=== PATIENT | female | born 1985 | race Caucasian/White ===

== ENCOUNTER → 2017-07-22 10:43 | Outpatient (CLI) | payer OTHER, SELFPAY ==
[2017-07-22 12:20] LABS: Add Manual Diff / Slide Review NO; Basophils Percent Auto 0.8 % (0-2); Eosinophils Percent Auto 0.7 % (2-4); Hematocrit 38.6 % (36-46); Hemoglobin 13.2 g/dL (12.0-16.0); Lymphocytes Percent Auto 24.4 % (25-40); Mean Corpuscular HGB Conc 34.1 % (30-36); Mean Corpuscular Hemoglobin 31.7 PG (26-34); Monocytes Percent Auto 6.9 % (3-14); Neutrophils Absolute Auto 5100 /uL (3000-5900); Neutrophils Percent Auto 67.2 % (50-75); Platelet Count 252 X10^3/uL (150-400); Red Blood Cell Count 4.15 X10^6/uL (4.0-5.2); Red Cell Distribution Width 13.2 % (11.6-14.8); White Blood Cell Count 7.5 X10^3/uL (4.5-11.0)
[2017-07-22 13:21] LABS: TSH w/ Reflex to FT4 0.33 uIU/mL (0.47-4.68)
[2017-07-22 13:48] LABS: Free T4, Direct Thyroxine 0.99 ng/dL (0.78-2.19)
== END ==
PROVIDERS: PCP Family Medicine; Visit Provider Family Medicine
DX: R53.82 Chronic fatigue, unspecified (principal)
CPT/HCPCS: 36415; 84439; 84443; 85025

== ENCOUNTER → 2019-11-24 11:30 | Outpatient (CLI) | payer OTHER, SELFPAY ==
[2019-11-24 12:24] LABS: HCG Quantitative /Beta subunit 6.9 mIU/mL
== END ==
PROVIDERS: PCP Family Medicine; Referring Provider Family Medicine; Visit Provider Family Medicine
DX: N92.6 Irregular menstruation, unspecified (principal)
CPT/HCPCS: 36415; 84702

== ENCOUNTER → 2019-11-26 12:58 | Outpatient (CLI) | payer OTHER, SELFPAY ==
[2019-11-26 14:25] LABS: HCG Quantitative /Beta subunit < 2.4 mIU/mL
== END ==
PROVIDERS: PCP Family Medicine; Referring Provider Family Medicine; Visit Provider Family Medicine
DX: N92.6 Irregular menstruation, unspecified (principal)
CPT/HCPCS: 36415; 84702

== ENCOUNTER → 2019-12-25 09:57 | Outpatient (CLI) | payer OTHER, SELFPAY ==
[2019-12-25 11:21] LABS: HCG Quantitative /Beta subunit 94 mIU/mL
== END ==
PROVIDERS: PCP Family Medicine; Referring Provider Family Medicine; Visit Provider Family Medicine
DX: N91.2 Amenorrhea, unspecified (principal)
CPT/HCPCS: 36415; 84702

== ENCOUNTER → 2019-12-27 13:15 | Outpatient (CLI) | payer OTHER, SELFPAY | PROVIDERS: PCP Family Medicine; Referring Provider Family Medicine; Visit Provider Family Medicine | DX: N91.2 Amenorrhea, unspecified (principal) | CPT/HCPCS: 36415; 84702 ==

== ENCOUNTER → 2020-01-25 14:12 | Outpatient (CLI) | payer OTHER, SELFPAY ==
[2020-01-25 14:55] LABS: Add Manual Diff / Slide Review NO; Appearance Urine UA CLEAR; Basophils Absolute Auto 100 /uL (0-100); Basophils Percent Auto 0.9 % (0-2); Bilirubin Urine UA NEGATIVE (NEGATIVE); Color Urine UA YELLOW; Eosinophils Absolute Auto 0 /uL (0-450); Eosinophils Percent Auto 0.4 % (2-4); Glucose Urine UA NEGATIVE (Negative); Hematocrit 36.8 % (36-46); Hemoglobin 12.7 g/dL (12.0-16.0); Ketones Urine UA NEGATIVE (NEGATIVE); Leukocyte Esterase Urine UA NEGATIVE (NEGATIVE); Lymphocytes Absolute Auto 1800 /uL (1100-4500); Lymphocytes Percent Auto 19.6 % (25-40); Mean Corpuscular HGB Conc 34.4 % (30-36); Mean Corpuscular Hemoglobin 31.8 PG (26-34); Mean Corpuscular Volume 92.5 fL (80-100); Monocytes Absolute Auto 500 /uL (0-900); Neutrophils Absolute Auto 7000 /uL (1500-7000); Neutrophils Percent Auto 74.1 % (50-75); Nitrite Urine UA NEGATIVE (Negative); Occult Blood Urine UA NEGATIVE (Negative); Platelet Count 275 X10^3/uL (150-400); Protein Urine UA NEGATIVE (Negative); Red Blood Cell Count 3.98 X10^6/uL (4.0-5.2); Red Cell Distribution Width 12.9 % (11.6-14.8); Urobilinogen Urine UA 0.2 E.U./dL (0.2); White Blood Cell Count 9.4 X10^3/uL (4.5-11.0)
[2020-01-25 15:00] LABS: pH Urine UA 5.5 (4.5-8.0)
[2020-01-26 07:00] LABS: RPR Screen Non Reactive (Non Reactive)
[2020-01-26 10:30] LABS: Varicella IgG Antibody 850 index (Immune >165)
[2020-01-31 16:32] LABS: Hepatitis B Surface Antigen NEGATIVE s/c (NEGATIVE); Rubella Antibody IgG 88.9 IU/mL (>15)
[2020-01-31 16:51] LABS: Hep C Virus Ab w/Reflex Quant NEGATIVE s/c (NEGATIVE)
[2020-01-31 16:52] LABS: HIV 1 & 2 Ab/Ag 4th Gen Combo NEGATIVE (NEGATIVE)
== END ==
PROVIDERS: PCP Family Medicine; Referring Provider Family Medicine; Visit Provider Family Medicine
DX: Z34.91 Encounter for supervision of normal pregnancy, unspecified, first trimester (principal)
CPT/HCPCS: 36415; 80055; 81003; 86787; 86803; 86850; 86900; 86901; 87086; 87389

== ENCOUNTER → 2020-04-14 14:51 | Outpatient (CLI) | payer OTHER, SELFPAY ==
--- NOTE | 2020-04-14 14:52 | DI.US.S_ITS ---
PROCEDURE: US OB >= 14 WEEKS FETUS INDICATIONS: ANATOMY OUTSIDE/PRIOR DATING DATA: Last menstrual period (LMP): 11/27/2019. LMP-based estimated date of delivery (KATIE): 09/02/2020. First dating scan (date and location): 04/14/2020. Estimated date of delivery (KATIE) from first dating scan: 09/02/2020. TECHNIQUE: Real-time scanning was performed of the fetus, with image documentation and biometric measurements. Endovaginal scanning: Not indicated COMPARISON: None. FINDINGS: General: A single living intrauterine gestation is present. Presentation: Variable Placenta: Placental position is anterior, without previa. Amniotic fluid index: 19.3 cm, normal range is 5-24 cm. heart rate: 155 beats per minute. Maternal cervical canal: 3.5 cm long. Normal lower limit is 2.5 cm. biometrics: Biparietal diameter: 4.6 cm, 19 weeks, 6 days Head circumference: 16.7 cm, 19 weeks, 3 days Abdominal circumference: 14.7 cm, 20 weeks, 0 day Femur length: 3.2 cm, 20 weeks, 0 day. Estimated gestational age from initial scan: not applicable. Composite gestational age from present scan: 19 weeks, 6 days Estimated weight and percentile: 323 grams, 51 percent. Measurement variability for biometric dating: +/- 7 days from 14 weeks to 15 weeks 6 days gestation, +/- 10 days from 16 weeks to 21 weeks 6 days gestation, +/- 2 weeks from 22 weeks to 27 weeks 6 days gestation, +/- 3 weeks for 28 weeks gestation or later. weight reference: 4500 g or EFW >90/95% is considered macrosomia or large for gestational age. EFW <10% is small for gestational age. EFW 5% or less is considered intra-uterine growth restriction. Anatomic survey: Neuro: Ventricles are non-dilated at less than 10 mm. Cisterna magna and cerebellum are not well seen on this study. Nuchal skin fold: Normal at less than 6 mm between 14-21 weeks gestational age. Face: Not well seen Spine: No evidence for spina bifida. Heart: Four-chamber heart and outflow tracts are not well seen. Diaphragm: Diaphragm is intact. Stomach: Left-sided stomach is present. Kidneys: No hydronephrosis. Normal is less than 5 mm in 2nd trimester, less than 7 mm in 3rd trimester. Cord: 3-vessel cord has orthotopic insertion. Bladder: Normal in size. Extremities: All 4 extremities identified. IMPRESSION: 1. Single live intrauterine with fetus in variable presentation. heart rate is 155 beats per minute. Estimated gestational age is 19 weeks, 6 days. weight is at 51 percentile. 2. Cisterna magna and cerebellum, facial profile, four-chamber heart and outflow tracts are not well seen. Rest of the anatomic survey is within normal limits. Dictated by: Zeeshan Owens M.D. on 04/14/2020 at 16:59 Approved by: Zeeshan Owens M.D. on 04/14/2020 at 17:03
== END ==
PROVIDERS: PCP Family Medicine; Referring Provider Family Medicine; Visit Provider Family Medicine
DX: Z34.92 Encounter for supervision of normal pregnancy, unspecified, second trimester (principal); Z3A.19 19 weeks gestation of pregnancy
CPT/HCPCS: 76811

== ENCOUNTER → 2020-04-19 09:33 | Outpatient (CLI) | payer OTHER, SELFPAY ==
[2020-04-20 06:09] LABS: Hepatitis B Surf Ab Qualitativ Reactive (.)
== END ==
PROVIDERS: PCP Family Medicine; Referring Provider Family Medicine; Visit Provider Family Medicine
DX: Z01.84 Encounter for antibody response examination (principal)
CPT/HCPCS: 36415; 86706

== ENCOUNTER → 2020-05-02 15:36 | Outpatient (CLI) | payer OTHER, SELFPAY ==
--- NOTE | 2020-05-02 15:37 | DI.US.S_ITS ---
PROCEDURE: US OB FOLLOW UP INDICATIONS: FOLLOW UP ANATOMY OUTSIDE/PRIOR DATING DATA: Last menstrual period (LMP): 11/27/2019. LMP-based estimated date of delivery (KATIE): 09/02/2020 . First dating scan (date and location): To 1221 . Estimated date of delivery (KATIE) from first dating scan: 09/02/2020 . TECHNIQUE: Real-time scanning was performed of the fetus, with image documentation and biometric measurements. Endovaginal scanning: No COMPARISON: [facility], OB >= 14 WEEKS FETUS, 04/14/2020, 15:39. FINDINGS: General: A single living intrauterine gestation is present. Presentation: Vertex. Placenta: Placental position is anterior , without previa. Amniotic fluid index: 12.6 cm, normal range is 5-24 cm. heart rate: 135 beats per minute. Maternal cervical canal: 4.3 cm long. Normal lower limit is 2.5 cm. Estimated gestational age from initial scan: 22 weeks 3 days IMPRESSION: 1. Single living IUP redemonstrated and today's exam demonstrating normal appearance of the facial profile, cerebellum, cisterna magna, four-chamber heart and cardiac outflow tracts. Dictated by: Edwin Acuña [facility] Interpreted: Jolynn Soria MD on 05/02/2020 at 16:41 Approved by: Jolynn Soria M.D. on 05/02/2020 at 18:15
== END ==
PROVIDERS: PCP Family Medicine; Referring Provider Family Medicine; Visit Provider Family Medicine
DX: Z36.2 Encounter for other antenatal screening follow-up (principal); Z3A.22 22 weeks gestation of pregnancy
CPT/HCPCS: 76816

== ENCOUNTER → 2020-06-09 12:58 | Outpatient (CLI) | payer OTHER, SELFPAY | PROVIDERS: PCP Family Medicine; Referring Provider Family Medicine; Visit Provider Family Medicine | DX: B82.9 Intestinal parasitism, unspecified (principal) | CPT/HCPCS: 87177 ==

== ENCOUNTER → 2020-06-12 14:28 | Outpatient (CLI) | payer OTHER, SELFPAY ==
[2020-06-12 17:06] LABS: Add Manual Diff / Slide Review NO; Basophils Absolute Auto 100 /uL (0-100); Basophils Percent Auto 0.4 % (0-2); Eosinophils Absolute Auto 0 /uL (0-450); Eosinophils Percent Auto 0.2 % (2-4); Hematocrit 31.1 % (36-46); Hemoglobin 10.7 g/dL (12.0-16.0); Lymphocytes Absolute Auto 1700 /uL (1100-4500); Lymphocytes Percent Auto 13.2 % (25-40); Mean Corpuscular HGB Conc 34.5 % (30-36); Mean Corpuscular Volume 92.9 fL (80-100); Monocytes Absolute Auto 600 /uL (0-900); Monocytes Percent Auto 4.9 % (3-14); Neutrophils Absolute Auto 10200 /uL (1500-7000); Neutrophils Percent Auto 81.3 % (50-75); Platelet Count 232 X10^3/uL (150-400); Red Blood Cell Count 3.35 X10^6/uL (4.0-5.2); White Blood Cell Count 12.6 X10^3/uL (4.5-11.0)
[2020-06-12 20:40] LABS: GTT (PREG) 1 Hour PP 50gm Dose 112 mg/dL (76-139)
== END ==
PROVIDERS: PCP Family Medicine; Referring Provider Family Medicine; Visit Provider Family Medicine
DX: Z34.90 Encounter for supervision of normal pregnancy, unspecified, unspecified trimester (principal)
CPT/HCPCS: 36415; 82950; 85025

== ENCOUNTER → 2020-08-08 16:01 | Outpatient (CLI) | payer OTHER, SELFPAY ==
[2020-08-09 13:29] LABS: Strep Grp B PCR NEG for Grp B Strep
== END ==
PROVIDERS: PCP Family Medicine; Visit Provider Family Medicine
DX: Z34.90 Encounter for supervision of normal pregnancy, unspecified, unspecified trimester (principal); Z3A.36 36 weeks gestation of pregnancy
CPT/HCPCS: 87653

== ENCOUNTER 2020-08-30 13:15 | Inpatient (IN) | payer OTHER, SELFPAY ==
[2020-08-30 14:39] LABS: Add Manual Diff / Slide Review NO; Basophils Absolute Auto 0 /uL (0-100); Basophils Percent Auto 0.3 % (0-2); Eosinophils Absolute Auto 0 /uL (0-450); Eosinophils Percent Auto 0.1 % (2-4); Hematocrit 35.1 % (36-46); Lymphocytes Absolute Auto 1100 /uL (1100-4500); Lymphocytes Percent Auto 6.3 % (25-40); Mean Corpuscular HGB Conc 34.1 % (30-36); Mean Corpuscular Hemoglobin 31.4 PG (26-34); Mean Corpuscular Volume 91.9 fL (80-100); Monocytes Absolute Auto 1000 /uL (0-900); Monocytes Percent Auto 5.6 % (3-14); Neutrophils Absolute Auto 15200 /uL (1500-7000); Neutrophils Percent Auto 87.7 % (50-75); Platelet Count 216 X10^3/uL (150-400); Red Blood Cell Count 3.82 X10^6/uL (4.0-5.2); Red Cell Distribution Width 13.1 % (11.6-14.8); White Blood Cell Count 17.3 X10^3/uL (4.5-11.0)
[2020-08-30 14:40] VITALS: BP 119/75
[2020-08-30 15:37] LABS: COVID19 - ADMIT (NP swab/PCR) Negative (Negative)
--- NOTE | 2020-08-30 20:00 | PM.OBHP.1 ---
OB HPI Date/Time Date of admission: 08/30/20 Date Patient Seen: 08/30/20 Time Patient Seen: 17:30 History of Present Condition Chief complaint: EVAL OF LABOR : 1 Para: 0 Estimated Date of Delivery: 09/02/20 Estimated Gestational Age (weeks): 39w4d Narrative: Sandy Monteiro is a 34 year old at 39w4d who presented with concerned for ROM and regular contractions. Pt reports contractions began around 10pm last night. She was able to sleep through them, but then this morning they increased in intensity and frequency, now every 2-3 minutes. She also has been leaking small amounts of pink-tinged fluid. She lost her mucus plug last night. No jennifer vaginal bleeding. She is feeling her baby move regularly. The pts has been uncomplicated. History of Present care: good care, initiated at week # (8) and pounds weight gain (42) Dating criteria: LMP confirmed by 1st trimester US Ultrasounds: normal 1st trimester US and normal mid trimester US Obstetrical complications: none Medical complications: none Preadmission Labs Blood type: A (+) positive -: Antibody screen: negative, GBS status: negative, HBsAG: negative, HIV: negative and RPR/VDLR: negative -: Rubella: immune and Varicella: immune HCT: 31.1 HCAB: negative PAP: Normal Urine: Negative 1 hr GTT: 112 Evaluation Evaluation Baseline heart rate: 150 Variability: Moderate (11-25) monitor accelerations: Present Monitor Decelerations: Absent Contraction Frequency (minutes): 3 Uterine Contraction Intensity: Strong/Firm Status: Category l Cervical dilation (cm): 10 Cervical effacement (%): 100 station: +1 Laboratory results: Laboratory Tests 08/30/20 08/30/20 08/30/20 14:30 14:30 14:30 WBC 17.3 H RBC 3.82 L Hgb 12.0 Hct 35.1 L MCV 91.9 MCH 31.4 MCHC 34.1 RDW 13.1 Plt Count 216 Neut % (Auto) 87.7 H Lymph % (Auto) 6.3 L [place] % (Auto) 5.6 Eos % (Auto) 0.1 L Baso % (Auto) 0.3 Neut # (Auto) 75950 H Lymph # (Auto) 1100 [place] # (Auto) 1000 H Eos # (Auto) 0 Baso # (Auto) 0 SARS-CoV-2 (PCR) Negative Blood Type A Positive Antibody Screen Negative PFSH Medical History (Updated 01/24/20 @ 15:00 by Chanell Chavarria RN) Acne Arm fracture, left Chicken pox Shingles UTI (urinary tract infection) Surgical History (Updated 01/24/20 @ 14:55 by Chanell Chavarria RN) [place] teeth removed Family History (Updated 01/24/20 @ 15:01 by Chanell Chavarria RN) Mother Cancer Hypertension Heavy smoker Anxiety Father Hyperlipidemia Heart disease Hx of heart bypass surgery Heavy smoker Depression Grandmother Diabetes mellitus Hx of leg amputation Grandfather Cancer Grandmother Creutzfeldt-Aníbal's disease Multiple gallstones Grandfather Myocardial infarct Family/Other Leukemia Pancreatic cancer Brother S/P laparoscopic cholecystectomy Depression Social History marital status: number of children: 0 household members: spouse lives independently: Yes caregiver/support person: No housing: house pets and animals: Yes (dog) education level: college (dental school) 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 sexual history: Monogamous with boyfriend : who is now her Smoking Status: Never smoker second hand exposure: No (grew up in a home with both parents smoking) alcohol intake: former (pre- : social/occasional) substance use type: does not use Meds Home Medications and Allergies Home Medications Medication Instructions Recorded Confirmed Type ascorbic acid 1,000 1 ea PO DAILY 01/24/20 08/31/20 History pp-mhmxzdwqibrs-qiyotjpd powder effervescent pack (Emergen-C) cholecalciferol (vitamin D3) 25 25 mcg PO DAILY 01/24/20 08/31/20 History mcg (1,000 unit) capsule cranberry extract 500 mg capsule 500 mg PO BID 01/24/20 08/31/20 History (Cranberry Concentrate) prenat.vits,balaji,okb-dgou-cmkkp 1 tab PO DAILY 01/24/20 08/30/20 History vitamin C 50 mg-biotin 1,250 mcg 1 tab PO DAILY 01/24/20 08/30/20 History chewable tablet (Disr-Ogiw-Yfyqp (vit C-biotin)) Allergies Allergy/AdvReac Type Severity Reaction Status Date / Time latex AdvReac Intermediate Skin rash Verified 01/24/20 14:15 to hands No Known Allergies Allergy Uncoded 01/24/20 14:15 Exam Vital Signs (past 8 hours): - 08/30/20 14:40 Blood Pressure 119/75 Const General: cooperative, healthy appearing and comfortable Orientation: alert, awake and oriented x3 Resp Effort & Inspection: normal respiratory effort Auscultation: clear to auscultation bilaterally Cardio Rate: regular rate Rhythm: regular rhythm Heart Sounds: S1 normal, S2 normal and no murmurs GI Inspection: non-distended Palpation: soft and No tender Other: gravid Presentation: vertex Extrem General: no clubbing, cyanosis or edema Objective Labs Result Diagrams: 08/30/20 14:30 Labs: Laboratory Results - last 24 hr 08/30/20 08/30/20 08/30/20 14:30 14:30 14:30 WBC 17.3 H RBC 3.82 L Hgb 12.0 Hct 35.1 L MCV 91.9 MCH 31.4 MCHC 34.1 RDW 13.1 Plt Count 216 Neut % (Auto) 87.7 H Lymph % (Auto) 6.3 L [place] % (Auto) 5.6 Eos % (Auto) 0.1 L Baso % (Auto) 0.3 Neut # (Auto) 63499 H Lymph # (Auto) 1100 [place] # (Auto) 1000 H Eos # (Auto) 0 Baso # (Auto) 0 SARS-CoV-2 (PCR) Negative Blood Type A Positive Antibody Screen Negative Assessment and Plan Assessment and Plan Assessment and Plan narrative: 34yo at 39w4d here in active labor. No complications with . GBS negative, Rh positive. - Expectant management, anticipate - FHT reassuring - GBS negative, no prophylaxis indicated - Epidural for pain control in place
--- NOTE | 2020-08-30 20:01 | PM.OBPRVD ---
Labor & Delivery Delivery date: 08/30/20 Intrapartal Events: None Cervical ripening method: none Induction method: none Delivery monitor: external FHT Route of delivery: Episiotomy description: None L&D Laceration Description: Perineal - 1st Degree Delivery repair: chromic (3-O) Estimated blood loss (mL): 100 Anesthesia Type: Epidural Complications: None Narrative: PROCEDURE: at 39w4d presented in active labor with SROM and was admitted to Labor and Delivery. The patient progressed through the 1st stage over 11 hours. Pain was controlled with an epidural. The patient progressed through the 2nd stage over 2 hours and delivered a viable female with APGARs 9/9 at 19:10 via without complications. The cord was clamped and cut after it stopped pulsating. The perineum and vagina were inspected with 1st degree perineal laceration repaired with 3-O chromic for hemostasis. The pt tolerated delivery well. PREPROCEDURE DIAGNOSIS: Intrauterine at 39w4d GBS negative RH positive POSTPROCEDURE DIAGNOSIS: Intrauterine at 39w4d, delivered Same as preprocedure Baby 1: gender: Female Presentation: vertex Position: Left Occiput Anterior Placenta delivery description: Spontaneous Cord Vessel Description: 3 Vessels score (1 min): 9 score (5 min): 9 Narrative: 7lb2.3oz, 3241g Plan for aftercare: Routine care
[2020-08-31] MEDS: DERMOPLAST SPRAY 20% 60 ML 1 SPRAY TOP (01:59)
[2020-08-31] MEDS: ACETAMINOPHEN 325 MG TABLET 650 MG PO (05:41)
--- NOTE | 2020-08-31 19:12 | P.DS_ITS ---
Discharge Providers Provider Date of admission: 08/30/20 13:15 Discharge Date: 08/31/20 Primary care physician: Maria Elena Padilla MD Consults: 08/31/20 19:59 Consult to Skin Pass Operator Routine Comment: Discharge provider: Maria Elena Padilla MD Summary Hospital Course Date Patient Seen: 09/01/20 Time Patient Seen: 09:00 Diagnoses: 39w4d without complications Hospital Course: The patient presents today in active labor. She received an epidural for pain control. She progressed to complete and had spontaneous vaginal delivery of a viable baby girl at 7:10 p.m. on 08/30/2020. there were no complications with delivery. A first-degree perineal laceration was then repaired for hemostasis. The patient tolerated delivery well. , there were no complications. At the time of discharge he was voiding, ambulating, and passing flatus without difficulty. Her lochia was decreasing appropriately. Her pain was adequately controlled. She was breast-feeding with good latch with a nipple shield. She will follow-up in 6 weeks for her check. Peripartum Data Delivery Method: Natural Vaginal Laceration Description: Perineal - 1st Degree Episiotomy description: None Procedures: Spontaneous vaginal delivery complications: none 1: Gender: Female Disposition of : home Discharge Diagnosis (1) Spontaneous vaginal delivery: Status: Acute Time Spent with Patient Time attestation: Total time spent providing and/or coordinating discharge services: Objective Labs Result Diagrams: 08/30/20 14:30 Exam Narrative Exam Narrative: Gen: NAD, sitting comfortably in bed, appears well CV: RRR, no murmurs Resp: clear to auscultation bilaterally Abd: soft, appropriately tender, fundus firm and below the umbilicus, nondistended Ext: no edema Discharge Plan Discharge Plan Patient Disposition: Home Discharge orders & Medications Prescriptions: Continued prenat.vits,balaji,vds-mtbj-iiity Tablet 1 tab PO DAILY RF: 0 cholecalciferol (vitamin D3) 25 mcg (1,000 unit) capsule 25 mcg PO DAILY RF: 0 cranberry extract [Cranberry Concentrate] 500 mg capsule 500 mg PO BID RF: 0 Avej-Zkek-Nalhl (vit C-biotin) 50 mg -1,250 mcg tablet,chewable 1 tab PO DAILY RF: 0 Emergen-C 1,000 mg powder effervescent in packet 1 ea PO DAILY RF: 0 Follow up/Referrals: Maria Elena Padilla MD [Primary Care Provider] - 6 Weeks (please schedule your 6 week appt sanchez elaine/ Dr. Padilla) Diet/Activity/Treatments Diet: Regular Skin/Wound/Dressing Care Report to your healthcare provider any signs of infection, such as:: chills, fever, increased pain and unusual drainage Visit Report/Discharge Packet Instructions: DI for Labor and Delivery, Vaginal Visit Report Forms: Patient Portal/API, Stroke Signs & Symptoms Discharge Data Primary Care Provider: Maria Elena Padilla Discharges patient from system. Discharge Date/Time: 08/31/20 20:10
== END 2020-08-31 20:10 | disposition home or self-care (01) | DRG 807 ==
PROVIDERS: Admitting Provider Specialist; PCP Family Medicine; Referring Provider Specialist; Visit Provider Specialist
DX: O70.0 First degree perineal laceration during delivery (principal); Z37.0 Single live birth; Z3A.39 39 weeks gestation of pregnancy
CPT/HCPCS: 01967; 36415; 59050; 59400; 85025; 86850; 86900; 86901; 87635; C9803; G0379; S3620

== ENCOUNTER → 2020-09-29 14:01 | Outpatient (CLI) | payer OTHER, SELFPAY ==
[2020-09-29 15:19] LABS: Hemoglobin A1C% w Est Avg Glu 5.2 % (4.0-6.0)
[2020-09-29 16:12] LABS: Vitamin B12 550 pg/mL (239-931)
== END ==
PROVIDERS: PCP Family Medicine; Referring Provider Family Medicine; Visit Provider Family Medicine
DX: G62.9 Polyneuropathy, unspecified (principal)
CPT/HCPCS: 36415; 82607; 83036

== ENCOUNTER → 2020-10-03 16:26 | Outpatient (CLI) | payer OTHER, SELFPAY ==
[2020-10-03 16:30] LABS: Bacteria Urine None Seen; RBC Urine None Seen (0-5/HPF); WBC Urine None Seen (0-5/HPF)
[2020-10-03 17:51] LABS: Appearance Urine UA CLEAR; Bilirubin Urine UA NEGATIVE (NEGATIVE); Color Urine UA YELLOW; Glucose Urine UA NEGATIVE (Negative); Ketones Urine UA NEGATIVE (NEGATIVE); Leukocyte Esterase Urine UA NEGATIVE (NEGATIVE); Nitrite Urine UA NEGATIVE (Negative); Occult Blood Urine UA NEGATIVE (Negative); Protein Urine UA NEGATIVE (Negative); Specific Gravity Urine UA <=1.005 (1.000-1.035); Urobilinogen Urine UA 0.2 E.U./dL (0.2)
[2020-10-03 17:52] LABS: pH Urine UA 6.5 (4.5-8.0)
[2020-10-03 18:55] LABS: Culture Indicated Urine Cult Not Indicated
== END ==
PROVIDERS: PCP Family Medicine; Referring Provider Family Medicine; Visit Provider Family Medicine
DX: R30.0 Dysuria (principal)
CPT/HCPCS: 81001

== ENCOUNTER 2020-10-03 18:53 | Emergency (ER) | payer OTHER, SELFPAY ==
[2020-10-03 19:00] VITALS: BP 130/79; PULSE 65; RESP 22; TEMP 36.9; O2SAT 98
--- NOTE | 2020-10-03 21:40 | ED_ITS ---
HPI - General Adult General Chief complaint: Urogenital-Female Stated complaint: pelvic pain s/p giving 5 weeks ago Time Seen by Provider: 10/03/20 20:50 Source: patient Mode of arrival: Ambulatory History of Present Illness HPI narrative: Patient is a 34-year-old female who is 5 weeks status post spontaneous vaginal delivery. Approximately 2 weeks ago she was having some bulging in her vaginal area and was seen by her mobile home park manager. She was told that she had a small bladder prolapse. There was discussion about sending her to physical therapy for pelvic floor exercises but that has not happened yet. She states that over the past couple days she has now noticed some discomfort in the area. Denies any urinary symptoms. No bowel changes. She states she had 1 stitch placed in the vagina after the . No fevers. She is . Related Data Home Medications Medication Instructions Recorded Confirmed ascorbic acid 1,000 1 ea PO DAILY 01/24/20 09/21/20 ud-regzlrxpyqjq-tjqmvfmm powder effervescent pack (Emergen-C) cholecalciferol (vitamin D3) 25 25 mcg PO DAILY 01/24/20 09/21/20 mcg (1,000 unit) capsule cranberry extract 500 mg capsule 500 mg PO BID 01/24/20 09/21/20 (Cranberry Concentrate) prenat.vits,balaji,aka-qqts-fmrlk 1 tab PO DAILY 01/24/20 09/21/20 vitamin C 50 mg-biotin 1,250 mcg 1 tab PO DAILY 01/24/20 09/21/20 chewable tablet (Apxv-Bynj-Rotun (vit C-biotin)) Allergies Allergy/AdvReac Type Severity Reaction Status Date / Time latex AdvReac Intermediate Skin rash Verified 09/29/20 12:34 to hands No Known Allergies Allergy Uncoded 09/29/20 12:34 Review of Systems Constitutional Constitutional: Reports as per HPI Cardiovascular Cardiovascular: Reports system reviewed and no additional complaints, except as documented Respiratory Respiratory: Reports system reviewed and no additional complaints, except as documented Gastrointestinal Gastrointestinal: Reports system reviewed and no additional complaints, except as documented Genitourinary Genitourinary: Reports as per HPI Integumentary/Breasts Skin/Breast: Reports system reviewed and no additional complaints, except as documented Neurologic Neurologic: Reports system reviewed and no additional complaints, except as documented Psychiatric Comments: Reports crying a lot Hematologic/Lymphatic On Anticoagulants: No Patient History Medical History Acne Arm fracture, left Chicken pox Shingles Spontaneous vaginal delivery UTI (urinary tract infection) Surgical History (Updated 01/24/20 @ 14:55 by Chanell Chavarria RN) [place] teeth removed Family History (Updated 01/24/20 @ 15:01 by Chanell Chavarria RN) Mother Cancer Hypertension Heavy smoker Anxiety Father Hyperlipidemia Heart disease Hx of heart bypass surgery Heavy smoker Depression Grandmother Diabetes mellitus Hx of leg amputation Grandfather Cancer Grandmother Creutzfeldt-Aníbal's disease Multiple gallstones Grandfather Myocardial infarct Family/Other Leukemia Pancreatic cancer Brother S/P laparoscopic cholecystectomy Depression Social History marital status: number of children: 0 household members: spouse lives independently: Yes caregiver/support person: No housing: house pets and animals: Yes (dog) education level: college (dental school) 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 sexual history: Monogamous with boyfriend : who is now her Smoking Status: Never smoker second hand exposure: No (grew up in a home with both parents smoking) alcohol intake: former (pre- : social/occasional) substance use type: does not use Smoking Status: Never smoker Exam Initial Vital Signs Initial Vital Signs: Vital Signs Temperature 98.4 F 10/03/20 19:00 Pulse Rate 65 10/03/20 19:00 Respiratory Rate 22 10/03/20 19:00 Blood Pressure 130/79 10/03/20 19:00 Pulse Oximetry 98 10/03/20 19:00 Const General: cooperative and comfortable HENMT Head: normal to inspection and normocephalic Resp Effort & Inspection: normal respiratory effort Cardio Rate: regular rate GI Inspection: normal to inspection Other: Vaginal area appears well. There was no bleeding. There is a small bladder prolapse that can be easily filled with having the patient bear down. This exam was done with the patient's permission and nursing staff in room. Skin General: no rashes or lesions noted Neuro General: patient alert, patient awake and patient oriented x3 Extrem General: normal to inspection Psych Mental Status: mental status grossly normal and other (Sad) Mood: other (Sad) Affect: sad Course Orders Ordered: Discontinued Medications Hydrocodone Bitart/Acetaminophen (Hydrocodone/Acet 5/325 Prepack) 1 bottle MISC SEEINSTR ONE Stop: 10/03/20 22:00 Last Admin: 10/03/20 22:06 Dose: 1 bottle Documented by: JASON Vital Signs Vital signs: Vital Signs - 8 hr 10/03/20 19:00 Temperature 98.4 F Pulse Rate 65 Respiratory Rate 22 Blood Pressure 130/79 Pulse Oximetry 98 Medical Decision Making MDM Narrative Medical decision making narrative: Patient does have a small bladder prolapse however the rest of her exam is relatively unremarkable. Her postvoid residual is unremarkable. She is not having any urinary symptoms. She does have a very flat affect. Was crying in the room. I do have a suspicion that there may be some depression along with the other issues that she is having. Her child has some medical issues. Has a large hemangioma that needs to be seen by specialist. The patient states she is not getting much sleep at night. With regard to her pelvic pain. There is no indication for antibiotics. No indication for radiologic studies. She has a follow-up with her primary doctor already scheduled next week for her 6 week . She is already in the works to be seen by physical therapy to work on pelvic floor exercises. I feel that this is an appropriate course of treatment for her pelvic pain. We did discuss use of Tylenol and ibuprofen. Will also send home with a short course of [place] because the discomfort that she is having is affecting her and her ability to breastfeed. We did discuss that this will cross over into her breast milk and we discussed the risks and benefits of this and potential complications with her child. She expressed understanding. [place] to potential depression. Informed her that she needed to discuss this with her primary doctor next week. She was given return precautions and follow-up instructions. She expressed understanding and agreement. Discharge Plan Departure Patient Disposition: Home Clinical Impression: Bladder prolapse, Pelvic pain Instructions: DI for Pelvic Pain Activity Restrictions/Additional Instructions: I do recommend that you keep your appointment with your primary doctor next Friday. You can add a nonsteroidal anti-inflammatories such as Motrin/Naprosyn to the Tylenol your already taking. For the breakthrough discomfort you can take the medicine you were given this evening however remember that this medication is excreted through the breast milk and can make your baby more sleepy. Return to the emergency department for any new or worsening symptoms Prescriptions: No Action prenat.vits,balaji,dtq-dydb-dlzxf Tablet 1 tab PO DAILY RF: 0 cholecalciferol (vitamin D3) 25 mcg (1,000 unit) capsule 25 mcg PO DAILY RF: 0 cranberry extract [Cranberry Concentrate] 500 mg capsule 500 mg PO BID RF: 0 Txfs-Puew-Opeib (vit C-biotin) 50 mg -1,250 mcg tablet,chewable 1 tab PO DAILY RF: 0 Emergen-C 1,000 mg powder effervescent in packet 1 ea PO DAILY RF: 0 Referrals: Maria Elena Padilla MD [Primary Care Provider] -
[2020-10-03] MEDS: HYDROCODONE/ACET 5/325 PREPACK 1 BOTTLE MISC (22:06)
== END 2020-10-03 22:16 | disposition home or self-care (01) ==
PROVIDERS: Emergency Provider Emergency Medicine; PCP Family Medicine
DX: N81.10 Cystocele, unspecified (principal); R10.2 Pelvic and perineal pain
CPT/HCPCS: 81001; 99281; 99283

== ENCOUNTER → 2020-12-26 16:46 | Outpatient (CLI) | payer OTHER, SELFPAY ==
[2020-12-26 18:48] LABS: TSH w/ Reflex to FT4 1.43 uIU/mL (0.47-4.68)
== END ==
PROVIDERS: PCP Family Medicine; Referring Provider Family Medicine; Visit Provider Family Medicine
DX: R79.89 Other specified abnormal findings of blood chemistry (principal)
CPT/HCPCS: 36415; 84443

== ENCOUNTER → 2021-01-04 08:11 | Outpatient (CLI) | payer OTHER, SELFPAY ==
--- NOTE | 2021-02-15 16:59 | PT.OIE ---
Current Diagnoses Other disturbances of skin sensation (01/04/21) Past Medical History (Last Reviewed 01/06/21 @ 15:15 by Jose Dumont MD) Acne Arm fracture, left Chicken pox Shingles Spontaneous vaginal delivery UTI (urinary tract infection) Past Surgical History (Last Reviewed 01/06/21 @ 15:15 by Jose Dumont MD) [place] teeth removed Visit Care Team Role Provider Type Maria Elena Padilla MD Attending Provider Physician Family Provider Primary Care Provider Referring Provider Specialty: Family Practice Address: [address] [place] [address], [facility] Email: [email or web address] Physical Therapy Initial Evaluation PT-OP-A Visit Information Start: 02/15/21 15:15 Freq: Status: Active Protocol: Document 02/15/21 15:16 [facility] (Rec: 02/15/21 15:45 [facility] [id number]) Out-Patient Physical Therapy Visit Information Visit Information Visit Type Initial Evaluation Visit Start Time 15:15 Visit Stop Time 16:00 Total Visit Minutes 45 Visit Number 1 Evaluation Information Evaluation Date 02/15/21 PT-OP-B Current Condition Start: 02/15/21 15:15 Freq: Status: Active Protocol: Document 02/15/21 15:16 [facility] (Rec: 02/15/21 15:45 [facility] [id number]) Current Condition History of Current Condition Onset Date 08/30/20 Current Complaints vaginal delivery of her baby History of Current Condition vaginal delivery of her baby , her leg has been numb since mostly her heel and when she was giving her baby was more on the right side. Two weeks following her childbirth she continued pain and heavy and like a bulge. SHe would feel like she was getting pinched in her pubic symphysis close to her urethra. The gabba shree has helped her symptoms. She reports it takes her a long time to start voiding. Leaking is more like a constant trickle. with bowel movements she does have urgency. [place] is painful. PT-OP-I Pelvic Floor Start: 02/15/21 16:17 Freq: Status: Active Protocol: Document 02/15/21 16:20 [facility] (Rec: 02/15/21 16:40 [facility] [id number]) Pelvic Floor Assessment Urine Pelvic Floor Surgery No Urinary Symptoms Hesitancy,Falling Out Feeling/ Heavy Other Urinary Symptoms pt reports she has to wait for a long duration when attempting to void to be able to void Leakage Size Medium Leakage Cause Cough,Exercise,Lifting,Sneeze Other Leakage Causes continous leakage despite activity Leaks Per Day continous Voiding Frequency 8 times per day Nocturia 3 times Pelvic Clock Pelvic Clock 3-6 Guarding,Hypertonic,Tenderness Pelvic Clock Other pt is unable to contract at her perineum, there is a small amount of scar tissue present and tenderness with any perineal stretching Perineal Descent Resting Absent Contraction Ability Voluntary Contraction Absent Voluntary Relaxation Absent Manual Muscle Testing Left 0 Manual Muscle Testing Right 0 Manual Muscle Testing Anterior 0 Manual Muscle Testing Posterior 1 PT-OP-Q Treatments Start: 02/15/21 15:15 Freq: Status: Active Protocol: Document 02/15/21 16:20 [facility] (Rec: 02/15/21 16:40 [facility] [id number]) Therapeutic Exercises Supine Exercises supine ball squeeze Reps/Minutes x 10 reps hold 3-5 seconds and relax 10 seconds modified pelvic floor squat Reps/Minutes hold 1-2 minutes happy baby stretch Reps/Minutes hold 1-2 minutes PT-OP-T Assessment and Plan Start: 02/15/21 15:15 Freq: Status: Active Protocol: Document 02/15/21 16:40 [facility] (Rec: 02/15/21 16:57 [facility] [id number]) Physical Therapy Assessment Rehab Potential Rehabilitation Potential Excellent Evaluation Complexity Number of Personal Factors/Comorbidities 0 Number of Body Systems Impaired 1-2 Clinical Presentation at Evaluation Stable Impairments Impairments Functional Activities,Pain, Soft Tissue Mobility,Strength, Tone Other Impairments urinary leakage and nocturia Goals Sandy is no longer experiencing urinary incontinence Impairment urinary incontinence that is happening throughout the day despite activity level Underwriting Support Manager Goal (LTG) With improved strength of the levator ani Sandy is no longer experiencing urinary incontinence with ADL's throughout the day LTG Duration 8 weeks plus Improve facilitation of the levator ani as well as strength of the levator ani Impairment Poor levator ani facilitation and strength Short Term Goal (STG) Sandy is able to facilitate all aspects of the levator ani and hold 3-5 seconds in supine STG Duration 4 weeks Underwriting Support Manager Goal (LTG) Sandy is able to improve her MMT of the levator ani from 0/ 5 to 2/5 or better for improved support to her pelvic organs Reduce muscle spasm and guarding of the left lateral wall of the levator ani to help reduce c/o pelvic pain Impairment pelvic pain, pelvic pressure and heaviness Short Term Goal (STG) Sandy is educated on stretches to help her relax her pelvic floor on the left side wall STG Duration 4 weeks Underwriting Support Manager Goal (LTG) There is no longer guarding of the left lateral wall of the levator ani with palpation and pain symptoms have decreased LTG Duration 8 weeks Assessment Summary Assessment Sandy is a 35 year old female who presents to physical therapy with pelvic pressure and pain as well as urinary incontinence. She is 6 months with her first baby. Sandy sustained a 1st degree laceration to the perineum with vaginal delivery . She reports that following delivery she felt continued left leg numbness especially into the heel that has stayed with her. A few weeks post she began feeling pelvic pressure and heaviness. This pressure has stayed with her. She describes painful intercourse. Sandy reports it takes her a long time to begin voiding and she has to sit for 5-10 minutes to relax prior to voiding. She is experiencing leaking throughout her day despite activity. With examination today I am unable to palpate a contraction of any of the aspects of the levator ani. The left wall from 3-6 on the pelvic clock is guarded and in spasm and is a source of pain for Sandy. She has some tenderness at the perineum but no gapping is present. There is a small amount of scar tissue present from the first degree tear. Sandy is unable to lift at her perineum today with cueing. Sandy is a good candidate for PT. Our goals will be to decrease the guarding and spasm of the left wall of the levator ani with manual therapy techniques and stretches for the hips. We will initiate EMG biofeedback next visit to help with neuro re-education of the pelvic floor and Sandy may be a good candidate for a NMES as well. Physical Therapy Plan Frequency and Duration Frequency of Treatment 1x/Week Duration of Treatment 8 Plan of Care Start Date 02/15/21 Therapeutic Interventions Therapeutic Interventions Manual Therapy,Neuromuscular Re-education,Patient/Caregiver Education,Self-Care/Home Management,Therapeutic Exercises Modalities Biofeedback Next Visit Focus/Plan Next Note Type Treatment Note Next Visit Plan review stretches given at inital evaluation and begin EMG biofeedback for neuro re- education of the levator ani
--- NOTE | 2021-02-22 15:56 | PT.OTN ---
Current Diagnoses Other disturbances of skin sensation (01/04/21) Physical Therapy Treatment Note PT-OP-A Visit Information Start: 02/15/21 15:15 Freq: Status: Active Protocol: Document 02/22/21 11:15 [facility] (Rec: 02/22/21 15:55 [facility] [id number]) Out-Patient Physical Therapy Visit Information Visit Information Visit Type Treatment Note Visit Start Time 11:20 Visit Stop Time 12:05 Total Visit Minutes 45 Visit Number 2 PT-OP-B Current Condition Start: 02/15/21 15:15 Freq: Status: Active Protocol: Document 02/15/21 15:16 [facility] (Rec: 02/15/21 15:45 [facility] [id number]) Current Condition History of Current Condition Onset Date 08/30/20 Current Complaints vaginal delivery of her baby History of Current Condition vaginal delivery of her baby , her leg has been numb since mostly her heel and when she was giving her baby was more on the right side. Two weeks following her childbirth she continued pain and heavy and like a bulge. SHe would feel like she was getting pinched in her pubic symphysis close to her urethra. The gabba shree has helped her symptoms. She reports it takes her a long time to start voiding. Leaking is more like a constant trickle. with bowel movements she does have urgency. [place] is painful. PT-OP-C Subjective Start: 02/15/21 15:15 Freq: Status: Active Protocol: Document 02/22/21 11:15 [facility] (Rec: 02/22/21 15:55 [facility] [id number]) OP-PT Subjective Patient Comments Patient Comments pt reports she has been working on her stretches, she didn't have a ball to squeeze so hasn't done that exercise. SHe did feel that she had a little more leaking following first visit PT-OP-I Pelvic Floor Start: 02/15/21 16:17 Freq: Status: Active Protocol: Document 02/15/21 16:20 [facility] (Rec: 02/15/21 16:40 [facility] [id number]) Pelvic Floor Assessment Urine Pelvic Floor Surgery No Urinary Symptoms Hesitancy,Falling Out Feeling/ Heavy Other Urinary Symptoms pt reports she has to wait for a long duration when attempting to void to be able to void Leakage Size Medium Leakage Cause Cough,Exercise,Lifting,Sneeze Other Leakage Causes continous leakage despite activity Leaks Per Day continous Voiding Frequency 8 times per day Nocturia 3 times Pelvic Clock Pelvic Clock 3-6 Guarding,Hypertonic,Tenderness Pelvic Clock Other pt is unable to contract at her perineum, there is a small amount of scar tissue present and tenderness with any perineal stretching Perineal Descent Resting Absent Contraction Ability Voluntary Contraction Absent Voluntary Relaxation Absent Manual Muscle Testing Left 0 Manual Muscle Testing Right 0 Manual Muscle Testing Anterior 0 Manual Muscle Testing Posterior 1 PT-OP-Q Treatments Start: 02/15/21 15:15 Freq: Status: Active Protocol: Document 02/22/21 11:15 [facility] (Rec: 02/22/21 15:55 [facility] [id number]) Therapeutic Exercises Supine Exercises pelvic decompression on the wedge Reps/Minutes x 5 min supine ball squeeze Reps/Minutes x 10 reps hold 3-5 seconds and relax 10 seconds Comments with EMG biofeedback modified pelvic floor squat Reps/Minutes hold 1-2 minutes happy baby stretch Reps/Minutes hold 1-2 minutes Neuro Re-Education Treatment Other Activities EMG biofeedback Details EMG biofeedback for neuro awareness of the pelvic floor Reps/Duration x 10 min Comments pt was able to use the vaginal sensor, worked first on resting tone as this was elevated at 5 uv, pt was able to relax to 4 uv and had a average of 6.5 uv on EMG biofeedback. She was given a HEP of pelvic floor contraction up to 5 seconds and resting 10 plus seconds Self-Care/Home Management Treatment Activities Self-Care/Home Management Activities education on elevation of the pelvis to decompress the pelvic organs using a wedge. Sandy does have access to a tilt table at home so time was spent educating on using the tilt table or the wedge to elevate her pelvic floor. PT notes the wedge helps her back to relax pt was also given a size xs dilator to begin working on self MFR for the pelvic floor. PT-OP-T Assessment and Plan Start: 02/15/21 15:15 Freq: Status: Active Protocol: Document 02/22/21 11:15 [facility] (Rec: 02/22/21 15:55 [facility] [id number]) Physical Therapy Assessment Assessment Summary Assessment Sandy tolerated EMG biofeedback today and was able to contract/relax without having her pelvic floor muscles guard more that initial resting tone at 5 uv. She did not experience pain and was able to work on a 5 second contraction with 10 second rest. Pt was given a HEP to start with 1 set per day monitoring her symptoms. She also has access to a tilt table so will be able to work on pelvic decompression at home. Physical Therapy Plan Frequency and Duration Frequency of Treatment 1x/Week Duration of Treatment 8 Plan of Care Start Date 02/15/21 Plan of Care End Date 04/12/21 Therapeutic Interventions Therapeutic Interventions Manual Therapy,Neuromuscular Re-education,Patient/Caregiver Education,Self-Care/Home Management,Therapeutic Exercises Modalities Biofeedback
== END ==
PROVIDERS: Family Provider Family Medicine; PCP Family Medicine; Referring Provider Family Medicine; Visit Provider Family Medicine
DX: R20.8 Other disturbances of skin sensation (principal)
CPT/HCPCS: 95886; 95909

== ENCOUNTER → 2021-01-24 13:54 | Outpatient (CLI) | payer OTHER, SELFPAY ==
[2021-01-24 15:06] LABS: Appearance Urine UA CLEAR; Bilirubin Urine UA NEGATIVE (NEGATIVE); Color Urine UA YELLOW; Glucose Urine UA NEGATIVE (Negative); Ketones Urine UA NEGATIVE (NEGATIVE); Leukocyte Esterase Urine UA NEGATIVE (NEGATIVE); Nitrite Urine UA NEGATIVE (Negative); Occult Blood Urine UA NEGATIVE (Negative); Protein Urine UA NEGATIVE (Negative); Urobilinogen Urine UA 0.2 E.U./dL (0.2)
[2021-01-24 16:22] LABS: Bacteria Urine None Seen; Culture Indicated Urine Cult Not Indicated; RBC Urine None Seen (0-5/HPF); Squamous Epithelial Cell Urine 0-1 /HPF (0-5/HPF); WBC Urine 0-1/HPF (0-5/HPF)
== END ==
PROVIDERS: Family Provider Family Medicine; PCP Family Medicine; Referring Provider Family Medicine; Visit Provider Family Medicine
DX: Z13.9 Encounter for screening, unspecified (principal)
CPT/HCPCS: 81001

== ENCOUNTER → 2021-05-30 08:51 | Outpatient (CLI) | payer OTHER, SELFPAY ==
[2021-05-30 09:31] LABS: Add Manual Diff / Slide Review NO; Basophils Absolute Auto 0 /uL (0-100); Basophils Percent Auto 0.7 % (0-2); Eosinophils Absolute Auto 100 /uL (0-450); Eosinophils Percent Auto 1.7 % (2-4); Hematocrit 34.3 % (36-46); Hemoglobin 11.8 g/dL (12.0-16.0); Lymphocytes Absolute Auto 1500 /uL (1100-4500); Lymphocytes Percent Auto 34.1 % (25-40); Mean Corpuscular HGB Conc 34.5 % (30-36); Mean Corpuscular Volume 92.8 fL (80-100); Monocytes Absolute Auto 500 /uL (0-900); Monocytes Percent Auto 11.6 % (3-14); Neutrophils Absolute Auto 2200 /uL (1500-7000); Neutrophils Percent Auto 51.9 % (50-75); Platelet Count 239 X10^3/uL (150-400); Red Blood Cell Count 3.69 X10^6/uL (4.0-5.2); Red Cell Distribution Width 12.8 % (11.6-14.8); White Blood Cell Count 4.3 X10^3/uL (4.5-11.0)
[2021-05-30 11:17] LABS: Cholesterol 157 mg/dL (140-199); HDL Cholesterol 43 mg/dL (40-60); LDL Cholesterol Calculated 98 mg/dL (<100); Triglycerides 80 mg/dL (35-150)
[2021-05-30 11:43] LABS: TSH w/ Reflex to FT4 0.86 uIU/mL (0.47-4.68)
== END ==
PROVIDERS: Family Provider Family Medicine; PCP Family Medicine; Referring Provider Psychiatry & Neurology Psychiatry; Visit Provider Psychiatry & Neurology Psychiatry
DX: F33.2 Major depressive disorder, recurrent severe without psychotic features (principal); Z51.81 Encounter for therapeutic drug level monitoring
CPT/HCPCS: 36415; 80061; 84443; 85025

== ENCOUNTER → 2021-06-19 14:52 | Outpatient (CLI) | payer OTHER, SELFPAY ==
[2021-06-19 15:24] LABS: Appearance Urine UA CLEAR; Bilirubin Urine UA NEGATIVE (NEGATIVE); Color Urine UA YELLOW; Glucose Urine UA NEGATIVE (Negative); Ketones Urine UA NEGATIVE (NEGATIVE); Leukocyte Esterase Urine UA 1+ (NEGATIVE); Nitrite Urine UA NEGATIVE (Negative); Occult Blood Urine UA NEGATIVE (Negative); Protein Urine UA NEGATIVE (Negative); Specific Gravity Urine UA <=1.005 (1.000-1.035); Urobilinogen Urine UA 0.2 E.U./dL (0.2)
[2021-06-19 15:32] LABS: Amorphous Sediment Urine 1+; RBC Urine None Seen (0-5/HPF); Squamous Epithelial Cell Urine 5-10 /HPF (0-5/HPF); WBC Urine 5-10/HPF (0-5/HPF)
[2021-06-19 15:33] LABS: Bacteria Urine Moderate (10-30); Culture Indicated Urine Specimen Cultured
== END ==
PROVIDERS: Family Provider Family Medicine; PCP Family Medicine; Visit Provider Physician Assistant
DX: R10.2 Pelvic and perineal pain (principal)
CPT/HCPCS: 81001; 87086

== ENCOUNTER → 2021-08-10 13:01 | Outpatient (CLI) | payer OTHER, SELFPAY ==
--- NOTE | 2021-08-10 13:03 | DI.US.S_ITS ---
PROCEDURE: US PELVIC COMPLETE INDICATIONS: PELVIC PAIN 9 MONTHS POST PARDUM WITH IUD TECHNIQUE: Real-time scanning was performed of the pelvic organs, with image documentation. Additional endovaginal scanning was necessary due to incomplete visualization of the adnexal and endometrial structures by transabdominal scanning. COMPARISON: None. FINDINGS: Uterus: Uterus is anteverted and normal in size at 0.8 x 5.2 x 4.3 cm. The myometrium is homogeneous. The endometrium measures 11 mm combined thickness. An IUD is present within the mid uterus. There is approximately 1 cm of distance between the distal aspect of the IUD and the uterine fundus. Ovaries: The right ovary measures 2.5 x 2.7 x 1.5 cm. The left ovary measures 4.0 x 3.4 x 2.2 cm. The ovaries have a normal sonographic appearance. Less than 12 follicles can be seen in each ovary. No adnexal masses are seen. There is a 2.4 x 2.1 x 1.8 cm left ovarian cyst. Other: No pathologic free abdominal or pelvic fluid. IMPRESSION: 1. IUD within the mid uterus with approximately 1 cm distance between the distal aspect of the IUD in the uterine fundus. The IUD appears to be within acceptable position. 2. Simple left ovarian cyst which is within physiologic limits for size in a premenopausal female. We strive to produce accurate, complete, and clear reports of imaging services. To assist us in improving patient care, this report was composed using standard report templates and voice recognition software. Therefore, it may contain abnormal punctuation, insertions and/or omissions. Occasional wrong-word or sound-alike substitutions may occur. Though we review the report and make efforts to correct it, we do recommend that the report be read carefully in proper context to recognize any text inaccuracies. Dictated by: Grecia Ying M.D. on 08/10/2021 at 14:39 Approved by: Grecia Ying M.D. on 08/10/2021 at 14:42
== END ==
PROVIDERS: Family Provider Family Medicine; PCP Family Medicine; Referring Provider Physician Assistant; Visit Provider Physician Assistant
DX: N83.292 Other ovarian cyst, left side (principal); R10.2 Pelvic and perineal pain; Z97.5 Presence of (intrauterine) contraceptive device
CPT/HCPCS: 76830; 76856

== ENCOUNTER → 2021-08-23 09:15 | Outpatient (CLI) | payer OTHER, SELFPAY ==
--- NOTE | 2021-08-23 09:16 | DI.ECHO.S_ITS ---
[facility] +---------+ [facility] +---------+ : : [address] [place] [place] : : : : [id number] : : : : Phone: [phone]+ Echocardiogram Report + + :Name: GURU DOAN Study Date: 08/23/2021 Height: 68 in : :[facility] ReadingLocation: Weight: 183 lb : : Gender: Female BSA: 2.0 m2 : :: 1985 Age: 35 yrs BP: 128/85 mmHg: :Reason For Study: Murmur : :Ordering Physician: MIRTHA, : :CELSO Hightower Performed By: Danny Solis : :Referring: CELSO SHANNON : + + Interpretation Summary The left ventricle is normal in size and wall thickness. Normal LV systolic and diastolic function. The ejection fraction is estimated to be 55-60%. The right ventricle is normal in size and function. No significant valvular pathology seen. Procedure: A two-dimensional transthoracic echocardiogram with color flow and Doppler was performed. The study quality was technically adequate. There is no prior echocardiogram noted for this patient. The patient was in normal sinus rhythm during the exam. Left Ventricle: The left ventricle is normal in size and wall thickness. There is no thrombus. Left ventricular systolic function is normal. The ejection fraction is estimated to be 55-60%. There are no focal wall motion abnormalities. Diastolic parameters suggest probable normal left ventricular diastolic function and normal filling pressures. Right Ventricle: The right ventricle is normal in size and function. Atria: Both atria are normal in size. The interatrial septum grossly appears intact with no obvious evidence for an atrial septal defect. Mitral Valve: The mitral valve is normal in structure and function. There is no mitral regurgitation noted. Aortic Valve: The aortic valve is normal in structure and function. The aortic valve is trileaflet. There is no aortic valve stenosis. No aortic regurgitation is present. Tricuspid Valve: The tricuspid valve is normal in structure and function. There is trace tricuspid regurgitation. The right ventricular systolic pressure is estimated to be at least 26 mmHg based on an estimated right atrial pressure of 3 mm Hg. Pulmonic Valve: The pulmonic valve is normal in structure and function. There is no pulmonic valvular regurgitation. Great Vessels: The aortic root is normal size. The dimensions of the ascending aorta are normal. The IVC is of normal diameter and collapses greater than 50% with a sniff. This suggests a low right atrial pressure of 3 mm Hg. Pericardium/ Pleura There is no pericardial effusion. There is no pleural effusion. MMode/2D Measurements & Calculations LVIDd: 5.4 cm LVOT diam: 2.0 cm LVIDs: 3.5 cm Ao root diam: 2.4 cm FS: 35.2 % asc Aorta Diam: 2.6 cm IVSd: 0.70 cm LVPWd: 0.70 cm LV snyder. diameter/BSA (cm/m^2): 2.7 LV sys. diameter/BSA (cm/m^2): 1.8 LA dimension: 3.4 cm RA long axis: 4.1 cm LA A2 area: 17.2 cm2 LA A4 area: 16.0 cm2 LA length (vol): 5.0 cm LA vol: 47.1 ml LA vol index: 23.9 ml/m2 TAPSE_phl: 2.4 cm Doppler Measurements & Calculations Ao V2 max: 151.0 cm/sec LVOT Max Jose J: 143.0 cm/sec Ao V2 mean: 108.0 cm/sec LV V1 max P.2 mmHg Ao max P.0 mmHg LV V1 VTI: 28.9 cm Ao mean P.0 mmHg JOHN(I,D): 2.9 cm2 Ao V2 VTI: 30.8 cm JOHN(V,D): 3.0 cm2 sev ratio: 0.94 JOHN indexed to BSA (cm^2/m^2): 1.5 MV E max jose j: 91.3 cm/sec TR max jose j: 237.0 cm/sec MV A max jose j: 62.1 cm/sec TR max P.5 mmHg MV E/A: 1.5 Med Peak E' Jose J: 12.6 cm/sec E/E' med: 7.2 Lat Peak E' Jose J: 15.7 cm/sec E/E' lat: 5.8 E/e' average: 6.5 MV dec time: 0.25 sec SV(LVOT): 90.8 ml AV VR_phl: 0.95 JOHN(VTI)/BSA_phl: 1.5 MV P1/2t-pr_phl: 73.0 msec Reading Physician:11:47 AM
== END ==
PROVIDERS: Family Provider Family Medicine; PCP Family Medicine; Referring Provider Physician Assistant; Visit Provider Physician Assistant
DX: R01.1 Cardiac murmur, unspecified (principal)
CPT/HCPCS: 93306

== ENCOUNTER → 2021-12-29 07:18 | Outpatient (CLI) | payer OTHER, SELFPAY | PROVIDERS: Family Provider Family Medicine; PCP Family Medicine; Visit Provider Registered Nurse | DX: N39.0 Urinary tract infection, site not specified (principal) | CPT/HCPCS: 87077; 87086; 87186 ==

== ENCOUNTER → 2022-03-06 16:15 | Outpatient (CLI) | payer OTHER, SELFPAY ==
[2022-03-06 18:48] LABS: Prolactin 13.8 ng/mL (3.0-18.6)
[2022-03-06 18:54] LABS: Follicle Stimulating Hormone 5.89 mIU/mL; Luteinizing Hormone 17.2 mIU/mL
[2022-03-06 19:04] LABS: Thyroid Stimulating Hormone 3.77 uIU/mL (0.47-4.68)
[2022-03-12 12:13] LABS: Percent Free Testosterone 0.87 % (0.50-2.80); Testosterone Free 0.11 ng/dL (0.10-0.85); Testosterone Total 12.6 ng/dL (10.0-55.0)
== END ==
PROVIDERS: Family Provider Family Medicine; PCP Family Medicine; Referring Provider Family Medicine; Visit Provider Family Medicine
DX: Z31.69 Encounter for other general counseling and advice on procreation (principal)
CPT/HCPCS: 36415; 83001; 83002; 84146; 84402; 84403; 84443

== ENCOUNTER → 2022-03-18 15:29 | Outpatient (CLI) | payer OTHER, SELFPAY ==
[2022-03-18 18:39] LABS: HCG Quantitative /Beta subunit 95 mIU/mL
== END ==
PROVIDERS: Family Provider Family Medicine; PCP Family Medicine; Referring Provider Family Medicine; Visit Provider Family Medicine
DX: Z34.90 Encounter for supervision of normal pregnancy, unspecified, unspecified trimester (principal)
CPT/HCPCS: 36415; 84702

== ENCOUNTER → 2022-03-21 16:01 | Outpatient (CLI) | payer OTHER, SELFPAY | PROVIDERS: Family Provider Family Medicine; PCP Family Medicine; Referring Provider Family Medicine; Visit Provider Family Medicine | DX: Z34.90 Encounter for supervision of normal pregnancy, unspecified, unspecified trimester (principal) | CPT/HCPCS: 36415; 84702 ==

== ENCOUNTER → 2022-04-23 15:25 | Outpatient (CLI) | payer OTHER, SELFPAY ==
[2022-04-23 18:41] LABS: TSH w/ Reflex to FT4 1.05 uIU/mL (0.47-4.68)
== END ==
PROVIDERS: Family Provider Family Medicine; PCP Family Medicine; Referring Provider Family Medicine; Visit Provider Family Medicine
DX: E03.9 Hypothyroidism, unspecified (principal)
CPT/HCPCS: 36415; 84443

== ENCOUNTER → 2022-04-24 16:30 | Outpatient (CLI) | payer OTHER, SELFPAY ==
--- NOTE | 2022-04-24 16:31 | DI.US.S_ITS ---
PROCEDURE: US OB <= 14 WEEKS FETUS INDICATIONS: DATING OUTSIDE/PRIOR DATING DATA: Last menstrual period (LMP): 02/17/2022. LMP-based estimated date of delivery (KATIE): 11/24/2022. First dating scan (date and location): 04/24/2022. Estimated date of delivery (KATIE) from first dating scan: 11/26/2022. The calculations are made using the ultrasound KATIE of 11/26/2022. TECHNIQUE: Real-time scanning was performed of the fetus and maternal pelvic organs, with image documentation. Endovaginal scanning was also performed to better visualize the fetus and maternal ovaries. COMPARISON: None. FINDINGS: Embryo: [place]-rump length measuring 2.4 cm, gestational age 9 weeks 1 day Heart rate: 168 bpm A yolk sac is seen. No perigestational hemorrhage. Maternal organs: Ovaries are within normal limits. Probable right corpus luteum. IMPRESSION: 1. [place] living intrauterine at 9 weeks 1 day based on today's crown rump length. 2. No perigestational hemorrhage. We strive to produce accurate, complete, and clear reports of imaging services. To assist us in improving patient care, this report was composed using standard report templates and voice recognition software. Therefore, it may contain abnormal punctuation, insertions and/or omissions. Occasional wrong-word or sound-alike substitutions may occur. Though we review the report and make efforts to correct it, we do recommend that the report be read carefully in proper context to recognize any text inaccuracies. Dictated by: Luke Cortes M.D. on 04/25/2022 at 9:38 Approved by: Luke Cortes M.D. on 04/25/2022 at 9:40
== END ==
PROVIDERS: Family Provider Family Medicine; PCP Family Medicine; Referring Provider Obstetrics & Gynecology; Visit Provider Obstetrics & Gynecology
DX: Z34.81 Encounter for supervision of other normal pregnancy, first trimester (principal); Z3A.09 9 weeks gestation of pregnancy
CPT/HCPCS: 76801; 76817

== ENCOUNTER → 2022-04-29 08:46 | Outpatient (CLI) | payer OTHER, SELFPAY ==
[2022-04-29 11:10] LABS: Add Manual Diff / Slide Review NO; Basophils Absolute Auto 0 /uL (0-100); Basophils Percent Auto 0.6 % (0-2); Eosinophils Absolute Auto 0 /uL (0-450); Eosinophils Percent Auto 0.7 % (2-4); Hematocrit 34.5 % (36-46); Hemoglobin 12.1 g/dL (12.0-16.0); Lymphocytes Absolute Auto 1500 /uL (1100-4500); Lymphocytes Percent Auto 27.7 % (25-40); Mean Corpuscular HGB Conc 35.1 % (30-36); Mean Corpuscular Hemoglobin 31.4 PG (26-34); Mean Corpuscular Volume 89.3 fL (80-100); Monocytes Absolute Auto 400 /uL (0-900); Monocytes Percent Auto 6.9 % (3-14); Neutrophils Absolute Auto 3500 /uL (1500-7000); Neutrophils Percent Auto 64.1 % (50-75); Platelet Count 228 X10^3/uL (150-400); Red Blood Cell Count 3.87 X10^6/uL (4.0-5.2); Red Cell Distribution Width 12.7 % (11.6-14.8); White Blood Cell Count 5.4 X10^3/uL (4.5-11.0)
[2022-04-29 11:36] LABS: Appearance Urine UA CLEAR; Bilirubin Urine UA NEGATIVE (NEGATIVE); Color Urine UA YELLOW; Glucose Urine UA NEGATIVE (Negative); Ketones Urine UA NEGATIVE (NEGATIVE); Leukocyte Esterase Urine UA NEGATIVE (NEGATIVE); Nitrite Urine UA NEGATIVE (Negative); Occult Blood Urine UA NEGATIVE (Negative); Protein Urine UA NEGATIVE (Negative); Specific Gravity Urine UA 1.015 (1.000-1.035); Urobilinogen Urine UA 0.2 E.U./dL (0.2)
[2022-04-29 16:56] LABS: Hepatitis B Surface Antigen NEGATIVE s/c (NEGATIVE); Rubella Antibody IgG 73.8 IU/mL (>15)
[2022-04-29 17:11] LABS: HIV 1 & 2 Ab/Ag 4th Gen Combo NEGATIVE (NEGATIVE); Hep C Virus Ab w/Reflex Quant NEGATIVE s/c (NEGATIVE)
[2022-05-01 01:48] LABS: RPR Screen Non Reactive (Non Reactive)
[2022-05-01 08:36] LABS: Varicella IgG Antibody 964 index (Immune >165)
== END ==
PROVIDERS: Family Provider Family Medicine; PCP Family Medicine; Referring Provider Obstetrics & Gynecology; Visit Provider Obstetrics & Gynecology
DX: O09.521 Supervision of elderly multigravida, first trimester (principal)
CPT/HCPCS: 36415; 80055; 81003; 86787; 86803; 86850; 86900; 86901; 87086; 87389

== ENCOUNTER → 2022-07-08 15:22 | Outpatient (CLI) | payer OTHER, SELFPAY ==
--- NOTE | 2022-07-08 15:23 | DI.US.S_ITS ---
PROCEDURE: US OB >= 14 WEEKS FETUS INDICATIONS: ANATOMY OUTSIDE/PRIOR DATING DATA: Last menstrual period (LMP): 02/17/2022 LMP-based estimated date of delivery (KATIE): 11/24/2022. First dating scan (date and location): 04/24/2022 Estimated date of delivery (KATIE) from first dating scan: 11/26/2022. The calculations are made using the working KATIE of 11/24/2022. TECHNIQUE: Real-time scanning was performed of the fetus, with image documentation and biometric measurements. Endovaginal scanning: Not indicated COMPARISON: [facility], OB >= 14 WEEKS FETUS, 04/14/2020, 15:39. FINDINGS: General: A single living intrauterine gestation is present. Presentation: Breech. Placenta: Placental position is anterior, without previa. Low-lying placenta is noted, the placenta edge is 1.2 cm from internal os. Amniotic fluid index: 14.6 cm, normal range is 5-24 cm. Single deepest vertical pocket is 4.5 cm. heart rate: 155 beats per minute. Maternal cervical canal: 3.3 cm long. Normal lower limit is 2.5 cm. biometrics: Biparietal diameter: 4.7 cm, 20 weeks, 1 day. Head circumference: 17.6 cm, 20 weeks, 1 day. Abdominal circumference: 15.4 cm, 21 weeks, 0 day. Femur length: 3.2 cm, 20 weeks, 0 day. Clinically estimated gestational age: 20 weeks, 1 day. Composite gestational age from present scan: 20 weeks, 2 days. Estimated weight and percentile: 359 g, 67%. Anatomic survey: Neuro: Ventricles are non-dilated at less than 10 mm. Cisterna magna is normal at 3-11 mm. Cerebellum is normal in size and morphology. Nuchal skin fold: Normal at less than 6 mm between 14-21 weeks gestational age. Face: Nose and lips, facial profile are normal. Spine: Not well seen. Heart: 4-chambered heart is present, with normal ventricular outflow tracts. Diaphragm: Diaphragm is intact. Stomach: Left-sided stomach is present. Kidneys: No hydronephrosis. Right renal pelvis is at the limits of normal in size and measures 4 mm in diameter. Normal is less than 5 mm in 2nd trimester, less than 7 mm in 3rd trimester. Cord: 3-vessel cord has orthotopic insertion. Bladder: Normal in size. Extremities: All 4 extremities identified. IMPRESSION: 1. Single live intrauterine gestation with fetus in breech presentation. heart rate is 155 beats per minute. Normal amount of amniotic fluid. Normal growth. Estimated weight is at 67%. 2. Low-lying placenta, placenta edge is 1.2 cm from internal os. Follow-up study is recommended. 3. Limited evaluation of spine due to position. Right renal pelvis size is in the upper limits of normal at 4 mm. Rest of the anatomic survey is normal. We strive to produce accurate, complete, and clear reports of imaging services. To assist us in improving patient care, this report was composed using standard report templates and voice recognition software. Therefore, it may contain abnormal punctuation, insertions and/or omissions. Occasional wrong-word or sound-alike substitutions may occur. Though we review the report and make efforts to correct it, we do recommend that the report be read carefully in proper context to recognize any text inaccuracies. Dictated by: Zeeshan Owens M.D. on 07/09/2022 at 10:30 Approved by: Zeeshan Owens M.D. on 07/09/2022 at 10:40
== END ==
PROVIDERS: Family Provider Family Medicine; PCP Family Medicine; Referring Provider Family Medicine; Visit Provider Family Medicine
DX: O44.42 Low lying placenta NOS or without hemorrhage, second trimester (principal); Z3A.20 20 weeks gestation of pregnancy
CPT/HCPCS: 76811

== ENCOUNTER → 2022-08-07 16:25 | Outpatient (CLI) | payer OTHER, SELFPAY ==
--- NOTE | 2022-08-07 16:26 | DI.US.S_ITS ---
PROCEDURE: US OB FOLLOW UP INDICATIONS: FOLLOW UP ANATOMY AND LOW LYING PLACENTA OUTSIDE/PRIOR DATING DATA: Last menstrual period (LMP): 02/17/2022 LMP-based estimated date of delivery (KATIE): 11/24/2022 First dating scan (date and location): 04/24/2022 Estimated date of delivery (KATIE) from first dating scan: 11/26/2022 The calculations are made using the working KATIE of 11/24/2022. TECHNIQUE: Real-time scanning was performed of the fetus, with image documentation. Endovaginal scanning: Not indicated COMPARISON: [facility], OB >= 14 WEEKS FETUS, 07/08/2022, 15:35. [facility], OB FOLLOW UP, 05/02/2020, 16:02. FINDINGS: A single living intrauterine gestation is present. Presentation: Breech Placenta: Placental position is anterior, without previa. Amniotic fluid index: 21.4 cm, normal range is 5-24 cm. Single deepest vertical pocket is 6.6 cm. heart rate: 139 beats per minute. Maternal cervical canal: 4.4 cm long. Normal lower limit is 2.5 cm. Estimated gestational age from initial scan: 24 weeks, 3 days. Previously noted right renal pelviectasis has resolved. No hydronephrosis is seen on the current study. spine is also visualized and is within normal limits. IMPRESSION: 1. Single live intrauterine gestation with fetus in breech presentation. heart rate is 139 beats per minute. Normal amount of amniotic fluid. 2. Placenta location is normal, no evidence of low-lying placenta or previa. 3. spine is within normal limits on the current study. Previously noted right renal pelviectasis has resolved. No hydronephrosis is seen on the current study. Dictated by: Zeeshan Owens M.D. on 08/08/2022 at 9:08 Approved by: Zeeshan Owens M.D. on 08/08/2022 at 9:10
== END ==
PROVIDERS: Family Provider Family Medicine; PCP Family Medicine; Referring Provider Family Medicine; Visit Provider Family Medicine
DX: Z34.82 Encounter for supervision of other normal pregnancy, second trimester (principal); Z3A.24 24 weeks gestation of pregnancy
CPT/HCPCS: 76816

== ENCOUNTER → 2022-09-02 09:10 | Outpatient (CLI) | payer OTHER, SELFPAY ==
[2022-09-02 12:14] LABS: GTT (PREG) 1 Hour PP 50gm Dose 124 mg/dL (76-139)
[2022-09-02 12:44] LABS: TSH w/ Reflex to FT4 0.51 uIU/mL (0.47-4.68)
== END ==
PROVIDERS: Family Provider Family Medicine; PCP Family Medicine; Referring Provider Family Medicine; Visit Provider Family Medicine
DX: Z34.82 Encounter for supervision of other normal pregnancy, second trimester (principal); E03.9 Hypothyroidism, unspecified
CPT/HCPCS: 82950; 84443

== ENCOUNTER → 2022-11-01 10:54 | Outpatient (CLI) | payer OTHER, SELFPAY ==
[2022-11-02 07:38] LABS: Strep Grp B PCR NEG for Grp B Strep
== END ==
PROVIDERS: Family Provider Family Medicine; PCP Family Medicine; Visit Provider Family Medicine
DX: Z34.83 Encounter for supervision of other normal pregnancy, third trimester (principal); Z3A.36 36 weeks gestation of pregnancy
CPT/HCPCS: 87653

== ENCOUNTER 2022-11-21 08:45 | Outpatient (RCR) | payer OTHER, SELFPAY ==
--- NOTE | 2022-10-07 14:51 | PT.OPPOC ---
Physical, Occupational & Speech Therapy At [facility] Current Diagnoses Other specified related conditions, unspecified trimester (10/07/22) Pelvic and perineal pain (10/07/22) Visit Care Team Role Provider Type Maria Elena Padilla MD Attending Provider Physician Family Provider Primary Care Provider Referring Provider Specialty: Family Practice Address: [address] [place] [address], [facility] Email: [email or web address] Plan Of Care PT-OP-T Assessment and Plan Start: 10/03/22 17:45 Freq: Status: Active Protocol: Document 10/07/22 08:49 LRN (Rec: 10/07/22 09:37 LRN [id number]) Physical Therapy Assessment Rehab Potential Rehabilitation Potential Good Evaluation Complexity Number of Personal Factors/Comorbidities 1-2 Number of Body Systems Impaired 4 or More Clinical Presentation at Evaluation Evolving Impairments Impairments Activity Tolerance,Pain, Posture,ROM,Strength Goals 3 Impairment Bilateral hip pain Impairment Hip pain rated 4/10 Short Term Goal (STG) Educate pt in self STM and hip stretches to decrease hip muscle tension and pain. STG Duration 11/07/22 Hedis Manager Goal (LTG) Lessen bilateral hip pain. LTG Duration 12/13/22 2 Impairment Pubic pain Impairment Pubic pain rated 7/10 Short Term Goal (STG) Educate pt proper standing and sitting posture to decrease pubic pain and discuss support belt. STG Duration 11/07/22 Penitentiary Goal (LTG) Decrease pubic pain with walking, moving in bed, and sit<>stand. LTG Duration 12/13/22 1 Impairment HEP Short Term Goal (STG) Pt will be educated in transfers and posturing to minimize pubic symphysis strain. STG Duration 11/07/22 Penitentiary Goal (LTG) Pt will be educated in a self care HEP of core and pelvic stabilization ex's. 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 She has soft tissue dysfunction of the hips with c/o bilateral hip pain/LBP related to her . Pt reports stretches from previous therapy for post- pain has been helpful in alleviating some of the hip /LB pain. The pt will benefit from skilled physical therapy to improve stability of the pelvis and minimze pain as she progresses in her . Discuss post- care to minimize strain on pubic symphysis. Physical Therapy Plan Frequency and Duration Frequency of Treatment 2x/Week Duration of treatment (weeks) 9 Plan of Care Start Date 10/07/22 Plan of Care End Date 12/13/22 Therapeutic Interventions Therapeutic Interventions Aquatic Therapy Next Visit Focus/Plan Next Note Type Treatment Note Next Visit Plan Assess response to correcting R innominate for anterior rotation. Assess ROM of hip mobility in supine and Measure painfree distance between knees. Start Kegels. Pt education: proper sitting/ standing posture (equal WBing, knees apart), bed mobility, lifting/bending, and sleeping (pillows) positions. POC: Strengthening: core and pelvic muscles for SP stability. Correct if needed SIJ dysfunction and Sacral balancing in supine. Plan of Care Dates Plan of Care Start Date 10/07/22 Plan of Care End Date 12/13/22 Electronically Signed by: Grecia Colorado, PT 10/08/22 [id number] If you are in agreement with this Plan of Care, please return a signed and dated copy. I have reviewed this Plan of Care and certify that the skilled therapy services above are required to meet the patient?s needs. Physician Signature Date Printed Name and Credentials Clinical Instructor Signature Printed Name and Credentials
--- NOTE | 2022-10-07 15:51 | PT.OIE ---
Current Diagnoses Other specified related conditions, unspecified trimester (10/07/22) Pelvic and perineal pain (10/07/22) Past Medical History (Last Updated 08/21/22 @ 11:13 by Maria Elena Padilla MD) Acne Arm fracture, left Chicken pox depression Shingles Spontaneous vaginal delivery Suicidal ideation UTI (urinary tract infection) Past Surgical History (Last Reviewed 12/29/21 @ 07:46 by REDD Velazco) Oph[place] teeth removed Visit Care Team Role Provider Type Maria Elena Padilla MD Attending Provider Physician Family Provider Primary Care Provider Referring Provider Specialty: Family Practice Address: [address] [place] [address], [facility] Email: [email or web address] Physical Therapy Initial Evaluation PT-OP-A Visit Information Start: 10/03/22 17:45 Freq: Status: Active Protocol: Document 10/07/22 08:49 LRN (Rec: 10/07/22 09:37 LRN [id number]) Out-Patient Physical Therapy Visit Information Visit Information Visit Type Initial Evaluation Visit Start Time 08:49 Visit Stop Time 09:30 Total Visit Minutes 41 Visit Number Evaluation Information Evaluation Date 10/07/22 Precautions Precautions Depression, back & neck pain, gets SOB. PT-OP-B Current Condition Start: 10/03/22 17:45 Freq: Status: Active Protocol: Document 10/07/22 08:49 LRN (Rec: 10/07/22 09:37 LRN [id number]) Current Condition History of Current Condition Onset Date 24 weeks, 9 wks ago. Current Complaints Pubic pain. History of Current Condition Pt is a 36 yo female who is 33 weeks . States 9 weeks ago her Pubic Symphysis pain and leonel hip pain worsened . She states with her last preganancy she ran until 30 weeks, then walked w/o pain. She was [place] [address] [place], but because of placenta previa she was put on pelvic rest. She states she tried running again and had a lot of pain. Now she walks and has excruciating pain and a lot of pain just putting socks and shoes on. Pt is due in 7 weeks with a due date of Nov 24, 2022. She denies having a rectus diastasis after first . Was told to do leg lifts to strengthen her core, but has not been able to perform due to pain. Was starting to get pain down the hips, but that has resolved with stretching (deep squatting, side lunges). LB/ hip pain is liveable. Pain with sit<>stand 6-7/10 and sometimes worse if working all day or after walking. Prior Treatments and Tests PT after first preg for prolapse and PF pain and hesistancy, that has resolved. Treatment Goals Patient/Caregiver Goals Pt goal is: Lessen pubic pain and bilateral hip pain. Increase stability. Decrease pubic pain with walking and moving in bed, sit <>stand. 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 PT-OP-C Subjective Start: 10/03/22 17:45 Freq: Status: Active Protocol: Document 10/07/22 08:49 LRN (Rec: 10/07/22 09:37 LRN [id number]) Patient Questionnaires Pelvic Pain and Urgency/Frequency Patient Symptom Scale Pelvic Pain Score 6 OP-PT Pain Assessment Pain Assessment Grid Paper Pain Assessment Grid Completed Yes Location Low back Description Aching,Dull Frequency Constant Other Pain Alleviating Factors Stretches Bilateral hip pain Intensity 4 Scale Used Numeric (0 - 10) Description Aching,Dull Frequency Constant Other Pain Alleviating Factors Stretch Pubic Symphysis Pain Location Details Pubic Symphysis Intensity 7 Scale Used Numeric (0 - 10) Description Sharp,Stabbing Description- Other With movement Frequency Frequent PT-OP-J Posture/Palpation/Skin Start: 10/03/22 17:45 Freq: Status: Active Protocol: Document 10/07/22 08:49 LRN (Rec: 10/07/22 09:37 LRN [id number]) Posture Evaluation Position Standing Head/C-Spine Posture Forward Head L-Spine Posture Increased Lordosis Shoulder Posture (L) Elevated Pelvis Posture (L) Iliac Crest Superior Weight Distribution Weight Shifted Right Comments Posture Comments R shifted to R. tends to stand on RLE. Palpation Assessment Location ASIS Palpation Location ASIS's Palpation Details Posteriorly rotated L innominate. PT-OP-M Strength Start: 10/03/22 17:45 Freq: Status: Active Protocol: Document 10/07/22 08:49 LRN (Rec: 10/07/22 09:37 LRN [id number]) Hip Strength Hip Manual Muscle Testing Right Extension (S1) 3 Fair External Rotation 3 Fair Internal Rotation 3 Fair Left Flexion (L2) 3 Fair External Rotation 3 Fair Internal Rotation 3 Fair PT-OP-Q Treatments Start: 10/03/22 17:45 Freq: Status: Active Protocol: Document 10/07/22 08:49 LRN (Rec: 10/07/22 09:37 LRN [id number]) Therapeutic Exercises Sidelying Exercises TA tightening Sidelying Exercise Name TA tightening - HEP to do bilaterally Reps/Minutes 5x Other Exercises Transfer training Other Exercise Name Sup<>sit transfer training Comments Verbal cuing for lying down. Manual Therapy Treatment Joint Mobilizations SIJ Joint R innominate Direction Correcting an anteriorly rotated innominate Grade I Body Position Sidelying Comments Ashtyn Cross legged resistance in sidelie (R LE in back, LLE in front). Self-Care/Home Management Treatment Education Other Education Discussed results of evaluation, goals, and plan of care (POC). Pt agreeable to goals and POC. Activities Self-Care/Home Management Activities I/S pt in HEP of TA tightening in sidelye and proper transfers coordinating with breathwork and PF contractions . PT-OP-T Assessment and Plan Start: 10/03/22 17:45 Freq: Status: Active Protocol: Document 10/07/22 08:49 LRN (Rec: 10/07/22 09:37 LRN [id number]) Physical Therapy Assessment Rehab Potential Rehabilitation Potential Good Evaluation Complexity Number of Personal Factors/Comorbidities 1-2 Number of Body Systems Impaired 4 or More Clinical Presentation at Evaluation Evolving Impairments Impairments Activity Tolerance,Pain, Posture,ROM,Strength Goals 3 Impairment Bilateral hip pain Impairment Hip pain rated 4/10 Short Term Goal (STG) Educate pt in self STM and hip stretches to decrease hip muscle tension and pain. STG Duration 11/07/22 Skilled Nursing Goal (LTG) Lessen bilateral hip pain. LTG Duration 12/13/22 2 Impairment Pubic pain Impairment Pubic pain rated 7/10 Short Term Goal (STG) Educate pt proper standing and sitting posture to decrease pubic pain and discuss support belt. STG Duration 11/07/22 Laboratory Animal Facility Supervisor Goal (LTG) Decrease pubic pain with walking, moving in bed, and sit<>stand. LTG Duration 12/13/22 1 Impairment HEP Short Term Goal (STG) Pt will be educated in transfers and posturing to minimize pubic symphysis strain. STG Duration 11/07/22 Laboratory Animal Facility Supervisor Goal (LTG) Pt will be educated in a self care HEP of core and pelvic stabilization ex's. 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 She has soft tissue dysfunction of the hips with c/o bilateral hip pain/LBP related to her . Pt reports stretches from previous therapy for post- pain has been helpful in alleviating some of the hip /LB pain. The pt will benefit from skilled physical therapy to improve stability of the pelvis and minimze pain as she progresses in her . Discuss post- care to minimize strain on pubic symphysis. Physical Therapy Plan Frequency and Duration Frequency of Treatment 2x/Week Duration of treatment (weeks) 9 Plan of Care Start Date 10/07/22 Plan of Care End Date 12/13/22 Therapeutic Interventions Therapeutic Interventions Aquatic Therapy Next Visit Focus/Plan Next Note Type Treatment Note Next Visit Plan Assess response to correcting R innominate for anterior rotation. Assess ROM of hip mobility in supine and Measure painfree distance between knees. Start Kegels. Pt education: proper sitting/ standing posture (equal WBing, knees apart), bed mobility, lifting/bending, and sleeping (pillows) positions. POC: Strengthening: core and pelvic muscles for SP stability. Correct if needed SIJ dysfunction and Sacral balancing in supine.
--- NOTE | 2022-10-17 16:10 | PT.OTN ---
Current Diagnoses Other specified related conditions, unspecified trimester (10/17/22) Pelvic and perineal pain (10/17/22) Physical Therapy Treatment Note PT-OP-A Visit Information Start: 10/03/22 17:45 Freq: Status: Active Protocol: Document 10/17/22 13:21 LRN (Rec: 10/17/22 14:05 LRN [id number]) Out-Patient Physical Therapy Visit Information Visit Information Visit Type Treatment Note Visit Start Time 13:21 Visit Stop Time 14:01 Total Visit Minutes 40 Visit Number Evaluation Information Evaluation Date 10/07/22 Precautions Precautions Depression, back & neck pain, gets SOB. PT-OP-B Current Condition Start: 10/03/22 17:45 Freq: Status: Active Protocol: Document 10/07/22 08:49 LRN (Rec: 10/07/22 09:37 LRN [id number]) Current Condition History of Current Condition Onset Date 24 weeks, 9 wks ago. Current Complaints Pubic pain. History of Current Condition Pt is a 36 yo female who is 33 weeks . States 9 weeks ago her Pubic Symphysis pain and leonel hip pain worsened . She states with her last preganancy she ran until 30 weeks, then walked w/o pain. She was [place] [address] [place], but because of placenta previa she was put on pelvic rest. She states she tried running again and had a lot of pain. Now she walks and has excruciating pain and a lot of pain just putting socks and shoes on. Pt is due in 7 weeks with a due date of Nov 24, 2022. She denies having a rectus diastasis after first . Was told to do leg lifts to strengthen her core, but has not been able to perform due to pain. Was starting to get pain down the hips, but that has resolved with stretching (deep squatting, side lunges). LB/ hip pain is liveable. Pain with sit<>stand 6-7/10 and sometimes worse if working all day or after walking. Prior Treatments and Tests PT after first preg for prolapse and PF pain and hesistancy, that has resolved. Treatment Goals Patient/Caregiver Goals Pt goal is: Lessen pubic pain and bilateral hip pain. Increase stability. Decrease pubic pain with walking and moving in bed, sit <>stand. 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. PT-OP-C Subjective Start: 10/03/22 17:45 Freq: Status: Active Protocol: Document 10/17/22 13:21 LRN (Rec: 10/17/22 14:05 LRN [id number]) OP-PT Subjective Patient Comments Patient Comments States she has been keeping her legs together so there is less pain while doing them. PT-OP-J Posture/Palpation/Skin Start: 10/03/22 17:45 Freq: Status: Active Protocol: Document 10/07/22 08:49 LRN (Rec: 10/07/22 09:37 LRN [id number]) Posture Evaluation Position Standing Head/C-Spine Posture Forward Head L-Spine Posture Increased Lordosis Shoulder Posture (L) Elevated Pelvis Posture (L) Iliac Crest Superior Weight Distribution Weight Shifted Right Comments Posture Comments R shifted to R. tends to stand on RLE. Palpation Assessment Location ASIS Palpation Location ASIS's Palpation Details Posteriorly rotated L innominate. PT-OP-K Range of Motion Start: 10/03/22 17:45 Freq: Status: Active Protocol: Document 10/17/22 13:21 LRN (Rec: 10/17/22 15:57 LRN [id number]) Hip Goniometric Range of Motion Hip Right Passive Testing Position Supine Internal Rotation 45 External Rotation 20 Left Passive Testing Position Supine Internal Rotation 45 External Rotation 20 PT-OP-M Strength Start: 10/03/22 17:45 Freq: Status: Active Protocol: Document 10/07/22 08:49 LRN (Rec: 10/07/22 09:37 LRN [id number]) Hip Strength Hip Manual Muscle Testing Right Extension (S1) 3 Fair External Rotation 3 Fair Internal Rotation 3 Fair Left Flexion (L2) 3 Fair External Rotation 3 Fair Internal Rotation 3 Fair PT-OP-Q Treatments Start: 10/03/22 17:45 Freq: Status: Active Protocol: Document 10/17/22 13:21 LRN (Rec: 10/17/22 14:05 LRN [id number]) Therapeutic Exercises Sidelying Exercises Clamshell Sidelying Exercise Name TA/Clamshell Side bilateral Reps/Minutes 10x Comments Cuing to slowly lower top leg Sitting Exercises Sit<>Stand Sitting Exercise Name Sit<>Stands w/TB, then GB around knees Equipment Used Adjustment of table hgt, Lev 3 TB, Gait Belt (GB) Comments Extra time to determine max chanda position for sitting. Ashtyn Hip AB Sitting Exercise Name Ashtyn Hip AB @ 0, 20, 30 deg's Side bilateral Equipment Used Gait belt (GB) around distal thighs. Reps/Minutes 10 SH x 5 each. Comments Cuing to slowly release hip AB with an incr in PF/TA tightening Other Exercises 4 pt TA/Ashtyn hip AB Other Exercise Name 4 pt: Ashtyn hip AB/TA/PF Equipment Used Gait belt (GB) around distal thighs. Comments Cuing for pt not to wgt shift onto one side but equal LE WBing. PT-OP-T Assessment and Plan Start: 10/03/22 17:45 Freq: Status: Active Protocol: Document 10/17/22 13:21 LRN (Rec: 10/17/22 14:05 LRN [id number]) Physical Therapy Assessment Goals 3 Impairment Bilateral hip pain Impairment Hip pain rated 4/10 Short Term Goal (STG) Educate pt in self STM and hip stretches to decrease hip muscle tension and pain. STG Duration 11/07/22 Group Home Goal (LTG) Lessen bilateral hip pain. LTG Duration 12/13/22 2 Impairment Pubic pain Impairment Pubic pain rated 7/10 Short Term Goal (STG) Educate pt proper standing and sitting posture to decrease pubic pain and discuss support belt. STG Duration 11/07/22 Group Home Goal (LTG) Decrease pubic pain with walking, moving in bed, and sit<>stand. 10/17/22: Pain with moving on plinth and sit<>stand decreased with ashtyn hip AB against gait belt. LTG Duration 12/13/22 progressed 10/17/22 (no change pain with walking) 1 Impairment HEP Short Term Goal (STG) Pt will be educated in transfers and posturing to minimize pubic symphysis strain. STG Duration 11/07/22 Group Home Goal (LTG) Pt will be educated in a self care HEP of core and pelvic stabilization ex's. 10/17/22: Ashtyn hip AB/PF/TA strengthening. LTG Duration 12/13/22 progressed 10/17/22 Assessment Summary Assessment Pt had + response to resisted/ ashtyn hip AB strengthening in sit and 4-pt as well as with sit<>stand. Pt needs hip strengthening to decrease pain with standing. Physical Therapy Plan Frequency and Duration Frequency of Treatment 2x/Week Duration of treatment (weeks) 9 Plan of Care Start Date 10/07/22 Plan of Care End Date 12/13/22 Next Visit Focus/Plan Next Note Type Treatment Note Next Visit Plan Issued & reviewed HEP: Ashtyn hip AB/PF/TA strengthening, sidelie clamshell with TA tight. Assess response to correcting R innominate for anterior rotation. Assess ROM of hip mobility in supine and Measure painfree distance between knees. Start Kegels. Pt education: proper sitting/ standing posture (equal WBing, knees apart), bed mobility, lifting/bending, and sleeping (pillows) positions. POC: Strengthening: core and pelvic muscles for SP stability. Correct if needed SIJ dysfunction and Sacral balancing in supine.
--- NOTE | 2022-10-22 14:35 | PT.OTN ---
Current Diagnoses Other specified related conditions, unspecified trimester (10/22/22) Pelvic and perineal pain (10/22/22) Physical Therapy Treatment Note PT-OP-A Visit Information Start: 10/03/22 17:45 Freq: Status: Active Protocol: Document 10/22/22 13:23 LRN (Rec: 10/22/22 14:35 LRN [id number]) Out-Patient Physical Therapy Visit Information Visit Information Visit Type Treatment Note Visit Start Time 13:23 Visit Stop Time 14:13 Total Visit Minutes 50 Visit Number Evaluation Information Evaluation Date 10/07/22 Precautions Precautions Depression, back & neck pain, gets SOB. PT-OP-B Current Condition Start: 10/03/22 17:45 Freq: Status: Active Protocol: Document 10/07/22 08:49 LRN (Rec: 10/07/22 09:37 LRN [id number]) Current Condition History of Current Condition Onset Date 24 weeks, 9 wks ago. Current Complaints Pubic pain. History of Current Condition Pt is a 36 yo female who is 33 weeks . States 9 weeks ago her Pubic Symphysis pain and leonel hip pain worsened . She states with her last preganancy she ran until 30 weeks, then walked w/o pain. She was walking [address] daily, but because of placenta previa she was put on pelvic rest. She states she tried running again and had a lot of pain. Now she walks and has excruciating pain and a lot of pain just putting socks and shoes on. Pt is due in 7 weeks with a due date of Nov 24, 2022. She denies having a rectus diastasis after first . Was told to do leg lifts to strengthen her core, but has not been able to perform due to pain. Was starting to get pain down the hips, but that has resolved with stretching (deep squatting, side lunges). LB/ hip pain is liveable. Pain with sit<>stand 6-7/10 and sometimes worse if working all day or after walking. Prior Treatments and Tests PT after first preg for prolapse and PF pain and hesistancy, that has resolved. Treatment Goals Patient/Caregiver Goals Pt goal is: Lessen pubic pain and bilateral hip pain. Increase stability. Decrease pubic pain with walking and moving in bed, sit <>stand. 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 PT-OP-C Subjective Start: 10/03/22 17:45 Freq: Status: Active Protocol: Document 10/22/22 13:23 LRN (Rec: 10/22/22 14:35 LRN [id number]) OP-PT Subjective Patient Comments Patient Comments 35 weeks. Pain is worse, burning, rated 7-8/10. States her belt she wears helped support but didn't help reduce pain. PT-OP-J Posture/Palpation/Skin Start: 10/03/22 17:45 Freq: Status: Active Protocol: Document 10/07/22 08:49 LRN (Rec: 10/07/22 09:37 LRN [id number]) Posture Evaluation Position Standing Head/C-Spine Posture Forward Head L-Spine Posture Increased Lordosis Shoulder Posture (L) Elevated Pelvis Posture (L) Iliac Crest Superior Weight Distribution Weight Shifted Right Comments Posture Comments R shifted to R. tends to stand on RLE. Palpation Assessment Location ASIS Palpation Location ASIS's Palpation Details Posteriorly rotated L innominate. PT-OP-K Range of Motion Start: 10/03/22 17:45 Freq: Status: Active Protocol: Document 10/17/22 13:21 LRN (Rec: 10/17/22 15:57 LRN [id number]) Hip Goniometric Range of Motion Hip Right Passive Testing Position Supine Internal Rotation 45 External Rotation 20 Left Passive Testing Position Supine Internal Rotation 45 External Rotation 20 PT-OP-M Strength Start: 10/03/22 17:45 Freq: Status: Active Protocol: Document 10/07/22 08:49 LRN (Rec: 10/07/22 09:37 LRN [id number]) Hip Strength Hip Manual Muscle Testing Right Extension (S1) 3 Fair External Rotation 3 Fair Internal Rotation 3 Fair Left Flexion (L2) 3 Fair External Rotation 3 Fair Internal Rotation 3 Fair PT-OP-Q Treatments Start: 10/03/22 17:45 Freq: Status: Active Protocol: Document 10/22/22 13:23 LRN (Rec: 10/22/22 14:35 LRN [id number]) Therapeutic Exercises Sidelying Exercises Clamshell Sidelying Exercise Name TA/Ashtyn Clamshell Side bilateral Reps/Minutes 10 SH x 10 Comments Cuing to slowly lower top leg TA tightening Sidelying Exercise Name TA tightening - HEP to do bilaterally Reps/Minutes 10 SH x 10 x 2 on R side, x 1 L side Sitting Exercises Hip AB Sitting Exercise Name Hip AB Side bilateral Equipment Used Lev 2 TB Reps/Minutes 15x Comments Cuing to perform hip AB/ER pivoting on heel. Sit<>Stand Sitting Exercise Name Sit<>Stands w/GB around knees Equipment Used Adjustment of table hgt, Gait Belt (GB) Reps/Minutes 10x Comments Cuing to exhale and PF >< with stand/sit Ashtyn Hip AB Sitting Exercise Name Ashtyn Hip AB @ neutral deg's Side bilateral Equipment Used Gait belt (GB) around distal thighs. Reps/Minutes 10 SH x 10 Comments Cuing to slowly release hip AB with an incr in PF/TA tightening Other Exercises 4 pt TA/Ashtyn hip AB Other Exercise Name 4 pt: Ashtyn hip AB/TA/PF Equipment Used TBand around distal thighs. Comments Cuing for pt not to wgt shift onto one side but equal LE WBing. Manual Therapy Treatment Soft Tissue Mobilization Sacral balancing Body Location Sacrum Comments Position: Supine on Pillows. Sacral Shear to left. Infer glide/PA of sacral sulcus 6 pt balancing R Iliopsoas relaxation. Pt not able to tolerate pubic balancing. L hip Body Location L Glut Max, Med, Piriformis, TFL Mobilization Type Strumming,Trigger Point Release Intensity/Depth Moderate Body Position Sidelying Comments Sidelie on pillows PT-OP-T Assessment and Plan Start: 10/03/22 17:45 Freq: Status: Active Protocol: Document 10/22/22 13:23 LRN (Rec: 10/22/22 14:35 LRN [id number]) Physical Therapy Assessment Goals 3 Impairment Bilateral hip pain Impairment Hip pain rated 4/10 Short Term Goal (STG) Educate pt in self STM and hip stretches to decrease hip muscle tension and pain. STG Duration 11/07/22 Detention Goal (LTG) Lessen bilateral hip pain. LTG Duration 12/13/22 2 Impairment Pubic pain Impairment Pubic pain rated 7/10 Short Term Goal (STG) Educate pt proper standing and sitting posture to decrease pubic pain and discuss support belt. STG Duration 11/07/22 Detention Goal (LTG) Decrease pubic pain with walking, moving in bed, and sit<>stand. 10/17/22: Pain with moving on plinth and sit<>stand decreased with ashtyn hip AB against gait belt. LTG Duration 12/13/22 progressed 10/17/22 (no change pain with walking) 1 Impairment HEP Short Term Goal (STG) Pt will be educated in transfers and posturing to minimize pubic symphysis strain. STG Duration 11/07/22 Detention Goal (LTG) Pt will be educated in a self care HEP of core and pelvic stabilization ex's. 10/17/22: Ashtyn hip AB/PF/TA strengthening. LTG Duration 12/13/22 progressed 10/17/22 Assessment Summary Assessment Pt is 35 week , who presents with Symphysis Pubis (SP) Dysfunction and pain with mvmt. Her hip AB's/ER's appear tight, but instability and SP pain limit stretching at this time. Core/pelvic stab ex's are helpful to reduce pain from 10/10 to 08/10. Physical Therapy Plan Frequency and Duration Frequency of Treatment 2x/Week Duration of treatment (weeks) 9 Plan of Care Start Date 10/07/22 Plan of Care End Date 12/13/22 Next Visit Focus/Plan Next Note Type Treatment Note Next Visit Plan Issued & reviewed HEP: Ashtyn hip AB/PF/TA strengthening, sidelie clamshell with TA tight. Assess R innominate for anterior rotation. Assess ROM of hip mobility in supine, Measure painfree distance between knees, add hip stretches (Piriformis/IR/ lateral hip) as tolerated. Start Jf. Pt education: proper sitting/ standing posture (equal WBing, knees apart), bed mobility, lifting/bending, and sleeping (pillows) positions. POC: Strengthening: core and pelvic muscles for SP stability. Correct if needed SIJ dysfunction and Sacral balancing in supine.
--- NOTE | 2022-10-29 16:50 | PT.OTN ---
Current Diagnoses Other specified related conditions, unspecified trimester (10/29/22) Pelvic and perineal pain (10/29/22) Physical Therapy Treatment Note PT-OP-A Visit Information Start: 10/03/22 17:45 Freq: Status: Active Protocol: Document 10/29/22 08:48 LRN (Rec: 10/29/22 09:36 LRN [id number]) Out-Patient Physical Therapy Visit Information Visit Information Visit Type Treatment Note Visit Start Time 08:48 Visit Stop Time 09:32 Total Visit Minutes 44 Visit Number Evaluation Information Evaluation Date 10/07/22 Precautions Precautions Depression, back & neck pain, gets SOB. PT-OP-B Current Condition Start: 10/03/22 17:45 Freq: Status: Active Protocol: Document 10/07/22 08:49 LRN (Rec: 10/07/22 09:37 LRN [id number]) Current Condition History of Current Condition Onset Date 24 weeks, 9 wks ago. Current Complaints Pubic pain. History of Current Condition Pt is a 36 yo female who is 33 weeks . States 9 weeks ago her Pubic Symphysis pain and yoel hip pain worsened . She states with her last preganancy she ran until 30 weeks, then walked w/o pain. She was walking [address] [place], but because of placenta previa she was put on pelvic rest. She states she tried running again and had a lot of pain. Now she walks and has excruciating pain and a lot of pain just putting socks and shoes on. Pt is due in 7 weeks with a due date of Nov 24, 2022. She denies having a rectus diastasis after first . Was told to do leg lifts to strengthen her core, but has not been able to perform due to pain. Was starting to get pain down the hips, but that has resolved with stretching (deep squatting, side lunges). LB/ hip pain is liveable. Pain with sit<>stand 6-7/10 and sometimes worse if working all day or after walking. Prior Treatments and Tests PT after first preg for prolapse and PF pain and hesistancy, that has resolved. Treatment Goals Patient/Caregiver Goals Pt goal is: Lessen pubic pain and bilateral hip pain. Increase stability. Decrease pubic pain with walking and moving in bed, sit <>stand. 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 PT-OP-J Posture/Palpation/Skin Start: 10/03/22 17:45 Freq: Status: Active Protocol: Document 10/07/22 08:49 LRN (Rec: 10/07/22 09:37 LRN [id number]) Posture Evaluation Position Standing Head/C-Spine Posture Forward Head L-Spine Posture Increased Lordosis Shoulder Posture (L) Elevated Pelvis Posture (L) Iliac Crest Superior Weight Distribution Weight Shifted Right Comments Posture Comments R shifted to R. tends to stand on RLE. Palpation Assessment Location ASIS Palpation Location ASIS's Palpation Details Posteriorly rotated L innominate. PT-OP-K Range of Motion Start: 10/03/22 17:45 Freq: Status: Active Protocol: Document 10/17/22 13:21 LRN (Rec: 10/17/22 15:57 LRN [id number]) Hip Goniometric Range of Motion Hip Right Passive Testing Position Supine Internal Rotation 45 External Rotation 20 Left Passive Testing Position Supine Internal Rotation 45 External Rotation 20 PT-OP-M Strength Start: 10/03/22 17:45 Freq: Status: Active Protocol: Document 10/07/22 08:49 LRN (Rec: 10/07/22 09:37 LRN [id number]) Hip Strength Hip Manual Muscle Testing Right Extension (S1) 3 Fair External Rotation 3 Fair Internal Rotation 3 Fair Left Flexion (L2) 3 Fair External Rotation 3 Fair Internal Rotation 3 Fair PT-OP-Q Treatments Start: 10/03/22 17:45 Freq: Status: Active Protocol: Document 10/29/22 08:48 LRN (Rec: 10/29/22 09:36 LRN [id number]) Therapeutic Exercises Sidelying Exercises Clamshell Sidelying Exercise Name TA/Ashtyn Clamshell Side bilateral Reps/Minutes 10' Comments Cuing to slowly lower top leg Sitting Exercises Hip AB Sitting Exercise Name Hip AB Side bilateral Equipment Used Lev 2 TB Reps/Minutes 15x 2 Comments Cuing to perform hip AB/ER pivoting on heel. Standing Exercises Wall slides Standing Exercise Name Wall slides Reps/Minutes 15x Other Exercises 4 pt TA/Ashtyn hip AB Other Exercise Name 4 pt: Ashtyn hip AB/TA/PF Equipment Used TBand around distal thighs. Comments Cuing for pt not to wgt shift onto one side but equal LE WBing. Manual Therapy Treatment Soft Tissue Mobilization Low Back/hips Body Location Yoel LB/hips Mobilization Type Strumming Comments Prone on pillow Self-Care/Home Management Treatment Education Patient Education Body Mechanics,Home Exercise Program,Posture Other Education Pt educated in proper body mechanics with modifications for squatting in split stance to equal WBing & avoiding wide stance, standing at sink on one leg to equal WBing and minimizing forward bending. Reviewed proper sitting posture. Reviewed pt's belt for best positioning to minimize Symphysis Pubis (SP) pain. Pt to wear belt with supports below at work and recommended cold pack at SP location at times of pain. Activities Self-Care/Home Management Activities Handout issued & reviewed for postural changes, body mechanics basics and with ADLs. Issued & reviewed HEP: Sidelie clamshell with TA tight & Wall slides. PT-OP-T Assessment and Plan Start: 10/03/22 17:45 Freq: Status: Active Protocol: Document 10/29/22 08:48 LRN (Rec: 10/29/22 09:36 LRN [id number]) Physical Therapy Assessment Goals 3 Impairment Bilateral hip pain Impairment Hip pain rated 4/10 Short Term Goal (STG) Educate pt in self STM and hip stretches to decrease hip muscle tension and pain. STG Duration 11/07/22 Retirement Goal (LTG) Lessen bilateral hip pain. LTG Duration 12/13/22 2 Impairment Pubic pain Impairment Pubic pain rated 7/10 Short Term Goal (STG) Educate pt proper standing and sitting posture to decrease pubic pain and discuss support belt. 10/29/22: Pt educated in proper sitting posture and discussed postural changes expected with . Muscles Must Meet Challenge handout issued. Reviewed pt's support belt best wear practice to support Symphysis Pubis (SP) during her work day. STG Duration 11/07/22 (10/29/22: MET GOAL) Retirement Goal (LTG) Decrease pubic pain with walking, moving in bed, and sit<>stand. 10/17/22: Pain with moving on plinth and sit<>stand decreased with ashtyn hip AB against gait belt. LTG Duration 12/13/22 progressed 10/17/22 (no change pain with walking) 1 Impairment HEP Short Term Goal (STG) Pt will be educated in transfers and posturing to minimize pubic symphysis strain. 10/29/22: Discussed log roll transfer and proper sitting posture. Discussed postural changes during and recommendations to avoid wide stance and minimae use of hip AD's. STG Duration 11/07/22 (10/29/22: MET GOAL) Retirement Goal (LTG) Pt will be educated in a self care HEP of core and pelvic stabilization ex's. 10/17/22: Ashtyn hip AB/PF/TA strengthening. 10/29/22: Clamshell & wall slides. LTG Duration 12/13/22 progressed 10/29/22 Assessment Summary Assessment Pt is 36.5 weeks with Symphysis Pubis (SP) Dysfunction and pain with mvmt . Her growing pregancy is making it difficult to obtain stability to reduce pain with her work activities. She is now able to tolerate sitting BKFO with resistance for AB, but reportedly pain is same. She c/o LBP with work from leaning over pt; therefore pt may be straining her LB with work activities. Physical Therapy Plan Frequency and Duration Frequency of Treatment 2x/Week Duration of treatment (weeks) 9 Plan of Care Start Date 10/07/22 Plan of Care End Date 12/13/22 Next Visit Focus/Plan Next Note Type Treatment Note Next Visit Plan ?Issue HEP: Sitting Ashtyn hip AB/PF/TA strengthening. Assess R innominate for anterior rotation. Stretch LB into flexion. Assess ROM of hip mobility in supine, Measure painfree distance between knees, add hip stretches (Piriformis/IR/ lateral hip) as tolerated. Start Kegels. Review bed mobility. Pt education: proper standing posture (equal WBing, knees apart) and sleeping (pillows) positions. POC: Strengthening: core and pelvic muscles for SP stability. Correct if needed SIJ dysfunction and Sacral balancing in supine.
--- NOTE | 2022-11-07 10:22 | PT.OTN ---
Current Diagnoses Other specified related conditions, unspecified trimester (11/07/22) Pelvic and perineal pain (11/07/22) Physical Therapy Treatment Note PT-OP-A Visit Information Start: 10/03/22 17:45 Freq: Status: Active Protocol: Document 11/07/22 07:54 LRN (Rec: 11/07/22 08:53 LRN [id number]) Out-Patient Physical Therapy Visit Information Visit Information Visit Type Treatment Note Visit Start Time 08:00 Visit Stop Time 08:50 Total Visit Minutes 50 Visit Number 46 Evaluation Information Evaluation Date 10/07/22 Precautions Precautions Depression, back & neck pain, gets SOB. PT-OP-B Current Condition Start: 10/03/22 17:45 Freq: Status: Active Protocol: Document 10/07/22 08:49 LRN (Rec: 10/07/22 09:37 LRN [id number]) Current Condition History of Current Condition Onset Date 24 weeks, 9 wks ago. Current Complaints Pubic pain. History of Current Condition Pt is a 36 yo female who is 33 weeks . States 9 weeks ago her Pubic Symphysis pain and yoel hip pain worsened . She states with her last preganancy she ran until 30 weeks, then walked w/o pain. [place] [address] [place], but because of placenta previa she was put on pelvic rest. She states she tried running again and had a lot of pain. Now she walks and has excruciating pain and a lot of pain just putting socks and shoes on. Pt is due in 7 weeks with a due date of Nov 24, 2022. She denies having a rectus diastasis after first . Was told to do leg lifts to strengthen her core, but has not been able to perform due to pain. Was starting to get pain down the hips, but that has resolved with stretching (deep squatting, side lunges). LB/ hip pain is liveable. Pain with sit<>stand 6-7/10 and sometimes worse if working all day or after walking. Prior Treatments and Tests PT after first preg for prolapse and PF pain and hesistancy, that has resolved. Treatment Goals Patient/Caregiver Goals Pt goal is: Lessen pubic pain and bilateral hip pain. Increase stability. Decrease pubic pain with walking and moving in bed, sit <>stand. 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 PT-OP-C Subjective Start: 10/03/22 17:45 Freq: Status: Active Protocol: Document 11/07/22 07:54 LRN (Rec: 11/07/22 08:53 LRN [id number]) OP-PT Subjective Patient Comments Patient Comments Pt is 37 1/2 weeks. States pubic pain is better but back is better. PT-OP-J Posture/Palpation/Skin Start: 10/03/22 17:45 Freq: Status: Active Protocol: Document 10/07/22 08:49 LRN (Rec: 10/07/22 09:37 LRN [id number]) Posture Evaluation Position Standing Head/C-Spine Posture Forward Head L-Spine Posture Increased Lordosis Shoulder Posture (L) Elevated Pelvis Posture (L) Iliac Crest Superior Weight Distribution Weight Shifted Right Comments Posture Comments R shifted to R. tends to stand on RLE. Palpation Assessment Location ASIS Palpation Location ASIS's Palpation Details Posteriorly rotated L innominate. PT-OP-K Range of Motion Start: 10/03/22 17:45 Freq: Status: Active Protocol: Document 11/07/22 07:54 LRN (Rec: 11/07/22 08:53 LRN [id number]) Hip Goniometric Range of Motion Hip ROM Limitations Hip ROM Limitations Pain Comments Sitting: Min pain: knees 10.5 apart; incr'd pain: Knees 15 apart . Supine: Min pain: 8 apart; incr'd pain: Knees 13 apart. PT-OP-M Strength Start: 10/03/22 17:45 Freq: Status: Active Protocol: Document 10/07/22 08:49 LRN (Rec: 10/07/22 09:37 LRN [id number]) Hip Strength Hip Manual Muscle Testing Right Extension (S1) 3 Fair External Rotation 3 Fair Internal Rotation 3 Fair Left Flexion (L2) 3 Fair External Rotation 3 Fair Internal Rotation 3 Fair PT-OP-Q Treatments Start: 10/03/22 17:45 Freq: Status: Active Protocol: Document 11/07/22 07:54 LRN (Rec: 11/07/22 08:53 LRN [id number]) Therapeutic Exercises Supine Exercises Closing Pelvic Bone Supine Exercise Name Ashtyn hip AD (3 positions) and AB (3 positions) Equipment Used PT manual positioning and resist. Reps/Minutes 5 SH x 1 each position. Comments Cuing to contract w/o increasing pain. BKFO Supine Exercise Name BKFO in range that doesn't increase pain. Reps/Minutes 5' Comments Painfree knees apart ROM msmt: 8 to 13 Prone Exercises Child's Pose Prone Exercise Name Child's Pose Reps/Minutes 4' Comments I/S for L/S stretch Sitting Exercises Piriformis stretch Sitting Exercise Name Piriformis stretch training and stretch Side right Reps/Minutes 5' Comments Cuing for WBing thru Ishial Tubs. Hip AB Sitting Exercise Name Hip AB in range that doesn't increase pain. Reps/Minutes 5' Comments Painfree knees apart ROM msmt: 10.5 to 15 Other Exercises Cat/Camel Other Exercise Name Cat/Camel Reps/Minutes 6' Comments I/S for Thoracic mobilty and Lumbar stretch into flex Transfer training Other Exercise Name Sit>Supine training & rolling side to side training Comments Cuing for log roll transfer, & rolling keeping legs apart for comfort Manual Therapy Treatment Soft Tissue Mobilization Low Back/hips Body Location Yoel LB/hips Mobilization Type Strumming Comments Prone on pillow Self-Care/Home Management Treatment Education Patient Education Home Exercise Program,Posture Other Education Pt education in postures & body mechanics ( baby positioning/carrying), and posturing in sidelie. Handouts issued. Pt education in proper posturing with cuing to keep ribcage over hips and extension of sacrum. Activities Self-Care/Home Management Activities I/S pt in hands/knees Rock back stretch for LB and isolated posterior hip stretching. Issued & reviewed HEP handout for Closing Pelvic Bone. I/S pt she can wait post- but can talk to birthing provider regarding exercise. PT-OP-T Assessment and Plan Start: 10/03/22 17:45 Freq: Status: Active Protocol: Document 11/07/22 07:54 LRN (Rec: 11/07/22 08:53 LRN [id number]) Physical Therapy Assessment Goals 3 Impairment Bilateral hip pain Impairment Hip pain rated 4/10 Short Term Goal (STG) Educate pt in self STM and hip stretches to decrease hip muscle tension and pain. STG Duration 11/07/22 Flap Maker Goal (LTG) Lessen bilateral hip pain. LTG Duration 12/13/22 2 Impairment Pubic pain Impairment Pubic pain rated 7/10 Short Term Goal (STG) Educate pt proper standing and sitting posture to decrease pubic pain and discuss support belt. 10/29/22: Pt educated in proper sitting posture and discussed postural changes expected with . Muscles Must Meet Challenge handout issued. Reviewed pt's support belt best wear practice to support Symphysis Pubis (SP) during her work day. STG Duration 11/07/22 (10/29/22: MET GOAL) Mcc Goal (LTG) Decrease pubic pain with walking, moving in bed, and sit<>stand. 10/17/22: Pain with moving on plinth and sit<>stand decreased with ashtyn hip AB against gait belt. 11/07/22: No increased pain with walking. Pain primarily with moving in bed. LTG Duration 12/13/22 progressed 11/07/22 1 Impairment HEP Short Term Goal (STG) Pt will be educated in transfers and posturing to minimize pubic symphysis strain. 10/29/22: Discussed log roll transfer and proper sitting posture. Discussed postural changes during and recommendations to avoid wide stance and minimae use of hip AD's. STG Duration 11/07/22 (10/29/22: MET GOAL) Flap Maker Goal (LTG) Pt will be educated in a self care HEP of core and pelvic stabilization ex's. 10/17/22: Ashtyn hip AB/PF/TA strengthening. 10/29/22: Clamshell & wall slides. 11/07/22: Pelvic closing (ashtyn hip AD/ashtyn hip AB) LTG Duration 12/13/22 progressed 11/07/22 Assessment Summary Assessment Pt pubic pain much less as her movements habit have improved and with use of support belt while at work, although the belt appears to be causing onset of Sciatic pain from increase lordosis. Not able to stretch hip flexors due to SIJ dysfunction /instability, but would be beneficial to treat post- . Pt is not wanting to increase PF strength due to concerns of tearing with labor & delivery. Physical Therapy Plan Frequency and Duration Frequency of Treatment 2x/Week Duration of treatment (weeks) 9 Plan of Care Start Date 10/07/22 Plan of Care End Date 12/13/22 Next Visit Focus/Plan Next Note Type Treatment Note Next Visit Plan Issue HEP: Sitting Ashtyn hip AB/PF/TA strengthening. Stretch LB into flexion & Add hip stretches (Piriformis/IR/ lateral hip) as needed/ tolerated. Assess ROM of hip mobility in supine. Discuss Kegels post- . POC: Strengthening: core and pelvic muscles for SP stability. Correct if needed SIJ dysfunction and monitor for: R innominate for anterior rotation.
--- NOTE | 2022-11-11 15:56 | PT.OTN ---
Current Diagnoses Other specified related conditions, unspecified trimester (11/11/22) Pelvic and perineal pain (11/11/22) Physical Therapy Treatment Note PT-OP-A Visit Information Start: 10/03/22 17:45 Freq: Status: Active Protocol: Document 11/11/22 08:02 LRN (Rec: 11/11/22 08:49 LRN [id number]) Out-Patient Physical Therapy Visit Information Visit Information Visit Type Treatment Note Visit Start Time 08:02 Visit Stop Time 08:44 Total Visit Minutes 44 Visit Number Evaluation Information Evaluation Date 10/07/22 Precautions Precautions Depression, back & neck pain, gets SOB. PT-OP-B Current Condition Start: 10/03/22 17:45 Freq: Status: Active Protocol: Document 10/07/22 08:49 LRN (Rec: 10/07/22 09:37 LRN [id number]) Current Condition History of Current Condition Onset Date 24 weeks, 9 wks ago. Current Complaints Pubic pain. History of Current Condition Pt is a 36 yo female who is 33 weeks . States 9 weeks ago her Pubic Symphysis pain and leonel hip pain worsened . She states with her last preganancy she ran until 30 weeks, then walked w/o pain. She was walking [address] daily, but because of placenta previa she was put on pelvic rest. She states she tried running again and had a lot of pain. Now she walks and has excruciating pain and a lot of pain just putting socks and shoes on. Pt is due in 7 weeks with a due date of Nov 24, 2022. She denies having a rectus diastasis after first . Was told to do leg lifts to strengthen her core, but has not been able to perform due to pain. Was starting to get pain down the hips, but that has resolved with stretching (deep squatting, side lunges). LB/ hip pain is liveable. Pain with sit<>stand 6-7/10 and sometimes worse if working all day or after walking. Prior Treatments and Tests PT after first preg for prolapse and PF pain and hesistancy, that has resolved. Treatment Goals Patient/Caregiver Goals Pt goal is: Lessen pubic pain and bilateral hip pain. Increase stability. Decrease pubic pain with walking and moving in bed, sit <>stand. 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 PT-OP-C Subjective Start: 10/03/22 17:45 Freq: Status: Active Protocol: Document 11/11/22 08:02 LRN (Rec: 11/11/22 08:49 LRN [id number]) OP-PT Subjective Patient Comments Patient Comments Pt is 38 wks + 1 day. Baby has dropped. Pain walking afterwards was 4-5/10, while walking didn't notice the pain . Does stretching during her day since she does not have pt schedule. Pain generally is 4-5/10. Still hurts turning side to side. PT-OP-J Posture/Palpation/Skin Start: 10/03/22 17:45 Freq: Status: Active Protocol: Document 10/07/22 08:49 LRN (Rec: 10/07/22 09:37 LRN [id number]) Posture Evaluation Position Standing Head/C-Spine Posture Forward Head L-Spine Posture Increased Lordosis Shoulder Posture (L) Elevated Pelvis Posture (L) Iliac Crest Superior Weight Distribution Weight Shifted Right Comments Posture Comments R shifted to R. tends to stand on RLE. Palpation Assessment Location ASIS Palpation Location ASIS's Palpation Details Posteriorly rotated L innominate. PT-OP-K Range of Motion Start: 10/03/22 17:45 Freq: Status: Active Protocol: Document 11/07/22 07:54 LRN (Rec: 11/07/22 08:53 LRN [id number]) Hip Goniometric Range of Motion Hip ROM Limitations Hip ROM Limitations Pain Comments Sitting: Min pain: knees 10.5 apart; incr'd pain: Knees 15 apart . Supine: Min pain: 8 apart; incr'd pain: Knees 13 apart. PT-OP-M Strength Start: 10/03/22 17:45 Freq: Status: Active Protocol: Document 10/07/22 08:49 LRN (Rec: 10/07/22 09:37 LRN [id number]) Hip Strength Hip Manual Muscle Testing Right Extension (S1) 3 Fair External Rotation 3 Fair Internal Rotation 3 Fair Left Flexion (L2) 3 Fair External Rotation 3 Fair Internal Rotation 3 Fair PT-OP-Q Treatments Start: 10/03/22 17:45 Freq: Status: Active Protocol: Document 11/11/22 08:02 LRN (Rec: 11/11/22 08:49 LRN [id number]) Cardio Equipment Recumbent Bicycle Duration (Minutes) 8 Resistance 3 Other resistance that did not increase pain. Therapeutic Exercises Supine Exercises Happy Baby Pose Supine Exercise Name Semi-reclined Happy Baby Poise Reps/Minutes 5' Comments Manually assisted Sitting Exercises Hip AD stretch Sitting Exercise Name Hip AD stretch - leg on table for inner thigh stretch Side bilateral Reps/Minutes 5' Other Exercises Squat position training Other Exercise Name Squatting stretch Equipment Used Sink Reps/Minutes 3' Squat side sliding Other Exercise Name Squat side sliding Equipment Used // bars Reps/Minutes 3 back/forth laps Comments Cuing to shorten steps and slide feet in/out vs lift Side step sliding Other Exercise Name Slide step sliding Equipment Used // bars Reps/Minutes 3 back/forth laps Comments Cuing to shorten steps and slide feet in/out vs lift Self-Care/Home Management Treatment Education Patient Education Home Exercise Program Activities Self-Care/Home Management Activities Issued & reviewed HEP: Pelvuc bracing with Daily activities . PT-OP-T Assessment and Plan Start: 10/03/22 17:45 Freq: Status: Active Protocol: Document 11/11/22 08:02 LRN (Rec: 11/11/22 08:49 LRN [id number]) Physical Therapy Assessment Goals 3 Impairment Bilateral hip pain Impairment Hip pain rated 4/10 Short Term Goal (STG) Educate pt in self STM and hip stretches to decrease hip muscle tension and pain. 11/11/22: Pt given I/S in sit hip AD stretch and standing squat holding onto secure object (sink) STG Duration 11/07/22 (11/11/22 need educ self STM of hip, piriformis/ lateral stretch) Newspaper Inserter Goal (LTG) Lessen bilateral hip pain. LTG Duration 12/13/22 2 Impairment Pubic pain Impairment Pubic pain rated 7/10 Short Term Goal (STG) Educate pt proper standing and sitting posture to decrease pubic pain and discuss support belt. 10/29/22: Pt educated in proper sitting posture and discussed postural changes expected with . Muscles Must Meet Challenge handout issued. Reviewed pt's support belt best wear practice to support Symphysis Pubis (SP) during her work day. STG Duration 11/07/22 (10/29/22: MET GOAL) Halfway Goal (LTG) Decrease pubic pain with walking, moving in bed, and sit<>stand. 10/17/22: Pain with moving on plinth and sit<>stand decreased with ashtyn hip AB against gait belt. 11/07/22: No increased pain with walking. Pain primarily with moving in bed. LTG Duration 12/13/22 progressed 11/07/22 1 Impairment HEP Short Term Goal (STG) Pt will be educated in transfers and posturing to minimize pubic symphysis strain. 10/29/22: Discussed log roll transfer and proper sitting posture. Discussed postural changes during and recommendations to avoid wide stance and minimae use of hip AD's. STG Duration 11/07/22 (10/29/22: MET GOAL) Halfway Goal (LTG) Pt will be educated in a self care HEP of core and pelvic stabilization ex's. 10/17/22: Ashtyn hip AB/PF/TA strengthening. 10/29/22: Clamshell & wall slides. 11/07/22: Pelvic closing (ashtyn hip AD/ashtyn hip AB) 11/11/22: HEP: Pelvic Brace with Daily Activities. LTG Duration 12/13/22 progressed 11/11/22 Assessment Summary Assessment Pt is 38 weeks + 1 day and has been able to increase her activity level without increasing her pubic pain. Her hip pain continues with active strengthening ex's (hip AB, Glut Med); therefore weakness/strain/tightness is present. Pt able to perform Happy Baby pose w/o pubic pain and was able to tolerate manual stretch to hip AD's w/o increased pubic pain. Pt able to squat with knees ~12 apart w/o increased pubic pain . Physical Therapy Plan Frequency and Duration Frequency of Treatment 2x/Week Duration of treatment (weeks) 9 Plan of Care Start Date 10/07/22 Plan of Care End Date 12/13/22 Next Visit Focus/Plan Next Note Type Treatment Note Next Visit Plan Probably 1-2 more visits before delivery. Focus on decreasing hip pain (assess LTG #3). \ Issue HEP: Add hip stretches (Piriformis/IR/lateral hip) as needed/tolerated (?assess ROM of hip mobility in supine), and Stretch LB into flexion. If needed, HEP: Sitting Ashtyn hip AB/PF/TA strengthening. Discuss Jf post-. POC: Strengthening: core and pelvic muscles for SP stability. Correct if needed SIJ dysfunction and monitor for: R innominate for anterior rotation.
--- NOTE | 2022-11-21 09:53 | PT.OTN ---
Current Diagnoses Other specified related conditions, unspecified trimester (11/21/22) Pelvic and perineal pain (11/21/22) Physical Therapy Treatment Note PT-OP-A Visit Information Start: 10/03/22 17:45 Freq: Status: Active Protocol: Document 11/21/22 08:51 LRN (Rec: 11/21/22 09:53 LRN [id number]) Out-Patient Physical Therapy Visit Information Visit Information Visit Type Treatment Note Visit Start Time 08:51 Visit Stop Time 09:37 Total Visit Minutes 46 Visit Number Evaluation Information Evaluation Date 10/07/22 Precautions Precautions Depression, back & neck pain, gets SOB. PT-OP-B Current Condition Start: 10/03/22 17:45 Freq: Status: Active Protocol: Document 10/07/22 08:49 LRN (Rec: 10/07/22 09:37 LRN [id number]) Current Condition History of Current Condition Onset Date 24 weeks, 9 wks ago. Current Complaints Pubic pain. History of Current Condition Pt is a 36 yo female who is 33 weeks . States 9 weeks ago her Pubic Symphysis pain and yoel hip pain worsened . She states with her last preganancy she ran until 30 weeks, then walked w/o pain. She was [place] [address] [place], but because of placenta previa she was put on pelvic rest. She states she tried running again and had a lot of pain. Now she walks and has excruciating pain and a lot of pain just putting socks and shoes on. Pt is due in 7 weeks with a due date of Nov 24, 2022. She denies having a rectus diastasis after first . Was told to do leg lifts to strengthen her core, but has not been able to perform due to pain. Was starting to get pain down the hips, but that has resolved with stretching (deep squatting, side lunges). LB/ hip pain is liveable. Pain with sit<>stand 6-7/10 and sometimes worse if working all day or after walking. Prior Treatments and Tests PT after first preg for prolapse and PF pain and hesistancy, that has resolved. Treatment Goals Patient/Caregiver Goals Pt goal is: Lessen pubic pain and bilateral hip pain. Increase stability. Decrease pubic pain with walking and moving in bed, sit <>stand. 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. PT-OP-C Subjective Start: 10/03/22 17:45 Freq: Status: Active Protocol: Document 11/21/22 08:51 LRN (Rec: 11/21/22 09:53 LRN [id number]) OP-PT Subjective Patient Comments Patient Comments Pube pain with walking turning , and having back pain. Reported less LBP after treatment. PT-OP-J Posture/Palpation/Skin Start: 10/03/22 17:45 Freq: Status: Active Protocol: Document 10/07/22 08:49 LRN (Rec: 10/07/22 09:37 LRN [id number]) Posture Evaluation Position Standing Head/C-Spine Posture Forward Head L-Spine Posture Increased Lordosis Shoulder Posture (L) Elevated Pelvis Posture (L) Iliac Crest Superior Weight Distribution Weight Shifted Right Comments Posture Comments R shifted to R. tends to stand on RLE. Palpation Assessment Location ASIS Palpation Location ASIS's Palpation Details Posteriorly rotated L innominate. PT-OP-K Range of Motion Start: 10/03/22 17:45 Freq: Status: Active Protocol: Document 11/07/22 07:54 LRN (Rec: 11/07/22 08:53 LRN [id number]) Hip Goniometric Range of Motion Hip ROM Limitations Hip ROM Limitations Pain Comments Sitting: Min pain: knees 10.5 apart; incr'd pain: Knees 15 apart . Supine: Min pain: 8 apart; incr'd pain: Knees 13 apart. PT-OP-M Strength Start: 10/03/22 17:45 Freq: Status: Active Protocol: Document 10/07/22 08:49 LRN (Rec: 10/07/22 09:37 LRN [id number]) Hip Strength Hip Manual Muscle Testing Right Extension (S1) 3 Fair External Rotation 3 Fair Internal Rotation 3 Fair Left Flexion (L2) 3 Fair External Rotation 3 Fair Internal Rotation 3 Fair PT-OP-Q Treatments Start: 10/03/22 17:45 Freq: Status: Active Protocol: Document 11/21/22 08:51 LRN (Rec: 11/21/22 09:53 LRN [id number]) Cardio Equipment Recumbent Bicycle Duration (Minutes) 9 Resistance 3 Other resistance that did not increase pain. Therapeutic Exercises Supine Exercises Active Hip AB Supine Exercise Name Hip AB that doesn't increase pain Reps/Minutes 1' Comments Hip AB to 13.5 Prone Exercises Child's Pose Prone Exercise Name Child's Pose Reps/Minutes 2' Comments I/S for L/S stretch Sitting Exercises Hip AD stretch Sitting Exercise Name Hip AD stretch - leg on table for inner thigh stretch Side bilateral Reps/Minutes 4' Piriformis stretch Sitting Exercise Name Piriformis stretch training and stretch Side right Reps/Minutes 4' Comments Cuing for WBing thru Ishial Tubs. Hip AB Sitting Exercise Name Hip AB in range that doesn't increase pain. Reps/Minutes 1' Comments Painfree knees apart ROM msmt: 10.5 to 17 Manual Therapy Treatment Soft Tissue Mobilization Low Back/hips Body Location Yoel LB/hips, R>L Mobilization Type Strumming,Trigger Point Release Intensity/Depth Moderate Comments Prone on pillow. Reviewed post- self care ex of ashtyn hip AB/AD ex. PT-OP-T Assessment and Plan Start: 10/03/22 17:45 Freq: Status: Active Protocol: Document 11/21/22 08:51 LRN (Rec: 11/21/22 09:53 LRN [id number]) Physical Therapy Assessment Goals 3 Impairment Bilateral hip pain Impairment Hip pain rated 4/10 Short Term Goal (STG) Educate pt in self STM and hip stretches to decrease hip muscle tension and pain. 11/11/22: Pt given I/S in sit hip AD stretch and standing squat holding onto secure object (sink). 11/21/22: Reviewed Piriformis & child's pose stretch. 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 11/21/22: LBP/hip rated 6-7/10 first waking, 4/10 duringthe day. LTG Duration 12/13/22 (11/21/22: No worsening with progressing ) 2 Impairment Pubic pain Impairment Pubic pain rated 7/10 Short Term Goal (STG) Educate pt proper standing and sitting posture to decrease pubic pain and discuss support belt. 10/29/22: Pt educated in proper sitting posture and discussed postural changes expected with . Muscles Must Meet Challenge handout issued. Reviewed pt's support belt best wear practice to support Symphysis Pubis (SP) during her work day. 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 10/17/22: Pain with moving on plinth and sit<>stand decreased with ashtyn hip AB against gait belt. 11/07/22: No increased pain with walking. Pain primarily with moving in bed. 11/21/22: Pubic Pain: In bed pain is 6-7/10, walking & sit< >stand pain is 3-4, no increase in pain with walking. LTG Duration 12/13/22 (11/2122 MET, except for pain in bed w/rolling, static position). 1 Impairment HEP Short Term Goal (STG) Pt will be educated in transfers and posturing to minimize pubic symphysis strain. 10/29/22: Discussed log roll transfer and proper sitting posture. Discussed postural changes during and recommendations to avoid wide stance and minimae use of hip AD's. STG Duration 11/07/22 (10/29/22: MET GOAL) Longterm Goal (LTG) Pt will be educated in a self care HEP of core and pelvic stabilization ex's. 10/17/22: Ashtyn hip AB/PF/TA strengthening. 10/29/22: Clamshell & wall slides. 11/07/22: Pelvic closing (ashtyn hip AD/ashtyn hip AB) 11/11/22: HEP: Pelvic Brace with Daily Activities. 11/21/22: Reviewed verbally TA tighening and cat/cow-TA tightening. LTG Duration 12/13/22 progressed 11/21/22 Assessment Summary Assessment Pain in hips lingering due to weakness/strain/tightness is present. Pt improved with increased hip mobility with knee apart distance pior to increased pain: supine to 13.5. sitting 17 (was 15). Pt LB & Hip pain most notable in bed and with rolling in bed. Pt has HEP of hip stretching and core strengthening. Physical Therapy Plan Frequency and Duration Frequency of Treatment 2x/Week Duration of treatment (weeks) 9 Plan of Care Start Date 10/07/22 Plan of Care End Date 12/13/22 Next Visit Focus/Plan Next Note Type Treatment Note Next Visit Plan Possibly 1 more visits before delivery. Discuss Kegel post . Focus on decreasing hip pain (assess LTG #3). Issue HEP: Add hip stretches (lateral hip). Discuss self STM of hips w/ball. ?assess ROM of hip mobility in supine, Stretch LB into flexion. If needed, HEP: Sitting Ashtyn hip AB/PF/TA strengthening. POC: Strengthening: core and pelvic muscles for SP stability. Correct if needed SIJ dysfunction and monitor for: R innominate for anterior rotation.
--- NOTE | 2022-12-31 08:13 | PT.OPDS ---
Current Diagnoses Other specified related conditions, unspecified trimester (11/21/22) Pelvic and perineal pain (11/21/22) Visit Care Team Role Provider Type Maria Elena Padilla MD Attending Provider Physician Family Provider Primary Care Provider Referring Provider Specialty: Family Practice Address: [address] [place] [address], [id number] Email: [email or web address] Visit Number Visit Number Discharge Summary PT-OP-B Current Condition Start: 10/03/22 17:45 Freq: Status: Active Protocol: Document 10/07/22 08:49 LRN (Rec: 10/07/22 09:37 LRN [id number]) Current Condition History of Current Condition Onset Date 24 weeks, 9 wks ago. Current Complaints Pubic pain. History of Current Condition Pt is a 36 yo female who is 33 weeks . States 9 weeks ago her Pubic Symphysis pain and leonel hip pain worsened . She states with her last preganancy she ran until 30 weeks, then walked w/o pain. She was walking 5 miles [place] [employer] daily, but because of placenta previa she was put on pelvic rest. She states she tried running again and had a lot of pain. Now she walks and has excruciating pain and a lot of pain just putting socks and shoes on. Pt is due in 7 weeks with a due date of Nov 24, 2022. She denies having a rectus diastasis after first . Was told to do leg lifts to strengthen her core, but has not been able to perform due to pain. Was starting to get pain down the hips, but that has resolved with stretching (deep squatting, side lunges). LB/ hip pain is liveable. Pain with sit<>stand 6-7/10 and sometimes worse if working all day or after walking. Prior Treatments and Tests PT after first preg for prolapse and PF pain and hesistancy, that has resolved. Treatment Goals Patient/Caregiver Goals Pt goal is: Lessen pubic pain and bilateral hip pain. Increase stability. Decrease pubic pain with walking and moving in bed, sit <>stand. 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 PT-OP-C Subjective Start: 10/03/22 17:45 Freq: Status: Active Protocol: Document 11/21/22 08:51 LRN (Rec: 11/21/22 09:53 LRN [id number]) OP-PT Subjective Patient Comments Patient Comments Pube pain with walking turning , and having back pain. Reported less LBP after treatment. PT-OP-J Posture/Palpation/Skin Start: 10/03/22 17:45 Freq: Status: Active Protocol: Document 10/07/22 08:49 LRN (Rec: 10/07/22 09:37 LRN [id number]) Posture Evaluation Position Standing Head/C-Spine Posture Forward Head L-Spine Posture Increased Lordosis Shoulder Posture (L) Elevated Pelvis Posture (L) Iliac Crest Superior Weight Distribution Weight Shifted Right Comments Posture Comments R shifted to R. tends to stand on RLE. Palpation Assessment Location ASIS Palpation Location ASIS's Palpation Details Posteriorly rotated L innominate. PT-OP-K Range of Motion Start: 10/03/22 17:45 Freq: Status: Active Protocol: Document 11/07/22 07:54 LRN (Rec: 11/07/22 08:53 LRN [id number]) Hip Goniometric Range of Motion Hip ROM Limitations Hip ROM Limitations Pain Comments Sitting: Min pain: knees 10.5 apart; incr'd pain: Knees 15 apart . Supine: Min pain: 8 apart; incr'd pain: Knees 13 apart. PT-OP-M Strength Start: 10/03/22 17:45 Freq: Status: Active Protocol: Document 10/07/22 08:49 LRN (Rec: 10/07/22 09:37 LRN [id number]) Hip Strength Hip Manual Muscle Testing Right Extension (S1) 3 Fair External Rotation 3 Fair Internal Rotation 3 Fair Left Flexion (L2) 3 Fair External Rotation 3 Fair Internal Rotation 3 Fair PT-OP-T Assessment and Plan Start: 10/03/22 17:45 Freq: Status: Active Protocol: Document 12/31/22 08:06 LRN (Rec: 12/31/22 08:11 LRN [id number]) Physical Therapy Assessment Goals 3 Impairment Bilateral hip pain Impairment Hip pain rated 4/10 Short Term Goal (STG) Educate pt in self STM and hip stretches to decrease hip muscle tension and pain. 9/11/23: Pt given I/S in sit hip AD stretch and standing squat holding onto secure object (sink). 11/21/22: Reviewed Piriformis & child's pose stretch. STG Duration 11/07/22 (11/21/22 need educ self STM of hip, lateral stretch) Intermediate Goal (LTG) Lessen bilateral hip pain. 11/21/22: LBP/hip rated 6-7/10 first waking, 4/10 duringthe day. LTG Duration 12/13/22 (11/21/22: No worsening with progressing ) 2 Impairment Pubic pain Impairment Pubic pain rated 7/10 Short Term Goal (STG) Educate pt proper standing and sitting posture to decrease pubic pain and discuss support belt. 10/29/22: Pt educated in proper sitting posture and discussed postural changes expected with . Muscles Must Meet Challenge handout issued. Reviewed pt's support belt best wear practice to support Symphysis Pubis (SP) during her work day. STG Duration 11/07/22 (10/29/22: MET GOAL) Estimating Engineer Goal (LTG) Decrease pubic pain with walking, moving in bed, and sit<>stand. 10/17/22: Pain with moving on plinth and sit<>stand decreased with ashtyn hip AB against gait belt. 11/07/22: No increased pain with walking. Pain primarily with moving in bed. 11/21/22: Pubic Pain: In bed pain is 6-7/10, walking & sit< >stand pain is 3-4, no increase in pain with walking. LTG Duration 12/13/22 (11/2122 MET, except for pain in bed w/rolling, static position). 1 Impairment HEP Short Term Goal (STG) Pt will be educated in transfers and posturing to minimize pubic symphysis strain. 10/29/22: Discussed log roll transfer and proper sitting posture. Discussed postural changes during and recommendations to avoid wide stance and minimae use of hip AD's. STG Duration 11/07/22 (10/29/22: MET GOAL) Intermediate Goal (LTG) Pt will be educated in a self care HEP of core and pelvic stabilization ex's. 10/17/22: Ashtyn hip AB/PF/TA strengthening. 10/29/22: Clamshell & wall slides. 11/07/22: Pelvic closing (ashtyn hip AD/ashtyn hip AB) 11/11/22: HEP: Pelvic Brace with Daily Activities. 11/21/22: Reviewed verbally TA tighening and cat/cow-TA tightening. LTG Duration 12/13/22 progressed 11/21/22 Assessment Summary Assessment Pt did not return for her final PT visit, most likely due to delivery of baby, as discussed with pt. The pt was to be seen for 1 more visit for placement on HEP. The pt is beyond her due date and POC end date, therefore she is being discharged from PT. Physical Therapy Plan Discharge Physical Therapy Discharge Reasons No Longer Attending PT Discharge Comments Thank you for your referral.
== END 2023-01-14 09:01 | disposition home or self-care (01) ==
LOC: PHYS 08:45
PROVIDERS: Family Provider Family Medicine; PCP Family Medicine; Referring Provider Family Medicine; Visit Provider Family Medicine
DX: O26.899 Other specified pregnancy related conditions, unspecified trimester (principal); R10.2 Pelvic and perineal pain
CPT/HCPCS: 97110; 97140; 97162

== ENCOUNTER 2022-11-30 09:40 | Inpatient (IN) | payer OTHER, SELFPAY ==
[2022-11-30] MEDS: OXYTOCIN 10 UNIT/ML VIAL IM (10:20)
--- NOTE | 2022-11-30 10:25 | P.HPOB_ITS ---
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 Pt reports contractions started early this morning, increasing in intensity significantly around 7:30am. She lost her mucus plug earlier this morning. No LOF or vaginal bleeding. She is feeling her baby move regularly. Her was complicated by hypothyroidism on levothyroxine. care: good care, initiated at week # (13) and pounds weight gain (34) Dating criteria OB: LMP confirmed by 1st trimester US Ultrasounds: normal 1st trimester US and normal mid trimester US Obstetrical complications: none Medical complications OB: none Preadmission Labs Last OB Lab Results: Blood Type A Positive 11/30/22 13:00 Antibody Screen Negative 11/30/22 13:00 Hematocrit 22.1 % (36-46) L 12/01/22 05:50 Hemoglobin 7.8 g/dL (12.0-16.0) L 12/01/22 05:50 Hepatitis B Surface Antigen Negative s/c (NEGATIVE) 04/29/22 09 :02 Hepatitis C Antibody Negative s/c (NEGATIVE) 04/29/22 09:02 Rubella Antibody 73.8 IU/mL (>15) 04/29/22 09:02 Varicella-Zoster IgG Antibody 964 index (Immune >165) 04/29/22 09:02 Glucose 1 Hour 124 mg/dL (76-139) 09/02/22 10:32 Group B Streptococcus (PCR) Neg for grp b strep 11/01/22 10:54 -: Urine: negative Genetic Screens: Cell-free DNA: Normal External Labs -: Urine: negative Prior (ies) Past Pregnancies Del. Date GA/Weeks Labor Lgth Wt Sex Route Outcome Anesthesia Place Delv Breastfeed Preg Comp Name 08/30/20 39.4 21 7 lb 2 oz Female vaginal live - full term IH 1 year other Amanda Delivery Date: 08/30/20 Last Updated by: Aggie Wyman RN anemia, carpal tunnel, severe depression Evaluation Evaluation Baseline heart rate: 145 Variability: Moderate (11-25) monitor accelerations: Present Monitor Decelerations: Absent Contraction Frequency (minutes): 3 Uterine Contraction Intensity: Strong/Firm Status: Category l Dilation (cm): 6 Effacement (%): 90 station: 0 PFSH Medical History (Updated 12/01/22 @ 09:24 by Maria Elena Padilla MD) Acne Arm fracture, left Chicken pox depression Shingles Spontaneous vaginal delivery Suicidal ideation UTI (urinary tract infection) Surgical History Banner teeth removed Family History (Updated 03/25/22 @ 09:11 by Aggie Wyman RN) Mother Cancer Hypertension Heavy smoker Anxiety Father Hyperlipidemia Heart disease Hx of heart bypass surgery Heavy smoker Depression Grandmother Diabetes mellitus Hx of leg amputation Grandfather Prostate cancer Grandmother Creutzfeldt-Aníbal's disease Multiple gallstones Grandfather Myocardial infarct Family/Other Leukemia Pancreatic cancer Brother S/P laparoscopic cholecystectomy Depression Chronic pancreatitis Social History marital status: number of children: 1 household members: spouse lives independently: Yes caregiver/support person: Yes housing: house pets and animals: Yes (dog) education level: other occupational status: employed current occupational exposures/hazards: Yes (Aware of all hazardous exposures at work and minimizing) special shannan needs: No travel history: recent sexual history: Monogamous with boyfriend : who is now her seatbelt use: always helmet use: Yes water heater temp set < 120 deg: Yes working smoke detector in home: Yes fire extinguisher in home: Yes carbon monox detector in home: Yes firearms in home: No do you feel safe at home: Yes Smoking Status: Never smoker second hand exposure: No (grew up in a home with both parents smoking) alcohol intake: former substance use type: does not use during the past year weight has: increased > 10 lbs well-balanced diet: daily or most days daily servings fruits/ve or more times/day caffeine: Yes Type(s) of exercise: regular exercise and running frequency: daily Meds Home Medications and Allergies Home Medications Medication Instructions Recorded Confirmed Type prenat.vits,balaji,bvf-qvyd-cdafj 1 tab PO DAILY 01/24/20 11/30/22 History L.acid,gasseri,plant,rham-B.animalis-cran cap PO 03/23/21 11/29/22 History 5 billion cell-250mg capsule (up4 Probiotics Women's) magnesium carb,citrate,oxide mg PO 03/25/22 11/29/22 History (Magnesium Complex) acetaminophen 325 mg tablet 650 mg PO Q6HR PRN Pain, Mild 12/01/22 Rx (1-3) #30 tabs docusate sodium 100 mg capsule 100 mg PO DAILY #30 caps 12/01/22 Rx ibuprofen 600 mg tablet 600 mg PO Q6HR PRN Pain, Mild 12/01/22 Rx (1-3) #30 tabs Allergies Allergy/AdvReac Type Severity Reaction Status Date / Time latex AdvReac Intermediate Skin rash Verified 11/29/22 09:31 to hands hazelnuts Allergy Intermediate ITCHING Uncoded 11/29/22 09:31 OB Exam Narrative Exam Narrative: Gen: NAD, sitting comfortably in bed, appears well CV: RRR, no murmurs Resp: clear to auscultation bilaterally Abd: soft, nontender, gravid Ext: no edema Objective Labs 12/01/22 05:50 Assessment and Plan Assessment and Plan Assessment and Plan narrative: 37yo at 40w6d here in active labor. GBS negative, Rh positive. - Expectant management, anticipate - FHT reassuring - GBS negative, no prophylaxis indicated - Natural methods desired for pain control
--- NOTE | 2022-11-30 10:26 | P.PCNOB_ITS ---
Labor & Delivery Delivery date: 11/30/22 Cervical ripening method: none Induction method: none Delivery monitor: external FHT and external uterine Route of delivery: Episiotomy description: None L&D Laceration Description: None Quantitative Blood Loss: 300 Anesthesia Type: None Complications: None Narrative: PROCEDURE: at 40w6d presented in active labor and was admitted to Labor and Delivery. The patient progressed through the 1st stage over 5 hours. The ma jority of the first stage of labor occurred outside the hospital. ROM occured at the time of delivery with meconium-stained fluid. Pain was controlled with natural methods. The patient progressed through the 2nd stage over 5 minutes and delivered a viable female with APGARs 8/9 at 10:15 via without complications. The cord was cut and clamped after it stopped pulsating. The placenta delivered with gentle cord traction, and appeared complete. The perineum and vagina were inspected with no lacerations. IM Pitocin was given due to the pt not having an IV in place yet. Needle and sponge counts were correct.? The vagina was inspected and no items were left in situ. Sandy was doing well with Indie, her and her at bedside. PREPROCEDURE DIAGNOSIS: Intrauterine at 40w6d GBS negative RH positive POSTPROCEDURE DIAGNOSIS: Intrauterine at 40w6d, delivered Same as preprocedure [place] Baby 1: gender: Female Presentation: vertex Position: Right Occiput Anterior Placenta delivery description: Spontaneous Cord Vessel Description: 3 Vessels score (1 min): 9 score (5 min): 9 weight: 7 lb 5.533 oz Plan for aftercare: Routine care
[2022-11-30] MEDS: IBUPROFEN 600 MG TABLET PO ×2 (11:20→17:46)
[2022-11-30] MEDS: ACETAMINOPHEN 325 MG TABLET 650 MG PO ×2 (11:59→17:45)
[2022-11-30] MEDS: METHYLERGONOVINE 0.2 MG TABLET PO ×2 (12:18→19:13)
[2022-11-30] MEDS: LACTATED RINGERS 1,000 ML 1000 ML IV (12:40)
[2022-11-30] MEDS: TRANEXAMIC ACID 1,000 MG in SODIUM CHLORIDE 0.9% 100 ML 200 MG IV (12:55)
[2022-11-30 13:02] VITALS: BP 116/72; PULSE 82; RESP 16; TEMP 37
[2022-11-30 13:18] LABS: Add Manual Diff / Slide Review NO; Basophils Absolute Auto 100 /uL (0-100); Basophils Percent Auto 0.4 % (0-2); Eosinophils Absolute Auto 0 /uL (0-450); Hematocrit 31.2 % (36-46); Hemoglobin 10.9 g/dL (12.0-16.0); Lymphocytes Absolute Auto 1100 /uL (1100-4500); Lymphocytes Percent Auto 5.7 % (25-40); Mean Corpuscular HGB Conc 34.9 % (30-36); Mean Corpuscular Volume 88.7 fL (80-100); Monocytes Absolute Auto 900 /uL (0-900); Monocytes Percent Auto 4.3 % (3-14); Neutrophils Absolute Auto 17700 /uL (1500-7000); Neutrophils Percent Auto 89.6 % (50-75); Platelet Count 192 X10^3/uL (150-400); Red Blood Cell Count 3.51 X10^6/uL (4.0-5.2); Red Cell Distribution Width 13.5 % (11.6-14.8); White Blood Cell Count 19.8 X10^3/uL (4.5-11.0)
[2022-11-30] MEDS: OXYTOCIN PREMIX 30 UNIT/500 ML PLAST..BAG 200 UNIT IV (13:20)
[2022-11-30] MEDS: CARBOPROST 250 MCG/ML AMPUL IM (13:32)
[2022-11-30 13:45] VITALS: TEMP 36.2
[2022-11-30] MEDS: fentaNYL 100 MCG/2 ML INJ (13:45)
[2022-11-30] MEDS: LACTATED RINGERS 1,000 ML 100 ML IV (13:50)
--- NOTE | 2022-11-30 14:01 | PM.EVENT ---
Event Note Date Patient Seen: 11/30/22 Time Patient Seen: 14:01 Event Note (Rapid Response, Code, or fall): Contacted by nursing due to pt with continuous trickling of blood. BP was 80-110s/50-60s. Requested they initiate a fluid bolus, TXA, and Methergine. Came to evaluate the patient. Noted to have significant ongoing bleeding. Pt was given 100mcg of IV Fentanyl. Bimanual exam was then performed with production of a large quantity of clot. The pts uterus was noted to be firm and 3 below the umbilicus. She was given an additional 30 units of Pitocin as well as Hemabate. Her bleeding was then controlled. Additional QBL 717 measured, for a total QBL of 1017 for the delivery.
[2022-11-30] MEDS: DIPHENOXYLATE/ATROP 2.5/0.025 TABLET 2 EACH PO (14:08)
[2022-11-30 16:37] VITALS: BP 134/78
[2022-11-30 17:15] LABS: Add Manual Diff / Slide Review NO; Basophils Absolute Auto 0 /uL (0-100); Basophils Percent Auto 0.2 % (0-2); Eosinophils Absolute Auto 0 /uL (0-450); Hematocrit 24.9 % (36-46); Hemoglobin 8.6 g/dL (12.0-16.0); Lymphocytes Absolute Auto 1300 /uL (1100-4500); Lymphocytes Percent Auto 8.6 % (25-40); Mean Corpuscular HGB Conc 34.7 % (30-36); Mean Corpuscular Hemoglobin 30.6 PG (26-34); Mean Corpuscular Volume 88.3 fL (80-100); Monocytes Absolute Auto 800 /uL (0-900); Monocytes Percent Auto 5.2 % (3-14); Neutrophils Absolute Auto 13200 /uL (1500-7000); Platelet Count 164 X10^3/uL (150-400); Red Blood Cell Count 2.81 X10^6/uL (4.0-5.2); Red Cell Distribution Width 13.4 % (11.6-14.8); White Blood Cell Count 15.3 X10^3/uL (4.5-11.0)
[2022-12-01] MEDS: IBUPROFEN 600 MG TABLET PO ×2 (00:47→07:49)
[2022-12-01] MEDS: METHYLERGONOVINE 0.2 MG TABLET PO ×2 (00:47→07:49)
[2022-12-01] MEDS: ACETAMINOPHEN 325 MG TABLET 650 MG PO ×2 (00:47→07:48)
[2022-12-01 06:06] LABS: Add Manual Diff / Slide Review NO; Basophils Absolute Auto 100 /uL (0-100); Basophils Percent Auto 0.7 % (0-2); Eosinophils Absolute Auto 0 /uL (0-450); Eosinophils Percent Auto 0.5 % (2-4); Hematocrit 22.1 % (36-46); Hemoglobin 7.8 g/dL (12.0-16.0); Lymphocytes Absolute Auto 1700 /uL (1100-4500); Mean Corpuscular HGB Conc 35.3 % (30-36); Mean Corpuscular Hemoglobin 31.3 PG (26-34); Mean Corpuscular Volume 88.6 fL (80-100); Monocytes Absolute Auto 700 /uL (0-900); Monocytes Percent Auto 7.6 % (3-14); Neutrophils Absolute Auto 7000 /uL (1500-7000); Neutrophils Percent Auto 73.2 % (50-75); Platelet Count 162 X10^3/uL (150-400); Red Blood Cell Count 2.49 X10^6/uL (4.0-5.2); Red Cell Distribution Width 13.5 % (11.6-14.8); White Blood Cell Count 9.6 X10^3/uL (4.5-11.0)
[2022-12-01] MEDS: DERMOPLAST SPRAY 20% 60 ML 1 SPRAY TOP (07:53)
--- NOTE | 2022-12-01 09:17 | P.DS_ITS ---
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 She rapidly progressed to complete. She had SROM at the time of delivery with meconium-stained amniotic fluid. She had an of a viable baby girl. Immediately , her bleeding was appropriate. There were no lacerations. Approximately 4hrs after delivery, the pts bleeding increased. Manual evacuation of clot was performed with significant improvement in uterine tone. The pt received additional Pitocin, Methergine, TXA, and Hemabate. Her bleeding was then controlled. The day of discharge she did receive an iron transfusion due to a significant drop in her H/H with slight dizziness with standing. , there were no additional complications. At the time of discharge she was voiding, ambulating, and passing flatus without difficulty. Her lochia was decreasing appropriately. Her pain was well controlled. She was with good latch. She will f/u in 6 weeks for check. Peripartum Data Delivery Method: Natural Vaginal Laceration Description: None Procedures: Spontaneous vaginal delivery complications: none 1: Gender: Female Disposition of : home Discharge Diagnosis (1) Spontaneous vaginal delivery: Status: Acute Time Spent with Patient Time attestation: Total time spent providing and/or coordinating discharge services: Objective Labs 12/01/22 05:50 Labs: Laboratory Results - last 24 hr 11/30/22 11/30/22 11/30/22 13:00 13:02 17:10 WBC 19.8 H 15.3 H RBC 3.51 L 2.81 L Hgb 10.9 L 8.6 L Hct 31.2 L 24.9 L MCV 88.7 88.3 MCH 31.0 30.6 MCHC 34.9 34.7 RDW 13.5 13.4 Plt Count 192 164 Neut % (Auto) 89.6 H 86.0 H Lymph % (Auto) 5.7 L 8.6 L Braxton % (Auto) 4.3 5.2 Eos % (Auto) 0.0 L 0.0 L Baso % (Auto) 0.4 0.2 Neut # (Auto) 16968 H 49546 H Lymph # (Auto) 1100 1300 Braxton # (Auto) 900 800 Eos # (Auto) 0 0 Baso # (Auto) 100 0 Blood Type A Positive Antibody Screen Negative 12/01/22 05:50 WBC 9.6 RBC 2.49 L Hgb 7.8 L Hct 22.1 L MCV 88.6 MCH 31.3 MCHC 35.3 RDW 13.5 Plt Count 162 Neut % (Auto) 73.2 Lymph % (Auto) 18.0 L Braxton % (Auto) 7.6 Eos % (Auto) 0.5 L Baso % (Auto) 0.7 Neut # (Auto) 7000 Lymph # (Auto) 1700 Braxton # (Auto) 700 Eos # (Auto) 0 Baso # (Auto) 100 Blood Type Antibody Screen Exam Narrative Exam Narrative: Gen: NAD, sitting comfortably in bed, appears well CV: RRR, no murmurs Resp: clear to auscultation bilaterally Abd: soft, appropriately tender, fundus firm and below the umbilicus, nondistended Ext: no edema Discharge Plan Discharge Plan Patient Disposition: Home Discharge orders & Medications Prescriptions: New acetaminophen 325 mg Tablet 650 mg PO Q6HR PRN (Reason: Pain, Mild (1-3)) Qty: 30 0RF docusate sodium 100 mg Capsule 100 mg PO DAILY Qty: 30 0RF ibuprofen 600 mg Tablet 600 mg PO Q6HR PRN (Reason: Pain, Mild (1-3)) Qty: 30 0RF ferrous gluconate 324 mg (38 mg iron) tablet 324 mg PO DAILY Qty: 30 0RF Continued up4 Probiotics Women's 5 billion cell- 250 mg capsule PO prenat.vits,balaji,lbe-tdkg-wcuqv Tablet 1 tab PO DAILY Magnesium Complex 300 mg magnesium tablet PO Discontinued omeprazole 20 mg capsule,delayed release(DR/EC) 20 mg PO DAILY Qty: 30 2RF levothyroxine 50 mcg tablet See Rx Instructions .ROUTE .COMPLEX Qty: 90 0RF Dose Instruction: TAKE 1 TABLET BY MOUTH DAILY Rx Instructions: TAKE 1 TABLET BY MOUTH DAILY Follow up/Referrals: [place],Maria Elena, MD [Primary Care Provider] - 6 Weeks (The office will make an appointment for you at [place]'s appointment) Diet/Activity/Treatments Diet: Diet as Tolerated and Regular Skin/Wound/Dressing Care Report to your healthcare provider any signs of infection, such as:: chills, fever, increased pain and unusual drainage Visit Report/Discharge Packet Instructions: DI for Labor and Delivery, Vaginal Stand Alone Forms: Patient Portal/API, Stroke Signs & Symptoms Discharge Data Primary Care Provider: Maria Elena Padilla Discharges patient from system. Discharge Date/Time: 12/01/22 12:57
[2022-12-01] MEDS: IRON SUCROSE 300 MG in SODIUM CHLORIDE 0.9% 250 ML 176.667 MG IV (10:21)
[2022-12-01] MEDS: LANOLIN OINT 7 GM 1 APPLIC TOP (11:02)
[2022-12-01] MEDS: LEVOTHYROXINE 50 MCG TABLET PO (11:49)
== END 2022-12-01 12:57 | disposition home or self-care (01) | DRG 806 ==
PROVIDERS: Admitting Provider Family Medicine; Family Provider Family Medicine; PCP Family Medicine; Referring Provider Family Medicine; Visit Provider Family Medicine
DX: O48.0 Post-term pregnancy (principal); D62 Acute posthemorrhagic anemia; Z37.0 Single live birth; O90.81 Anemia of the puerperium; O99.284 Endocrine, nutritional and metabolic diseases complicating childbirth; E03.9 Hypothyroidism, unspecified; Z3A.41 41 weeks gestation of pregnancy
CPT/HCPCS: 36415; 59050; 59400; 85025; 86850; 86900; 86901; G0379; J1756; J2590; J3010

== ENCOUNTER → 2023-01-17 14:41 | Outpatient (CLI) | payer OTHER, SELFPAY ==
[2023-01-17 15:26] LABS: Add Manual Diff / Slide Review NO; Basophils Absolute Auto 100 /uL (0-100); Basophils Percent Auto 0.8 % (0-2); Eosinophils Absolute Auto 100 /uL (0-450); Eosinophils Percent Auto 1.5 % (2-4); Hematocrit 38.3 % (36-46); Hemoglobin 12.8 g/dL (12.0-16.0); Lymphocytes Absolute Auto 2000 /uL (1100-4500); Lymphocytes Percent Auto 27.8 % (25-40); Mean Corpuscular HGB Conc 33.3 % (30-36); Monocytes Absolute Auto 600 /uL (0-900); Monocytes Percent Auto 8.8 % (3-14); Neutrophils Absolute Auto 4500 /uL (1500-7000); Neutrophils Percent Auto 61.1 % (50-75); Platelet Count 250 X10^3/uL (150-400); Red Blood Cell Count 4.26 X10^6/uL (4.0-5.2); Red Cell Distribution Width 13.4 % (11.6-14.8); White Blood Cell Count 7.4 X10^3/uL (4.5-11.0)
[2023-01-17 16:15] LABS: Thyroid Stimulating Hormone 2.14 uIU/mL (0.47-4.68)
== END ==
PROVIDERS: Family Provider Family Medicine; PCP Family Medicine; Referring Provider Family Medicine; Visit Provider Family Medicine
DX: Z13.9 Encounter for screening, unspecified (principal); O99.019 Anemia complicating pregnancy, unspecified trimester
CPT/HCPCS: 36415; 84443; 85025

== ENCOUNTER 2023-07-25 09:45 | Outpatient (RCR) | payer OTHER, SELFPAY ==
--- NOTE | 2023-01-10 19:04 | PT.OIE ---
Current Diagnoses Stress incontinence (female) (male) (01/10/23) Other specified related conditions, unspecified trimester (01/10/23) Pelvic and perineal pain (01/10/23) Past Medical History (Last Updated 12/01/22 @ 09:24 by Maria Elena Padilla MD) Acne Arm fracture, left Chicken pox depression Shingles Spontaneous vaginal delivery Suicidal ideation UTI (urinary tract infection) Past Surgical History (Last Reviewed 12/29/21 @ 07:46 by REDD Velazco) [place] teeth removed Visit Care Team Role Provider Type Maria Elena Padilla MD Attending Provider Physician Family Provider Primary Care Provider Referring Provider Specialty: Family Practice Address: [address] [place] [address], [facility] Email: [email or web address] Physical Therapy Initial Evaluation PT-OP-A Visit Information Start: 12/31/22 08:15 Freq: Status: Active Protocol: Document 01/10/23 08:53 LRN (Rec: 01/10/23 14:03 LRN [id number]) Out-Patient Physical Therapy Visit Information Visit Information Visit Type Initial Evaluation Visit Start Time 08:53 Visit Stop Time 09:31 Total Visit Minutes 38 Visit Number 1 Evaluation Information Evaluation Date 01/10/23 Precautions Precautions LATEX ALLERGY, Estrogen ring in place, Post- depression, neck pain from nursing. PT-OP-B Current Condition Start: 12/31/22 08:15 Freq: Status: Active Protocol: Document 01/10/23 08:53 LRN (Rec: 01/10/23 14:03 LRN [id number]) Current Condition History of Current Condition Onset Date 6 wks ago Current Complaints Post- bladder prolapse. History of Current Condition Pt is 6 wks post . She had a vaginal of daughter that was fast (2 pushes), following return from bathroom. No IV or epidural. Pt reports labor was 2hr, 45 minutes. 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 She denies vaginal tearing or pelvic pain, but has a little low back pain. She has been given an estrogen ring last week to help plump her tissues . She is experiencing urinary leakage with leaning forward and has a feeling of an air bubble in her urethra after going to bathroom and performs a deep squat to get it out and is accompanied by urinary leakage. She states this occured with her first . Prior Treatments and Tests Pre- PT for pelvic pain. Developmental History Developmental History Pt is G2, P2, both vaginal births. Treatment Goals Patient/Caregiver Goals Pt goal is: Eliminate feeling of bladder falling out and decreased prolapse. Eliminate urinary leaking. Gain feeling of more control over bowel movements. Personal Factors Other Personal Factors That May Effect Post- depression, Therapy/Recovery estrogen ring in place. PT-OP-C Subjective Start: 12/31/22 08:15 Freq: Status: Active Protocol: Document 01/10/23 08:53 LRN (Rec: 01/10/23 14:03 LRN [id number]) Patient Questionnaires Pelvic Pain and Urgency/Frequency Patient Symptom Scale Pelvic Pain Score 8 OP-PT Pain Assessment Pain Assessment Grid Paper Pain Assessment Grid Completed Yes Location Pelvic floor Pain Location Details Pelvic floor strange feeling rating 6/10 NO PAIN. Intensity 6 Scale Used Mental awareness Low back Pain Location Details Across low back Intensity 2 Scale Used Numeric (0 - 10) Description Aching PT-OP-I Pelvic Floor Start: 12/31/22 08:15 Freq: Status: Active Protocol: Document 01/10/23 08:53 LRN (Rec: 01/10/23 14:03 LRN [id number]) Pelvic Floor Assessment Urine Urinary Symptoms Prolapse,Falling Out Feeling/ Heavy Other Leakage Causes Leaning forward and Bending over. Leaks Per Day 6 Nocturia 1-2 Bowel Bowel Surgery No Pelvic Clock Pelvic Clock 12-3 Tenderness Pelvic Clock 3-6 Tenderness Pelvic Clock 6-9 Tenderness Pelvic Clock 9-12 Tenderness Pelvic Clock Other Superficial ms tender at 2-6 O 'clock. Prolapse Uterine Prolapse Grade 2 Perineal Descent Resting Present Bearing Present Contraction Ability Manual Muscle Testing Left 1 Manual Muscle Testing Right 0 Manual Muscle Testing Anterior 0 Manual Muscle Testing Posterior 1 Muscle Endurance (Seconds) 1 Number of Quick Contractions In 10 1 Seconds Comments Pelvic Floor Comments Redness and gapping at vaginal opening. Redness on Labia Majora and Labia Minora. PT-OP-J Posture/Palpation/Skin Start: 12/31/22 08:15 Freq: Status: Active Protocol: Document 01/10/23 08:53 LRN (Rec: 01/10/23 14:03 LRN [id number]) Posture Evaluation Position Standing Head/C-Spine Posture Forward Head T-Spine Posture Increased Kyphosis L-Spine Posture Increased Lordosis Shoulder Posture (L) Forward,(R) Forward Scapula Posture (R) Rotated Down,(R) Depressed Pelvis Posture (L) PSIS Posterior Weight Distribution Balanced Knee Posture (L) Genu Valgus,(R) Genu Valgus Comments Posture Comments Dowagers Hump, sacrum L rotated. PT-OP-K Range of Motion Start: 12/31/22 08:15 Freq: Status: Active Protocol: Document 01/10/23 08:53 LRN (Rec: 01/10/23 14:03 LRN [id number]) Lumbar Spine Range of Motion Lumbar Spine Active Degrees Testing Position Standing Flexion 90 Extension 20 Rotation Left 20 Rotation Right 0 Lateral Flexion Left 27 Lateral Flexion Right 17 Comments R rotation: Pain in R lateral neck. Hip Goniometric Range of Motion Hip Right Passive Testing Position Supine Internal Rotation 30 External Rotation 45 Left Passive Testing Position Supine Internal Rotation 30 External Rotation 40 PT-OP-M Strength Start: 12/31/22 08:15 Freq: Status: Active Protocol: Document 01/10/23 08:53 LRN (Rec: 01/10/23 14:03 LRN [id number]) Trunk Strength Trunk Manual Muscle Testing Core Stabilization Strength ~4/5. Hip Strength Hip Manual Muscle Testing Right Flexion (L2) 3 Fair Extension (S1) 5 Normal Abduction 5 Normal Adduction 3 Fair External Rotation 5 Normal Internal Rotation 5 Normal Comments Hip flex with anterior hip pain Left Flexion (L2) 5 Normal Extension (S1) 4+ Good+ Abduction 5 Normal Adduction 3 Fair External Rotation 4 Good Internal Rotation 5 Normal PT-OP-Q Treatments Start: 12/31/22 08:15 Freq: Status: Active Protocol: Document 01/10/23 08:53 LRN (Rec: 01/10/23 14:03 LRN [id number]) Self-Care/Home Management Treatment Education Other Education Discussed results of evaluation, goals, and plan of care (POC). Pt agreeable to goals and POC. Activities Self-Care/Home Management Activities Pt I/S to start walking only on level and to practice core pressure management as she did during . PT-OP-T Assessment and Plan Start: 12/31/22 08:15 Freq: Status: Active Protocol: Document 01/10/23 08:53 LRN (Rec: 01/10/23 14:03 LRN [id number]) Physical Therapy Assessment Rehab Potential Rehabilitation Potential Good Evaluation Complexity Number of Personal Factors/Comorbidities 1-2 Number of Body Systems Impaired 1-2 Clinical Presentation at Evaluation Evolving Impairments Impairments Activity Tolerance,Pain, Posture,ROM,Soft Tissue Mobility,Strength,Transfers Other Impairments Urinary leakage Cytocele Goals 1 Impairment Pt not on a self care post- HEP Short Term Goal (STG) Pt will be re-educated in deep breathing for relaxation and mindfulness, bowel care/bowel massage, Kegel ex for Aggrevators. STG Duration 3 wks-01/31/23 Correction Goal (LTG) Pt will be independent in a self care HEP of PF/core/hip/ LB/neck ex's. LTG Duration 12 wks-04/05/23 3 Impairment Cystocele stage 2 Impairment Pt has feeling of prolapse Short Term Goal (STG) Pt will be educated in Kegel ex in isolation of substitute muscles. STG Duration 4 wks-02/07/23 Correction Goal (LTG) Eliminate the sensation of prolapse and be able to control sensation with PF ex and core pressure management. LTG Duration 12 wks-04/05/23 2 Impairment Stress incontinence. Impairment PF weakness with urinary leakage when leaning forward and bending over. Short Term Goal (STG) Re-education in proper methods for transfer with coordination of breathing with functional activities. STG Duration 1 wks-01/18/24 Correction Goal (LTG) Strengthen the PF with pt able to lean or bend forward without urinary leakage. LTG Duration 12 wks-04/05/23 Assessment Summary Assessment Pt is a 37 yo female who presents with cystocele that is not extending past her hymen (stage 2). There is weakness with tightness of her PF, tenderness of PF and vaginal gapping. She has visible trunk postural deviations in standing with low R shoulder (R neck pain), sacrum L rotated, and trunk mobility limited in R rot & SB . Hip mobility is limited for rotation (ER>L, leonel IR) and weakness of hips (flex R, AD leonel, ext/ ER L). The pt has a history of post depression and she indicates on her intake form that she currently is experiencing depression due to the feeling of her prolapse, not because of pain. The pt will benefit from skilled phyical therapy to improve her PF and core strength to relieve her prolapse feeling and resume her to a more active lifestyle of exercise that she is used to. The pt would probably benefit from a PF support V- support or fem jock) since she is having a hard time mentally concentrating due to the feeling of a prolpase. Physical Therapy Plan Frequency and Duration Frequency of Treatment 2x/Week Duration of treatment (weeks) 12 Plan of Care Start Date 01/10/23 Plan of Care End Date 04/05/23 Therapeutic Interventions Therapeutic Interventions Home Exercise Program,Joint Mobilizations,Manual Therapy, Neuromuscular Re-education, Self-Care/Home Management,Soft Tissue Mobilization, Therapeutic Activities, Therapeutic Exercises Modalities Biofeedback,Cold Pack/Ice Massage,Electric Stimulation, Hot Packs Other Referrals/Consults Referrals/Consults Recommended Pelvic Floor support belt. Next Visit Focus/Plan Next Note Type Treatment Note Next Visit Plan NOTE: LATEX ALLERGY. Discussion of femme jock or V- support. VEMG assessment if estrogen ring set deep enough, PF strengthening long holds > Quick contractions. Sacral balancing if possible in supine. Review deep breathing for relaxation & with transfers, review vulvar care and Kegels; add HEP: hip stretches (ER>L , leonel IR) and LE roll in/outs for PF/core/hip strengthening. Monitor doming with core activation and progress TA and rotational strengthening. Manual: Improve abdominal soft tissue (uterus/bladder/ urachus) mobility.
--- NOTE | 2023-01-10 19:04 | PT.OPPOC ---
Physical, Occupational & Speech Therapy At [facility] Current Diagnoses Stress incontinence (female) (male) (01/10/23) Other specified related conditions, unspecified trimester (01/10/23) Pelvic and perineal pain (01/10/23) Visit Care Team Role Provider Type Maria Elena Padilla MD Attending Provider Physician Family Provider Primary Care Provider Referring Provider Specialty: Family Practice Address: [address] [place] [address], [place], [address] Email: [email or web address] Plan Of Care PT-OP-T Assessment and Plan Start: 12/31/22 08:15 Freq: Status: Active Protocol: Document 01/10/23 08:53 LRN (Rec: 01/10/23 14:03 LRN [id number]) Physical Therapy Assessment Rehab Potential Rehabilitation Potential Good Evaluation Complexity Number of Personal Factors/Comorbidities 1-2 Number of Body Systems Impaired 1-2 Clinical Presentation at Evaluation Evolving Impairments Impairments Activity Tolerance,Pain, Posture,ROM,Soft Tissue Mobility,Strength,Transfers Other Impairments Urinary leakage Cytocele Goals 1 Impairment Pt not on a self care post- HEP Short Term Goal (STG) Pt will be re-educated in deep breathing for relaxation and mindfulness, bowel care/bowel massage, Kegel ex for Aggrevators. STG Duration 3 wks-01/31/23 Tobacco Baler Goal (LTG) Pt will be independent in a self care HEP of PF/core/hip/ LB/neck ex's. LTG Duration 12 wks-04/05/23 3 Impairment Cystocele stage 2 Impairment Pt has feeling of prolapse Short Term Goal (STG) Pt will be educated in Kegel ex in isolation of substitute muscles. STG Duration 4 wks-02/07/23 Tobacco Baler Goal (LTG) Eliminate the sensation of prolapse and be able to control sensation with PF ex and core pressure management. LTG Duration 12 wks-04/05/23 2 Impairment Stress incontinence. Impairment PF weakness with urinary leakage when leaning forward and bending over. Short Term Goal (STG) Re-education in proper methods for transfer with coordination of breathing with functional activities. STG Duration 1 wks-11/17/24 Snf Goal (LTG) Strengthen the PF with pt able to lean or bend forward without urinary leakage. LTG Duration 12 wks-04/05/23 Assessment Summary Assessment Pt is a 37 yo female who presents with cystocele that is not extending past her hymen (stage 2). There is weakness with tightness of her PF, tenderness of PF and vaginal gapping. She has visible trunk postural deviations in standing with low R shoulder (R neck pain), sacrum L rotated, and trunk mobility limited in R rot & SB . Hip mobility is limited for rotation (ER>L, leonel IR) and weakness of hips (flex R, AD leonel, ext/ ER L). The pt has a history of post depression and she indicates on her intake form that she currently is experiencing depression due to the feeling of her prolapse, not because of pain. The pt will benefit from skilled phyical therapy to improve her PF and core strength to relieve her prolapse feeling and resume her to a more active lifestyle of exercise that she is used to. The pt would probably benefit from a PF support V- support or fem jock) since she is having a hard time mentally concentrating due to the feeling of a prolpase. Physical Therapy Plan Frequency and Duration Frequency of Treatment 2x/Week Duration of treatment (weeks) 12 Plan of Care Start Date 01/10/23 Plan of Care End Date 04/05/23 Therapeutic Interventions Therapeutic Interventions Home Exercise Program,Joint Mobilizations,Manual Therapy, Neuromuscular Re-education, Self-Care/Home Management,Soft Tissue Mobilization, Therapeutic Activities, Therapeutic Exercises Modalities Biofeedback,Cold Pack/Ice Massage,Electric Stimulation, Hot Packs Other Referrals/Consults Referrals/Consults Recommended Pelvic Floor support belt. Next Visit Focus/Plan Next Note Type Treatment Note Next Visit Plan NOTE: LATEX ALLERGY. Discussion of femme jock or V- support. VEMG assessment if estrogen ring set deep enough, PF strengthening long holds > Quick contractions. Sacral balancing if possible in supine. Review deep breathing for relaxation & with transfers, review vulvar care and Kegels; add HEP: hip stretches (ER>L , leonel IR) and LE roll in/outs for PF/core/hip strengthening. Monitor doming with core activation and progress TA and rotational strengthening. Manual: Improve abdominal soft tissue (uterus/bladder/ urachus) mobility. Plan of Care Dates Plan of Care Start Date 01/10/23 Plan of Care End Date 04/05/23 Electronically Signed by: Grecia Colorado, PT 01/10/23 1904 If you are in agreement with this Plan of Care, please return a signed and dated copy. I have reviewed this Plan of Care and certify that the skilled therapy services above are required to meet the patient?s needs. Physician Signature Date Printed Name and Credentials Clinical Instructor Signature Printed Name and Credentials
--- NOTE | 2023-01-13 12:58 | PT.OTN ---
Current Diagnoses Stress incontinence (female) (male) (01/13/23) Other specified related conditions, unspecified trimester (01/13/23) Pelvic and perineal pain (01/13/23) Physical Therapy Treatment Note PT-OP-A Visit Information Start: 12/31/22 08:15 Freq: Status: Active Protocol: Document 01/13/23 09:53 LRN (Rec: 01/13/23 10:41 LRN [id number]) Out-Patient Physical Therapy Visit Information Visit Information Visit Type Treatment Note Visit Start Time 09:53 Visit Stop Time 10:34 Total Visit Minutes 41 Visit Number Evaluation Information Evaluation Date 01/10/23 Precautions Precautions LATEX ALLERGY, Estrogen ring in place, Post- depression, neck pain from nursing. PT-OP-B Current Condition Start: 12/31/22 08:15 Freq: Status: Active Protocol: Document 01/10/23 08:53 LRN (Rec: 01/10/23 14:03 LRN [id number]) Current Condition History of Current Condition Onset Date 6 wks ago Current Complaints Post- bladder prolapse. History of Current Condition Pt is 6 wks post . She had a vaginal of daughter that was fast (2 pushes), following return from bathroom. No IV or epidural. Pt reports labor was 2hr, 45 minutes. 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 She denies vaginal tearing or pelvic pain, but has a little low back pain. She has been given an estrogen ring last week to help plump her tissues . She is experiencing urinary leakage with leaning forward and has a feeling of an air bubble in her urethra after going to bathroom and performs a deep squat to get it out and is accompanied by urinary leakage. She states this occured with her first . Prior Treatments and Tests Pre- PT for pelvic pain. Developmental History Developmental History Pt is G2, P2, both vaginal births. Treatment Goals Patient/Caregiver Goals Pt goal is: Eliminate feeling of bladder falling out and decreased prolapse. Eliminate urinary leaking. Gain feeling of more control over bowel movements. Personal Factors Other Personal Factors That May Effect Post- depression, Therapy/Recovery estrogen ring in place. PT-OP-C Subjective Start: 12/31/22 08:15 Freq: Status: Active Protocol: Document 01/13/23 09:53 LRN (Rec: 01/13/23 10:41 LRN [id number]) OP-PT Subjective Patient Comments Patient Comments States baby slept 7 hrs. Got a V-support but didn't make it feel better. PT-OP-I Pelvic Floor Start: 12/31/22 08:15 Freq: Status: Active Protocol: Document 01/10/23 08:53 LRN (Rec: 01/10/23 14:03 LRN [id number]) Pelvic Floor Assessment Urine Urinary Symptoms Prolapse,Falling Out Feeling/ Heavy Other Leakage Causes Leaning forward and Bending over. Leaks Per Day 6 Nocturia 1-2 Bowel Bowel Surgery No Pelvic Clock Pelvic Clock 12-3 Tenderness Pelvic Clock 3-6 Tenderness Pelvic Clock 6-9 Tenderness Pelvic Clock 9-12 Tenderness Pelvic Clock Other Superficial ms tender at 2-6 O 'clock. Prolapse Uterine Prolapse Grade 2 Perineal Descent Resting Present Bearing Present Contraction Ability Manual Muscle Testing Left 1 Manual Muscle Testing Right 0 Manual Muscle Testing Anterior 0 Manual Muscle Testing Posterior 1 Muscle Endurance (Seconds) 1 Number of Quick Contractions In 10 1 Seconds Comments Pelvic Floor Comments Redness and gapping at vaginal opening. Redness on Labia Majora and Labia Minora. PT-OP-J Posture/Palpation/Skin Start: 12/31/22 08:15 Freq: Status: Active Protocol: Document 01/10/23 08:53 LRN (Rec: 01/10/23 14:03 LRN [id number]) Posture Evaluation Position Standing Head/C-Spine Posture Forward Head T-Spine Posture Increased Kyphosis L-Spine Posture Increased Lordosis Shoulder Posture (L) Forward,(R) Forward Scapula Posture (R) Rotated Down,(R) Depressed Pelvis Posture (L) PSIS Posterior Weight Distribution Balanced Knee Posture (L) Genu Valgus,(R) Genu Valgus Comments Posture Comments Dowagers Hump, sacrum L rotated. PT-OP-K Range of Motion Start: 12/31/22 08:15 Freq: Status: Active Protocol: Document 01/10/23 08:53 LRN (Rec: 01/10/23 14:03 LRN [id number]) Lumbar Spine Range of Motion Lumbar Spine Active Degrees Testing Position Standing Flexion 90 Extension 20 Rotation Left 20 Rotation Right 0 Lateral Flexion Left 27 Lateral Flexion Right 17 Comments R rotation: Pain in R lateral neck. Hip Goniometric Range of Motion Hip Right Passive Testing Position Supine Internal Rotation 30 External Rotation 45 Left Passive Testing Position Supine Internal Rotation 30 External Rotation 40 PT-OP-M Strength Start: 12/31/22 08:15 Freq: Status: Active Protocol: Document 01/10/23 08:53 LRN (Rec: 01/10/23 14:03 LRN [id number]) Trunk Strength Trunk Manual Muscle Testing Core Stabilization Strength ~4/5. Hip Strength Hip Manual Muscle Testing Right Flexion (L2) 3 Fair Extension (S1) 5 Normal Abduction 5 Normal Adduction 3 Fair External Rotation 5 Normal Internal Rotation 5 Normal Comments Hip flex with anterior hip pain Left Flexion (L2) 5 Normal Extension (S1) 4+ Good+ Abduction 5 Normal Adduction 3 Fair External Rotation 4 Good Internal Rotation 5 Normal PT-OP-Q Treatments Start: 12/31/22 08:15 Freq: Status: Active Protocol: Document 01/13/23 09:53 LRN (Rec: 01/13/23 10:41 LRN [id number]) Manual Therapy Treatment Soft Tissue Mobilization Ilipsoas Body Location R Ilipsoas Release - Approximation Mobilization Type Sustained Pressure Intensity/Depth Moderate Body Position Supine Comments Discussed during treatment pt to try walking on level outside preferrably over TM. Sacral Balancing Body Location Sacrum Mobilization Type Sustained Pressure Intensity/Depth Moderate Body Position Supine & Prone Comments Infer glide of R sacral sulcus PA of R sulcus PA L Ischial Tub 6 pt balancing Supine: L superior glide of Pubic Rami PT-OP-T Assessment and Plan Start: 12/31/22 08:15 Freq: Status: Active Protocol: Document 01/13/23 09:53 LRN (Rec: 01/13/23 10:41 LRN [id number]) Physical Therapy Assessment Goals 1 Impairment Pt not on a self care post- HEP Short Term Goal (STG) Pt will be re-educated in deep breathing for relaxation and mindfulness, bowel care/bowel massage, Kegel ex for Aggrevators. STG Duration 3 wks-01/31/23 Snf Goal (LTG) Pt will be independent in a self care HEP of PF/core/hip/ LB/neck ex's. LTG Duration 12 wks-04/05/23 3 Impairment Cystocele stage 2 Impairment Pt has feeling of prolapse Short Term Goal (STG) Pt will be educated in Kegel ex in isolation of substitute muscles. STG Duration 4 wks-02/07/23 Snf Goal (LTG) Eliminate the sensation of prolapse and be able to control sensation with PF ex and core pressure management. LTG Duration 12 wks-04/05/23 2 Impairment Stress incontinence. Impairment PF weakness with urinary leakage when leaning forward and bending over. Short Term Goal (STG) Re-education in proper methods for transfer with coordination of breathing with functional activities. STG Duration 1 wks-01/18/24 Snf Goal (LTG) Strengthen the PF with pt able to lean or bend forward without urinary leakage. LTG Duration 12 wks-04/05/23 Assessment Summary Assessment Pt struggling with feelings of not liking what she feels in her PF-falling out. I was able to balance her sacrum except her L PA of Ischial Tub was difficult and might not have completely mobilized. Physical Therapy Plan Frequency and Duration Frequency of Treatment 2x/Week Duration of treatment (weeks) 12 Plan of Care Start Date 01/10/23 Plan of Care End Date 04/05/23 Next Visit Focus/Plan Next Note Type Treatment Note Next Visit Plan NOTE: LATEX ALLERGY. Assess response to sacral balancing. VEMG stim, if estrogen ring set deep enough, PF for PF >< awareness and for PF assessment, PF strengthening long holds > Quick contractions. Review deep breathing for relaxation & with transfers, review vulvar care and Kegels; add HEP: hip stretches (ER>L , leonel IR) and LE roll in/outs for PF/core/hip strengthening. Monitor doming with core activation and progress TA and rotational strengthening. Manual: Improve abdominal soft tissue (uterus/bladder/ urachus) mobility.
--- NOTE | 2023-01-17 12:34 | PT.OTN ---
Current Diagnoses Stress incontinence (female) (male) (01/17/23) Other specified related conditions, unspecified trimester (01/17/23) Pelvic and perineal pain (01/17/23) Physical Therapy Treatment Note PT-OP-A Visit Information Start: 12/31/22 08:15 Freq: Status: Active Protocol: Document 01/17/23 09:05 LRN (Rec: 01/17/23 12:32 LRN [id number]) Out-Patient Physical Therapy Visit Information Visit Information Visit Type Treatment Note Visit Start Time 09:05 Visit Stop Time 09:51 Total Visit Minutes 54 Visit Number 3/38 Evaluation Information Evaluation Date 01/10/23 Precautions Precautions LATEX ALLERGY, Estrogen ring in place, Post- depression, neck pain from nursing. PT-OP-B Current Condition Start: 12/31/22 08:15 Freq: Status: Active Protocol: Document 01/10/23 08:53 LRN (Rec: 01/10/23 14:03 LRN [id number]) Current Condition History of Current Condition Onset Date 6 wks ago Current Complaints Post- bladder prolapse. History of Current Condition Pt is 6 wks post . She had a vaginal of daughter that was fast (2 pushes), following return from bathroom. No IV or epidural. Pt reports labor was 2hr, 45 minutes. 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 She denies vaginal tearing or pelvic pain, but has a little low back pain. She has been given an estrogen ring last week to help plump her tissues . She is experiencing urinary leakage with leaning forward and has a feeling of an air bubble in her urethra after going to bathroom and performs a deep squat to get it out and is accompanied by urinary leakage. She states this occured with her first . Prior Treatments and Tests Pre- PT for pelvic pain. Developmental History Developmental History Pt is G2, P2, both vaginal births. Treatment Goals Patient/Caregiver Goals Pt goal is: Eliminate feeling of bladder falling out and decreased prolapse. Eliminate urinary leaking. Gain feeling of more control over bowel movements. Personal Factors Other Personal Factors That May Effect Post- depression, Therapy/Recovery estrogen ring in place. PT-OP-C Subjective Start: 12/31/22 08:15 Freq: Status: Active Protocol: Document 01/17/23 09:05 LRN (Rec: 01/17/23 12:32 LRN [id number]) OP-PT Subjective Patient Comments Patient Comments Sore in back, hips, and legs after last treatment. Now has lower back pain worse than before and buttocks hurt. PT-OP-I Pelvic Floor Start: 12/31/22 08:15 Freq: Status: Active Protocol: Document 01/10/23 08:53 LRN (Rec: 01/10/23 14:03 LRN [id number]) Pelvic Floor Assessment Urine Urinary Symptoms Prolapse,Falling Out Feeling/ Heavy Other Leakage Causes Leaning forward and Bending over. Leaks Per Day 6 Nocturia 1-2 Bowel Bowel Surgery No Pelvic Clock Pelvic Clock 12-3 Tenderness Pelvic Clock 3-6 Tenderness Pelvic Clock 6-9 Tenderness Pelvic Clock 9-12 Tenderness Pelvic Clock Other Superficial ms tender at 2-6 O 'clock. Prolapse Uterine Prolapse Grade 2 Perineal Descent Resting Present Bearing Present Contraction Ability Manual Muscle Testing Left 1 Manual Muscle Testing Right 0 Manual Muscle Testing Anterior 0 Manual Muscle Testing Posterior 1 Muscle Endurance (Seconds) 1 Number of Quick Contractions In 10 1 Seconds Comments Pelvic Floor Comments Redness and gapping at vaginal opening. Redness on Labia Majora and Labia Minora. PT-OP-J Posture/Palpation/Skin Start: 12/31/22 08:15 Freq: Status: Active Protocol: Document 01/10/23 08:53 LRN (Rec: 01/10/23 14:03 LRN [id number]) Posture Evaluation Position Standing Head/C-Spine Posture Forward Head T-Spine Posture Increased Kyphosis L-Spine Posture Increased Lordosis Shoulder Posture (L) Forward,(R) Forward Scapula Posture (R) Rotated Down,(R) Depressed Pelvis Posture (L) PSIS Posterior Weight Distribution Balanced Knee Posture (L) Genu Valgus,(R) Genu Valgus Comments Posture Comments Dowagers Hump, sacrum L rotated. PT-OP-K Range of Motion Start: 12/31/22 08:15 Freq: Status: Active Protocol: Document 01/10/23 08:53 LRN (Rec: 01/10/23 14:03 LRN [id number]) Lumbar Spine Range of Motion Lumbar Spine Active Degrees Testing Position Standing Flexion 90 Extension 20 Rotation Left 20 Rotation Right 0 Lateral Flexion Left 27 Lateral Flexion Right 17 Comments R rotation: Pain in R lateral neck. Hip Goniometric Range of Motion Hip Right Passive Testing Position Supine Internal Rotation 30 External Rotation 45 Left Passive Testing Position Supine Internal Rotation 30 External Rotation 40 PT-OP-M Strength Start: 12/31/22 08:15 Freq: Status: Active Protocol: Document 01/10/23 08:53 LRN (Rec: 01/10/23 14:03 LRN [id number]) Trunk Strength Trunk Manual Muscle Testing Core Stabilization Strength ~4/5. Hip Strength Hip Manual Muscle Testing Right Flexion (L2) 3 Fair Extension (S1) 5 Normal Abduction 5 Normal Adduction 3 Fair External Rotation 5 Normal Internal Rotation 5 Normal Comments Hip flex with anterior hip pain Left Flexion (L2) 5 Normal Extension (S1) 4+ Good+ Abduction 5 Normal Adduction 3 Fair External Rotation 4 Good Internal Rotation 5 Normal PT-OP-Q Treatments Start: 12/31/22 08:15 Freq: Status: Active Protocol: Document 01/17/23 09:05 LRN (Rec: 01/17/23 12:32 LRN [id number]) Therapeutic Exercises Supine Exercises Kegels on wedge Supine Exercise Name Kegel on wedge w/ball squeeze & hip IR Reps/Minutes 23' Comments Cuing for PF contraction awareness Manual Therapy Treatment Soft Tissue Mobilization Lower abdome Body Location Lower abdomen Mobilization Type Sustained Pressure Body Position Supine on wedge Comments Lift of lower abs with Kegels. MFR lower abs with knee rolls to left for pelvic rotation. Sacral Balancing Body Location Sacrum Mobilization Type Sustained Pressure Intensity/Depth Moderate Body Position Supine & Prone Comments PA of R sulcus Sacral shear to R. PA L ALLI, Ischial Tub 6 pt balancing Self-Care/Home Management Treatment Education Other Education Pt requesting specifics on her HEP: Recommended pt do PF strengthening 2-3x/day, 10-30x quick and 10x long hold. Encouraged pt to perform with hips elevated, then with without hips elevated for PF contraction awareness. Recommended that she do PF long holds with mvmt and quick contractions when static standing if she doesn't have time for alloted ex time or if she feels she has too much to think about. PT-OP-T Assessment and Plan Start: 12/31/22 08:15 Freq: Status: Active Protocol: Document 01/17/23 09:05 LRN (Rec: 01/17/23 12:32 LRN [id number]) Physical Therapy Assessment Goals 1 Impairment Pt not on a self care post- HEP Short Term Goal (STG) Pt will be re-educated in deep breathing for relaxation and mindfulness, bowel care/bowel massage, Kegel ex for Aggrevators. STG Duration 3 wks-01/31/23 Stand Grinder Goal (LTG) Pt will be independent in a self care HEP of PF/core/hip/ LB/neck ex's. LTG Duration 12 wks-04/05/23 3 Impairment Cystocele stage 2 Impairment Pt has feeling of prolapse Short Term Goal (STG) Pt will be educated in Kegel ex in isolation of substitute muscles. STG Duration 4 wks-02/07/23 Stand Grinder Goal (LTG) Eliminate the sensation of prolapse and be able to control sensation with PF ex and core pressure management. LTG Duration 12 wks-04/05/23 2 Impairment Stress incontinence. Impairment PF weakness with urinary leakage when leaning forward and bending over. Short Term Goal (STG) Re-education in proper methods for transfer with coordination of breathing with functional activities. STG Duration 1 wks-01/18/24 Fdc Goal (LTG) Strengthen the PF with pt able to lean or bend forward without urinary leakage. LTG Duration 12 wks-04/05/23 Assessment Summary Assessment Fair response to sacral balancing, but pt is also receiving skin care therapist that has included rotational adjustments to the low back; therefore it is unknown where her soreness is coming from. Pt is having general ms soreness, increased LBP and an increased feeling of prolapse . She has a flat affect and appears emotionally distressed over feeling her prolapse more. Pt's feeling of prolapse appears to be from pt 's tissue of hymen present on the L side of vaginal opening (somewhat) and minimally on the R side, therefore the pt does not feel a lift with a PF contraction and is feeling tissues more. Pt is somewhat adverse to visually seeing herself; therefore not able to provide visual awareness training. Pt does demonstrate a weak contraction but appears to have tight PF tissues with vaginal gapping. Physical Therapy Plan Frequency and Duration Frequency of Treatment 2x/Week Duration of treatment (weeks) 12 Plan of Care Start Date 01/10/23 Plan of Care End Date 04/05/23 Next Visit Focus/Plan Next Note Type Treatment Note Next Visit Plan NOTE: LATEX ALLERGY. Assess response to 2nd sacral balancing. Next: Try VEMG stim, if estrogen ring set deep enough, PF for PF >< awareness and for PF assessment, PF strengthening long holds > Quick contractions, & manual stretch to hip AD, and hip flexors. Review deep breathing for relaxation & with transfers, review vulvar care and Kegels; add HEP: hip stretches (ER>L , leonel IR) and LE roll in/outs for PF/core/hip strengthening. Monitor doming with core activation and progress TA and rotational strengthening. Manual: Improve abdominal soft tissue (uterus/bladder/ urachus) mobility.
--- NOTE | 2023-01-21 09:33 | PT.OTN ---
Current Diagnoses Stress incontinence (female) (male) (01/21/23) Other specified related conditions, unspecified trimester (01/21/23) Pelvic and perineal pain (01/21/23) Physical Therapy Treatment Note PT-OP-A Visit Information Start: 12/31/22 08:15 Freq: Status: Active Protocol: Document 01/21/23 07:53 LRN (Rec: 01/21/23 09:04 LRN [id number]) Out-Patient Physical Therapy Visit Information Visit Information Visit Type Treatment Note Visit Start Time 08:15 Visit Stop Time 08:57 Total Visit Minutes 42 Visit Number Evaluation Information Evaluation Date 01/10/23 Precautions Precautions LATEX ALLERGY, Estrogen ring in place, Post- depression, neck pain from nursing. PT-OP-B Current Condition Start: 12/31/22 08:15 Freq: Status: Active Protocol: Document 01/10/23 08:53 LRN (Rec: 01/10/23 14:03 LRN [id number]) Current Condition History of Current Condition Onset Date 6 wks ago Current Complaints Post- bladder prolapse. History of Current Condition Pt is 6 wks post . She had a vaginal of daughter that was fast (2 pushes), following return from bathroom. No IV or epidural. Pt reports labor was 2hr, 45 minutes. 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 She denies vaginal tearing or pelvic pain, but has a little low back pain. She has been given an estrogen ring last week to help plump her tissues . She is experiencing urinary leakage with leaning forward and has a feeling of an air bubble in her urethra after going to bathroom and performs a deep squat to get it out and is accompanied by urinary leakage. She states this occured with her first . Prior Treatments and Tests Pre- PT for pelvic pain. Developmental History Developmental History Pt is G2, P2, both vaginal births. Treatment Goals Patient/Caregiver Goals Pt goal is: Eliminate feeling of bladder falling out and decreased prolapse. Eliminate urinary leaking. Gain feeling of more control over bowel movements. Personal Factors Other Personal Factors That May Effect Post- depression, Therapy/Recovery estrogen ring in place. PT-OP-C Subjective Start: 12/31/22 08:15 Freq: Status: Active Protocol: Document 01/21/23 07:53 LRN (Rec: 01/21/23 09:04 LRN [id number]) OP-PT Subjective Patient Comments Patient Comments Back pain has been bad. Still feels the bulge and tissue in PF. Reports new onset of heel pain. PT-OP-I Pelvic Floor Start: 12/31/22 08:15 Freq: Status: Active Protocol: Document 01/10/23 08:53 LRN (Rec: 01/10/23 14:03 LRN [id number]) Pelvic Floor Assessment Urine Urinary Symptoms Prolapse,Falling Out Feeling/ Heavy Other Leakage Causes Leaning forward and Bending over. Leaks Per Day 6 Nocturia 1-2 Bowel Bowel Surgery No Pelvic Clock Pelvic Clock 12-3 Tenderness Pelvic Clock 3-6 Tenderness Pelvic Clock 6-9 Tenderness Pelvic Clock 9-12 Tenderness Pelvic Clock Other Superficial ms tender at 2-6 O 'clock. Prolapse Uterine Prolapse Grade 2 Perineal Descent Resting Present Bearing Present Contraction Ability Manual Muscle Testing Left 1 Manual Muscle Testing Right 0 Manual Muscle Testing Anterior 0 Manual Muscle Testing Posterior 1 Muscle Endurance (Seconds) 1 Number of Quick Contractions In 10 1 Seconds Comments Pelvic Floor Comments Redness and gapping at vaginal opening. Redness on Labia Majora and Labia Minora. PT-OP-J Posture/Palpation/Skin Start: 12/31/22 08:15 Freq: Status: Active Protocol: Document 01/10/23 08:53 LRN (Rec: 01/10/23 14:03 LRN [id number]) Posture Evaluation Position Standing Head/C-Spine Posture Forward Head T-Spine Posture Increased Kyphosis L-Spine Posture Increased Lordosis Shoulder Posture (L) Forward,(R) Forward Scapula Posture (R) Rotated Down,(R) Depressed Pelvis Posture (L) PSIS Posterior Weight Distribution Balanced Knee Posture (L) Genu Valgus,(R) Genu Valgus Comments Posture Comments Dowagers Hump, sacrum L rotated. PT-OP-K Range of Motion Start: 12/31/22 08:15 Freq: Status: Active Protocol: Document 01/10/23 08:53 LRN (Rec: 01/10/23 14:03 LRN [id number]) Lumbar Spine Range of Motion Lumbar Spine Active Degrees Testing Position Standing Flexion 90 Extension 20 Rotation Left 20 Rotation Right 0 Lateral Flexion Left 27 Lateral Flexion Right 17 Comments R rotation: Pain in R lateral neck. Hip Goniometric Range of Motion Hip Right Passive Testing Position Supine Internal Rotation 30 External Rotation 45 Left Passive Testing Position Supine Internal Rotation 30 External Rotation 40 PT-OP-M Strength Start: 12/31/22 08:15 Freq: Status: Active Protocol: Document 01/10/23 08:53 LRN (Rec: 01/10/23 14:03 LRN [id number]) Trunk Strength Trunk Manual Muscle Testing Core Stabilization Strength ~4/5. Hip Strength Hip Manual Muscle Testing Right Flexion (L2) 3 Fair Extension (S1) 5 Normal Abduction 5 Normal Adduction 3 Fair External Rotation 5 Normal Internal Rotation 5 Normal Comments Hip flex with anterior hip pain Left Flexion (L2) 5 Normal Extension (S1) 4+ Good+ Abduction 5 Normal Adduction 3 Fair External Rotation 4 Good Internal Rotation 5 Normal PT-OP-Q Treatments Start: 12/31/22 08:15 Freq: Status: Active Protocol: Document 01/21/23 07:53 LRN (Rec: 01/21/23 09:04 LRN [id number]) Therapeutic Exercises Supine Exercises Kegels on wedge Supine Exercise Name Kegel on wedge w/ball squeeze & rhona BKFO Equipment Used Ball & Lev 1 TB Reps/Minutes 4' Comments Cuing for PF contraction awareness Manual Therapy Treatment Soft Tissue Mobilization Low back Body Location R lumbar Paraspinals Mobilization Type Strumming Intensity/Depth Moderate Body Position Prone Sacral Balancing Body Location Sacrum Mobilization Type Sustained Pressure Intensity/Depth Moderate Body Position Supine & Prone Comments Infer glide & PA of R sulcus Sacral shear to R. 6 pt balancing Pubic Rami balancing PT-OP-T Assessment and Plan Start: 12/31/22 08:15 Freq: Status: Active Protocol: Document 01/21/23 07:53 LRN (Rec: 01/21/23 09:04 LRN [id number]) Physical Therapy Assessment Rehab Potential Rehabilitation Potential Good Evaluation Complexity Number of Personal Factors/Comorbidities 1-2 Number of Body Systems Impaired 1-2 Clinical Presentation at Evaluation Evolving Impairments Impairments Activity Tolerance,Pain, Posture,ROM,Soft Tissue Mobility,Strength,Transfers Other Impairments Urinary leakage Cytocele Goals 1 Impairment Pt not on a self care post- HEP Short Term Goal (STG) Pt will be re-educated in deep breathing for relaxation and mindfulness, bowel care/bowel massage, Kegel ex for Aggrevators. STG Duration 3 wks-12/01/23 Fpc Goal (LTG) Pt will be independent in a self care HEP of PF/core/hip/ LB/neck ex's. 01/17/23: Kegel strengthening with ball squeeze and hip IR. LTG Duration 12 wks-04/05/23 progressed 01/17/23 3 Impairment Cystocele stage 2 Impairment Pt has feeling of prolapse Short Term Goal (STG) Pt will be educated in Kegel ex in isolation of substitute muscles. STG Duration 4 wks-02/07/23 Body Corporate Manager Goal (LTG) Eliminate the sensation of prolapse and be able to control sensation with PF ex and core pressure management. LTG Duration 12 wks-04/05/23 2 Impairment Stress incontinence. Impairment PF weakness with urinary leakage when leaning forward and bending over. Short Term Goal (STG) Re-education in proper methods for transfer with coordination of breathing with functional activities. 01/10/23: Pt I/S to perform core pressure management as educated in pre-. STG Duration 1 wks-01/18/24 initiated 12/23 Body Corporate Manager Goal (LTG) Strengthen the PF with pt able to lean or bend forward without urinary leakage. 01/17/23: Kegel strengthening with ball squeeze and hip IR. LTG Duration 12 wks-04/05/23 progressing 01/10/23 Assessment Summary Assessment Pt is a 37 yo female who is 7 wks post-, with cystocele that is not extending past her hymen ( stage 2). There is weakness with tightness of her PF, tenderness of PF and vaginal gapping. Pt has been in emotional distress and has had LBP that was expected to limit her ability to participate with PF strengthening; therefore her LBP was addressed today. The pt did a long drive yesterday; therefore is having more LBP and new onset of heel pain. With treatment, I was able to balance her sacrum for pelvic symmetry, and her LB felt better after treatment. Pt is feeling bladder with movement (sit<>stand, moving while in sitting), that as previously identified was what appeared to be hymenal tissue still present. Heel pain possibly from SIJ dysfunction that hopefully will stay corrected after today's treatment. Physical Therapy Plan Frequency and Duration Frequency of Treatment 2x/Week Duration of treatment (weeks) 12 Plan of Care Start Date 01/10/23 Plan of Care End Date 04/05/23 Therapeutic Interventions Therapeutic Interventions Home Exercise Program,Joint Mobilizations,Manual Therapy, Neuromuscular Re-education, Self-Care/Home Management,Soft Tissue Mobilization, Therapeutic Activities, Therapeutic Exercises Modalities Biofeedback,Cold Pack/Ice Massage,Electric Stimulation, Hot Packs Next Visit Focus/Plan Next Note Type Progress Note Next Visit Plan NOTE: LATEX ALLERGY. Next: Assess response of heel pain to previous sacral balancing. Try VEMG stim, if not bothered by estrogen ring set deep enough, for PF asses and stim for awareness training. Ex: PF strengthening long holds > Quick contractions, & manual stretch to hip AD, and hip flexors. Review deep breathing for relaxation & with transfers, review vulvar care and Kegels; add HEP: hip stretches (ER>L , leonel IR) and LE roll in/outs for PF/core/hip strengthening. Monitor doming with core activation and progress TA and rotational strengthening. Manual: Improve abdominal soft tissue (uterus/bladder/ urachus) mobility.
--- NOTE | 2023-02-06 15:43 | PT.OTN ---
Current Diagnoses Stress incontinence (female) (male) (02/06/23) Other specified related conditions, unspecified trimester (02/06/23) Pelvic and perineal pain (02/06/23) Physical Therapy Treatment Note PT-OP-A Visit Information Start: 12/31/22 08:15 Freq: Status: Active Protocol: Document 02/06/23 14:36 LRN (Rec: 02/06/23 15:40 LRN [id number]) Out-Patient Physical Therapy Visit Information Visit Information Visit Type Treatment Note Visit Start Time 14:36 Visit Stop Time 15:14 Total Visit Minutes 38 Visit Number Evaluation Information Evaluation Date 01/10/23 Precautions Precautions LATEX ALLERGY, Estrogen ring in place, Post- depression, neck pain from nursing. L heel has been numb. PT-OP-B Current Condition Start: 12/31/22 08:15 Freq: Status: Active Protocol: Document 01/10/23 08:53 LRN (Rec: 01/10/23 14:03 LRN [id number]) Current Condition History of Current Condition Onset Date 6 wks ago Current Complaints Post- bladder prolapse. History of Current Condition Pt is 6 wks post . She had a vaginal of daughter that was fast (2 pushes), following return from bathroom. No IV or epidural. Pt reports labor was 2hr, 45 minutes. 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 She denies vaginal tearing or pelvic pain, but has a little low back pain. She has been given an estrogen ring last week to help plump her tissues . She is experiencing urinary leakage with leaning forward and has a feeling of an air bubble in her urethra after going to bathroom and performs a deep squat to get it out and is accompanied by urinary leakage. She states this occured with her first . Prior Treatments and Tests Pre- PT for pelvic pain. Developmental History Developmental History Pt is G2, P2, both vaginal births. Treatment Goals Patient/Caregiver Goals Pt goal is: Eliminate feeling of bladder falling out and decreased prolapse. Eliminate urinary leaking. Gain feeling of more control over bowel movements. Personal Factors Other Personal Factors That May Effect Post- depression, Therapy/Recovery estrogen ring in place. PT-OP-C Subjective Start: 12/31/22 08:15 Freq: Status: Active Protocol: Document 02/06/23 14:36 LRN (Rec: 02/06/23 15:40 LRN [id number]) OP-PT Subjective Patient Comments Patient Comments Got to a point when didn't notice it much anymore, but after [place] (3 K walk) felt pelvis was really sore ( hips and LB hurt). A wk later started to noitice the PF more. PT-OP-I Pelvic Floor Start: 12/31/22 08:15 Freq: Status: Active Protocol: Document 01/10/23 08:53 LRN (Rec: 01/10/23 14:03 LRN [id number]) Pelvic Floor Assessment Urine Urinary Symptoms Prolapse,Falling Out Feeling/ Heavy Other Leakage Causes Leaning forward and Bending over. Leaks Per Day 6 Nocturia 1-2 Bowel Bowel Surgery No Pelvic Clock Pelvic Clock 12-3 Tenderness Pelvic Clock 3-6 Tenderness Pelvic Clock 6-9 Tenderness Pelvic Clock 9-12 Tenderness Pelvic Clock Other Superficial ms tender at 2-6 O 'clock. Prolapse Uterine Prolapse Grade 2 Perineal Descent Resting Present Bearing Present Contraction Ability Manual Muscle Testing Left 1 Manual Muscle Testing Right 0 Manual Muscle Testing Anterior 0 Manual Muscle Testing Posterior 1 Muscle Endurance (Seconds) 1 Number of Quick Contractions In 10 1 Seconds Comments Pelvic Floor Comments Redness and gapping at vaginal opening. Redness on Labia Majora and Labia Minora. PT-OP-J Posture/Palpation/Skin Start: 12/31/22 08:15 Freq: Status: Active Protocol: Document 01/10/23 08:53 LRN (Rec: 01/10/23 14:03 LRN [id number]) Posture Evaluation Position Standing Head/C-Spine Posture Forward Head T-Spine Posture Increased Kyphosis L-Spine Posture Increased Lordosis Shoulder Posture (L) Forward,(R) Forward Scapula Posture (R) Rotated Down,(R) Depressed Pelvis Posture (L) PSIS Posterior Weight Distribution Balanced Knee Posture (L) Genu Valgus,(R) Genu Valgus Comments Posture Comments Dowagers Hump, sacrum L rotated. PT-OP-K Range of Motion Start: 12/31/22 08:15 Freq: Status: Active Protocol: Document 01/10/23 08:53 LRN (Rec: 01/10/23 14:03 LRN [id number]) Lumbar Spine Range of Motion Lumbar Spine Active Degrees Testing Position Standing Flexion 90 Extension 20 Rotation Left 20 Rotation Right 0 Lateral Flexion Left 27 Lateral Flexion Right 17 Comments R rotation: Pain in R lateral neck. Hip Goniometric Range of Motion Hip Right Passive Testing Position Supine Internal Rotation 30 External Rotation 45 Left Passive Testing Position Supine Internal Rotation 30 External Rotation 40 PT-OP-M Strength Start: 12/31/22 08:15 Freq: Status: Active Protocol: Document 01/10/23 08:53 LRN (Rec: 01/10/23 14:03 LRN [id number]) Trunk Strength Trunk Manual Muscle Testing Core Stabilization Strength ~4/5. Hip Strength Hip Manual Muscle Testing Right Flexion (L2) 3 Fair Extension (S1) 5 Normal Abduction 5 Normal Adduction 3 Fair External Rotation 5 Normal Internal Rotation 5 Normal Comments Hip flex with anterior hip pain Left Flexion (L2) 5 Normal Extension (S1) 4+ Good+ Abduction 5 Normal Adduction 3 Fair External Rotation 4 Good Internal Rotation 5 Normal PT-OP-Q Treatments Start: 12/31/22 08:15 Freq: Status: Active Protocol: Document 02/06/23 14:36 LRN (Rec: 02/06/23 15:40 LRN [id number]) Therapeutic Exercises Supine Exercises Kegels on wedge Supine Exercise Name Kegels/TA on wedge Reps/Minutes 3' Comments Cuing for PF contraction awareness Manual Therapy Treatment Soft Tissue Mobilization L Lower Leg Body Location L lateral compartment of Lower leg. Mobilization Type Strumming Intensity/Depth Moderate Body Position Hooklying Comments Legs on bolster Trunk rotators Body Location L trunk rotators Mobilization Type Myofascial Release,Strumming Intensity/Depth Moderate Body Position Supine Lower abdome Body Location Lower abdomen Mobilization Type Sustained Pressure Body Position Supine Comments Lift of lower abs with Kegels. L Lower Abs stretched to R. MFR lower abs with knee rolls to left for pelvic rotation. Area of urachus stretched. Joint Mobilizations Correction for L inflare/R outflare Joint Innominate correction for L inflare/R outflare Body Position Supine Reps/Duration 25' Self-Care/Home Management Treatment Activities Self-Care/Home Management Activities I/S pt (during ex) to increase number of times doing PF contraction strengthening to minimal 3x/day and more. Order of preference to do Kegels: 1) sup w/hips on wedge , 2) standing with hips above abdomen, 3) sit with anterior pelvic tilt. Pt to avoid standing due to lack of ability to perform a lift. PT-OP-T Assessment and Plan Start: 12/31/22 08:15 Freq: Status: Active Protocol: Document 02/06/23 14:36 LRN (Rec: 02/06/23 15:40 LRN [id number]) Physical Therapy Assessment Goals 1 Impairment Pt not on a self care post- HEP Short Term Goal (STG) Pt will be re-educated in deep breathing for relaxation and mindfulness, bowel care/bowel massage, Kegel ex for Aggrevators. STG Duration 3 wks-01/31/23 Health Information Managers Goal (LTG) Pt will be independent in a self care HEP of PF/core/hip/ LB/neck ex's. 01/17/23: Kegel strengthening with ball squeeze and hip IR. LTG Duration 12 wks-04/05/23 progressed 01/17/23 3 Impairment Cystocele stage 2 Impairment Pt has feeling of prolapse Short Term Goal (STG) Pt will be educated in Kegel ex in isolation of substitute muscles. STG Duration 4 wks-02/07/23 Group Home Goal (LTG) Eliminate the sensation of prolapse and be able to control sensation with PF ex and core pressure management. LTG Duration 12 wks-04/05/23 2 Impairment Stress incontinence. Impairment PF weakness with urinary leakage when leaning forward and bending over. Short Term Goal (STG) Re-education in proper methods for transfer with coordination of breathing with functional activities. 01/10/23: Pt I/S to perform core pressure management as educated in pre-. STG Duration 1 wks-01/18/24 initiated 12/23 Group Home Goal (LTG) Strengthen the PF with pt able to lean or bend forward without urinary leakage. 01/17/23: Kegel strengthening with ball squeeze and hip IR. LTG Duration 12 wks-04/05/23 progressing 01/10/23 Assessment Summary Assessment Pt PF improved but due to participating in a 3K walk she has return of sensation of prolapse. L heel decreased sensation with now a feeling of coldness. + response to sacral balancing with less LBP , but no change in L heel sensation. Pt R innominate outflare/L innominate inflare. L inflare may be exacerbated by pt lying on R>L w/sleeping . Normalized pelvic positioning with mob and improved abdominal STM to the R. Physical Therapy Plan Frequency and Duration Frequency of Treatment 2x/Week Duration of treatment (weeks) 12 Plan of Care Start Date 01/10/23 Plan of Care End Date 04/05/23 Next Visit Focus/Plan Next Note Type Treatment Note Next Visit Plan NOTE: LATEX ALLERGY. Assess progress towards STG 1-3: re -educated in deep breathing for relaxation and mindfulness , bowel care/bowel massage, Kegel ex for Aggrevators and in isolation of substitute ms. Assess response to STM and for positional dysfunction of innominates. Next: Assess for worsening of PF prolapse if pt still feeling it. Recheck for R outflare innominate and L lateral rot tightness, sacral balancing if needed. Add L peroneal glide and ex if positive. Add clamshell/TA/PF >< for pelvic stab. Try VEMG stim, if not bothered by estrogen ring set deep enough, for PF asses and stim for awareness training. Ex: Cont PF strengthening long holds > Quick contractions, manual stretch to hip AD, and hip flexors, HEP: hip stretches (ER>L, elonel IR) and LE roll in/outs for PF /core/hip strengthening. Monitor doming with core activation and progress TA and rotational strengthening. Manual: Improve abdominal soft tissue (uterus/bladder/ urachus) mobility. Review deep breathing for relaxation & with transfers, review vulvar care and Kegels;
--- NOTE | 2023-02-10 16:47 | PT.OTN ---
Current Diagnoses Stress incontinence (female) (male) (02/10/23) Other specified related conditions, unspecified trimester (02/10/23) Pelvic and perineal pain (02/10/23) Physical Therapy Treatment Note PT-OP-A Visit Information Start: 12/31/22 08:15 Freq: Status: Active Protocol: Document 02/10/23 07:34 LRN (Rec: 02/10/23 08:19 LRN [id number]) Out-Patient Physical Therapy Visit Information Visit Information Visit Type Treatment Note Visit Start Time 07:34 Visit Stop Time 18:12 Total Visit Minutes 38 Visit Number Evaluation Information Evaluation Date 01/10/23 Precautions Precautions LATEX ALLERGY, Estrogen ring in place, Post- depression, neck pain from nursing. L heel has been numb. PT-OP-B Current Condition Start: 12/31/22 08:15 Freq: Status: Active Protocol: Document 01/10/23 08:53 LRN (Rec: 01/10/23 14:03 LRN [id number]) Current Condition History of Current Condition Onset Date 6 wks ago Current Complaints Post- bladder prolapse. History of Current Condition Pt is 6 wks post . She had a vaginal of daughter that was fast (2 pushes), following return from bathroom. No IV or epidural. Pt reports labor was 2hr, 45 minutes. 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 She denies vaginal tearing or pelvic pain, but has a little low back pain. She has been given an estrogen ring last week to help plump her tissues . She is experiencing urinary leakage with leaning forward and has a feeling of an air bubble in her urethra after going to bathroom and performs a deep squat to get it out and is accompanied by urinary leakage. She states this occured with her first . Prior Treatments and Tests Pre- PT for pelvic pain. Developmental History Developmental History Pt is G2, P2, both vaginal births. Treatment Goals Patient/Caregiver Goals Pt goal is: Eliminate feeling of bladder falling out and decreased prolapse. Eliminate urinary leaking. Gain feeling of more control over bowel movements. Personal Factors Other Personal Factors That May Effect Post- depression, Therapy/Recovery estrogen ring in place. PT-OP-C Subjective Start: 12/31/22 08:15 Freq: Status: Active Protocol: Document 02/10/23 07:34 LRN (Rec: 02/10/23 08:19 LRN [id number]) OP-PT Subjective Patient Comments Patient Comments Foot still feels numb, more than it has. LB is sore, rated 4/10, after [place] was 5/10. Every once in awhile feels PF dropping. PT-OP-I Pelvic Floor Start: 12/31/22 08:15 Freq: Status: Active Protocol: Document 01/10/23 08:53 LRN (Rec: 01/10/23 14:03 LRN [id number]) Pelvic Floor Assessment Urine Urinary Symptoms Prolapse,Falling Out Feeling/ Heavy Other Leakage Causes Leaning forward and Bending over. Leaks Per Day 6 Nocturia 1-2 Bowel Bowel Surgery No Pelvic Clock Pelvic Clock 12-3 Tenderness Pelvic Clock 3-6 Tenderness Pelvic Clock 6-9 Tenderness Pelvic Clock 9-12 Tenderness Pelvic Clock Other Superficial ms tender at 2-6 O 'clock. Prolapse Uterine Prolapse Grade 2 Perineal Descent Resting Present Bearing Present Contraction Ability Manual Muscle Testing Left 1 Manual Muscle Testing Right 0 Manual Muscle Testing Anterior 0 Manual Muscle Testing Posterior 1 Muscle Endurance (Seconds) 1 Number of Quick Contractions In 10 1 Seconds Comments Pelvic Floor Comments Redness and gapping at vaginal opening. Redness on Labia Majora and Labia Minora. PT-OP-J Posture/Palpation/Skin Start: 12/31/22 08:15 Freq: Status: Active Protocol: Document 01/10/23 08:53 LRN (Rec: 01/10/23 14:03 LRN [id number]) Posture Evaluation Position Standing Head/C-Spine Posture Forward Head T-Spine Posture Increased Kyphosis L-Spine Posture Increased Lordosis Shoulder Posture (L) Forward,(R) Forward Scapula Posture (R) Rotated Down,(R) Depressed Pelvis Posture (L) PSIS Posterior Weight Distribution Balanced Knee Posture (L) Genu Valgus,(R) Genu Valgus Comments Posture Comments Dowagers Hump, sacrum L rotated. PT-OP-K Range of Motion Start: 12/31/22 08:15 Freq: Status: Active Protocol: Document 01/10/23 08:53 LRN (Rec: 01/10/23 14:03 LRN [id number]) Lumbar Spine Range of Motion Lumbar Spine Active Degrees Testing Position Standing Flexion 90 Extension 20 Rotation Left 20 Rotation Right 0 Lateral Flexion Left 27 Lateral Flexion Right 17 Comments R rotation: Pain in R lateral neck. Hip Goniometric Range of Motion Hip Right Passive Testing Position Supine Internal Rotation 30 External Rotation 45 Left Passive Testing Position Supine Internal Rotation 30 External Rotation 40 PT-OP-M Strength Start: 12/31/22 08:15 Freq: Status: Active Protocol: Document 01/10/23 08:53 LRN (Rec: 01/10/23 14:03 LRN [id number]) Trunk Strength Trunk Manual Muscle Testing Core Stabilization Strength ~4/5. Hip Strength Hip Manual Muscle Testing Right Flexion (L2) 3 Fair Extension (S1) 5 Normal Abduction 5 Normal Adduction 3 Fair External Rotation 5 Normal Internal Rotation 5 Normal Comments Hip flex with anterior hip pain Left Flexion (L2) 5 Normal Extension (S1) 4+ Good+ Abduction 5 Normal Adduction 3 Fair External Rotation 4 Good Internal Rotation 5 Normal PT-OP-Q Treatments Start: 12/31/22 08:15 Freq: Status: Active Protocol: Document 02/10/23 07:34 LRN (Rec: 02/10/23 08:19 LRN [id number]) Therapeutic Exercises Supine Exercises Sural n gliding Supine Exercise Name Hip in flex/IR & flex/IR/ankle IV & flex/IR/ankle IV/toes flex Side left Reps/Minutes Active mvmt of hip IR, ankle IV, toes flex; respectively Comments Pt initiall worked into pain but after much cuing able to do w/o pain Kegels/wedge/TB hip AB Supine Exercise Name Kegels/wedge/TB hip AB Reps/Minutes 5 SH x 15 full Kegel and 50% Kegel Comments Extra time to determine best possible way to get holding contraction Kegels/wedge/ball squeeze Supine Exercise Name Kegels/wedge/Ball squeeze Reps/Minutes 5 SH x 15 full Kegel and 50% Kegel Comments Extra time to determine best possible way to get holding contraction Kegels on wedge Supine Exercise Name Kegels/TA on wedge Reps/Minutes 8' Comments Cuing for PF contraction awareness Manual Therapy Treatment Soft Tissue Mobilization L Lower Leg Body Location L Tib/Fib jt and lateral compartment of lower leg Mobilization Type Strumming Intensity/Depth Moderate Body Position Hooklying Comments Legs on bolster Joint Mobilizations L Tib/Fig Joint L Tib/Fib Direction PA/AP/Infer/Super Body Position Hooklying Reps/Duration 8' with rest between mobs to manage cold/hot packs Self-Care/Home Management Treatment Education Patient Education Pain Management Other Education Pt educated in hot/cold treatment for home pain managment for L heel pain with walking. Activities Self-Care/Home Management Activities Issued & reviewed handout for contrast bath treatment (hot/ cold). PT-OP-T Assessment and Plan Start: 12/31/22 08:15 Freq: Status: Active Protocol: Document 02/10/23 07:34 LRN (Rec: 02/10/23 08:19 LRN [id number]) Physical Therapy Assessment Goals 1 Impairment Pt not on a self care post- HEP Short Term Goal (STG) Pt will be re-educated in deep breathing for relaxation and mindfulness, bowel care/bowel massage, Kegel ex for Aggrevators. STG Duration 3 wks-01/31/23 Manufacturing Advisor Goal (LTG) Pt will be independent in a self care HEP of PF/core/hip/ LB/neck ex's. 01/17/23: Kegel strengthening with ball squeeze and hip IR. LTG Duration 12 wks-04/05/23 progressed 01/17/23 3 Impairment Cystocele stage 2 Impairment Pt has feeling of prolapse Short Term Goal (STG) Pt will be educated in Kegel ex in isolation of substitute muscles. STG Duration 4 wks-02/07/23 Manufacturing Advisor Goal (LTG) Eliminate the sensation of prolapse and be able to control sensation with PF ex and core pressure management. LTG Duration 12 wks-04/05/23 2 Impairment Stress incontinence. Impairment PF weakness with urinary leakage when leaning forward and bending over. Short Term Goal (STG) Re-education in proper methods for transfer with coordination of breathing with functional activities. 01/10/23: Pt I/S to perform core pressure management as educated in pre-. STG Duration 1 wks-01/18/24 initiated 12/23 Manufacturing Advisor Goal (LTG) Strengthen the PF with pt able to lean or bend forward without urinary leakage. 01/17/23: Kegel strengthening with ball squeeze and hip IR. LTG Duration 12 wks-04/05/23 progressing 01/10/23 Assessment Summary Assessment No innominate positional dysfunction. PF prolapse not worse, not changed. L heel pain with sural n stretch. Hot/cold treatment had no change with foot pain from initial stretch pain; therefore may be back related. Pt not able to hold PF contraction with ex. Feeling of soft tissue in PF with movement is same (drop/lift of bladder). LBP is improved, pain from 5/10 to today 4/10. Physical Therapy Plan Frequency and Duration Frequency of Treatment 2x/Week Duration of treatment (weeks) 12 Plan of Care Start Date 01/10/23 Plan of Care End Date 04/05/23 Next Visit Focus/Plan Next Note Type Treatment Note Next Visit Plan NOTE: LATEX ALLERGY. Progress towards STG 1-3: re- educated in deep breathing for relaxation and mindfulness, bowel care/bowel massage, Kegel ex for Aggrevators and in isolation of substitute ms. Next: Recheck for L lateral trunk rot tightness. Add clamshell/TA/PF >< for pelvic stab. Try VEMG stim, if not bothered by estrogen ring set deep enough, for PF asses and stim for awareness training. Ex: Cont PF strengthening long holds > Quick contractions, manual stretch to hip AD, and hip flexors, HEP: hip stretches (ER>L, leonel IR) and LE roll in/outs for PF /core/hip strengthening. Monitor doming with core activation and progress TA and rotational strengthening. Manual: Improve abdominal soft tissue (uterus/bladder/ urachus) mobility. sacral balancing if needed Review deep breathing for relaxation & with transfers, review vulvar care and Kegels.
--- NOTE | 2023-02-21 08:56 | PT.OTN ---
Current Diagnoses Stress incontinence (female) (male) (02/21/23) Other specified related conditions, unspecified trimester (02/21/23) Pelvic and perineal pain (02/21/23) Physical Therapy Treatment Note PT-OP-A Visit Information Start: 12/31/22 08:15 Freq: Status: Active Protocol: Document 02/21/23 07:35 LRN (Rec: 02/21/23 08:55 LRN [id number]) Out-Patient Physical Therapy Visit Information Visit Information Visit Type Treatment Note Visit Start Time 07:35 Visit Stop Time 08:20 Total Visit Minutes 45 Visit Number Evaluation Information Evaluation Date 01/10/23 Precautions Precautions LATEX ALLERGY, Estrogen ring in place, Post- depression, neck pain from nursing. L heel has been numb. PT-OP-B Current Condition Start: 12/31/22 08:15 Freq: Status: Active Protocol: Document 01/10/23 08:53 LRN (Rec: 01/10/23 14:03 LRN [id number]) Current Condition History of Current Condition Onset Date 6 wks ago Current Complaints Post- bladder prolapse. History of Current Condition Pt is 6 wks post . She had a vaginal of daughter that was fast (2 pushes), following return from bathroom. No IV or epidural. Pt reports labor was 2hr, 45 minutes. 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 She denies vaginal tearing or pelvic pain, but has a little low back pain. She has been given an estrogen ring last week to help plump her tissues . She is experiencing urinary leakage with leaning forward and has a feeling of an air bubble in her urethra after going to bathroom and performs a deep squat to get it out and is accompanied by urinary leakage. She states this occured with her first . Prior Treatments and Tests Pre- PT for pelvic pain. Developmental History Developmental History Pt is G2, P2, both vaginal births. Treatment Goals Patient/Caregiver Goals Pt goal is: Eliminate feeling of bladder falling out and decreased prolapse. Eliminate urinary leaking. Gain feeling of more control over bowel movements. Personal Factors Other Personal Factors That May Effect Post- depression, Therapy/Recovery estrogen ring in place. PT-OP-C Subjective Start: 12/31/22 08:15 Freq: Status: Active Protocol: Document 02/21/23 07:35 LRN (Rec: 02/21/23 08:55 LRN [id number]) OP-PT Subjective Patient Comments Patient Comments PF sensation is the same, Foot is a little better. Did hot/cold 2x. PT-OP-I Pelvic Floor Start: 12/31/22 08:15 Freq: Status: Active Protocol: Document 01/10/23 08:53 LRN (Rec: 01/10/23 14:03 LRN [id number]) Pelvic Floor Assessment Urine Urinary Symptoms Prolapse,Falling Out Feeling/ Heavy Other Leakage Causes Leaning forward and Bending over. Leaks Per Day 6 Nocturia 1-2 Bowel Bowel Surgery No Pelvic Clock Pelvic Clock 12-3 Tenderness Pelvic Clock 3-6 Tenderness Pelvic Clock 6-9 Tenderness Pelvic Clock 9-12 Tenderness Pelvic Clock Other Superficial ms tender at 2-6 O 'clock. Prolapse Uterine Prolapse Grade 2 Perineal Descent Resting Present Bearing Present Contraction Ability Manual Muscle Testing Left 1 Manual Muscle Testing Right 0 Manual Muscle Testing Anterior 0 Manual Muscle Testing Posterior 1 Muscle Endurance (Seconds) 1 Number of Quick Contractions In 10 1 Seconds Comments Pelvic Floor Comments Redness and gapping at vaginal opening. Redness on Labia Majora and Labia Minora. PT-OP-J Posture/Palpation/Skin Start: 12/31/22 08:15 Freq: Status: Active Protocol: Document 01/10/23 08:53 LRN (Rec: 01/10/23 14:03 LRN [id number]) Posture Evaluation Position Standing Head/C-Spine Posture Forward Head T-Spine Posture Increased Kyphosis L-Spine Posture Increased Lordosis Shoulder Posture (L) Forward,(R) Forward Scapula Posture (R) Rotated Down,(R) Depressed Pelvis Posture (L) PSIS Posterior Weight Distribution Balanced Knee Posture (L) Genu Valgus,(R) Genu Valgus Comments Posture Comments Dowagers Hump, sacrum L rotated. PT-OP-K Range of Motion Start: 12/31/22 08:15 Freq: Status: Active Protocol: Document 01/10/23 08:53 LRN (Rec: 01/10/23 14:03 LRN [id number]) Lumbar Spine Range of Motion Lumbar Spine Active Degrees Testing Position Standing Flexion 90 Extension 20 Rotation Left 20 Rotation Right 0 Lateral Flexion Left 27 Lateral Flexion Right 17 Comments R rotation: Pain in R lateral neck. Hip Goniometric Range of Motion Hip Right Passive Testing Position Supine Internal Rotation 30 External Rotation 45 Left Passive Testing Position Supine Internal Rotation 30 External Rotation 40 PT-OP-M Strength Start: 12/31/22 08:15 Freq: Status: Active Protocol: Document 01/10/23 08:53 LRN (Rec: 01/10/23 14:03 LRN [id number]) Trunk Strength Trunk Manual Muscle Testing Core Stabilization Strength ~4/5. Hip Strength Hip Manual Muscle Testing Right Flexion (L2) 3 Fair Extension (S1) 5 Normal Abduction 5 Normal Adduction 3 Fair External Rotation 5 Normal Internal Rotation 5 Normal Comments Hip flex with anterior hip pain Left Flexion (L2) 5 Normal Extension (S1) 4+ Good+ Abduction 5 Normal Adduction 3 Fair External Rotation 4 Good Internal Rotation 5 Normal PT-OP-Q Treatments Start: 12/31/22 08:15 Freq: Status: Active Protocol: Document 02/21/23 07:35 LRN (Rec: 02/21/23 08:55 LRN [id number]) Therapeutic Exercises Supine Exercises DB/Kegel Supine Exercise Name DB/Kegel Equipment Used legs on bolster Deep Breathing Supine Exercise Name Deep Breath training Reps/Minutes 8' Hamstring/LE neural glide Supine Exercise Name Hamstring/LE neutral glide Side right Reps/Minutes 8' Comments Extra time to determine max tolerated stretch position Sural n gliding Supine Exercise Name Hip in flex/IR & flex/IR/ankle IV & flex/IR/ankle IV/toes flex Side left Equipment Used bolster Reps/Minutes Active mvmt of hip IR, ankle IV, toes flex; respectively Comments Pt initially worked into pain but after much cuing able to do w/o pain Neuro Re-Education Treatment Other Activities Vemg stim Details 10' Vemg stim, extra time to determine max stim tolerated Reps/Duration 13', intensity 17 Comments On wedge, pt not able to feel PF contract. Off wedge intensity up to 17. Pt self adjusted intensity as she has had experience with EStim. Self-Care/Home Management Treatment Education Patient Education Home Exercise Program Other Education Discussion on benefits of PF contractions in isolation of substitute muscles, since pt not able to isolate form TA. Activities Self-Care/Home Management Activities Issued & reviewed HEP: Breath in-out/Kegel/belly out-in. Pt to wait to do LE roll in- out until able to coordinate PF contraction with giacomo breathing. PT-OP-T Assessment and Plan Start: 12/31/22 08:15 Freq: Status: Active Protocol: Document 02/21/23 07:35 LRN (Rec: 02/21/23 08:55 LRN [id number]) Physical Therapy Assessment Goals 1 Impairment Pt not on a self care post- HEP Short Term Goal (STG) Pt will be re-educated in deep breathing for relaxation and mindfulness, bowel care/bowel massage, Kegel ex for Aggrevators. 02/21/23: Deep breathing review. STG Duration 3 wks-01/31/23 progressed Aviation Survival Technician Goal (LTG) Pt will be independent in a self care HEP of PF/core/hip/ LB/neck ex's. 01/17/23: Kegel strengthening with ball squeeze and hip IR. 02/21/23: HEP: DB/Kegel/ later to add LE roll in/out LTG Duration 12 wks-04/05/23 progressed 01/17/23 3 Impairment Cystocele stage 2 Impairment Pt has feeling of prolapse Short Term Goal (STG) Pt will be educated in Kegel ex in isolation of substitute muscles. 02/21/23: Kegel in isolation with Estim. STG Duration 4 wks-02/07/23 progressed Long-Term Goal (LTG) Eliminate the sensation of prolapse and be able to control sensation with PF ex and core pressure management. LTG Duration 12 wks-04/05/23 2 Impairment Stress incontinence. Impairment PF weakness with urinary leakage when leaning forward and bending over. Short Term Goal (STG) Re-education in proper methods for transfer with coordination of breathing with functional activities. 01/10/23: Pt I/S to perform core pressure management as educated in pre-. STG Duration 1 wks-01/18/24 initiated 12/23 Long-Term Goal (LTG) Strengthen the PF with pt able to lean or bend forward without urinary leakage. 01/17/23: Kegel strengthening with ball squeeze and hip IR. LTG Duration 12 wks-04/05/23 progressing 01/10/23 Assessment Summary Assessment Pt with cystocele that is not extending past her hymen ( stage 2), s/p vaginal . Initially with PF tightness/ tenderness of PF and vaginal gapping. With n gliding, lessening of numbness in L heel (tingling felt) with n glide, but pt needed more tension added to LE today. Pt had difficulty identifying PF contraction with stim at intensity 17 using a wedge, but able to w/o wedge. Physical Therapy Plan Frequency and Duration Frequency of Treatment 2x/Week Duration of treatment (weeks) 12 Plan of Care Start Date 01/10/23 Plan of Care End Date 04/05/23 Next Visit Focus/Plan Next Note Type Treatment Note Next Visit Plan NOTE: LATEX ALLERGY. Progress towards STG 1-3: re- educated in mindfulness, bowel care/bowel massage, Kegel ex for Aggrevators, and in isolation of substitute ms. Educ transfer with coordination of breathing with functional activities (STG #2 ). Next: Recheck for L lateral trunk rot tightness. Add clamshell/TA/PF >< for pelvic stab. Try VEMG stim, if not bothered by estrogen ring set deep enough, for PF asses and stim for awareness training. Ex: Cont PF strengthening long holds > Quick contractions, manual stretch to hip AD, and hip flexors, HEP: hip stretches (ER>L, leonel IR) and LE roll in/outs for PF /core/hip strengthening. Monitor doming with core activation and progress TA and rotational strengthening. Manual: Improve abdominal soft tissue (uterus/bladder/ urachus) mobility. sacral balancing if needed Review deep breathing for relaxation & with transfers, review vulvar care and Kegels.
--- NOTE | 2023-03-07 16:13 | PT.OTN ---
Current Diagnoses Stress incontinence (female) (male) (03/07/23) Other specified related conditions, unspecified trimester (03/07/23) Pelvic and perineal pain (03/07/23) Physical Therapy Treatment Note PT-OP-A Visit Information Start: 12/31/22 08:15 Freq: Status: Active Protocol: Document 03/07/23 13:56 LRN (Rec: 03/07/23 14:36 LRN [id number]) Out-Patient Physical Therapy Visit Information Visit Information Visit Type Treatment Note Visit Start Time 13:56 Visit Stop Time 14:35 Total Visit Minutes 39 Visit Number Evaluation Information Evaluation Date 01/10/23 Precautions Precautions LATEX ALLERGY, Estrogen ring in place, Post- depression, neck pain from nursing. L heel has been numb. PT-OP-B Current Condition Start: 12/31/22 08:15 Freq: Status: Active Protocol: Document 01/10/23 08:53 LRN (Rec: 01/10/23 14:03 LRN [id number]) Current Condition History of Current Condition Onset Date 6 wks ago Current Complaints Post- bladder prolapse. History of Current Condition Pt is 6 wks post . She had a vaginal of daughter that was fast (2 pushes), following return from bathroom. No IV or epidural. Pt reports labor was 2hr, 45 minutes. 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 She denies vaginal tearing or pelvic pain, but has a little low back pain. She has been given an estrogen ring last week to help plump her tissues . She is experiencing urinary leakage with leaning forward and has a feeling of an air bubble in her urethra after going to bathroom and performs a deep squat to get it out and is accompanied by urinary leakage. She states this occured with her first . Prior Treatments and Tests Pre- PT for pelvic pain. Developmental History Developmental History Pt is G2, P2, both vaginal births. Treatment Goals Patient/Caregiver Goals Pt goal is: Eliminate feeling of bladder falling out and decreased prolapse. Eliminate urinary leaking. Gain feeling of more control over bowel movements. Personal Factors Other Personal Factors That May Effect Post- depression, Therapy/Recovery estrogen ring in place. PT-OP-C Subjective Start: 12/31/22 08:15 Freq: Status: Active Protocol: Document 03/07/23 13:56 LRN (Rec: 03/07/23 14:36 LRN [id number]) OP-PT Subjective Patient Comments Patient Comments Started an 8 wk online fitness with modification for DR or prolapse. No difference in feeling of pressure or tissues moving. States she has BM's daily but not pushing. PT-OP-I Pelvic Floor Start: 12/31/22 08:15 Freq: Status: Active Protocol: Document 01/10/23 08:53 LRN (Rec: 01/10/23 14:03 LRN [id number]) Pelvic Floor Assessment Urine Urinary Symptoms Prolapse,Falling Out Feeling/ Heavy Other Leakage Causes Leaning forward and Bending over. Leaks Per Day 6 Nocturia 1-2 Bowel Bowel Surgery No Pelvic Clock Pelvic Clock 12-3 Tenderness Pelvic Clock 3-6 Tenderness Pelvic Clock 6-9 Tenderness Pelvic Clock 9-12 Tenderness Pelvic Clock Other Superficial ms tender at 2-6 O 'clock. Prolapse Uterine Prolapse Grade 2 Perineal Descent Resting Present Bearing Present Contraction Ability Manual Muscle Testing Left 1 Manual Muscle Testing Right 0 Manual Muscle Testing Anterior 0 Manual Muscle Testing Posterior 1 Muscle Endurance (Seconds) 1 Number of Quick Contractions In 10 1 Seconds Comments Pelvic Floor Comments Redness and gapping at vaginal opening. Redness on Labia Majora and Labia Minora. PT-OP-J Posture/Palpation/Skin Start: 12/31/22 08:15 Freq: Status: Active Protocol: Document 01/10/23 08:53 LRN (Rec: 01/10/23 14:03 LRN [id number]) Posture Evaluation Position Standing Head/C-Spine Posture Forward Head T-Spine Posture Increased Kyphosis L-Spine Posture Increased Lordosis Shoulder Posture (L) Forward,(R) Forward Scapula Posture (R) Rotated Down,(R) Depressed Pelvis Posture (L) PSIS Posterior Weight Distribution Balanced Knee Posture (L) Genu Valgus,(R) Genu Valgus Comments Posture Comments Dowagers Hump, sacrum L rotated. PT-OP-K Range of Motion Start: 12/31/22 08:15 Freq: Status: Active Protocol: Document 01/10/23 08:53 LRN (Rec: 01/10/23 14:03 LRN [id number]) Lumbar Spine Range of Motion Lumbar Spine Active Degrees Testing Position Standing Flexion 90 Extension 20 Rotation Left 20 Rotation Right 0 Lateral Flexion Left 27 Lateral Flexion Right 17 Comments R rotation: Pain in R lateral neck. Hip Goniometric Range of Motion Hip Right Passive Testing Position Supine Internal Rotation 30 External Rotation 45 Left Passive Testing Position Supine Internal Rotation 30 External Rotation 40 PT-OP-M Strength Start: 12/31/22 08:15 Freq: Status: Active Protocol: Document 01/10/23 08:53 LRN (Rec: 01/10/23 14:03 LRN [id number]) Trunk Strength Trunk Manual Muscle Testing Core Stabilization Strength ~4/5. Hip Strength Hip Manual Muscle Testing Right Flexion (L2) 3 Fair Extension (S1) 5 Normal Abduction 5 Normal Adduction 3 Fair External Rotation 5 Normal Internal Rotation 5 Normal Comments Hip flex with anterior hip pain Left Flexion (L2) 5 Normal Extension (S1) 4+ Good+ Abduction 5 Normal Adduction 3 Fair External Rotation 4 Good Internal Rotation 5 Normal PT-OP-Q Treatments Start: 12/31/22 08:15 Freq: Status: Active Protocol: Document 03/07/23 13:56 LRN (Rec: 03/07/23 14:36 LR [id number]) Neuro Re-Education Treatment Other Activities Vemg stim Details Vemg stim for PF strengthening /awareness training Reps/Duration 31' Comments Pt supine - level. Electrode x2 insertion to add more gel. Intensity 9>13>16. 10 reps contraction moving electrode around to get stim of ms at Left, Right, posterior and anterior PF- 10 reps each 10SH hold/10 SH rest . Extra time needed to determine max tolerated intensity and to locate stim position to get sensation awareness of PF. Resistance to PF contractions (TB, Ball) Self-Care/Home Management Treatment Education Other Education Discussed pt's new online ex program of [employer] Ex program modified for post- pt's. Reviewed and Educ transfer with coordination of breathing with functional activities. PT-OP-T Assessment and Plan Start: 12/31/22 08:15 Freq: Status: Active Protocol: Document 03/07/23 13:56 LRN (Rec: 03/07/23 14:36 [facility] [id number]) Physical Therapy Assessment Goals 1 Impairment Pt not on a self care post- HEP Short Term Goal (STG) Pt will be re-educated in deep breathing for relaxation and mindfulness, bowel care/bowel massage, Kegel ex for Aggrevators. 02/21/23: Deep breathing review. STG Duration 3 wks-01/31/23 progressed Intermediate Goal (LTG) Pt will be independent in a self care HEP of PF/core/hip/ LB/neck ex's. 01/17/23: Kegel strengthening with ball squeeze and hip IR. 02/21/23: HEP: DB/Kegel/ later to add LE roll in/out LTG Duration 12 wks-04/05/23 progressed 01/17/23 3 Impairment Cystocele stage 2 Impairment Pt has feeling of prolapse Short Term Goal (STG) Pt will be educated in Kegel ex in isolation of substitute muscles. 02/21/23: Kegel in isolation with Estim. STG Duration 4 wks-02/07/23 progressed Director Of Product Design Goal (LTG) Eliminate the sensation of prolapse and be able to control sensation with PF ex and core pressure management. LTG Duration 12 wks-04/05/23 2 Impairment Stress incontinence. Impairment PF weakness with urinary leakage when leaning forward and bending over. Short Term Goal (STG) Re-education in proper methods for transfer with coordination of breathing with functional activities. 01/10/23: Pt I/S to perform core pressure management as educated in pre-. 03/07/23: Reviewed and Educ transfer with coordination of breathing with functional activities STG Duration 1 wks-01/18/24 (03/07/23: MET GOAL) Director Of Product Design Goal (LTG) Strengthen the PF with pt able to lean or bend forward without urinary leakage. 01/17/23: Kegel strengthening with ball squeeze and hip IR. LTG Duration 12 wks-04/05/23 progressing 01/10/23 Assessment Summary Assessment Pt with cystocele that is not extending past her hymen ( stage 2), s/p vaginal . Initially with PF tightness/ tenderness of PF and vaginal gapping. Pt appears to be having difficulty accepting PF weakness and sensation of drop of PF. Physical Therapy Plan Frequency and Duration Frequency of Treatment 2x/Week Duration of treatment (weeks) 12 Plan of Care Start Date 01/10/23 Plan of Care End Date 04/05/23 Next Visit Focus/Plan Next Note Type Treatment Note Next Visit Plan NOTE: LATEX ALLERGY. Next: Check response to LE n glide on L heel. Assess response to Vemg stim around the PF. PF Vemg assessment. Recheck for L lateral trunk rot tightness. Add clamshell/TA/PF >< for pelvic stab. VEMG stim for awareness training (monitor for being bothered by estrogen ring). Progress towards STG 1-3: re- educated in mindfulness, bowel care/bowel massage, Kegel ex for Aggrevators and in isolation of substitute ms. Ex: Cont PF strengthening long holds > Quick contractions, manual stretch to hip AD, and hip flexors, HEP: hip stretches (ER>L, leonel IR) and LE roll in/outs for PF /core/hip strengthening. Monitor doming with core activation and progress TA and rotational strengthening. Manual: Improve abdominal soft tissue (uterus/bladder/ urachus) mobility. sacral balancing if needed Review deep breathing for relaxation & with transfers, review vulvar care and Kegels.
--- NOTE | 2023-03-14 16:28 | PT.OTN ---
Current Diagnoses Stress incontinence (female) (male) (03/14/23) Other specified related conditions, unspecified trimester (03/14/23) Pelvic and perineal pain (03/14/23) Physical Therapy Treatment Note PT-OP-A Visit Information Start: 12/31/22 08:15 Freq: Status: Active Protocol: Document 03/14/23 09:45 LRN (Rec: 03/14/23 10:28 LRN [id number]) Out-Patient Physical Therapy Visit Information Visit Information Visit Type Treatment Note Visit Start Time 09:45 Visit Stop Time 10:30 Total Visit Minutes 45 Visit Number Evaluation Information Evaluation Date 01/10/23 Precautions Precautions LATEX ALLERGY, Estrogen ring in place, Post- depression, neck pain from nursing. L heel has been numb. PT-OP-B Current Condition Start: 12/31/22 08:15 Freq: Status: Active Protocol: Document 01/10/23 08:53 LRN (Rec: 01/10/23 14:03 LRN [id number]) Current Condition History of Current Condition Onset Date 6 wks ago Current Complaints Post- bladder prolapse. History of Current Condition Pt is 6 wks post . She had a vaginal of daughter that was fast (2 pushes), following return from bathroom. No IV or epidural. Pt reports labor was 2hr, 45 minutes. 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 She denies vaginal tearing or pelvic pain, but has a little low back pain. She has been given an estrogen ring last week to help plump her tissues . She is experiencing urinary leakage with leaning forward and has a feeling of an air bubble in her urethra after going to bathroom and performs a deep squat to get it out and is accompanied by urinary leakage. She states this occured with her first . Prior Treatments and Tests Pre- PT for pelvic pain. Developmental History Developmental History Pt is G2, P2, both vaginal births. Treatment Goals Patient/Caregiver Goals Pt goal is: Eliminate feeling of bladder falling out and decreased prolapse. Eliminate urinary leaking. Gain feeling of more control over bowel movements. Personal Factors Other Personal Factors That May Effect Post- depression, Therapy/Recovery estrogen ring in place. PT-OP-C Subjective Start: 12/31/22 08:15 Freq: Status: Active Protocol: Document 03/14/23 09:45 LRN (Rec: 03/14/23 10:28 LRN [id number]) OP-PT Subjective Patient Comments Patient Comments Wearing [place] so feels getting more PF support. Appt with specialist at (who she saw for Pelvic pain), and he said he can't do surgery ( tighten tissues of vagina) until she is 6 months post-op. No bowel problems, no urgency, type 4 bowels. No longer having air in vagina with leaning forward. States she sometimes has a little more urine release when leaning fwd on toilet and returning to upright. PT-OP-I Pelvic Floor Start: 12/31/22 08:15 Freq: Status: Active Protocol: Document 01/10/23 08:53 LRN (Rec: 01/10/23 14:03 LRN [id number]) Pelvic Floor Assessment Urine Urinary Symptoms Prolapse,Falling Out Feeling/ Heavy Other Leakage Causes Leaning forward and Bending over. Leaks Per Day 6 Nocturia 1-2 Bowel Bowel Surgery No Pelvic Clock Pelvic Clock 12-3 Tenderness Pelvic Clock 3-6 Tenderness Pelvic Clock 6-9 Tenderness Pelvic Clock 9-12 Tenderness Pelvic Clock Other Superficial ms tender at 2-6 O 'clock. Prolapse Uterine Prolapse Grade 2 Perineal Descent Resting Present Bearing Present Contraction Ability Manual Muscle Testing Left 1 Manual Muscle Testing Right 0 Manual Muscle Testing Anterior 0 Manual Muscle Testing Posterior 1 Muscle Endurance (Seconds) 1 Number of Quick Contractions In 10 1 Seconds Comments Pelvic Floor Comments Redness and gapping at vaginal opening. Redness on Labia Majora and Labia Minora. PT-OP-J Posture/Palpation/Skin Start: 12/31/22 08:15 Freq: Status: Active Protocol: Document 01/10/23 08:53 LRN (Rec: 01/10/23 14:03 LRN [id number]) Posture Evaluation Position Standing Head/C-Spine Posture Forward Head T-Spine Posture Increased Kyphosis L-Spine Posture Increased Lordosis Shoulder Posture (L) Forward,(R) Forward Scapula Posture (R) Rotated Down,(R) Depressed Pelvis Posture (L) PSIS Posterior Weight Distribution Balanced Knee Posture (L) Genu Valgus,(R) Genu Valgus Comments Posture Comments Dowagers Hump, sacrum L rotated. PT-OP-K Range of Motion Start: 12/31/22 08:15 Freq: Status: Active Protocol: Document 01/10/23 08:53 LRN (Rec: 01/10/23 14:03 LRN [id number]) Lumbar Spine Range of Motion Lumbar Spine Active Degrees Testing Position Standing Flexion 90 Extension 20 Rotation Left 20 Rotation Right 0 Lateral Flexion Left 27 Lateral Flexion Right 17 Comments R rotation: Pain in R lateral neck. Hip Goniometric Range of Motion Hip Right Passive Testing Position Supine Internal Rotation 30 External Rotation 45 Left Passive Testing Position Supine Internal Rotation 30 External Rotation 40 PT-OP-M Strength Start: 12/31/22 08:15 Freq: Status: Active Protocol: Document 01/10/23 08:53 LRN (Rec: 01/10/23 14:03 LRN [id number]) Trunk Strength Trunk Manual Muscle Testing Core Stabilization Strength ~4/5. Hip Strength Hip Manual Muscle Testing Right Flexion (L2) 3 Fair Extension (S1) 5 Normal Abduction 5 Normal Adduction 3 Fair External Rotation 5 Normal Internal Rotation 5 Normal Comments Hip flex with anterior hip pain Left Flexion (L2) 5 Normal Extension (S1) 4+ Good+ Abduction 5 Normal Adduction 3 Fair External Rotation 4 Good Internal Rotation 5 Normal PT-OP-Q Treatments Start: 12/31/22 08:15 Freq: Status: Active Protocol: Document 03/14/23 09:45 LRN (Rec: 03/14/23 10:28 LRN [id number]) Therapeutic Exercises Supine Exercises Kegel/wedge/TB/Ball Supine Exercise Name Kegel/wedge/LE roll in-out/TB/ Sm Ball Reps/Minutes Kegel 10SH-10 rest, 10 x 2 Comments Cuing and extra time to coordinate cont/relax. Sural n gliding Supine Exercise Name Hip in flex/IR & flex/IR/ankle IV & flex/IR/ankle IV/toes flex Side left Equipment Used bolster Reps/Minutes Active mvmt of hip IR, ankle IV, toes flex; respectively Comments Pt initially worked into pain but after much cuing able to do w/o pain Kegels on wedge Supine Exercise Name Kegels/TA on wedge with contractions in isolation of sub ms. Reps/Minutes 8' Comments Cuing for PF contraction awareness Neuro Re-Education Treatment Other Activities Vemg stim Details Vemg stim for PF strengthening /awareness training Reps/Duration 10' Comments Pt supine - level. 100 pps. Intensity 15. 10 SH contractions. Stim felt in vagina without having to move electrode around. Resistance to PF contractions (TB, Ball) Self-Care/Home Management Treatment Education Other Education Discussed pt urinary leakage on toilet with positional changes to continue to work towards full emptying before standing. Discussed use of abdominal binder as support to PF. PT-OP-T Assessment and Plan Start: 12/31/22 08:15 Freq: Status: Active Protocol: Document 03/14/23 09:45 LRN (Rec: 03/14/23 10:28 LRN [id number]) Physical Therapy Assessment Goals 1 Impairment Pt not on a self care post- HEP Short Term Goal (STG) Pt will be re-educated in deep breathing for relaxation and mindfulness, bowel care/bowel massage, Kegel ex for Aggrevators (lean fwd and stand up). 02/21/23: Deep breathing review. 03/14/23: Reviewed need for bowel care/bowel massage (not needed, BM's regular and loose ) and Kegels with aggrevator ( uinating more only with bending fwd and then straightening up after voiding ). STG Duration 3 wks-01/31/23 (03/14/23: MET GOAL) Group Home Goal (LTG) Pt will be independent in a self care HEP of PF/core/hip/ LB/neck ex's. 01/17/23: Kegel strengthening with ball squeeze and hip IR. 02/21/23: HEP: DB/Kegel/ later to add LE roll in/out. 03/14/23: I/S pt in Kegel w/ hooklie roll in/out with TB/ Band, 1 rep Kegel/1 rep without Kegel. LTG Duration 12 wks-04/05/23 progressed 03/14/23 3 Impairment Cystocele stage 2 Impairment Pt has feeling of prolapse Short Term Goal (STG) Pt will be educated in Kegel ex in isolation of substitute muscles. 02/21/23: Kegel in isolation with Estim. STG Duration 4 wks-02/07/23 progressed [employer] Strategist Goal (LTG) Eliminate the sensation of prolapse and be able to control sensation with PF ex and core pressure management. LTG Duration 12 wks-04/05/23 2 Impairment Stress incontinence. Impairment PF weakness with urinary leakage when leaning forward and bending over. Short Term Goal (STG) Re-education in proper methods for transfer with coordination of breathing with functional activities. 01/10/23: Pt I/S to perform core pressure management as educated in pre-. 03/07/23: Reviewed and Educ transfer with coordination of breathing with functional activities STG Duration 1 wks-01/18/24 (03/07/23: MET GOAL) E [employer] Strategist Goal (LTG) Strengthen the PF with pt able to lean or bend forward without urinary leakage. 01/17/23: Kegel strengthening with ball squeeze and hip IR. LTG Duration 12 wks-04/05/23 progressing 01/10/23 Assessment Summary Assessment Pt appears more relaxed to start. Assessment by physician regarding her PF appears to have given her reassurance of other prospects for treatment if PT does not work. Being told she is still early in her recovery post also appears to have decreased her apprehension regarding her condition. The pt much improved in sensation of PF and now is able to feel PF stim w/Vemg without having to rotate the electrode around . 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 Physical Therapy Plan Frequency and Duration Frequency of Treatment 2x/Week Duration of treatment (weeks) 12 Plan of Care Start Date 01/10/23 Plan of Care End Date 04/05/23 Next Visit Focus/Plan Next Note Type Treatment Note Next Visit Plan NOTE: LATEX ALLERGY. Next: PF Vemg assessment. Recheck for L lateral trunk rot tightness. Add clamshell/TA/PF >< for pelvic stab. VEMG stim for PF contraction awareness training (monitor for being bothered by estrogen ring). Manual: MFR/stretch to hip AD , and hip flexors Manual: Improve abdominal STM (uterus/bladder/urachus). Sacral balancing if needed Review deep breathing for relaxation & with transfers, review vulvar care. Progress towards STG 2-3: Kegel in isolation of substitute ms & PF strengthening. Ex: Cont PF strengthening long holds > Quick contractions, hip stretches ( ER>L, leonel IR) HEP: LE roll in/outs for PF/ core/hip strengthening, hip stretches (ER>L, leonel IR). Monitor doming with core activation and progress TA and rotational strengthening. Monitor L heel pain and for need of LE n gliding. IH_
--- NOTE | 2023-03-17 09:44 | PT.OTN ---
Current Diagnoses Stress incontinence (female) (male) (03/17/23) Other specified related conditions, unspecified trimester (03/17/23) Pelvic and perineal pain (03/17/23) Physical Therapy Treatment Note PT-OP-A Visit Information Start: 12/31/22 08:15 Freq: Status: Active Protocol: Document 03/17/23 07:29 LRN (Rec: 03/17/23 08:19 LRN [id number]) Out-Patient Physical Therapy Visit Information Visit Information Visit Type Treatment Note Visit Start Time 07:30 Visit Stop Time 08:15 Total Visit Minutes 45 Visit Number Evaluation Information Evaluation Date 01/10/23 Precautions Precautions LATEX ALLERGY, Estrogen ring in place, Post- depression, neck pain from nursing. L heel has been numb. PT-OP-B Current Condition Start: 12/31/22 08:15 Freq: Status: Active Protocol: Document 01/10/23 08:53 LRN (Rec: 01/10/23 14:03 LRN [id number]) Current Condition History of Current Condition Onset Date 6 wks ago Current Complaints Post- bladder prolapse. History of Current Condition Pt is 6 wks post . She had a vaginal of daughter that was fast (2 pushes), following return from bathroom. No IV or epidural. Pt reports labor was 2hr, 45 minutes. 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 She denies vaginal tearing or pelvic pain, but has a little low back pain. She has been given an estrogen ring last week to help plump her tissues . She is experiencing urinary leakage with leaning forward and has a feeling of an air bubble in her urethra after going to bathroom and performs a deep squat to get it out and is accompanied by urinary leakage. She states this occured with her first . Prior Treatments and Tests Pre- PT for pelvic pain. Developmental History Developmental History Pt is G2, P2, both vaginal births. Treatment Goals Patient/Caregiver Goals Pt goal is: Eliminate feeling of bladder falling out and decreased prolapse. Eliminate urinary leaking. Gain feeling of more control over bowel movements. Personal Factors Other Personal Factors That May Effect Post- depression, Therapy/Recovery estrogen ring in place. PT-OP-C Subjective Start: 12/31/22 08:15 Freq: Status: Active Protocol: Document 03/17/23 07:29 LRN (Rec: 03/17/23 08:19 LRN [id number]) OP-PT Subjective Patient Comments Patient Comments Saw [facility] specialist again and was given a pessary. PT-OP-I Pelvic Floor Start: 12/31/22 08:15 Freq: Status: Active Protocol: Document 03/17/23 07:29 LRN (Rec: 03/17/23 08:19 LRN [id number]) Pelvic Floor Assessment SEMG (uV) Baseline 2.3 Quick Contraction 5.6 10 Second Contraction 5.9 Recruitment Pattern Good Relaxation Fair Holding Good Stability of Hold Good SEMG Stability of Rest Fair Comments Pelvic Floor Comments Quick Flicks: 10 reps strength (uV's): 5.6 avg work, 5.5 avg rest. 20 reps strength (uV's): 5.9 avg work, 5.0 avg rest . Long Holds: 10 reps strength (uV's): 5.9 avg work, 2.9 avg rest . 20 reps strength (uV's): 5.9 avg work, 2.6avg rest . Fair relaxation taking 3-5 secs to relax. PT-OP-J Posture/Palpation/Skin Start: 12/31/22 08:15 Freq: Status: Active Protocol: Document 01/10/23 08:53 LRN (Rec: 01/10/23 14:03 LRN [id number]) Posture Evaluation Position Standing Head/C-Spine Posture Forward Head T-Spine Posture Increased Kyphosis L-Spine Posture Increased Lordosis Shoulder Posture (L) Forward,(R) Forward Scapula Posture (R) Rotated Down,(R) Depressed Pelvis Posture (L) PSIS Posterior Weight Distribution Balanced Knee Posture (L) Genu Valgus,(R) Genu Valgus Comments Posture Comments Dowagers Hump, sacrum L rotated. PT-OP-K Range of Motion Start: 12/31/22 08:15 Freq: Status: Active Protocol: Document 01/10/23 08:53 LRN (Rec: 01/10/23 14:03 LRN [id number]) Lumbar Spine Range of Motion Lumbar Spine Active Degrees Testing Position Standing Flexion 90 Extension 20 Rotation Left 20 Rotation Right 0 Lateral Flexion Left 27 Lateral Flexion Right 17 Comments R rotation: Pain in R lateral neck. Hip Goniometric Range of Motion Hip Right Passive Testing Position Supine Internal Rotation 30 External Rotation 45 Left Passive Testing Position Supine Internal Rotation 30 External Rotation 40 PT-OP-M Strength Start: 12/31/22 08:15 Freq: Status: Active Protocol: Document 01/10/23 08:53 LRN (Rec: 01/10/23 14:03 LRN [id number]) Trunk Strength Trunk Manual Muscle Testing Core Stabilization Strength ~4/5. Hip Strength Hip Manual Muscle Testing Right Flexion (L2) 3 Fair Extension (S1) 5 Normal Abduction 5 Normal Adduction 3 Fair External Rotation 5 Normal Internal Rotation 5 Normal Comments Hip flex with anterior hip pain Left Flexion (L2) 5 Normal Extension (S1) 4+ Good+ Abduction 5 Normal Adduction 3 Fair External Rotation 4 Good Internal Rotation 5 Normal PT-OP-Q Treatments Start: 12/31/22 08:15 Freq: Status: Active Protocol: Document 03/17/23 07:29 LRN (Rec: 03/17/23 08:19 LRN [id number]) Therapeutic Exercises Supine Exercises Knee rolls left Supine Exercise Name R over L trunk rot, knee rolls left Reps/Minutes 5' Clamshell/PF/TA Supine Exercise Name Clamshell/PF/TA Side bilateral Equipment Used L3 TB Reps/Minutes 1-x Comments L hip glut ms cramps. Cuing for PF focus anter, core stab. Sidelying Exercises L SIdelye, Rot shdrs back Sidelying Exercise Name R over L trunk rot Side bilateral Reps/Minutes 8' Comments his 90 deg's flex. Extra time taken to determine max chanda stretch Clamshell/PF//TA Sidelying Exercise Name Clamshell/PF/TA w/assist of UE for greater hip ER. Side bilateral Reps/Minutes 5x Comments Cuing to move L knee further for symmetry. Standing Exercises SB stretch Standing Exercise Name Trunk SB stretch (10 deg's L, 13 deg's R) Side left Reps/Minutes 5' Comments Cuing for direction of stretch and location of pain (center spine ~L5-S1) PT-OP-T Assessment and Plan Start: 12/31/22 08:15 Freq: Status: Active Protocol: Document 03/17/23 07:29 LRN (Rec: 03/17/23 08:19 LRN [id number]) Physical Therapy Assessment Goals 1 Impairment Pt not on a self care post- HEP Short Term Goal (STG) Pt will be re-educated in deep breathing for relaxation and mindfulness, bowel care/bowel massage, Kegel ex for Aggrevators (lean fwd and stand up). 02/21/23: Deep breathing review. 03/14/23: Reviewed need for bowel care/bowel massage (not needed, BM's regular and loose ) and Kegels with aggrevator ( uinating more only with bending fwd and then straightening up after voiding ). STG Duration 3 wks-01/31/23 (03/14/23: MET GOAL) Custodial Goal (LTG) Pt will be independent in a self care HEP of PF/core/hip/ LB/neck ex's. 01/17/23: Kegel strengthening with ball squeeze and hip IR. 02/21/23: HEP: DB/Kegel/ later to add LE roll in/out. 03/14/23: I/S pt in Kegel w/ hooklie roll in/out with TB/ Band, 1 rep Kegel/1 rep without Kegel. 03/17/23: I/S pt in Clamshell /PF/TA ex sidelie and w/TB in supine. LTG Duration 12 wks-04/05/23 progressed 03/17/23 3 Impairment Cystocele stage 2 Impairment Pt has feeling of prolapse Short Term Goal (STG) Pt will be educated in Kegel ex in isolation of substitute muscles. 02/21/23: Kegel in isolation with Estim. STG Duration 4 wks-02/07/23 progressed Custodial Goal (LTG) Eliminate the sensation of prolapse and be able to control sensation with PF ex and core pressure management. 03/17/23: Pt reported MD placement of pessary with feeling of falling out present ; therefore dx with urethracele. LTG Duration 12 wks-04/05/23 2 Impairment Stress incontinence. Impairment PF weakness with urinary leakage when leaning forward and bending over. Short Term Goal (STG) Re-education in proper methods for transfer with coordination of breathing with functional activities. 01/10/23: Pt I/S to perform core pressure management as educated in pre-. 03/07/23: Reviewed and Educ transfer with coordination of breathing with functional activities STG Duration 1 wks-01/18/24 (03/07/23: MET GOAL) Custodial Goal (LTG) Strengthen the PF with pt able to lean or bend forward without urinary leakage. 01/17/23: Kegel strengthening with ball squeeze and hip IR. 03/17/23: I/S pt in Clamshell /PF/TA ex sidelie and w/TB in supine. LTG Duration 12 wks-04/05/23 progressing 03/17/23 Assessment Summary Assessment Pt told has cystocele and urethracele and nothing to do but wait. Pessary placed but uncomfortable and feeling of droppage still present. Trunk rot is tight with L SB due to L facet dysfunction of decreased R rot. PF assessemnt: strength ~5.9 uV' s, rest 2.9 uv's, resting is 2 .3 uV's. Holding is good, difficult to quickly rest PF. Physical Therapy Plan Frequency and Duration Frequency of Treatment 2x/Week Duration of treatment (weeks) 12 Plan of Care Start Date 01/10/23 Plan of Care End Date 04/05/23 Next Visit Focus/Plan Next Note Type Treatment Note Next Visit Plan NOTE: LATEX ALLERGY. Next: Add L lateral trunk SB & R rot stretch. Progress clamshell/TA/PF >< for pelvic stab. VEMG stim for PF contraction awareness training (monitor for being bothered by estrogen ring). Manual: MFR/stretch to hip AD , and hip flexors Manual: Improve abdominal STM (uterus/bladder/urachus). Sacral balancing if needed Review deep breathing for relaxation & with transfers, review vulvar care. Progress towards STG 2-3: Kegel in isolation of substitute ms & PF strengthening. Ex: Cont PF strengthening long holds > Quick contractions, hip stretches ( ER>L, leonel IR) HEP: LE roll in/outs for PF/ core/hip strengthening, hip stretches (ER>L, leonel IR). Monitor doming with core activation and progress TA and rotational strengthening. Monitor L heel pain and for need of LE n gliding.
--- NOTE | 2023-03-20 08:51 | PT.OTN ---
Current Diagnoses Stress incontinence (female) (male) (03/20/23) Other specified related conditions, unspecified trimester (03/20/23) Pelvic and perineal pain (03/20/23) Physical Therapy Treatment Note PT-OP-A Visit Information Start: 12/31/22 08:15 Freq: Status: Active Protocol: Document 03/20/23 07:29 LRN (Rec: 03/20/23 08:46 LRN [id number]) Out-Patient Physical Therapy Visit Information Visit Information Visit Type Progress Note Visit Start Time 07:30 Visit Stop Time 08:18 Total Visit Minutes 50 Visit Number PT-OP-B Current Condition Start: 12/31/22 08:15 Freq: Status: Active Protocol: Document 01/10/23 08:53 LRN (Rec: 01/10/23 14:03 LRN [id number]) Current Condition History of Current Condition Onset Date 6 wks ago Current Complaints Post- bladder prolapse. History of Current Condition Pt is 6 wks post . She had a vaginal of daughter that was fast (2 pushes), following return from bathroom. No IV or epidural. Pt reports labor was 2hr, 45 minutes. 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 She denies vaginal tearing or pelvic pain, but has a little low back pain. She has been given an estrogen ring last week to help plump her tissues . She is experiencing urinary leakage with leaning forward and has a feeling of an air bubble in her urethra after going to bathroom and performs a deep squat to get it out and is accompanied by urinary leakage. She states this occured with her first . Prior Treatments and Tests Pre- PT for pelvic pain. Developmental History Developmental History Pt is G2, P2, both vaginal births. Treatment Goals Patient/Caregiver Goals Pt goal is: Eliminate feeling of bladder falling out and decreased prolapse. Eliminate urinary leaking. Gain feeling of more control over bowel movements. Personal Factors Other Personal Factors That May Effect Post- depression, Therapy/Recovery estrogen ring in place. PT-OP-C Subjective Start: 12/31/22 08:15 Freq: Status: Active Protocol: Document 03/20/23 07:29 LRN (Rec: 03/20/23 08:46 LRN [id number]) Patient Questionnaires Pelvic Pain and Urgency/Frequency Patient Symptom Scale Pelvic Pain Score 10 PT-OP-I Pelvic Floor Start: 12/31/22 08:15 Freq: Status: Active Protocol: Document 03/17/23 07:29 LRN (Rec: 03/17/23 08:19 LRN [id number]) Pelvic Floor Assessment SEMG (uV) Baseline 2.3 Quick Contraction 5.6 10 Second Contraction 5.9 Recruitment Pattern Good Relaxation Fair Holding Good Stability of Hold Good SEMG Stability of Rest Fair Comments Pelvic Floor Comments Quick Flicks: 10 reps strength (uV's): 5.6 avg work, 5.5 avg rest. 20 reps strength (uV's): 5.9 avg work, 5.0 avg rest . Long Holds: 10 reps strength (uV's): 5.9 avg work, 2.9 avg rest . 20 reps strength (uV's): 5.9 avg work, 2.6avg rest . Fair relaxation taking 3-5 secs to relax. PT-OP-J Posture/Palpation/Skin Start: 12/31/22 08:15 Freq: Status: Active Protocol: Document 01/10/23 08:53 LRN (Rec: 01/10/23 14:03 LRN [id number]) Posture Evaluation Position Standing Head/C-Spine Posture Forward Head T-Spine Posture Increased Kyphosis L-Spine Posture Increased Lordosis Shoulder Posture (L) Forward,(R) Forward Scapula Posture (R) Rotated Down,(R) Depressed Pelvis Posture (L) PSIS Posterior Weight Distribution Balanced Knee Posture (L) Genu Valgus,(R) Genu Valgus Comments Posture Comments Dowagers Hump, sacrum L rotated. PT-OP-K Range of Motion Start: 12/31/22 08:15 Freq: Status: Active Protocol: Document 03/20/23 07:29 LRN (Rec: 03/20/23 08:48 LRN [id number]) Lumbar Spine Range of Motion Lumbar Spine Active Degrees Testing Position Standing Lateral Flexion Left 10 Lateral Flexion Right 13 ROM Limitations Pain Comments L SB pain at L5-S1 facet. PT-OP-M Strength Start: 12/31/22 08:15 Freq: Status: Active Protocol: Document 01/10/23 08:53 LRN (Rec: 01/10/23 14:03 LRN [id number]) Trunk Strength Trunk Manual Muscle Testing Core Stabilization Strength ~4/5. Hip Strength Hip Manual Muscle Testing Right Flexion (L2) 3 Fair Extension (S1) 5 Normal Abduction 5 Normal Adduction 3 Fair External Rotation 5 Normal Internal Rotation 5 Normal Comments Hip flex with anterior hip pain Left Flexion (L2) 5 Normal Extension (S1) 4+ Good+ Abduction 5 Normal Adduction 3 Fair External Rotation 4 Good Internal Rotation 5 Normal PT-OP-Q Treatments Start: 12/31/22 08:15 Freq: Status: Active Protocol: Document 03/20/23 07:29 LRN (Rec: 03/20/23 08:46 LRN [id number]) Cardio Equipment Recumbent Stepper (Sci-Fit) Duration (Minutes) 6 Resistance 3 Seat Position 6 Other Cuing for breath and PF contractions. Therapeutic Exercises Supine Exercises Trunk R rot legs straight Supine Exercise Name Trunk R rot w/legs straight stretch Reps/Minutes x 2 Comments Extra time for positioning and training for stretch. Knee rolls left Supine Exercise Name R > L trunk rot, knee rolls left (HEP) Reps/Minutes 5' Clamshell/PF/TA Supine Exercise Name PF ESTim/Clamshell/TA Side bilateral Equipment Used Vemg stim during active mvmt Reps/Minutes 6' Comments L hip glut ms cramps. Cuing for PF focus anter, core stab. Sidelying Exercises L SIdelye, Rot shdrs back Sidelying Exercise Name L trunk rot Side bilateral Reps/Minutes 4' Comments hips 90 deg's flex. Extra time taken to determine max chanda stretch Standing Exercises SB stretch Standing Exercise Name Trunk SB stretch (10 deg's L, 13 deg's R)-HEP Side left Reps/Minutes x 2 Comments Cuing for direction of stretch and location of pain (center spine ~L5-S1) Other Exercises 4 pt Dog leg lift Other Exercise Name Dog leg lift w/PF Vemg stim/TA /breath Side bilateral Reps/Minutes 4' Comments Much phy & v cuing needed with R leg lft vs L side. Manual Therapy Treatment Joint Mobilizations L L5-S1 facet Joint L L5-S1 facet Direction R rot Grade II Body Position Sidelying Reps/Duration 6' Comments f/b active standing trunk L SB in open and back against wall . Neuro Re-Education Treatment Other Activities Vemg stim Details Vemg stim for PF strengthening /awareness training Reps/Duration 2' set up, 10' treatment as noted above in Ther Ex. Comments Pt supine - level. 100 pps. Intensity 15. 10 SH contractions/20 SR. Stim felt in vagina without having to move electrode around. Resistance to PF contractions (TB, Ball) Self-Care/Home Management Treatment Education Patient Education Home Exercise Program Activities Self-Care/Home Management Activities Issued & reviewed HEP: lateral trunk L SB & R rot stretch. PT-OP-T Assessment and Plan Start: 12/31/22 08:15 Freq: Status: Active Protocol: Document 03/20/23 07:29 LRN (Rec: 03/20/23 08:46 LRN [id number]) Physical Therapy Assessment Rehab Potential Rehabilitation Potential Good Evaluation Complexity Number of Personal Factors/Comorbidities 1-2 Number of Body Systems Impaired 1-2 Clinical Presentation at Evaluation Evolving Impairments Impairments Activity Tolerance,Pain, Posture,ROM,Soft Tissue Mobility,Strength Other Impairments Urinary leakage Cytocele Goals 4 Impairment Posterior PF weakness Director Of Business Continuity Goal (LTG) Reduce Feeling of BM urgency. LTG Duration 10 wks-05/30/23 1 Impairment Pt not on a self care post- HEP Short Term Goal (STG) Pt will be re-educated in deep breathing for relaxation and mindfulness, bowel care/bowel massage, Kegel ex for Aggrevators (lean fwd and stand up). 02/21/23: Deep breathing review. 03/14/23: Reviewed need for bowel care/bowel massage (not needed, BM's regular and loose ) and Kegels with aggrevator ( uinating more only with bending fwd and then straightening up after voiding ). STG Duration 3 wks-01/31/23 (03/14/23: MET GOAL) [facility] Goal (LTG) Pt will be independent in a self care HEP of PF/core/hip/ LB/neck ex's. 01/17/23: Kegel strengthening with ball squeeze and hip IR. 02/21/23: HEP: DB/Kegel/ later to add LE roll in/out. 03/14/23: I/S pt in Kegel w/ hooklie roll in/out with TB/ Band, 1 rep Kegel/1 rep without Kegel. 03/17/23: I/S pt in Clamshell /PF/TA ex sidelie and w/TB in supine. LTG Duration 10 wks more-05/30/23 progressed 03/17/23 3 Impairment Cystocele stage 2 Impairment Pt has feeling of prolapse Short Term Goal (STG) Pt will be educated in Kegel ex in isolation of substitute muscles. 02/21/23: Kegel in isolation with Estim. STG Duration 4 wks more-04/17/23 progressed 02/21/23 Director Of Business Continuity Goal (LTG) Eliminate the sensation of prolapse and be able to control sensation with PF ex and core pressure management. 03/17/23: Pt reported MD placement of pessary with feeling of falling out present ; therefore dx with urethracele. 10/18/13: Slightly better, feels it every time moves. 25 % bettter. LTG Duration 10 wks more-05/30/23 progressing 03/20/23 2 Impairment Stress incontinence. Impairment PF weakness with urinary leakage when leaning forward and bending over. Short Term Goal (STG) Re-education in proper methods for transfer with coordination of breathing with functional activities. 01/10/23: Pt I/S to perform core pressure management as educated in pre-. 03/07/23: Reviewed and Educ transfer with coordination of breathing with functional activities STG Duration 1 wks-01/18/24 (03/07/23: MET GOAL) [facility] Goal (LTG) Strengthen the PF with pt able to lean or bend forward without urinary leakage. 01/17/23: Kegel strengthening with ball squeeze and hip IR. 03/17/23: I/S pt in Clamshell /PF/TA ex sidelie and w/TB in supine. 03/20/23: Does not notice urinary leaking. LTG Duration 12 wks-04/05/23 (03/20/23: MET GOAL) Assessment Summary Assessment Pt is a 37 yo female being seen for cystocele and urethracele rehab. (pt feels drop of tissues with pessary in place: therefore no pessary in place). Active trunk L SB stretch causing L5-S1 facet pain; therefore mobility dysfunction. Trunk R rot for L L5-S1 JMT mob helped decrease jt pain with standing trunk L SB, but pain present when standing against wall. Pt is very weak with R hip ER' s and is not able to maintain core stability with dog leg lift. PUF score is worse due to resolution of urinary urgency, but now has sensation of bowel urgency. She also indicates same number of getting up at night, it bothers her more to have to use bathroom in the night. The pt has been seen for 10 therapy visits in 3 months and would benefit from continued skilled physical therapy to progress her PF/core/R hip stability, reduce BM urgency complaints and reduce the sensation of prolapse. Physical Therapy Plan Frequency and Duration Frequency of Treatment 2x/Week Duration of treatment (weeks) 10 Plan of Care Start Date 01/10/23 Plan of Care End Date 05/30/23 Therapeutic Interventions Therapeutic Interventions Home Exercise Program,Joint Mobilizations,Manual Therapy, Neuromuscular Re-education, Self-Care/Home Management,Soft Tissue Mobilization, Therapeutic Activities, Therapeutic Exercises Modalities Biofeedback,Cold Pack/Ice Massage,Electric Stimulation, Hot Packs Next Visit Focus/Plan Next Note Type Treatment Note Next Visit Plan NOTE: LATEX ALLERGY. Next: Assess response to trunk stretch on L L5-S1 facet pain. Check mobility of R hip ER (and improve strength and active ROM) compared to L hip ER. Educ pt in DR self assessment, and Progress clamshell/TA/PF >< for pelvic stab. VEMG stim for PF contraction awareness training (monitor for being bothered by estrogen ring). Manual: MFR/stretch to hip AD (check R hip IR for tightness ), and hip flexors Manual: Improve abdominal STM (uterus/bladder/urachus). Sacral balancing if needed Review deep breathing for relaxation & with transfers, review vulvar care. Progress towards STG 2-3: Kegel in isolation of substitute ms & PF strengthening. Ex: Cont PF strengthening long holds > Quick contractions, hip stretches ( ER>L, leonel IR) HEP: LE roll in/outs for PF/ core/hip strengthening, hip stretches (ER>L, leonel IR). Monitor doming with core activation and progress TA and rotational strengthening. Monitor L heel pain and for need of LE n gliding.
--- NOTE | 2023-03-20 08:53 | PT.OTN ---
Current Diagnoses Stress incontinence (female) (male) (03/20/23) Other specified related conditions, unspecified trimester (03/20/23) Pelvic and perineal pain (03/20/23) Physical Therapy Treatment Note PT-OP-A Visit Information Start: 12/31/22 08:15 Freq: Status: Active Protocol: Document 03/20/23 07:29 LRN (Rec: 03/20/23 08:46 LRN [id number]) Out-Patient Physical Therapy Visit Information Visit Information Visit Type Progress Note Visit Start Time 07:30 Visit Stop Time 08:18 Total Visit Minutes 50 Visit Number PT-OP-B Current Condition Start: 12/31/22 08:15 Freq: Status: Active Protocol: Document 01/10/23 08:53 LRN (Rec: 01/10/23 14:03 LRN [id number]) Current Condition History of Current Condition Onset Date 6 wks ago Current Complaints Post- bladder prolapse. History of Current Condition Pt is 6 wks post . She had a vaginal of daughter that was fast (2 pushes), following return from bathroom. No IV or epidural. Pt reports labor was 2hr, 45 minutes. 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 She denies vaginal tearing or pelvic pain, but has a little low back pain. She has been given an estrogen ring last week to help plump her tissues . She is experiencing urinary leakage with leaning forward and has a feeling of an air bubble in her urethra after going to bathroom and performs a deep squat to get it out and is accompanied by urinary leakage. She states this occured with her first . Prior Treatments and Tests Pre- PT for pelvic pain. Developmental History Developmental History Pt is G2, P2, both vaginal births. Treatment Goals Patient/Caregiver Goals Pt goal is: Eliminate feeling of bladder falling out and decreased prolapse. Eliminate urinary leaking. Gain feeling of more control over bowel movements. Personal Factors Other Personal Factors That May Effect Post- depression, Therapy/Recovery estrogen ring in place. PT-OP-C Subjective Start: 12/31/22 08:15 Freq: Status: Active Protocol: Document 03/20/23 07:29 LRN (Rec: 03/20/23 08:46 LRN [id number]) Patient Questionnaires Pelvic Pain and Urgency/Frequency Patient Symptom Scale Pelvic Pain Score 10 PT-OP-I Pelvic Floor Start: 12/31/22 08:15 Freq: Status: Active Protocol: Document 03/17/23 07:29 LRN (Rec: 03/17/23 08:19 LRN [id number]) Pelvic Floor Assessment SEMG (uV) Baseline 2.3 Quick Contraction 5.6 10 Second Contraction 5.9 Recruitment Pattern Good Relaxation Fair Holding Good Stability of Hold Good SEMG Stability of Rest Fair Comments Pelvic Floor Comments Quick Flicks: 10 reps strength (uV's): 5.6 avg work, 5.5 avg rest. 20 reps strength (uV's): 5.9 avg work, 5.0 avg rest . Long Holds: 10 reps strength (uV's): 5.9 avg work, 2.9 avg rest . 20 reps strength (uV's): 5.9 avg work, 2.6avg rest . Fair relaxation taking 3-5 secs to relax. PT-OP-J Posture/Palpation/Skin Start: 12/31/22 08:15 Freq: Status: Active Protocol: Document 01/10/23 08:53 LRN (Rec: 01/10/23 14:03 LRN [id number]) Posture Evaluation Position Standing Head/C-Spine Posture Forward Head T-Spine Posture Increased Kyphosis L-Spine Posture Increased Lordosis Shoulder Posture (L) Forward,(R) Forward Scapula Posture (R) Rotated Down,(R) Depressed Pelvis Posture (L) PSIS Posterior Weight Distribution Balanced Knee Posture (L) Genu Valgus,(R) Genu Valgus Comments Posture Comments Dowagers Hump, sacrum L rotated. PT-OP-K Range of Motion Start: 12/31/22 08:15 Freq: Status: Active Protocol: Document 03/20/23 07:29 LRN (Rec: 03/20/23 08:48 LRN [id number]) Lumbar Spine Range of Motion Lumbar Spine Active Degrees Testing Position Standing Lateral Flexion Left 10 Lateral Flexion Right 13 ROM Limitations Pain Comments L SB pain at L5-S1 facet. PT-OP-M Strength Start: 12/31/22 08:15 Freq: Status: Active Protocol: Document 01/10/23 08:53 LRN (Rec: 01/10/23 14:03 LRN [id number]) Trunk Strength Trunk Manual Muscle Testing Core Stabilization Strength ~4/5. Hip Strength Hip Manual Muscle Testing Right Flexion (L2) 3 Fair Extension (S1) 5 Normal Abduction 5 Normal Adduction 3 Fair External Rotation 5 Normal Internal Rotation 5 Normal Comments Hip flex with anterior hip pain Left Flexion (L2) 5 Normal Extension (S1) 4+ Good+ Abduction 5 Normal Adduction 3 Fair External Rotation 4 Good Internal Rotation 5 Normal PT-OP-Q Treatments Start: 12/31/22 08:15 Freq: Status: Active Protocol: Document 03/20/23 07:29 LRN (Rec: 03/20/23 08:46 LRN [id number]) Cardio Equipment Recumbent Stepper (Sci-Fit) Duration (Minutes) 6 Resistance 3 Seat Position 6 Other Cuing for breath and PF contractions. Therapeutic Exercises Supine Exercises Trunk R rot legs straight Supine Exercise Name Trunk R rot w/legs straight stretch Reps/Minutes x 2 Comments Extra time for positioning and training for stretch. Knee rolls left Supine Exercise Name R > L trunk rot, knee rolls left (HEP) Reps/Minutes 5' Clamshell/PF/TA Supine Exercise Name PF ESTim/Clamshell/TA Side bilateral Equipment Used Vemg stim during active mvmt Reps/Minutes 6' Comments L hip glut ms cramps. Cuing for PF focus anter, core stab. Sidelying Exercises L SIdelye, Rot shdrs back Sidelying Exercise Name L trunk rot Side bilateral Reps/Minutes 4' Comments hips 90 deg's flex. Extra time taken to determine max chanda stretch Standing Exercises SB stretch Standing Exercise Name Trunk SB stretch (10 deg's L, 13 deg's R)-HEP Side left Reps/Minutes x 2 Comments Cuing for direction of stretch and location of pain (center spine ~L5-S1) Other Exercises 4 pt Dog leg lift Other Exercise Name Dog leg lift w/PF Vemg stim/TA /breath Side bilateral Reps/Minutes 4' Comments Much phy & v cuing needed with R leg lft vs L side. Manual Therapy Treatment Joint Mobilizations L L5-S1 facet Joint L L5-S1 facet Direction R rot Grade II Body Position Sidelying Reps/Duration 6' Comments f/b active standing trunk L SB in open and back against wall . Neuro Re-Education Treatment Other Activities Vemg stim Details Vemg stim for PF strengthening /awareness training Reps/Duration 2' set up, 10' treatment as noted above in Ther Ex. Comments Pt supine - level. 100 pps. Intensity 15. 10 SH contractions/20 SR. Stim felt in vagina without having to move electrode around. Resistance to PF contractions (TB, Ball) Self-Care/Home Management Treatment Education Patient Education Home Exercise Program Activities Self-Care/Home Management Activities Issued & reviewed HEP: lateral trunk L SB & R rot stretch. PT-OP-T Assessment and Plan Start: 12/31/22 08:15 Freq: Status: Active Protocol: Document 03/20/23 07:29 LRN (Rec: 03/20/23 08:46 LRN [id number]) Physical Therapy Assessment Rehab Potential Rehabilitation Potential Good Evaluation Complexity Number of Personal Factors/Comorbidities 1-2 Number of Body Systems Impaired 1-2 Clinical Presentation at Evaluation Evolving Impairments Impairments Activity Tolerance,Pain, Posture,ROM,Soft Tissue Mobility,Strength Other Impairments Urinary leakage Cytocele Goals 4 Impairment Posterior PF weakness Meter Reader Goal (LTG) Reduce Feeling of BM urgency. LTG Duration 10 wks-05/30/23 1 Impairment Pt not on a self care post- HEP Short Term Goal (STG) Pt will be re-educated in deep breathing for relaxation and mindfulness, bowel care/bowel massage, Kegel ex for Aggrevators (lean fwd and stand up). 02/21/23: Deep breathing review. 03/14/23: Reviewed need for bowel care/bowel massage (not needed, BM's regular and loose ) and Kegels with aggrevator ( uinating more only with bending fwd and then straightening up after voiding ). STG Duration 3 wks-01/31/23 (03/14/23: MET GOAL) Fdc Goal (LTG) Pt will be independent in a self care HEP of PF/core/hip/ LB/neck ex's. 01/17/23: Kegel strengthening with ball squeeze and hip IR. 02/21/23: HEP: DB/Kegel/ later to add LE roll in/out. 03/14/23: I/S pt in Kegel w/ hooklie roll in/out with TB/ Band, 1 rep Kegel/1 rep without Kegel. 03/17/23: I/S pt in Clamshell /PF/TA ex sidelie and w/TB in supine. LTG Duration 10 wks more-05/30/23 progressed 03/17/23 3 Impairment Cystocele stage 2 Impairment Pt has feeling of prolapse Short Term Goal (STG) Pt will be educated in Kegel ex in isolation of substitute muscles. 02/21/23: Kegel in isolation with Estim. STG Duration 4 wks more-04/17/23 progressed 02/21/23 Meter Reader Goal (LTG) Eliminate the sensation of prolapse and be able to control sensation with PF ex and core pressure management. 03/17/23: Pt reported MD placement of pessary with feeling of falling out present ; therefore dx with urethracele. 10/18/13: Slightly better, feels it every time moves. 25 % bettter. LTG Duration 10 wks more-05/30/23 progressing 03/20/23 2 Impairment Stress incontinence. Impairment PF weakness with urinary leakage when leaning forward and bending over. Short Term Goal (STG) Re-education in proper methods for transfer with coordination of breathing with functional activities. 01/10/23: Pt I/S to perform core pressure management as educated in pre-. 03/07/23: Reviewed and Educ transfer with coordination of breathing with functional activities STG Duration 1 wks-01/18/24 (03/07/23: MET GOAL) Fdc Goal (LTG) Strengthen the PF with pt able to lean or bend forward without urinary leakage. 01/17/23: Kegel strengthening with ball squeeze and hip IR. 03/17/23: I/S pt in Clamshell /PF/TA ex sidelie and w/TB in supine. 03/20/23: Does not notice urinary leaking. LTG Duration 12 wks-04/05/23 (03/20/23: MET GOAL) Assessment Summary Assessment Pt is a 37 yo female being seen for cystocele and urethracele rehab. (pt feels drop of tissues with pessary in place: therefore no pessary in place). Active trunk L SB stretch causing L5-S1 facet pain; therefore mobility dysfunction. Trunk R rot for L L5-S1 JMT mob helped decrease jt pain with standing trunk L SB, but pain present when standing against wall. Pt is very weak with R hip ER' s and is not able to maintain core stability with dog leg lift. PUF score is worse due to resolution of urinary urgency, but now has sensation of bowel urgency. She also indicates same number of getting up at night, it bothers her more to have to use bathroom in the night. The pt has been seen for 10 therapy visits in 3 months and would benefit from continued skilled physical therapy to progress her PF/core/R hip stability, reduce BM urgency complaints and reduce the sensation of prolapse. Physical Therapy Plan Frequency and Duration Frequency of Treatment 2x/Week Duration of treatment (weeks) 10 Plan of Care Start Date 03/20/23 Plan of Care End Date 05/30/23 Therapeutic Interventions Therapeutic Interventions Home Exercise Program,Joint Mobilizations,Manual Therapy, Neuromuscular Re-education, Self-Care/Home Management,Soft Tissue Mobilization, Therapeutic Activities, Therapeutic Exercises Modalities Biofeedback,Cold Pack/Ice Massage,Electric Stimulation, Hot Packs Next Visit Focus/Plan Next Note Type Treatment Note Next Visit Plan NOTE: LATEX ALLERGY. Next: Assess response to trunk stretch on L L5-S1 facet pain. Check mobility of R hip ER (and improve strength and active ROM) compared to L hip ER. Educ pt in DR self assessment, and Progress clamshell/TA/PF >< for pelvic stab. VEMG stim for PF contraction awareness training (monitor for being bothered by estrogen ring). Manual: MFR/stretch to hip AD (check R hip IR for tightness ), and hip flexors Manual: Improve abdominal STM (uterus/bladder/urachus). Sacral balancing if needed Review deep breathing for relaxation & with transfers, review vulvar care. Progress towards STG 2-3: Kegel in isolation of substitute ms & PF strengthening. Ex: Cont PF strengthening long holds > Quick contractions, hip stretches ( ER>L, leonel IR) HEP: LE roll in/outs for PF/ core/hip strengthening, hip stretches (ER>L, leonel IR). Monitor doming with core activation and progress TA and rotational strengthening. Monitor L heel pain and for need of LE n gliding.
--- NOTE | 2023-03-24 15:31 | PT.OTN ---
Current Diagnoses Stress incontinence (female) (male) (03/24/23) Other specified related conditions, unspecified trimester (03/24/23) Pelvic and perineal pain (03/24/23) Physical Therapy Treatment Note PT-OP-A Visit Information Start: 12/31/22 08:15 Freq: Status: Active Protocol: Document 03/24/23 09:51 LRN (Rec: 03/24/23 10:32 LRN [id number]) Out-Patient Physical Therapy Visit Information Visit Information Visit Type Treatment Note Visit Start Time 09:51 Visit Stop Time 10:29 Total Visit Minutes 38 Visit Number PT-OP-B Current Condition Start: 12/31/22 08:15 Freq: Status: Active Protocol: Document 01/10/23 08:53 LRN (Rec: 01/10/23 14:03 LRN [id number]) Current Condition History of Current Condition Onset Date 6 wks ago Current Complaints Post- bladder prolapse. History of Current Condition Pt is 6 wks post . She had a vaginal of daughter that was fast (2 pushes), following return from bathroom. No IV or epidural. Pt reports labor was 2hr, 45 minutes. 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 She denies vaginal tearing or pelvic pain, but has a little low back pain. She has been given an estrogen ring last week to help plump her tissues . She is experiencing urinary leakage with leaning forward and has a feeling of an air bubble in her urethra after going to bathroom and performs a deep squat to get it out and is accompanied by urinary leakage. She states this occured with her first . Prior Treatments and Tests Pre- PT for pelvic pain. Developmental History Developmental History Pt is G2, P2, both vaginal births. Treatment Goals Patient/Caregiver Goals Pt goal is: Eliminate feeling of bladder falling out and decreased prolapse. Eliminate urinary leaking. Gain feeling of more control over bowel movements. Personal Factors Other Personal Factors That May Effect Post- depression, Therapy/Recovery estrogen ring in place. PT-OP-C Subjective Start: 12/31/22 08:15 Freq: Status: Active Protocol: Document 03/24/23 09:51 LRN (Rec: 03/24/23 10:32 LRN [id number]) OP-PT Subjective Patient Comments Patient Comments States she is leaking again. States she feels sore all over , like she worked out really hard. Walked through [facility] in [place]. PT-OP-I Pelvic Floor Start: 12/31/22 08:15 Freq: Status: Active Protocol: Document 03/17/23 07:29 LRN (Rec: 03/17/23 08:19 LRN [id number]) Pelvic Floor Assessment SEMG (uV) Baseline 2.3 Quick Contraction 5.6 10 Second Contraction 5.9 Recruitment Pattern Good Relaxation Fair Holding Good Stability of Hold Good SEMG Stability of Rest Fair Comments Pelvic Floor Comments Quick Flicks: 10 reps strength (uV's): 5.6 avg work, 5.5 avg rest. 20 reps strength (uV's): 5.9 avg work, 5.0 avg rest . Long Holds: 10 reps strength (uV's): 5.9 avg work, 2.9 avg rest . 20 reps strength (uV's): 5.9 avg work, 2.6avg rest . Fair relaxation taking 3-5 secs to relax. PT-OP-J Posture/Palpation/Skin Start: 12/31/22 08:15 Freq: Status: Active Protocol: Document 01/10/23 08:53 LRN (Rec: 01/10/23 14:03 LRN [id number]) Posture Evaluation Position Standing Head/C-Spine Posture Forward Head T-Spine Posture Increased Kyphosis L-Spine Posture Increased Lordosis Shoulder Posture (L) Forward,(R) Forward Scapula Posture (R) Rotated Down,(R) Depressed Pelvis Posture (L) PSIS Posterior Weight Distribution Balanced Knee Posture (L) Genu Valgus,(R) Genu Valgus Comments Posture Comments Dowagers Hump, sacrum L rotated. PT-OP-K Range of Motion Start: 12/31/22 08:15 Freq: Status: Active Protocol: Document 03/20/23 07:29 LRN (Rec: 03/20/23 08:48 LRN [id number]) Lumbar Spine Range of Motion Lumbar Spine Active Degrees Testing Position Standing Lateral Flexion Left 10 Lateral Flexion Right 13 ROM Limitations Pain Comments L SB pain at L5-S1 facet. PT-OP-M Strength Start: 12/31/22 08:15 Freq: Status: Active Protocol: Document 01/10/23 08:53 LRN (Rec: 01/10/23 14:03 LRN [id number]) Trunk Strength Trunk Manual Muscle Testing Core Stabilization Strength ~4/5. Hip Strength Hip Manual Muscle Testing Right Flexion (L2) 3 Fair Extension (S1) 5 Normal Abduction 5 Normal Adduction 3 Fair External Rotation 5 Normal Internal Rotation 5 Normal Comments Hip flex with anterior hip pain Left Flexion (L2) 5 Normal Extension (S1) 4+ Good+ Abduction 5 Normal Adduction 3 Fair External Rotation 4 Good Internal Rotation 5 Normal PT-OP-Q Treatments Start: 12/31/22 08:15 Freq: Status: Active Protocol: Document 03/24/23 09:51 LRN (Rec: 03/24/23 10:32 LRN [id number]) Therapeutic Exercises Supine Exercises LE Roll in/outs Supine Exercise Name Roll in/out w/DB, then Roll in /out w/DB/hip lift-glut squeeze on roll in Equipment Used Wedge, feet on wall Reps/Minutes 8' Manual Therapy Treatment Soft Tissue Mobilization PF Body Location Bilateral Levator Ani Mobilization Type Sustained Pressure Body Position Hooklying Comments Better palpable PF contraction felt after stretching. PT-OP-T Assessment and Plan Start: 12/31/22 08:15 Freq: Status: Active Protocol: Document 03/24/23 09:51 LRN (Rec: 03/24/23 10:32 LRN [id number]) Physical Therapy Assessment Goals 4 Impairment Posterior PF weakness Psych Rn Goal (LTG) Reduce Feeling of BM urgency. LTG Duration 10 wks-05/30/23 1 Impairment Pt not on a self care post- HEP Short Term Goal (STG) Pt will be re-educated in deep breathing for relaxation and mindfulness, bowel care/bowel massage, Kegel ex for Aggrevators (lean fwd and stand up). 02/21/23: Deep breathing review. 03/14/23: Reviewed need for bowel care/bowel massage (not needed, BM's regular and loose ) and Kegels with aggrevator ( uinating more only with bending fwd and then straightening up after voiding ). STG Duration 3 wks-01/31/23 (03/14/23: MET GOAL) Usp Goal (LTG) Pt will be independent in a self care HEP of PF/core/hip/ LB/neck ex's. 01/17/23: Kegel strengthening with ball squeeze and hip IR. 02/21/23: HEP: DB/Kegel/ later to add LE roll in/out. 03/14/23: I/S pt in Kegel w/ hooklie roll in/out with TB/ Band, 1 rep Kegel/1 rep without Kegel. 03/17/23: I/S pt in Clamshell /PF/TA ex sidelie and w/TB in supine. LTG Duration 10 wks more-05/30/23 progressed 03/17/23 3 Impairment Cystocele stage 2 Impairment Pt has feeling of prolapse Short Term Goal (STG) Pt will be educated in Kegel ex in isolation of substitute muscles. 02/21/23: Kegel in isolation with Estim. STG Duration 4 wks more-04/17/23 progressed 02/21/23 Usp Goal (LTG) Eliminate the sensation of prolapse and be able to control sensation with PF ex and core pressure management. 03/17/23: Pt reported MD placement of pessary with feeling of falling out present ; therefore dx with urethracele. 10/18/13: Slightly better, feels it every time moves. 25 % bettter. LTG Duration 10 wks more-05/30/23 progressing 03/20/23 2 Impairment Stress incontinence. Impairment PF weakness with urinary leakage when leaning forward and bending over. Short Term Goal (STG) Re-education in proper methods for transfer with coordination of breathing with functional activities. 01/10/23: Pt I/S to perform core pressure management as educated in pre-. 03/07/23: Reviewed and Educ transfer with coordination of breathing with functional activities STG Duration 1 wks-01/18/24 (03/07/23: MET GOAL) Usp Goal (LTG) Strengthen the PF with pt able to lean or bend forward without urinary leakage. 01/17/23: Kegel strengthening with ball squeeze and hip IR. 03/17/23: I/S pt in Clamshell /PF/TA ex sidelie and w/TB in supine. 03/20/23: Does not notice urinary leaking. LTG Duration 12 wks-04/05/23 (01/18/24: MET GOAL) Assessment Summary Assessment 37 yo female being seen for cystocele and urethracele rehab with tightness of PF and slow relaxation response. Better contraction after PF stretch of levator ani ms. Weak Posterior PF contractions . Physical Therapy Plan Frequency and Duration Frequency of Treatment 2x/Week Duration of treatment (weeks) 10 Plan of Care Start Date 03/20/23 Plan of Care End Date 05/30/23 Next Visit Focus/Plan Next Note Type Treatment Note Next Visit Plan NOTE: LATEX ALLERGY. Next: Assess response PF strengthening on wedge (try to improve posterior PF strength ) & response to trunk stretching on L L5-S1 facet pain. Next: Check mobility of R hip ER (and improve strength and active ROM) compared to L hip ER. Educ pt in DR self assessment, and Progress clamshell/TA/PF >< for pelvic stab. VEMG stim for PF relaxation awareness training (monitor for being bothered by estrogen ring). Manual: MFR/stretch to hip AD (check R hip IR for tightness ), and hip flexors Manual: Improve abdominal STM (uterus/bladder/urachus). Sacral balancing if needed Review deep breathing for relaxation & with transfers, review vulvar care. Progress towards STG 2-3: Kegel in isolation of substitute ms with relaxation after contraction & PF relaxation after strengthening . Ex: PF relaxation with Continued PF strengthening long holds > Quick contractions, hip stretches ( ER>L, leonel IR) HEP: LE roll in/outs for PF/ core/hip strengthening, hip stretches (ER>L, leonel IR). Monitor doming with core activation and progress TA and rotational strengthening. Monitor L heel pain and for need of LE n gliding.
--- NOTE | 2023-03-31 11:30 | PT.OTN ---
Current Diagnoses Stress incontinence (female) (male) (03/31/23) Other specified related conditions, unspecified trimester (03/31/23) Pelvic and perineal pain (03/31/23) Physical Therapy Treatment Note PT-OP-A Visit Information Start: 12/31/22 08:15 Freq: Status: Active Protocol: Document 03/31/23 09:55 LRN (Rec: 03/31/23 10:02 LRN [id number]) Out-Patient Physical Therapy Visit Information Visit Information Visit Type Treatment Note Visit Start Time 09:55 Visit Stop Time 10:34 Visit Number Evaluation Information Evaluation Date 01/10/23 Precautions Precautions LATEX ALLERGY, Estrogen ring in place, Post- depression, neck pain from nursing. L heel has been numb. PT-OP-B Current Condition Start: 12/31/22 08:15 Freq: Status: Active Protocol: Document 01/10/23 08:53 LRN (Rec: 01/10/23 14:03 LRN [id number]) Current Condition History of Current Condition Onset Date 6 wks ago Current Complaints Post- bladder prolapse. History of Current Condition Pt is 6 wks post . She had a vaginal of daughter that was fast (2 pushes), following return from bathroom. No IV or epidural. Pt reports labor was 2hr, 45 minutes. 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 She denies vaginal tearing or pelvic pain, but has a little low back pain. She has been given an estrogen ring last week to help plump her tissues . She is experiencing urinary leakage with leaning forward and has a feeling of an air bubble in her urethra after going to bathroom and performs a deep squat to get it out and is accompanied by urinary leakage. She states this occured with her first . Prior Treatments and Tests Pre- PT for pelvic pain. Developmental History Developmental History Pt is G2, P2, both vaginal births. Treatment Goals Patient/Caregiver Goals Pt goal is: Eliminate feeling of bladder falling out and decreased prolapse. Eliminate urinary leaking. Gain feeling of more control over bowel movements. Personal Factors Other Personal Factors That May Effect Post- depression, Therapy/Recovery estrogen ring in place. PT-OP-C Subjective Start: 12/31/22 08:15 Freq: Status: Active Protocol: Document 03/31/23 09:55 LRN (Rec: 03/31/23 10:02 LRN [id number]) OP-PT Subjective Patient Comments Patient Comments Post girdle wasn't able to wear it because it was washed. Wearing post- girdle. Thinks numbness in the heel is a little better and hasn't had the L heel pain . PT-OP-I Pelvic Floor Start: 12/31/22 08:15 Freq: Status: Active Protocol: Document 03/17/23 07:29 LRN (Rec: 03/17/23 08:19 LRN [id number]) Pelvic Floor Assessment SEMG (uV) Baseline 2.3 Quick Contraction 5.6 10 Second Contraction 5.9 Recruitment Pattern Good Relaxation Fair Holding Good Stability of Hold Good SEMG Stability of Rest Fair Comments Pelvic Floor Comments Quick Flicks: 10 reps strength (uV's): 5.6 avg work, 5.5 avg rest. 20 reps strength (uV's): 5.9 avg work, 5.0 avg rest . Long Holds: 10 reps strength (uV's): 5.9 avg work, 2.9 avg rest . 20 reps strength (uV's): 5.9 avg work, 2.6avg rest . Fair relaxation taking 3-5 secs to relax. PT-OP-J Posture/Palpation/Skin Start: 12/31/22 08:15 Freq: Status: Active Protocol: Document 01/10/23 08:53 LRN (Rec: 01/10/23 14:03 LRN [id number]) Posture Evaluation Position Standing Head/C-Spine Posture Forward Head T-Spine Posture Increased Kyphosis L-Spine Posture Increased Lordosis Shoulder Posture (L) Forward,(R) Forward Scapula Posture (R) Rotated Down,(R) Depressed Pelvis Posture (L) PSIS Posterior Weight Distribution Balanced Knee Posture (L) Genu Valgus,(R) Genu Valgus Comments Posture Comments Dowagers Hump, sacrum L rotated. PT-OP-K Range of Motion Start: 12/31/22 08:15 Freq: Status: Active Protocol: Document 03/20/23 07:29 LRN (Rec: 03/20/23 08:48 LRN [id number]) Lumbar Spine Range of Motion Lumbar Spine Active Degrees Testing Position Standing Lateral Flexion Left 10 Lateral Flexion Right 13 ROM Limitations Pain Comments L SB pain at L5-S1 facet. PT-OP-M Strength Start: 12/31/22 08:15 Freq: Status: Active Protocol: Document 01/10/23 08:53 LRN (Rec: 01/10/23 14:03 LRN [id number]) Trunk Strength Trunk Manual Muscle Testing Core Stabilization Strength ~4/5. Hip Strength Hip Manual Muscle Testing Right Flexion (L2) 3 Fair Extension (S1) 5 Normal Abduction 5 Normal Adduction 3 Fair External Rotation 5 Normal Internal Rotation 5 Normal Comments Hip flex with anterior hip pain Left Flexion (L2) 5 Normal Extension (S1) 4+ Good+ Abduction 5 Normal Adduction 3 Fair External Rotation 4 Good Internal Rotation 5 Normal PT-OP-Q Treatments Start: 12/31/22 08:15 Freq: Status: Active Protocol: Document 03/31/23 09:55 LRN (Rec: 03/31/23 10:03 LRN [id number]) Therapeutic Exercises Supine Exercises Kegel/rhona hip AD/Exhale Supine Exercise Name After stretching PF Kegel/rhona hip AD/Exhale Reps/Minutes 3' Manual Therapy Treatment Soft Tissue Mobilization PF Body Location Bilateral Levator Ani Mobilization Type Sustained Pressure Body Position Hooklying Comments Poor ms relaxation after Kegel , better palpable PF contraction felt after stretching, except posteriorly poor contraction of levator ani and transverse perineal ms . PT-OP-T Assessment and Plan Start: 12/31/22 08:15 Freq: Status: Active Protocol: Document 03/31/23 09:55 LRN (Rec: 03/31/23 10:02 LRN [id number]) Physical Therapy Assessment Goals 4 Impairment Posterior PF weakness [facility] Goal (LTG) Reduce Feeling of BM urgency. LTG Duration 10 wks-05/30/23 1 Impairment Pt not on a self care post- HEP Short Term Goal (STG) Pt will be re-educated in deep breathing for relaxation and mindfulness, bowel care/bowel massage, Kegel ex for Aggrevators (lean fwd and stand up). 02/21/23: Deep breathing review. 03/14/23: Reviewed need for bowel care/bowel massage (not needed, BM's regular and loose ) and Kegels with aggrevator ( uinating more only with bending fwd and then straightening up after voiding ). STG Duration 3 wks-01/31/23 (03/14/23: MET GOAL) [facility] Goal (LTG) Pt will be independent in a self care HEP of PF/core/hip/ LB/neck ex's. 01/17/23: Kegel strengthening with ball squeeze and hip IR. 02/21/23: HEP: DB/Kegel/ later to add LE roll in/out. 03/14/23: I/S pt in Kegel w/ hooklie roll in/out with TB/ Band, 1 rep Kegel/1 rep without Kegel. 03/17/23: I/S pt in Clamshell /PF/TA ex sidelie and w/TB in supine. LTG Duration 10 wks more-05/30/23 progressed 03/17/23 3 Impairment Cystocele stage 2 Impairment Pt has feeling of prolapse Short Term Goal (STG) Pt will be educated in Kegel ex in isolation of substitute muscles. 02/21/23: Kegel in isolation with Estim. STG Duration 4 wks more-04/17/23 progressed 02/21/23 [facility] Goal (LTG) Eliminate the sensation of prolapse and be able to control sensation with PF ex and core pressure management. 03/17/23: Pt reported MD placement of pessary with feeling of falling out present ; therefore dx with urethracele. 10/18/13: Slightly better, feels it every time moves. 25 % bettter. LTG Duration 10 wks more-05/30/23 progressing 03/20/23 2 Impairment Stress incontinence. Impairment PF weakness with urinary leakage when leaning forward and bending over. Short Term Goal (STG) Re-education in proper methods for transfer with coordination of breathing with functional activities. 01/10/23: Pt I/S to perform core pressure management as educated in pre-. 03/07/23: Reviewed and Educ transfer with coordination of breathing with functional activities STG Duration 1 wks-01/18/24 (03/07/23: MET GOAL) [facility] Goal (LTG) Strengthen the PF with pt able to lean or bend forward without urinary leakage. 01/17/23: Kegel strengthening with ball squeeze and hip IR. 03/17/23: I/S pt in Clamshell /PF/TA ex sidelie and w/TB in supine. 03/20/23: Does not notice urinary leaking. LTG Duration 12 wks-04/05/23 (03/20/23: MET GOAL) Assessment Summary Assessment No change in tissue sliding sensation. Pt doing wedge ex at home. L heel pain not present and feeling on numbness is less with stretches. LB discomfort persists, had chiropractor adjustment last week. Physical Therapy Plan Frequency and Duration Frequency of Treatment 2x/Week Duration of treatment (weeks) 10 Plan of Care Start Date 03/20/23 Plan of Care End Date 05/30/23 Next Visit Focus/Plan Next Note Type Treatment Note Next Visit Plan NOTE: LATEX ALLERGY. Next: Check mobility of R hip ER (and improve strength and active ROM) compared to L hip ER. Educ pt in DR self assessment, and Progress clamshell/TA/PF >< for pelvic stab, cont trunk stretching on L L5-S1 to reduce facet pain. This week, Focus on stretching hip AD's, & PF relaxation after Kegel (add more posterior PF strengthening on wedge). VEMG stim for PF relaxation awareness training (monitor for being bothered by estrogen ring). ROM: check R hip IR for tightness, and hip flexors Manual: Improve abdominal STM (uterus/bladder/urachus). Sacral balancing if needed Review deep breathing for relaxation & with transfers, review vulvar care. Progress towards STG 2-3: Kegel in isolation of substitute ms with relaxation after contraction & PF relaxation after strengthening . Ex: PF relaxation with Continued PF strengthening long holds > Quick contractions, hip stretches ( ER>L, leonel IR) HEP: LE roll in/outs for PF/ core/hip strengthening, hip stretches (ER>L, leonel IR). Monitor doming with core activation and progress TA and rotational strengthening. Monitor L heel pain and for need of LE n gliding.
--- NOTE | 2023-04-07 10:30 | PT.OTN ---
Current Diagnoses Stress incontinence (female) (male) (04/07/23) Other specified related conditions, unspecified trimester (04/07/23) Pelvic and perineal pain (04/07/23) Physical Therapy Treatment Note PT-OP-A Visit Information Start: 12/31/22 08:15 Freq: Status: Active Protocol: Document 04/07/23 09:08 LRN (Rec: 04/07/23 09:48 LRN [id number]) Out-Patient Physical Therapy Visit Information Visit Information Visit Type Treatment Note Visit Start Time 09:08 Visit Stop Time 09:46 Visit Number 13 Evaluation Information Evaluation Date 01/10/23 Precautions Precautions LATEX ALLERGY, Estrogen ring in place, Post- depression, neck pain from nursing. L heel has been numb. PT-OP-B Current Condition Start: 12/31/22 08:15 Freq: Status: Active Protocol: Document 01/10/23 08:53 LRN (Rec: 01/10/23 14:03 LRN [id number]) Current Condition History of Current Condition Onset Date 6 wks ago Current Complaints Post- bladder prolapse. History of Current Condition Pt is 6 wks post . She had a vaginal of daughter that was fast (2 pushes), following return from bathroom. No IV or epidural. Pt reports labor was 2hr, 45 minutes. 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 She denies vaginal tearing or pelvic pain, but has a little low back pain. She has been given an estrogen ring last week to help plump her tissues . She is experiencing urinary leakage with leaning forward and has a feeling of an air bubble in her urethra after going to bathroom and performs a deep squat to get it out and is accompanied by urinary leakage. She states this occured with her first . Prior Treatments and Tests Pre- PT for pelvic pain. Developmental History Developmental History Pt is G2, P2, both vaginal births. Treatment Goals Patient/Caregiver Goals Pt goal is: Eliminate feeling of bladder falling out and decreased prolapse. Eliminate urinary leaking. Gain feeling of more control over bowel movements. Personal Factors Other Personal Factors That May Effect Post- depression, Therapy/Recovery estrogen ring in place. PT-OP-C Subjective Start: 12/31/22 08:15 Freq: Status: Active Protocol: Document 04/07/23 09:08 LRN (Rec: 04/07/23 09:48 LRN [id number]) OP-PT Subjective Patient Comments Patient Comments States she did have more leakage after last session. Still sore in LB. Having f/u with learning strategist on the seated PF and use of estrogen ring this week. PT-OP-I Pelvic Floor Start: 12/31/22 08:15 Freq: Status: Active Protocol: Document 03/17/23 07:29 LRN (Rec: 03/17/23 08:19 LRN [id number]) Pelvic Floor Assessment SEMG (uV) Baseline 2.3 Quick Contraction 5.6 10 Second Contraction 5.9 Recruitment Pattern Good Relaxation Fair Holding Good Stability of Hold Good SEMG Stability of Rest Fair Comments Pelvic Floor Comments Quick Flicks: 10 reps strength (uV's): 5.6 avg work, 5.5 avg rest. 20 reps strength (uV's): 5.9 avg work, 5.0 avg rest . Long Holds: 10 reps strength (uV's): 5.9 avg work, 2.9 avg rest . 20 reps strength (uV's): 5.9 avg work, 2.6avg rest . Fair relaxation taking 3-5 secs to relax. PT-OP-J Posture/Palpation/Skin Start: 12/31/22 08:15 Freq: Status: Active Protocol: Document 01/10/23 08:53 LRN (Rec: 01/10/23 14:03 LRN [id number]) Posture Evaluation Position Standing Head/C-Spine Posture Forward Head T-Spine Posture Increased Kyphosis L-Spine Posture Increased Lordosis Shoulder Posture (L) Forward,(R) Forward Scapula Posture (R) Rotated Down,(R) Depressed Pelvis Posture (L) PSIS Posterior Weight Distribution Balanced Knee Posture (L) Genu Valgus,(R) Genu Valgus Comments Posture Comments Dowagers Hump, sacrum L rotated. PT-OP-K Range of Motion Start: 12/31/22 08:15 Freq: Status: Active Protocol: Document 03/20/23 07:29 LRN (Rec: 03/20/23 08:48 LRN [id number]) Lumbar Spine Range of Motion Lumbar Spine Active Degrees Testing Position Standing Lateral Flexion Left 10 Lateral Flexion Right 13 ROM Limitations Pain Comments L SB pain at L5-S1 facet. PT-OP-M Strength Start: 12/31/22 08:15 Freq: Status: Active Protocol: Document 01/10/23 08:53 LRN (Rec: 01/10/23 14:03 LRN [id number]) Trunk Strength Trunk Manual Muscle Testing Core Stabilization Strength ~4/5. Hip Strength Hip Manual Muscle Testing Right Flexion (L2) 3 Fair Extension (S1) 5 Normal Abduction 5 Normal Adduction 3 Fair External Rotation 5 Normal Internal Rotation 5 Normal Comments Hip flex with anterior hip pain Left Flexion (L2) 5 Normal Extension (S1) 4+ Good+ Abduction 5 Normal Adduction 3 Fair External Rotation 4 Good Internal Rotation 5 Normal PT-OP-Q Treatments Start: 12/31/22 08:15 Freq: Status: Active Protocol: Document 04/07/23 09:08 LRN (Rec: 04/07/23 09:48 LRN [id number]) Therapeutic Exercises Supine Exercises Lateral Hip stretch Supine Exercise Name Review-Lateral Hip stretch Side bilateral Piriformis stretch Supine Exercise Name Gjipqx-Gnscbpnmji-mxgi to opp shoulder Side bilateral LE Roll in/outs Supine Exercise Name Roll in/out w/DB, then Roll in /out w/DB/hip lift-glut squeeze on roll in Equipment Used Wedge, plinth lower 1/2 elevated for feet positioned like on wall Reps/Minutes 8' Sural n gliding Supine Exercise Name Heels on wall positioning ( lower 1/2 plinth elevated) ankle IV/toes flex Side left Equipment Used Wedge, lwr 1/2 plinth elevated Reps/Minutes Active mvmt of hip IR, ankle IV, toes flex; respectively Comments cuing to do w/o pain Other Exercises Child's Pose Other Exercise Name Child's Pose LB stretch Reps/Minutes 2' Manual Therapy Treatment Soft Tissue Mobilization Hip AD's Body Location Yoel Hip AD's Mobilization Type Strumming Intensity/Depth Moderate Body Position Supine on wedge Comments Legs in elevated position (lwr 1/2 of plinth elevated). Neuro Re-Education Treatment Other Activities Vemg stim Details Vemg stim for PF strengthening /awareness training Reps/Duration 2' set up, 10' treatment as noted above in Ther Ex. Comments Pt supine - level. 100 pps. Intensity 15. 10 SH contractions/20 SR. Stim felt in vagina without having to move electrode around. Resistance to PF contractions (TB, Ball) PT-OP-T Assessment and Plan Start: 12/31/22 08:15 Freq: Status: Active Protocol: Document 04/07/23 09:08 LRN (Rec: 04/07/23 09:48 LRN [id number]) Physical Therapy Assessment Goals 4 Impairment Posterior PF weakness [facility] Goal (LTG) Reduce Feeling of BM urgency. LTG Duration 10 wks-05/30/23 1 Impairment Pt not on a self care post- HEP Short Term Goal (STG) Pt will be re-educated in deep breathing for relaxation and mindfulness, bowel care/bowel massage, Kegel ex for Aggrevators (lean fwd and stand up). 02/21/23: Deep breathing review. 03/14/23: Reviewed need for bowel care/bowel massage (not needed, BM's regular and loose ) and Kegels with aggrevator ( uinating more only with bending fwd and then straightening up after voiding ). STG Duration 3 wks-01/31/23 (03/14/23: MET GOAL) [facility] Goal (LTG) Pt will be independent in a self care HEP of PF/core/hip/ LB/neck ex's. 01/17/23: Kegel strengthening with ball squeeze and hip IR. 02/21/23: HEP: DB/Kegel/ later to add LE roll in/out. 03/14/23: I/S pt in Kegel w/ hooklie roll in/out with TB/ Band, 1 rep Kegel/1 rep without Kegel. 03/17/23: I/S pt in Clamshell /PF/TA ex sidelie and w/TB in supine. LTG Duration 10 wks more-05/30/23 progressed 03/17/23 3 Impairment Cystocele stage 2 Impairment Pt has feeling of prolapse Short Term Goal (STG) Pt will be educated in Kegel ex in isolation of substitute muscles. 02/21/23: Kegel in isolation with Estim. STG Duration 4 wks more-04/17/23 progressed 02/21/23 [facility] Goal (LTG) Eliminate the sensation of prolapse and be able to control sensation with PF ex and core pressure management. 03/17/23: Pt reported MD placement of pessary with feeling of falling out present ; therefore dx with urethracele. 10/18/13: Slightly better, feels it every time moves. 25 % bettter. LTG Duration 10 wks more-05/30/23 progressing 03/20/23 2 Impairment Stress incontinence. Impairment PF weakness with urinary leakage when leaning forward and bending over. Short Term Goal (STG) Re-education in proper methods for transfer with coordination of breathing with functional activities. 01/10/23: Pt I/S to perform core pressure management as educated in pre-. 03/07/23: Reviewed and Educ transfer with coordination of breathing with functional activities STG Duration 1 wks-01/18/24 (03/07/23: MET GOAL) [facility] Goal (LTG) Strengthen the PF with pt able to lean or bend forward without urinary leakage. 01/17/23: Kegel strengthening with ball squeeze and hip IR. 03/17/23: I/S pt in Clamshell /PF/TA ex sidelie and w/TB in supine. 03/20/23: Does not notice urinary leaking. LTG Duration 12 wks-04/05/23 (03/20/23: MET GOAL) Assessment Summary Assessment 37 yo female being seen for cystocele and urethracele rehab with tightness of PF and slow relaxation response. Pt noting no change and discouraged she still feels drop of urethra. Pt have very tight and tender hip AD's. Physical Therapy Plan Frequency and Duration Frequency of Treatment 2x/Week Duration of treatment (weeks) 10 Plan of Care Start Date 03/20/23 Plan of Care End Date 05/30/23 Next Visit Focus/Plan Next Note Type Treatment Note Next Visit Plan NOTE: LATEX ALLERGY. Next: Check ROM of R hip ER/ IR (and improve strength and active ROM) compared to L hip ER. Stretch LB & Educ pt in self assessment, Manual: Improve abdominal STM (uterus/ bladder/urachus). Sacral balancing if needed This week, Focus on stretching hip AD's, & PF relaxation after Kegel (add more posterior PF strengthening on wedge). VEMG stim for PF relaxation awareness training (monitor for being bothered by estrogen ring). Progress pelvic stab ( clamshell/TA/PF >< ), cont trunk stretching on L L5- S1 to reduce facet pain. ROM: check R hip IR for tightness, and hip flexors Review deep breathing for relaxation & with transfers, review vulvar care. Progress towards STG 2-3: Kegel in isolation of substitute ms with relaxation after contraction & PF relaxation after strengthening . Ex: PF relaxation with Continued PF strengthening long holds > Quick contractions, hip stretches ( ER>L, yoel IR) HEP: LE roll in/outs for PF/ core/hip strengthening, hip stretches (ER>L, yoel IR). Monitor doming with core activation and progress TA and rotational strengthening. Monitor L heel pain and for need of LE n gliding.
--- NOTE | 2023-04-11 13:28 | PT.OTN ---
Current Diagnoses Stress incontinence (female) (male) (04/11/23) Other specified related conditions, unspecified trimester (04/11/23) Pelvic and perineal pain (04/11/23) Physical Therapy Treatment Note PT-OP-A Visit Information Start: 12/31/22 08:15 Freq: Status: Active Protocol: Document 04/11/23 07:31 LRN (Rec: 04/11/23 08:17 LRN [id number]) Out-Patient Physical Therapy Visit Information Visit Information Visit Type Treatment Note Visit Start Time 07:31 Visit Stop Time 08:10 Visit Number 14/38 Evaluation Information Evaluation Date 01/10/23 Precautions Precautions LATEX ALLERGY, Estrogen ring in place, Post- depression, neck pain from nursing. L heel has been numb. PT-OP-B Current Condition Start: 12/31/22 08:15 Freq: Status: Active Protocol: Document 01/10/23 08:53 LRN (Rec: 01/10/23 14:03 LRN [id number]) Current Condition History of Current Condition Onset Date 6 wks ago Current Complaints Post- bladder prolapse. History of Current Condition Pt is 6 wks post . She had a vaginal of daughter that was fast (2 pushes), following return from bathroom. No IV or epidural. Pt reports labor was 2hr, 45 minutes. 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 She denies vaginal tearing or pelvic pain, but has a little low back pain. She has been given an estrogen ring last week to help plump her tissues . She is experiencing urinary leakage with leaning forward and has a feeling of an air bubble in her urethra after going to bathroom and performs a deep squat to get it out and is accompanied by urinary leakage. She states this occured with her first . Prior Treatments and Tests Pre- PT for pelvic pain. Developmental History Developmental History Pt is G2, P2, both vaginal births. Treatment Goals Patient/Caregiver Goals Pt goal is: Eliminate feeling of bladder falling out and decreased prolapse. Eliminate urinary leaking. Gain feeling of more control over bowel movements. Personal Factors Other Personal Factors That May Effect Post- depression, Therapy/Recovery estrogen ring in place. PT-OP-C Subjective Start: 12/31/22 08:15 Freq: Status: Active Protocol: Document 04/11/23 07:31 LRN (Rec: 04/11/23 08:17 LRN [id number]) OP-PT Subjective Patient Comments Patient Comments Very fatigued. Not feeling foot anymore. Ms feel sore all over. Stretching 1-2x/day . Having f/u with Dr. Jay. After EStim, feels like she is more aware of her strength and notices she is not able to relax as much after contraction. PT-OP-I Pelvic Floor Start: 12/31/22 08:15 Freq: Status: Active Protocol: Document 03/17/23 07:29 LRN (Rec: 03/17/23 08:19 LRN [id number]) Pelvic Floor Assessment SEMG (uV) Baseline 2.3 Quick Contraction 5.6 10 Second Contraction 5.9 Recruitment Pattern Good Relaxation Fair Holding Good Stability of Hold Good SEMG Stability of Rest Fair Comments Pelvic Floor Comments Quick Flicks: 10 reps strength (uV's): 5.6 avg work, 5.5 avg rest. 20 reps strength (uV's): 5.9 avg work, 5.0 avg rest . Long Holds: 10 reps strength (uV's): 5.9 avg work, 2.9 avg rest . 20 reps strength (uV's): 5.9 avg work, 2.6avg rest . Fair relaxation taking 3-5 secs to relax. PT-OP-J Posture/Palpation/Skin Start: 12/31/22 08:15 Freq: Status: Active Protocol: Document 01/10/23 08:53 LRN (Rec: 01/10/23 14:03 LRN [id number]) Posture Evaluation Position Standing Head/C-Spine Posture Forward Head T-Spine Posture Increased Kyphosis L-Spine Posture Increased Lordosis Shoulder Posture (L) Forward,(R) Forward Scapula Posture (R) Rotated Down,(R) Depressed Pelvis Posture (L) PSIS Posterior Weight Distribution Balanced Knee Posture (L) Genu Valgus,(R) Genu Valgus Comments Posture Comments Dowagers Hump, sacrum L rotated. PT-OP-K Range of Motion Start: 12/31/22 08:15 Freq: Status: Active Protocol: Document 03/20/23 07:29 LRN (Rec: 03/20/23 08:48 LRN [id number]) Lumbar Spine Range of Motion Lumbar Spine Active Degrees Testing Position Standing Lateral Flexion Left 10 Lateral Flexion Right 13 ROM Limitations Pain Comments L SB pain at L5-S1 facet. PT-OP-M Strength Start: 12/31/22 08:15 Freq: Status: Active Protocol: Document 01/10/23 08:53 LRN (Rec: 01/10/23 14:03 LRN [id number]) Trunk Strength Trunk Manual Muscle Testing Core Stabilization Strength ~4/5. Hip Strength Hip Manual Muscle Testing Right Flexion (L2) 3 Fair Extension (S1) 5 Normal Abduction 5 Normal Adduction 3 Fair External Rotation 5 Normal Internal Rotation 5 Normal Comments Hip flex with anterior hip pain Left Flexion (L2) 5 Normal Extension (S1) 4+ Good+ Abduction 5 Normal Adduction 3 Fair External Rotation 4 Good Internal Rotation 5 Normal PT-OP-Q Treatments Start: 12/31/22 08:15 Freq: Status: Active Protocol: Document 04/11/23 07:31 LRN (Rec: 04/11/23 08:17 LRN [id number]) Therapeutic Exercises Supine Exercises Kegels/hip AD-AB/bridge Supine Exercise Name Kegels mostly hip AD, also hip AB & w/bridge. Resistance Ex mostly on L side Reps/Minutes 4' Sidelying Exercises Bottom Clamshell Sidelying Exercise Name Bottom leg clamshell Quick and Long hold Kegels Side bilateral Reps/Minutes 10x each Manual Therapy Treatment Soft Tissue Mobilization PF Body Location L side of PF (anter, lateral, posterolateral) Mobilization Type Trigger Point Release Intensity/Depth Superficial Body Position Supine Neuro Re-Education Treatment Other Activities Vemg for Kegel>relax Details Vemg for Holding Kegel and Relax of PF after w/ biofeedback screen Reps/Duration 7' Comments Quick and Long hold contractins. Pt able to incr PF contraction strength with hip AD addition . Lowers PF contraction with verbal visual cuing. Vemg stim Details Vemg stim for PF stim for ms activitation: quick and long holds Reps/Duration 2' set up each time (x2), 5' treatment as noted above in Ther Ex. Comments Pt sidelie. 50 pps. Intensity 18. 10 SH contractions with bottom leg lift clamshell/20 SR. Stim felt in vagina without having to move electrode around. Supine positioning with Resistance to PF contractions (TB, Ball) not needed. PT-OP-T Assessment and Plan Start: 12/31/22 08:15 Freq: Status: Active Protocol: Document 04/11/23 07:31 LRN (Rec: 04/11/23 08:17 LRN [id number]) Physical Therapy Assessment Goals 4 Impairment Posterior PF weakness Oral Surgery Assistant Goal (LTG) Reduce Feeling of BM urgency. LTG Duration 10 wks-05/30/23 1 Impairment Pt not on a self care post- HEP Short Term Goal (STG) Pt will be re-educated in deep breathing for relaxation and mindfulness, bowel care/bowel massage, Kegel ex for Aggrevators (lean fwd and stand up). 02/21/23: Deep breathing review. 03/14/23: Reviewed need for bowel care/bowel massage (not needed, BM's regular and loose ) and Kegels with aggrevator ( uinating more only with bending fwd and then straightening up after voiding ). STG Duration 3 wks-01/31/23 (03/14/23: MET GOAL) Oral Surgery Assistant Goal (LTG) Pt will be independent in a self care HEP of PF/core/hip/ LB/neck ex's. 01/17/23: Kegel strengthening with ball squeeze and hip IR. 02/21/23: HEP: DB/Kegel/ later to add LE roll in/out. 03/14/23: I/S pt in Kegel w/ hooklie roll in/out with TB/ Band, 1 rep Kegel/1 rep without Kegel. 03/17/23: I/S pt in Clamshell /PF/TA ex sidelie and w/TB in supine. LTG Duration 10 wks more-05/30/23 progressed 03/17/23 3 Impairment Cystocele stage 2 Impairment Pt has feeling of prolapse Short Term Goal (STG) Pt will be educated in Kegel ex in isolation of substitute muscles. 02/21/23: Kegel in isolation with Estim. STG Duration 4 wks more-04/17/23 progressed 02/21/23 Oral Surgery Assistant Goal (LTG) Eliminate the sensation of prolapse and be able to control sensation with PF ex and core pressure management. 03/17/23: Pt reported MD placement of pessary with feeling of falling out present ; therefore dx with urethracele. 10/18/13: Slightly better, feels it every time moves. 25 % bettter. LTG Duration 10 wks more-05/30/23 progressing 03/20/23 2 Impairment Stress incontinence. Impairment PF weakness with urinary leakage when leaning forward and bending over. Short Term Goal (STG) Re-education in proper methods for transfer with coordination of breathing with functional activities. 01/10/23: Pt I/S to perform core pressure management as educated in pre-. 03/07/23: Reviewed and Educ transfer with coordination of breathing with functional activities STG Duration 1 wks-01/18/24 (03/07/23: MET GOAL) Oral Surgery Assistant Goal (LTG) Strengthen the PF with pt able to lean or bend forward without urinary leakage. 01/17/23: Kegel strengthening with ball squeeze and hip IR. 03/17/23: I/S pt in Clamshell /PF/TA ex sidelie and w/TB in supine. 03/20/23: Does not notice urinary leaking. LTG Duration 12 wks-04/05/23 (03/20/23: MET GOAL) Assessment Summary Assessment 37 yo female being seen for cystocele and urethrocele rehab with some tightness of lateral braxton/weakness and slow relaxation response with quick and long holds. Per digital assessment strength is 1/5 on R side (PF 6-11 O' Clock), 0/5 on L side (PF 1-6 O'clock), but able to get 1/5 with use of hip AD & extensors ; therefore strengthening is needed with stim. biofeedback and substitute muscles. Physical Therapy Plan Frequency and Duration Frequency of Treatment 2x/Week Duration of treatment (weeks) 10 Plan of Care Start Date 03/20/23 Plan of Care End Date 05/30/23 Next Visit Focus/Plan Next Note Type Treatment Note Next Visit Plan NOTE: LATEX ALLERGY. Next: Check ROM of R hip ER/ IR (and improve strength and active ROM) compared to L hip ER, f/b Vemg stim to PF w/ strengthening and Vemg biofeedback for PF relaxation after Kegel. Stretch LB & Educ pt in DR self assessment. Manual: Abdominal STM uterus/ bladder/urachus). Sacral balancing if needed, and L L5- S1 manual trunk stretching to reduce facet pain. Stretching (manual & exercise) hip AD's. Review deep breathing for relaxation & with transfers, review vulvar care. Strengthening focus on PF L >R sided & posterior PF strengthening with substitute ms (add more posterior PF strengthening on wedge). Progress towards STG 2-3: Kegel in isolation of substitute ms with relaxation after contraction & PF relaxation after strengthening . Ex: hip stretches (ER>L, leonel IR), PF relaxation with PF strengthening of long holds > Quick contractions. ? HEP (once Kegel strength improved): LE roll in/outs for PF/core/hip strengthening, hip stretches (ER>L, leonel IR) . Monitor: R hip IR and hip flexors for tightness. Monitor doming with core activation and progress TA and rotational strengthening. Monitor L heel pain and for need of LE n gliding.
--- NOTE | 2023-04-18 16:18 | PT.OTN ---
Current Diagnoses Stress incontinence (female) (male) (04/18/23) Other specified related conditions, unspecified trimester (04/18/23) Pelvic and perineal pain (04/18/23) Physical Therapy Treatment Note PT-OP-A Visit Information Start: 12/31/22 08:15 Freq: Status: Active Protocol: Document 04/18/23 09:06 LRN (Rec: 04/18/23 09:49 LRN [id number]) Out-Patient Physical Therapy Visit Information Visit Information Visit Type Treatment Note Visit Start Time 09:06 Visit Stop Time 09:44 Visit Number Evaluation Information Evaluation Date 01/10/23 Precautions Precautions LATEX ALLERGY, Estrogen ring in place, Post- depression, neck pain from nursing. L heel has been numb. PT-OP-B Current Condition Start: 12/31/22 08:15 Freq: Status: Active Protocol: Document 01/10/23 08:53 LRN (Rec: 01/10/23 14:03 LRN [id number]) Current Condition History of Current Condition Onset Date 6 wks ago Current Complaints Post- bladder prolapse. History of Current Condition Pt is 6 wks post . She had a vaginal of daughter that was fast (2 pushes), following return from bathroom. No IV or epidural. Pt reports labor was 2hr, 45 minutes. 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 She denies vaginal tearing or pelvic pain, but has a little low back pain. She has been given an estrogen ring last week to help plump her tissues . She is experiencing urinary leakage with leaning forward and has a feeling of an air bubble in her urethra after going to bathroom and performs a deep squat to get it out and is accompanied by urinary leakage. She states this occured with her first . Prior Treatments and Tests Pre- PT for pelvic pain. Developmental History Developmental History Pt is G2, P2, both vaginal births. Treatment Goals Patient/Caregiver Goals Pt goal is: Eliminate feeling of bladder falling out and decreased prolapse. Eliminate urinary leaking. Gain feeling of more control over bowel movements. Personal Factors Other Personal Factors That May Effect Post- depression, Therapy/Recovery estrogen ring in place. PT-OP-C Subjective Start: 12/31/22 08:15 Freq: Status: Active Protocol: Document 04/18/23 09:06 LRN (Rec: 04/18/23 09:49 LRN [id number]) OP-PT Subjective Patient Comments Patient Comments States she feels she has a constant slow leak. Saw tangled yarn spool straightener and was told her prolapse is very subtle so she is having CT scheduled to rule out something. PT-OP-I Pelvic Floor Start: 12/31/22 08:15 Freq: Status: Active Protocol: Document 03/17/23 07:29 LRN (Rec: 03/17/23 08:19 LRN [id number]) Pelvic Floor Assessment SEMG (uV) Baseline 2.3 Quick Contraction 5.6 10 Second Contraction 5.9 Recruitment Pattern Good Relaxation Fair Holding Good Stability of Hold Good SEMG Stability of Rest Fair Comments Pelvic Floor Comments Quick Flicks: 10 reps strength (uV's): 5.6 avg work, 5.5 avg rest. 20 reps strength (uV's): 5.9 avg work, 5.0 avg rest . Long Holds: 10 reps strength (uV's): 5.9 avg work, 2.9 avg rest . 20 reps strength (uV's): 5.9 avg work, 2.6avg rest . Fair relaxation taking 3-5 secs to relax. PT-OP-J Posture/Palpation/Skin Start: 12/31/22 08:15 Freq: Status: Active Protocol: Document 01/10/23 08:53 LRN (Rec: 01/10/23 14:03 LRN [id number]) Posture Evaluation Position Standing Head/C-Spine Posture Forward Head T-Spine Posture Increased Kyphosis L-Spine Posture Increased Lordosis Shoulder Posture (L) Forward,(R) Forward Scapula Posture (R) Rotated Down,(R) Depressed Pelvis Posture (L) PSIS Posterior Weight Distribution Balanced Knee Posture (L) Genu Valgus,(R) Genu Valgus Comments Posture Comments Dowagers Hump, sacrum L rotated. PT-OP-K Range of Motion Start: 12/31/22 08:15 Freq: Status: Active Protocol: Document 04/18/23 09:06 LRN (Rec: 04/18/23 09:49 LRN [id number]) Hip Goniometric Range of Motion Hip Right Passive Testing Position Supine Internal Rotation 40 External Rotation 55 Left Passive Testing Position Supine Internal Rotation 30 External Rotation 45 PT-OP-M Strength Start: 12/31/22 08:15 Freq: Status: Active Protocol: Document 04/18/23 09:06 LRN (Rec: 04/18/23 09:49 LRN [id number]) Hip Strength Hip Manual Muscle Testing Right External Rotation 4+ Good+ Internal Rotation 4+ Good+ Left External Rotation 4+ Good+ Internal Rotation 4+ Good+ PT-OP-Q Treatments Start: 12/31/22 08:15 Freq: Status: Active Protocol: Document 04/18/23 09:06 LRN (Rec: 04/18/23 09:49 LRN [id number]) Therapeutic Exercises Supine Exercises Hip ROM Supine Exercise Name Passive hip ER/IR ROM Side bilateral Reps/Minutes 6' Comments ROM taken Neuro Re-Education Treatment Other Activities Vemg stim Details Vemg stim for PF stim for ms activitation: quick and long holds Reps/Duration 2' set up each time (x2), 5' treatment as noted above in Ther Ex. Comments SUPINE x 5' (50 pps. Intensity 18). 10 SH/20 SR: and supine BKFO w/1# wgt, 50 pps. Intensity 18. bottom leg lift clamshell/20 SR. during contraction. SIDELYE (50 pps. Intensity 18) , 10 SH/20 SR): contractions with exercise bottom leg lift & underneath leg clam lift w/ 1# wgt Stim felt in vagina without having to move electrode around. Supine positioning with Resistance to PF contractions (TB, Ball) not needed. PT-OP-T Assessment and Plan Start: 12/31/22 08:15 Freq: Status: Active Protocol: Document 04/18/23 09:06 LRN (Rec: 04/18/23 09:49 LRN [id number]) Physical Therapy Assessment Goals 4 Impairment Posterior PF weakness Jeeper Operator Goal (LTG) Reduce Feeling of BM urgency. LTG Duration 10 wks-05/30/23 1 Impairment Pt not on a self care post- HEP Short Term Goal (STG) Pt will be re-educated in deep breathing for relaxation and mindfulness, bowel care/bowel massage, Kegel ex for Aggrevators (lean fwd and stand up). 02/21/23: Deep breathing review. 03/14/23: Reviewed need for bowel care/bowel massage (not needed, BM's regular and loose ) and Kegels with aggrevator ( uinating more only with bending fwd and then straightening up after voiding ). STG Duration 3 wks-01/31/23 (03/14/23: MET GOAL) Jeeper Operator Goal (LTG) Pt will be independent in a self care HEP of PF/core/hip/ LB/neck ex's. 01/17/23: Kegel strengthening with ball squeeze and hip IR. 02/21/23: HEP: DB/Kegel/ later to add LE roll in/out. 03/14/23: I/S pt in Kegel w/ hooklie roll in/out with TB/ Band, 1 rep Kegel/1 rep without Kegel. 03/17/23: I/S pt in Clamshell /PF/TA ex sidelie and w/TB in supine. LTG Duration 10 wks more-05/30/23 progressed 03/17/23 3 Impairment Cystocele stage 2 Impairment Pt has feeling of prolapse Short Term Goal (STG) Pt will be educated in Kegel ex in isolation of substitute muscles. 02/21/23: Kegel in isolation with Estim. STG Duration 4 wks more-04/17/23 progressed 02/21/23 Jeeper Operator Goal (LTG) Eliminate the sensation of prolapse and be able to control sensation with PF ex and core pressure management. 03/17/23: Pt reported MD placement of pessary with feeling of falling out present ; therefore dx with urethracele. 10/18/13: Slightly better, feels it every time moves. 25 % bettter. LTG Duration 10 wks more-05/30/23 progressing 03/20/23 Assessment Summary Assessment 37 yo female being seen for cystocele and urethrocele rehab with some tightness of lateral braxton/weakness and slow relaxation response with quick and long holds. Pt shows improvement in her hip mobility but remains tight with decrease in mobility. Her PF resting tone is 2.1 uV' s and strength is fair with avg long hold 6 uv's (avg rest is 3.8 uv's). Pt demonstrates decrease in strength over time. 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 Physical Therapy Plan Frequency and Duration Frequency of Treatment 2x/Week Duration of treatment (weeks) 10 Plan of Care Start Date 03/20/23 Plan of Care End Date 05/30/23 Next Visit Focus/Plan Next Note Type Treatment Note Next Visit Plan NOTE: LATEX ALLERGY. Next: Improve hip rot strength and active ROM (hip stretches ER>L, leonel IR), f/b Vemg stim to PF w/ strengthening and Vemg biofeedback for PF relaxation after Kegel. Stretch LB & Educ pt in DR self assessment. Manual: Abdominal STM uterus/ bladder/urachus). Sacral balancing if needed, and L L5- S1 manual trunk stretching to reduce facet pain. Stretching (manual & exercise) hip AD's. Strengthening focus on PF L >R sided & posterior PF strengthening with substitute ms (add more posterior PF strengthening on wedge). Review deep breathing for relaxation & with transfers, review vulvar care. Progress towards STG 2-3: Kegel in isolation of substitute ms with relaxation after contraction & PF relaxation after strengthening . Ex: PF relaxation with PF strengthening of long holds > Quick contractions. ? HEP (once Kegel strength improved): LE roll in/outs for PF/core/hip strengthening, hip stretches (ER>L, leonel IR) . Monitor: R hip IR and hip flexors for tightness. Monitor doming with core activation and progress TA and rotational strengthening. Monitor L heel pain and for need of LE n gliding.
--- NOTE | 2023-04-21 12:00 | PT.OTN ---
Current Diagnoses Stress incontinence (female) (male) (04/21/23) Other specified related conditions, unspecified trimester (04/21/23) Pelvic and perineal pain (04/21/23) Physical Therapy Treatment Note PT-OP-A Visit Information Start: 12/31/22 08:15 Freq: Status: Active Protocol: Document 04/21/23 07:29 LRN (Rec: 04/21/23 08:16 LRN [id number]) Out-Patient Physical Therapy Visit Information Visit Information Visit Type Treatment Note Visit Start Time 07:29 Visit Stop Time 08:13 Visit Number Evaluation Information Evaluation Date 01/10/23 Precautions Precautions LATEX ALLERGY, Estrogen ring in place, Post- depression, neck pain from nursing. L heel has been numb. PT-OP-B Current Condition Start: 12/31/22 08:15 Freq: Status: Active Protocol: Document 01/10/23 08:53 LRN (Rec: 01/10/23 14:03 LRN [id number]) Current Condition History of Current Condition Onset Date 6 wks ago Current Complaints Post- bladder prolapse. History of Current Condition Pt is 6 wks post . She had a vaginal of daughter that was fast (2 pushes), following return from bathroom. No IV or epidural. Pt reports labor was 2hr, 45 minutes. 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 She denies vaginal tearing or pelvic pain, but has a little low back pain. She has been given an estrogen ring last week to help plump her tissues . She is experiencing urinary leakage with leaning forward and has a feeling of an air bubble in her urethra after going to bathroom and performs a deep squat to get it out and is accompanied by urinary leakage. She states this occured with her first . Prior Treatments and Tests Pre- PT for pelvic pain. Developmental History Developmental History Pt is G2, P2, both vaginal births. Treatment Goals Patient/Caregiver Goals Pt goal is: Eliminate feeling of bladder falling out and decreased prolapse. Eliminate urinary leaking. Gain feeling of more control over bowel movements. Personal Factors Other Personal Factors That May Effect Post- depression, Therapy/Recovery estrogen ring in place. PT-OP-C Subjective Start: 12/31/22 08:15 Freq: Status: Active Protocol: Document 04/21/23 07:29 LRN (Rec: 04/21/23 08:16 LRN [id number]) OP-PT Subjective Patient Comments Patient Comments Neck hurts, slept wrong. Back has been feeling better and hasn't been wearing post- girdle so she thinks she has been engaging her core more. Is having a couple massage today. PT-OP-I Pelvic Floor Start: 12/31/22 08:15 Freq: Status: Active Protocol: Document 03/17/23 07:29 LRN (Rec: 03/17/23 08:19 LRN [id number]) Pelvic Floor Assessment SEMG (uV) Baseline 2.3 Quick Contraction 5.6 10 Second Contraction 5.9 Recruitment Pattern Good Relaxation Fair Holding Good Stability of Hold Good SEMG Stability of Rest Fair Comments Pelvic Floor Comments Quick Flicks: 10 reps strength (uV's): 5.6 avg work, 5.5 avg rest. 20 reps strength (uV's): 5.9 avg work, 5.0 avg rest . Long Holds: 10 reps strength (uV's): 5.9 avg work, 2.9 avg rest . 20 reps strength (uV's): 5.9 avg work, 2.6avg rest . Fair relaxation taking 3-5 secs to relax. PT-OP-J Posture/Palpation/Skin Start: 12/31/22 08:15 Freq: Status: Active Protocol: Document 01/10/23 08:53 LRN (Rec: 01/10/23 14:03 LRN [id number]) Posture Evaluation Position Standing Head/C-Spine Posture Forward Head T-Spine Posture Increased Kyphosis L-Spine Posture Increased Lordosis Shoulder Posture (L) Forward,(R) Forward Scapula Posture (R) Rotated Down,(R) Depressed Pelvis Posture (L) PSIS Posterior Weight Distribution Balanced Knee Posture (L) Genu Valgus,(R) Genu Valgus Comments Posture Comments Dowagers Hump, sacrum L rotated. PT-OP-K Range of Motion Start: 12/31/22 08:15 Freq: Status: Active Protocol: Document 04/18/23 09:06 LRN (Rec: 04/18/23 09:49 LRN [id number]) Hip Goniometric Range of Motion Hip Right Passive Testing Position Supine Internal Rotation 40 External Rotation 55 Left Passive Testing Position Supine Internal Rotation 30 External Rotation 45 PT-OP-M Strength Start: 12/31/22 08:15 Freq: Status: Active Protocol: Document 04/18/23 09:06 LRN (Rec: 04/18/23 09:49 LRN [id number]) Hip Strength Hip Manual Muscle Testing Right External Rotation 4+ Good+ Internal Rotation 4+ Good+ Left External Rotation 4+ Good+ Internal Rotation 4+ Good+ PT-OP-Q Treatments Start: 12/31/22 08:15 Freq: Status: Active Protocol: Document 04/21/23 07:29 LRN (Rec: 04/21/23 08:16 LRN [id number]) Therapeutic Exercises Supine Exercises Hip ROM Supine Exercise Name Passive hip ER f/b AROM in Fig 4 stretch Side bilateral Reps/Minutes 6' Kegels/hip AD-AB/bridge Supine Exercise Name Kegels mostly hip AD, also hip AB & w/bridge. Resistance Ex mostly on L side Reps/Minutes 4' Piriformis stretch Supine Exercise Name Wjrfyp-Spbmrrtjag-xybgj legged , KTC Side bilateral Reps/Minutes 5' Comments Reviewed knee to opp shdr or cross leg w/KTC stretch Sidelying Exercises Bottom Clamshell Sidelying Exercise Name Bottom leg clamshell Quick and Long hold Kegels Side bilateral Equipment Used 2#, 1#, 0# above knee Reps/Minutes 10x each Comments Cued to breath and core stable & concentrate on PF holding Clamshell/PF//TA Sidelying Exercise Name Clamshell/PF/TA w/assist of UE for greater hip ER. Side bilateral Equipment Used 2#, 1#, 0# above knee Reps/Minutes 8x each wgt Comments Cuing to move L knee further for symmetry. Phys Cuing to keep core stable Neuro Re-Education Treatment Other Activities Vemg for Kegel>relax Details Vemg for Kegel w/bridge, hip ER, and on wedge with hip AB & AD. Reps/Duration 15' Comments Pt is weaker with bridge/hip AB vs bridge/hip AD. 10 avg work, vs 15 avg work, respectively. Also working on getting ms relaxation after contraction. PT-OP-T Assessment and Plan Start: 12/31/22 08:15 Freq: Status: Active Protocol: Document 04/21/23 07:29 LRN (Rec: 04/21/23 08:16 LRN [id number]) Physical Therapy Assessment Goals 4 Impairment Posterior PF weakness Intermediate Goal (LTG) Reduce Feeling of BM urgency. LTG Duration 10 wks-05/30/23 1 Impairment Pt not on a self care post- HEP Short Term Goal (STG) Pt will be re-educated in deep breathing for relaxation and mindfulness, bowel care/bowel massage, Kegel ex for Aggrevators (lean fwd and stand up). 02/21/23: Deep breathing review. 03/14/23: Reviewed need for bowel care/bowel massage (not needed, BM's regular and loose ) and Kegels with aggrevator ( uinating more only with bending fwd and then straightening up after voiding ). STG Duration 3 wks-01/31/23 (03/14/23: MET GOAL) Loading Machine Operator Helper Goal (LTG) Pt will be independent in a self care HEP of PF/core/hip/ LB/neck ex's. 01/17/23: Kegel strengthening with ball squeeze and hip IR. 02/21/23: HEP: DB/Kegel/ later to add LE roll in/out. 03/14/23: I/S pt in Kegel w/ hooklie roll in/out with TB/ Band, 1 rep Kegel/1 rep without Kegel. 03/17/23: I/S pt in Clamshell /PF/TA ex sidelie and w/TB in supine. LTG Duration 10 wks more-05/30/23 progressed 03/17/23 3 Impairment Cystocele stage 2 Impairment Pt has feeling of prolapse Short Term Goal (STG) Pt will be educated in Kegel ex in isolation of substitute muscles. 02/21/23: Kegel in isolation with Estim. STG Duration 4 wks more-04/17/23 progressed 02/21/23 Intermediate Goal (LTG) Eliminate the sensation of prolapse and be able to control sensation with PF ex and core pressure management. 03/17/23: Pt reported MD placement of pessary with feeling of falling out present ; therefore dx with urethracele. 10/18/13: Slightly better, feels it every time moves. 25 % bettter. LTG Duration 10 wks more-05/30/23 progressing 03/20/23 Assessment Summary Assessment 37 yo female being seen for cystocele and urethrocele rehab with some tightness of lateral braxton/weakness and slow relaxation response with quick and long holds. Hip ER & AD strength appears > on R side, better core stability. Pt not able to feel Posterior PF contraction well. LBP is better; therefore will hold on LB stretching. Physical Therapy Plan Frequency and Duration Frequency of Treatment 2x/Week Duration of treatment (weeks) 10 Plan of Care Start Date 03/20/23 Plan of Care End Date 05/30/23 Next Visit Focus/Plan Next Note Type Treatment Note Next Visit Plan NOTE: LATEX ALLERGY. Next: Educ pt in DR self assessment. CONT: Improve hip rot strength and active ROM (hip stretches ER>L, leonel IR), f/b Vemg stim to PF w/ strengthening and Vemg biofeedback for PF posterior PF contraction strength & relaxation after Kegel with breath. Stretching (manual & exercise) hip AD's. Review deep breathing for relaxation & with transfers, review vulvar care. Manual: Abdominal STM uterus/ bladder/urachus). As needed: Sacral balancing if needed, and L L5-S1 manual trunk stretching to reduce facet pain. Strengthening focus on PF L >R sided & posterior PF strengthening with substitute ms (add more posterior PF strengthening on wedge). PF relaxation with PF strengthening of long holds > Quick contractions. Asses progress towards STG 2-3 : Kegel in isolation of substitute ms with relaxation after contraction & PF relaxation after strengthening . ? HEP (once Kegel strength improved): LE roll in/outs for PF/core/hip strengthening. Monitor: R hip IR and hip flexors for tightness. Monitor doming with core activation and progress TA and rotational strengthening. Monitor L heel pain and for need of LE n gliding.
--- NOTE | 2023-04-25 10:31 | PT.OTN ---
Addendum entered and electronically signed by Grecia [place], PT 04/25/23 13:34: Abdominal palpation for Diastasis Rectus: 1 above umbilicus: 1.5 fingerwidth/shallow. 1 below umbilicus 1 fingerwidth/shallow, 2 below umbilicus 1 fingerwidth/very shallow. Original Note: Current Diagnoses Stress incontinence (female) (male) (04/25/23) Other specified related conditions, unspecified trimester (04/25/23) Pelvic and perineal pain (04/25/23) Physical Therapy Treatment Note PT-OP-A Visit Information Start: 12/31/22 08:15 Freq: Status: Active Protocol: Document 04/25/23 09:05 LRN (Rec: 04/25/23 10:31 LRN [id number]) Out-Patient Physical Therapy Visit Information Visit Information Visit Type Treatment Note Visit Note 7 after PN Visit Start Time 09:00 Visit Stop Time 09:54 Visit Number 17/[id number] Evaluation Information Evaluation Date 01/10/23 Precautions Precautions LATEX ALLERGY, Estrogen ring in place, Post- depression, neck pain from nursing. L heel has been numb. PT-OP-B Current Condition Start: 12/31/22 08:15 Freq: Status: Active Protocol: Document 01/10/23 08:53 LRN (Rec: 01/10/23 14:03 LRN [id number]) Current Condition History of Current Condition Onset Date 6 wks ago Current Complaints Post- bladder prolapse. History of Current Condition Pt is 6 wks post . She had a vaginal of daughter that was fast (2 pushes), following return from bathroom. No IV or epidural. Pt reports labor was 2hr, 45 minutes. 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 She denies vaginal tearing or pelvic pain, but has a little low back pain. She has been given an estrogen ring last week to help plump her tissues . She is experiencing urinary leakage with leaning forward and has a feeling of an air bubble in her urethra after going to bathroom and performs a deep squat to get it out and is accompanied by urinary leakage. She states this occured with her first . Prior Treatments and Tests Pre- PT for pelvic pain. Developmental History Developmental History Pt is G2, P2, both vaginal births. Treatment Goals Patient/Caregiver Goals Pt goal is: Eliminate feeling of bladder falling out and decreased prolapse. Eliminate urinary leaking. Gain feeling of more control over bowel movements. Personal Factors Other Personal Factors That May Effect Post- depression, Therapy/Recovery estrogen ring in place. PT-OP-C Subjective Start: 12/31/22 08:15 Freq: Status: Active Protocol: Document 04/25/23 09:05 LRN (Rec: 04/25/23 10:31 LRN [id number]) OP-PT Subjective Patient Comments Patient Comments States she still has neck pain even after the massage spa day. Driving or standing is doing more. Leaking is going on and dropping is present but feels she has more control over the ex's. PT-OP-I Pelvic Floor Start: 12/31/22 08:15 Freq: Status: Active Protocol: Document 03/17/23 07:29 LRN (Rec: 03/17/23 08:19 LRN [id number]) Pelvic Floor Assessment SEMG (uV) Baseline 2.3 Quick Contraction 5.6 10 Second Contraction 5.9 Recruitment Pattern Good Relaxation Fair Holding Good Stability of Hold Good SEMG Stability of Rest Fair Comments Pelvic Floor Comments Quick Flicks: 10 reps strength (uV's): 5.6 avg work, 5.5 avg rest. 20 reps strength (uV's): 5.9 avg work, 5.0 avg rest . Long Holds: 10 reps strength (uV's): 5.9 avg work, 2.9 avg rest . 20 reps strength (uV's): 5.9 avg work, 2.6avg rest . Fair relaxation taking 3-5 secs to relax. PT-OP-J Posture/Palpation/Skin Start: 12/31/22 08:15 Freq: Status: Active Protocol: Document 01/10/23 08:53 LRN (Rec: 01/10/23 14:03 LRN [id number]) Posture Evaluation Position Standing Head/C-Spine Posture Forward Head T-Spine Posture Increased Kyphosis L-Spine Posture Increased Lordosis Shoulder Posture (L) Forward,(R) Forward Scapula Posture (R) Rotated Down,(R) Depressed Pelvis Posture (L) PSIS Posterior Weight Distribution Balanced Knee Posture (L) Genu Valgus,(R) Genu Valgus Comments Posture Comments Dowagers Hump, sacrum L rotated. PT-OP-K Range of Motion Start: 12/31/22 08:15 Freq: Status: Active Protocol: Document 04/18/23 09:06 LRN (Rec: 04/18/23 09:49 LRN [id number]) Hip Goniometric Range of Motion Hip Right Passive Testing Position Supine Internal Rotation 40 External Rotation 55 Left Passive Testing Position Supine Internal Rotation 30 External Rotation 45 PT-OP-M Strength Start: 12/31/22 08:15 Freq: Status: Active Protocol: Document 04/18/23 09:06 LRN (Rec: 04/18/23 09:49 LRN [id number]) Hip Strength Hip Manual Muscle Testing Right External Rotation 4+ Good+ Internal Rotation 4+ Good+ Left External Rotation 4+ Good+ Internal Rotation 4+ Good+ PT-OP-Q Treatments Start: 12/31/22 08:15 Freq: Status: Active Protocol: Document 04/25/23 09:05 LRN (Rec: 04/25/23 10:31 LRN [id number]) Therapeutic Exercises Sitting Exercises SL hip AD stretch Sitting Exercise Name SL hip AD stretch while doing STM to short hip AD Side right Reps/Minutes 3' Manual Therapy Treatment Soft Tissue Mobilization Neck/Upper back Body Location Neck, R UT & Lev Scap, L Rhomboids/Paraspinals Mobilization Type Myofascial Release,Strumming, Sustained Pressure Intensity/Depth Moderate Body Position Supine Hip AD's Body Location Yoel Hip AD's Mobilization Type Myofascial Release,Strumming, Trigger Point Release Intensity/Depth Moderate Body Position Supine Comments Additionally: C/R stretch with MFR Trunk rotators Body Location L trunk rotators Mobilization Type Myofascial Release Intensity/Depth Moderate Body Position Supine Lower abdome Body Location Lower abdomen Mobilization Type Sustained Pressure Body Position Supine Comments Lift of lower abs with Kegels. MFR lower abs for pelvic rotation. Manual self assessment training for DR. Pt able to identify correctly what her DR is with her self palpation. Joint Mobilizations C/S Joint C5-C6 Direction Gapping R side facets Grade II Body Position Supine Reps/Duration 10' Neuro Re-Education Treatment Other Activities Vemg stim Details Vemg stim for Kegel & stim for ms contract awareness: long hold Reps/Duration 10' (extra time needed for set up to restart Vemg stim) Comments SUPINE x 5' (50 pps. Intensity 18). 10 SH/10 SR: Kegel with Stim & BKFI w lev1 TB resist IR ( BKFO w/1# wgt not done due to time constraint). Held SIDELYE (50 pps. Intensity 18), 10 SH/20 SR): contractions with exercise bottom leg lift & underneath leg clam lift w/1# wgt, held due to time constraint. PT-OP-T Assessment and Plan Start: 12/31/22 08:15 Freq: Status: Active Protocol: Document 04/25/23 09:05 LRN (Rec: 04/25/23 10:31 LRN [id number]) Physical Therapy Assessment Goals 4 Impairment Posterior PF weakness Prison Goal (LTG) Reduce Feeling of BM urgency. LTG Duration 10 wks-05/30/23 1 Impairment Pt not on a self care post- HEP Short Term Goal (STG) Pt will be re-educated in deep breathing for relaxation and mindfulness, bowel care/bowel massage, Kegel ex for Aggrevators (lean fwd and stand up). 02/21/23: Deep breathing review. 03/14/23: Reviewed need for bowel care/bowel massage (not needed, BM's regular and loose ) and Kegels with aggrevator ( uinating more only with bending fwd and then straightening up after voiding ). STG Duration 3 wks-01/31/23 (03/14/23: MET GOAL) Ward Service Supervisor Goal (LTG) Pt will be independent in a self care HEP of PF/core/hip/ LB/neck ex's. 01/17/23: Kegel strengthening with ball squeeze and hip IR. 02/21/23: HEP: DB/Kegel/ later to add LE roll in/out. 03/14/23: I/S pt in Kegel w/ hooklie roll in/out with TB/ Band, 1 rep Kegel/1 rep without Kegel. 03/17/23: I/S pt in Clamshell /PF/TA ex sidelie and w/TB in supine. 04/25/23: Pt able to identify with self palp DR correctly. LTG Duration 10 wks more-05/30/23 progressed 04/25/23 3 Impairment Cystocele stage 2 Impairment Pt has feeling of prolapse Short Term Goal (STG) Pt will be educated in Kegel ex in isolation of substitute muscles. 02/21/23: Kegel in isolation with Estim. STG Duration 4 wks more-04/17/23 progressed 02/21/23 Ward Service Supervisor Goal (LTG) Eliminate the sensation of prolapse and be able to control sensation with PF ex and core pressure management. 03/17/23: Pt reported MD placement of pessary with feeling of falling out present ; therefore dx with urethracele. 10/18/13: Slightly better, feels it every time moves. 25 % bettter. LTG Duration 10 wks more-05/30/23 progressing 03/20/23 2 Impairment Stress incontinence. Impairment PF weakness with urinary leakage when leaning forward and bending over. Short Term Goal (STG) Re-education in proper methods for transfer with coordination of breathing with functional activities. 01/10/23: Pt I/S to perform core pressure management as educated in pre-. 03/07/23: Reviewed and Educ transfer with coordination of breathing with functional activities STG Duration 1 wks-01/18/24 (03/07/23: MET GOAL) Prison Goal (LTG) Strengthen the PF with pt able to lean or bend forward without urinary leakage. 01/17/23: Kegel strengthening with ball squeeze and hip IR. 03/17/23: I/S pt in Clamshell /PF/TA ex sidelie and w/TB in supine. 03/20/23: Does not notice urinary leaking. LTG Duration 12 wks-04/05/23 (03/20/23: MET GOAL) Assessment Summary Assessment Pt with urinary urge incontinence symptoms due to PF and surrounding tissue ( hips, abdomen) tightness and PF pain at 3-11 of PF clock. Pt able to identify with self palp of DR mostly closed, acceptable 1-1.5 fingerwidth shallow separation. Neck and upper back pain is hindering her tolerance to relax PF and exercise stretch; therefore neck/upper back treatment necessary to pregress PF. + response to STM in neck/upper back and hip AD's. Pt is feeling PF stronger, indicating improved awareness of PF contraction with Vemg training. Good tolerance to added resistance with hip IR during Kegel. Tight/tender at R hip AD. Ms tight R cervical and L upper thoracic region, relaxed after STM with improved tolerance to neck mobilization. Pt is slowly improving as expected. L heel pain appears resolved with HEP stretch. Physical Therapy Plan Frequency and Duration Frequency of Treatment 2x/Week Duration of treatment (weeks) 10 Plan of Care Start Date 03/20/23 Plan of Care End Date 05/30/23 Next Visit Focus/Plan Next Note Type Treatment Note Next Visit Plan NOTE: LATEX ALLERGY. NEXT: Review deep breathing for relaxation & with transfers, review vulvar care . CONT: Improve hip rot strength and active ROM (hip stretches ER>L, yoel IR), f/b Vemg stim to PF w/strengthening and Vemg biofeedback for PF contraction strengthening (PF L >R sided & posterior PF) with substitute ms (add more posterior PF strengthening on wedge), & relaxation after Kegel w/breath. Stretching ( manual & exercise) hip AD's. Manual: Abdominal STM uterus/ bladder/urachus). PF relaxation with PF strengthening of long holds > Quick contractions. As needed: Sacral balancing, & L L5-S1 manual trunk stretching to reduce facet pain. Assess progress towards STG 2- 3: Kegel in isolation of substitute ms with relaxation after contraction & PF relaxation after strengthening . Check doming with core ex and progress TA and rotational strengthening when able. ? HEP (once Kegel strength improved): LE roll in/outs for PF/core/hip strengthening. Monitor: R hip IR and hip flexors for tightness.
--- NOTE | 2023-04-28 15:50 | PT.OTN ---
Current Diagnoses Stress incontinence (female) (male) (04/28/23) Other specified related conditions, unspecified trimester (04/28/23) Pelvic and perineal pain (04/28/23) Physical Therapy Treatment Note PT-OP-A Visit Information Start: 12/31/22 08:15 Freq: Status: Active Protocol: Document 04/28/23 09:18 LRN (Rec: 04/28/23 10:35 LRN [id number]) Out-Patient Physical Therapy Visit Information Visit Information Visit Type Treatment Note Visit Note 8 after PN Visit Start Time 09:18 Visit Stop Time 10:10 Visit Number Evaluation Information Evaluation Date 01/10/23 Precautions Precautions LATEX ALLERGY, Estrogen ring in place, Post- depression, neck pain from nursing. L heel has been numb. PT-OP-B Current Condition Start: 12/31/22 08:15 Freq: Status: Active Protocol: Document 01/10/23 08:53 LRN (Rec: 01/10/23 14:03 LRN [id number]) Current Condition History of Current Condition Onset Date 6 wks ago Current Complaints Post- bladder prolapse. History of Current Condition Pt is 6 wks post . She had a vaginal of daughter that was fast (2 pushes), following return from bathroom. No IV or epidural. Pt reports labor was 2hr, 45 minutes. 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 She denies vaginal tearing or pelvic pain, but has a little low back pain. She has been given an estrogen ring last week to help plump her tissues . She is experiencing urinary leakage with leaning forward and has a feeling of an air bubble in her urethra after going to bathroom and performs a deep squat to get it out and is accompanied by urinary leakage. She states this occured with her first . Prior Treatments and Tests Pre- PT for pelvic pain. Developmental History Developmental History Pt is G2, P2, both vaginal births. Treatment Goals Patient/Caregiver Goals Pt goal is: Eliminate feeling of bladder falling out and decreased prolapse. Eliminate urinary leaking. Gain feeling of more control over bowel movements. Personal Factors Other Personal Factors That May Effect Post- depression, Therapy/Recovery estrogen ring in place. PT-OP-C Subjective Start: 12/31/22 08:15 Freq: Status: Active Protocol: Document 04/28/23 09:18 LRN (Rec: 04/28/23 10:35 LRN [id number]) OP-PT Subjective Patient Comments Patient Comments States she is worse, feels the drop all the time. PT-OP-I Pelvic Floor Start: 12/31/22 08:15 Freq: Status: Active Protocol: Document 03/17/23 07:29 LRN (Rec: 03/17/23 08:19 LRN [id number]) Pelvic Floor Assessment SEMG (uV) Baseline 2.3 Quick Contraction 5.6 10 Second Contraction 5.9 Recruitment Pattern Good Relaxation Fair Holding Good Stability of Hold Good SEMG Stability of Rest Fair Comments Pelvic Floor Comments Quick Flicks: 10 reps strength (uV's): 5.6 avg work, 5.5 avg rest. 20 reps strength (uV's): 5.9 avg work, 5.0 avg rest . Long Holds: 10 reps strength (uV's): 5.9 avg work, 2.9 avg rest . 20 reps strength (uV's): 5.9 avg work, 2.6avg rest . Fair relaxation taking 3-5 secs to relax. PT-OP-J Posture/Palpation/Skin Start: 12/31/22 08:15 Freq: Status: Active Protocol: Document 01/10/23 08:53 LRN (Rec: 01/10/23 14:03 LRN [id number]) Posture Evaluation Position Standing Head/C-Spine Posture Forward Head T-Spine Posture Increased Kyphosis L-Spine Posture Increased Lordosis Shoulder Posture (L) Forward,(R) Forward Scapula Posture (R) Rotated Down,(R) Depressed Pelvis Posture (L) PSIS Posterior Weight Distribution Balanced Knee Posture (L) Genu Valgus,(R) Genu Valgus Comments Posture Comments Dowagers Hump, sacrum L rotated. PT-OP-K Range of Motion Start: 12/31/22 08:15 Freq: Status: Active Protocol: Document 04/18/23 09:06 LRN (Rec: 04/18/23 09:49 LRN [id number]) Hip Goniometric Range of Motion Hip Right Passive Testing Position Supine Internal Rotation 40 External Rotation 55 Left Passive Testing Position Supine Internal Rotation 30 External Rotation 45 PT-OP-M Strength Start: 12/31/22 08:15 Freq: Status: Active Protocol: Document 04/18/23 09:06 LRN (Rec: 04/18/23 09:49 LRN [id number]) Hip Strength Hip Manual Muscle Testing Right External Rotation 4+ Good+ Internal Rotation 4+ Good+ Left External Rotation 4+ Good+ Internal Rotation 4+ Good+ PT-OP-Q Treatments Start: 12/31/22 08:15 Freq: Status: Active Protocol: Document 04/28/23 09:18 LRN (Rec: 04/28/23 10:35 LRN [id number]) Manual Therapy Treatment Soft Tissue Mobilization Neck/Upper back Body Location Neck Mobilization Type Sustained Pressure Body Position Supine Comments Neck traction in neutral with immediate resolution of numbness in hands. PF Body Location L side of PF (anter, lateral, posterolateral) > R side Mobilization Type Sustained Pressure,Trigger Point Release Intensity/Depth Superficial Body Position Supine Trunk rotators Body Location R lateral trunk Mobilization Type Myofascial Release Intensity/Depth Moderate Body Position Supine Neuro Re-Education Treatment Other Activities Vemg for ms relaxation Details Attempted to do Vemg biofeedback for PF relaxation. Reps/Duration 3' Comments Not able to get computer program to work. Vemg stim Details Vemg PF stim for Ms relaxation . Reps/Duration 5' x 2 (extra time needed for set up to restart Vemg stim) Comments SUPINE x 5' extra time for 2 set ups (100 pps. Intensity 13). PT-OP-T Assessment and Plan Start: 12/31/22 08:15 Freq: Status: Active Protocol: Document 04/28/23 09:18 LRN (Rec: 04/28/23 10:35 LRN [id number]) Physical Therapy Assessment Goals 4 Impairment Posterior PF weakness Workers Compensation Administrator Goal (LTG) Reduce Feeling of BM urgency. LTG Duration 10 wks-05/30/23 1 Impairment Pt not on a self care post- HEP Short Term Goal (STG) Pt will be re-educated in deep breathing for relaxation and mindfulness, bowel care/bowel massage, Kegel ex for Aggrevators (lean fwd and stand up). 02/21/23: Deep breathing review. 03/14/23: Reviewed need for bowel care/bowel massage (not needed, BM's regular and loose ) and Kegels with aggrevator ( uinating more only with bending fwd and then straightening up after voiding ). STG Duration 3 wks-01/31/23 (03/14/23: MET GOAL) Workers Compensation Administrator Goal (LTG) Pt will be independent in a self care HEP of PF/core/hip/ LB/neck ex's. 01/17/23: Kegel strengthening with ball squeeze and hip IR. 02/21/23: HEP: DB/Kegel/ later to add LE roll in/out. 03/14/23: I/S pt in Kegel w/ hooklie roll in/out with TB/ Band, 1 rep Kegel/1 rep without Kegel. 03/17/23: I/S pt in Clamshell /PF/TA ex sidelie and w/TB in supine. 04/25/23: Pt able to identify with self palp DR correctly. LTG Duration 10 wks more-05/30/23 progressed 04/25/23 3 Impairment Cystocele stage 2 Impairment Pt has feeling of prolapse Short Term Goal (STG) Pt will be educated in Kegel ex in isolation of substitute muscles. 02/21/23: Kegel in isolation with Estim. STG Duration 4 wks more-04/17/23 progressed 02/21/23 Workers Compensation Administrator Goal (LTG) Eliminate the sensation of prolapse and be able to control sensation with PF ex and core pressure management. 03/17/23: Pt reported MD placement of pessary with feeling of falling out present ; therefore dx with urethracele. 10/18/13: Slightly better, feels it every time moves. 25 % bettter. LTG Duration 10 wks more-05/30/23 progressing 03/20/23 2 Impairment Stress incontinence. Impairment PF weakness with urinary leakage when leaning forward and bending over. Short Term Goal (STG) Re-education in proper methods for transfer with coordination of breathing with functional activities. 01/10/23: Pt I/S to perform core pressure management as educated in pre-. 03/07/23: Reviewed and Educ transfer with coordination of breathing with functional activities STG Duration 1 wks-01/18/24 (03/07/23: MET GOAL) Alf Goal (LTG) Strengthen the PF with pt able to lean or bend forward without urinary leakage. 01/17/23: Kegel strengthening with ball squeeze and hip IR. 03/17/23: I/S pt in Clamshell /PF/TA ex sidelie and w/TB in supine. 03/20/23: Does not notice urinary leaking. LTG Duration 12 wks-04/05/23 (03/20/23: MET GOAL) Assessment Summary Assessment Pt with urinary urge incontinence symptoms due to PF and surrounding tissue ( hips, abdomen) tightness and PF pain today 2-6 and 9 of PF clock. Pt required manual c. tx to neck to tolerate supine lying due to arms reportedly going numb. Pt was extemely tender and may need to do self trigger point treatment to reduce pain with palpation or return to MD for assessment. PF tight on L side 2-5 of PF Clock. Physical Therapy Plan Frequency and Duration Frequency of Treatment 2x/Week Duration of treatment (weeks) 10 Plan of Care Start Date 03/20/23 Plan of Care End Date 05/30/23 Next Visit Focus/Plan Next Note Type Treatment Note Next Visit Plan NOTE: LATEX ALLERGY. NEXT: Review deep breathing for relaxation & with transfers, review vulvar care . CONT: active ROM (hip stretches ER>L, leonel IR), f/b Vemg stim to PF w/ strengthening and Vemg biofeedback for PF contraction strengthening (PF L >R sided & posterior PF) with substitute ms (add more posterior PF strengthening on wedge), & relaxation after Kegel w/breath. Stretching ( manual & exercise) hip AD's. Manual: Abdominal STM uterus/ bladder/urachus). PF relaxation with PF strengthening of long holds > Quick contractions. As needed: Sacral balancing, & L L5-S1 manual trunk stretching to reduce facet pain. Assess progress towards STG 2- 3: Kegel in isolation of substitute ms with relaxation after contraction & PF relaxation after strengthening . Check doming with core ex and progress TA and rotational strengthening when able. ? HEP (once Kegel strength improved): LE roll in/outs for PF/core/hip strengthening. Monitor: R hip IR and hip flexors for tightness.
--- NOTE | 2023-05-02 16:40 | PT.OTN ---
Current Diagnoses Stress incontinence (female) (male) (05/02/23) Other specified related conditions, unspecified trimester (05/02/23) Pelvic and perineal pain (05/02/23) Physical Therapy Treatment Note PT-OP-A Visit Information Start: 12/31/22 08:15 Freq: Status: Active Protocol: Document 05/02/23 09:06 LRN (Rec: 05/02/23 09:50 LRN [id number]) Out-Patient Physical Therapy Visit Information Visit Information Visit Type Treatment Note Visit Note 9 after PN Visit Start Time 09:07 Visit Stop Time 09:46 Visit Number Evaluation Information Evaluation Date 01/10/23 Precautions Precautions LATEX ALLERGY, Estrogen ring in place, Post- depression, neck pain from nursing. L heel has been numb. PT-OP-B Current Condition Start: 12/31/22 08:15 Freq: Status: Active Protocol: Document 01/10/23 08:53 LRN (Rec: 01/10/23 14:03 LRN [id number]) Current Condition History of Current Condition Onset Date 6 wks ago Current Complaints Post- bladder prolapse. History of Current Condition Pt is 6 wks post . She had a vaginal of daughter that was fast (2 pushes), following return from bathroom. No IV or epidural. Pt reports labor was 2hr, 45 minutes. 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 She denies vaginal tearing or pelvic pain, but has a little low back pain. She has been given an estrogen ring last week to help plump her tissues . She is experiencing urinary leakage with leaning forward and has a feeling of an air bubble in her urethra after going to bathroom and performs a deep squat to get it out and is accompanied by urinary leakage. She states this occured with her first . Prior Treatments and Tests Pre- PT for pelvic pain. Developmental History Developmental History Pt is G2, P2, both vaginal births. Treatment Goals Patient/Caregiver Goals Pt goal is: Eliminate feeling of bladder falling out and decreased prolapse. Eliminate urinary leaking. Gain feeling of more control over bowel movements. Personal Factors Other Personal Factors That May Effect Post- depression, Therapy/Recovery estrogen ring in place. PT-OP-C Subjective Start: 12/31/22 08:15 Freq: Status: Active Protocol: Document 05/02/23 09:06 LRN (Rec: 05/02/23 09:50 LRN [id number]) OP-PT Subjective Patient Comments Patient Comments MD Visit to go over CT scan today. PT-OP-I Pelvic Floor Start: 12/31/22 08:15 Freq: Status: Active Protocol: Document 03/17/23 07:29 LRN (Rec: 03/17/23 08:19 LRN [id number]) Pelvic Floor Assessment SEMG (uV) Baseline 2.3 Quick Contraction 5.6 10 Second Contraction 5.9 Recruitment Pattern Good Relaxation Fair Holding Good Stability of Hold Good SEMG Stability of Rest Fair Comments Pelvic Floor Comments Quick Flicks: 10 reps strength (uV's): 5.6 avg work, 5.5 avg rest. 20 reps strength (uV's): 5.9 avg work, 5.0 avg rest . Long Holds: 10 reps strength (uV's): 5.9 avg work, 2.9 avg rest . 20 reps strength (uV's): 5.9 avg work, 2.6avg rest . Fair relaxation taking 3-5 secs to relax. PT-OP-J Posture/Palpation/Skin Start: 12/31/22 08:15 Freq: Status: Active Protocol: Document 01/10/23 08:53 LRN (Rec: 01/10/23 14:03 LRN [id number]) Posture Evaluation Position Standing Head/C-Spine Posture Forward Head T-Spine Posture Increased Kyphosis L-Spine Posture Increased Lordosis Shoulder Posture (L) Forward,(R) Forward Scapula Posture (R) Rotated Down,(R) Depressed Pelvis Posture (L) PSIS Posterior Weight Distribution Balanced Knee Posture (L) Genu Valgus,(R) Genu Valgus Comments Posture Comments Dowagers Hump, sacrum L rotated. PT-OP-K Range of Motion Start: 12/31/22 08:15 Freq: Status: Active Protocol: Document 04/18/23 09:06 LRN (Rec: 04/18/23 09:49 LRN [id number]) Hip Goniometric Range of Motion Hip Right Passive Testing Position Supine Internal Rotation 40 External Rotation 55 Left Passive Testing Position Supine Internal Rotation 30 External Rotation 45 PT-OP-M Strength Start: 12/31/22 08:15 Freq: Status: Active Protocol: Document 04/18/23 09:06 LRN (Rec: 04/18/23 09:49 LRN [id number]) Hip Strength Hip Manual Muscle Testing Right External Rotation 4+ Good+ Internal Rotation 4+ Good+ Left External Rotation 4+ Good+ Internal Rotation 4+ Good+ PT-OP-Q Treatments Start: 12/31/22 08:15 Freq: Status: Active Protocol: Document 05/02/23 09:06 LRN (Rec: 05/02/23 09:50 LRN [id number]) Therapeutic Exercises Supine Exercises Hip ER stretch Supine Exercise Name Assiste Passive hip ER stretch Side bilateral Reps/Minutes Long hold stretch 1' x 2 Kegels/hip AD-AB/bridge Supine Exercise Name Kegels mostly hip AD, also hip AB & w/bridge. Resistance Ex mostly on R side Reps/Minutes 4' Piriformis stretch Supine Exercise Name Assisted Piriformis stretch with MFR. Side bilateral Reps/Minutes 6' Kegel/wedge/TB/Ball Supine Exercise Name Kegel/wedge/LE roll in-out/TB/ Sm Ball Reps/Minutes Kegel 10SH-10 rest, 10 x 2 Comments Cuing and extra time to coordinate cont/relax. Hamstring/LE neural glide Supine Exercise Name Hamstring stretch with occasional ankle pumps Side bilateral Reps/Minutes 5' Manual Therapy Treatment Soft Tissue Mobilization OI stretch Body Location OI stretch external & internal release. Mobilization Type Strumming,Sustained Pressure Intensity/Depth Super>mod Body Position Supine Bladder lift over pub shelf Body Location STM to lift bladder onto shelf . Mobilization Type Other Body Position Standing Trunk rotators Body Location lateral trunk Mobilization Type Myofascial Release Intensity/Depth Moderate Body Position Supine PT-OP-T Assessment and Plan Start: 12/31/22 08:15 Freq: Status: Active Protocol: Document 05/02/23 09:06 LRN (Rec: 05/02/23 09:50 LRN [id number]) Physical Therapy Assessment Goals 4 Impairment Posterior PF weakness Halfway Goal (LTG) Reduce Feeling of BM urgency. LTG Duration 10 wks-05/30/23 1 Impairment Pt not on a self care post- HEP Short Term Goal (STG) Pt will be re-educated in deep breathing for relaxation and mindfulness, bowel care/bowel massage, Kegel ex for Aggrevators (lean fwd and stand up). 02/21/23: Deep breathing review. 03/14/23: Reviewed need for bowel care/bowel massage (not needed, BM's regular and loose ) and Kegels with aggrevator ( uinating more only with bending fwd and then straightening up after voiding ). STG Duration 3 wks-01/31/23 (03/14/23: MET GOAL) Solar Energy Advisor Goal (LTG) Pt will be independent in a self care HEP of PF/core/hip/ LB/neck ex's. 01/17/23: Kegel strengthening with ball squeeze and hip IR. 02/21/23: HEP: DB/Kegel/ later to add LE roll in/out. 03/14/23: I/S pt in Kegel w/ hooklie roll in/out with TB/ Band, 1 rep Kegel/1 rep without Kegel. 03/17/23: I/S pt in Clamshell /PF/TA ex sidelie and w/TB in supine. 04/25/23: Pt able to identify with self palp DR correctly. LTG Duration 10 wks more-05/30/23 progressed 04/25/23 3 Impairment Cystocele stage 2 Impairment Pt has feeling of prolapse Short Term Goal (STG) Pt will be educated in Kegel ex in isolation of substitute muscles. 02/21/23: Kegel in isolation with Estim. STG Duration 4 wks more-04/17/23 progressed 02/21/23 Solar Energy Advisor Goal (LTG) Eliminate the sensation of prolapse and be able to control sensation with PF ex and core pressure management. 03/17/23: Pt reported MD placement of pessary with feeling of falling out present ; therefore dx with urethracele. 10/18/13: Slightly better, feels it every time moves. 25 % bettter. LTG Duration 10 wks more-05/30/23 progressing 03/20/23 2 Impairment Stress incontinence. Impairment PF weakness with urinary leakage when leaning forward and bending over. Short Term Goal (STG) Re-education in proper methods for transfer with coordination of breathing with functional activities. 01/10/23: Pt I/S to perform core pressure management as educated in pre-. 03/07/23: Reviewed and Educ transfer with coordination of breathing with functional activities STG Duration 1 wks-01/18/24 (03/07/23: MET GOAL) Solar Energy Advisor Goal (LTG) Strengthen the PF with pt able to lean or bend forward without urinary leakage. 01/17/23: Kegel strengthening with ball squeeze and hip IR. 03/17/23: I/S pt in Clamshell /PF/TA ex sidelie and w/TB in supine. 03/20/23: Does not notice urinary leaking. LTG Duration 12 wks-04/05/23 (03/20/23: MET GOAL) Assessment Summary Assessment No significant change in symptoms. Pt drop of urethrocele is reportedly worsening. Urinary leakage constant in small amounts. Low tolerance to holding bowels. Less tightness in OI (internal palp) with less tenderness after external stretching. Pt PF L side (3-6 appears to be possibly swollen compared to R side ( more mushy). PF contractions felt, but not in superficial ms. LBP and involvement might be hindering her progress. Physical Therapy Plan Frequency and Duration Frequency of Treatment 2x/Week Duration of treatment (weeks) 10 Plan of Care Start Date 03/20/23 Plan of Care End Date 05/30/23 Next Visit Focus/Plan Next Note Type Progress Note Next Visit Plan Reassess for PN. NOTE: LATEX ALLERGY. NEXT: Review deep breathing for relaxation & with transfers, review vulvar care . Check Neck/ABdomen STM and strengthen posterior PF R>L. CONT: active ROM (hip stretches ER>L, leonel IR), f/b Vemg stim to PF w/ strengthening and Vemg biofeedback for PF contraction strengthening (PF L >R sided & posterior PF) with substitute ms (add more posterior PF strengthening on wedge), & relaxation after Kegel w/breath. Stretching ( manual & exercise) hip AD's. Manual: ?Abdominal STM uterus /bladder/urachus). PF relaxation with PF strengthening of long holds > Quick contractions. As needed: Sacral balancing, & L L5-S1 manual trunk stretching to reduce facet pain. Assess progress towards STG 2- 3: Kegel in isolation of substitute ms with relaxation after contraction & PF relaxation after strengthening . Check doming with core ex and progress TA and rotational strengthening when able. ? HEP (once Kegel strength improved): LE roll in/outs for PF/core/hip strengthening. Monitor: R hip IR and hip flexors for tightness.
--- NOTE | 2023-05-09 16:50 | PT.OTN ---
Current Diagnoses Stress incontinence (female) (male) (05/09/23) Other specified related conditions, unspecified trimester (05/09/23) Pelvic and perineal pain (05/09/23) Physical Therapy Treatment Note PT-OP-A Visit Information Start: 12/31/22 08:15 Freq: Status: Active Protocol: Document 05/09/23 09:08 LRN (Rec: 05/09/23 09:52 LRN [id number]) Out-Patient Physical Therapy Visit Information Visit Information Visit Type Progress Note Visit Note [address] scan shows nothing wrong with PF, thickening of bladder wall. Visit Start Time 09:08 Visit Stop Time 09:52 Visit Number Evaluation Information Evaluation Date 01/10/23 Precautions Precautions LATEX ALLERGY, Estrogen ring in place, Post- depression, neck pain from nursing. L heel has been numb. PT-OP-B Current Condition Start: 12/31/22 08:15 Freq: Status: Active Protocol: Document 01/10/23 08:53 LRN (Rec: 01/10/23 14:03 LRN [id number]) Current Condition History of Current Condition Onset Date 6 wks ago Current Complaints Post- bladder prolapse. History of Current Condition Pt is 6 wks post . She had a vaginal of daughter that was fast (2 pushes), following return from bathroom. No IV or epidural. Pt reports labor was 2hr, 45 minutes. 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 She denies vaginal tearing or pelvic pain, but has a little low back pain. She has been given an estrogen ring last week to help plump her tissues . She is experiencing urinary leakage with leaning forward and has a feeling of an air bubble in her urethra after going to bathroom and performs a deep squat to get it out and is accompanied by urinary leakage. She states this occured with her first . Prior Treatments and Tests Pre- PT for pelvic pain. Developmental History Developmental History Pt is G2, P2, both vaginal births. Treatment Goals Patient/Caregiver Goals Pt goal is: Eliminate feeling of bladder falling out and decreased prolapse. Eliminate urinary leaking. Gain feeling of more control over bowel movements. Personal Factors Other Personal Factors That May Effect Post- depression, Therapy/Recovery estrogen ring in place. PT-OP-C Subjective Start: 12/31/22 08:15 Freq: Status: Active Protocol: Document 05/09/23 09:08 LRN (Rec: 05/09/23 09:52 LRN [id number]) OP-PT Subjective Patient Comments Patient Comments States recommendation to Urologist due to thickened bladder wall to see if there is inflammation. Still feels like she is leaking constantly . No change with last treatment. PT-OP-I Pelvic Floor Start: 12/31/22 08:15 Freq: Status: Active Protocol: Document 05/09/23 09:08 LRN (Rec: 05/09/23 09:52 LRN [id number]) Pelvic Floor Assessment SEMG (uV) Baseline 2.5 Quick Contraction 6.1 10 Second Contraction 6.1 Recruitment Pattern Good Relaxation Fair Holding Good Stability of Hold Good SEMG Stability of Rest Fair Comments Pelvic Floor Comments Quick Flicks: 10 reps strength (uV's): 6.1 avg work, 4.6 avg rest. 20 reps strength (uV's): 5.8 avg work, 3.5 avg rest . Long Holds: 10 reps strength (uV's): 6.1 avg work, 2.9 avg rest . 20 reps strength (uV's): 5.9 avg work, 1.9 avg rest . PT-OP-J Posture/Palpation/Skin Start: 12/31/22 08:15 Freq: Status: Active Protocol: Document 01/10/23 08:53 LRN (Rec: 01/10/23 14:03 LRN [id number]) Posture Evaluation Position Standing Head/C-Spine Posture Forward Head T-Spine Posture Increased Kyphosis L-Spine Posture Increased Lordosis Shoulder Posture (L) Forward,(R) Forward Scapula Posture (R) Rotated Down,(R) Depressed Pelvis Posture (L) PSIS Posterior Weight Distribution Balanced Knee Posture (L) Genu Valgus,(R) Genu Valgus Comments Posture Comments Dowagers Hump, sacrum L rotated. PT-OP-K Range of Motion Start: 12/31/22 08:15 Freq: Status: Active Protocol: Document 04/18/23 09:06 LRN (Rec: 04/18/23 09:49 LRN [id number]) Hip Goniometric Range of Motion Hip Right Passive Testing Position Supine Internal Rotation 40 External Rotation 55 Left Passive Testing Position Supine Internal Rotation 30 External Rotation 45 PT-OP-M Strength Start: 12/31/22 08:15 Freq: Status: Active Protocol: Document 04/18/23 09:06 LRN (Rec: 04/18/23 09:49 LRN [id number]) Hip Strength Hip Manual Muscle Testing Right External Rotation 4+ Good+ Internal Rotation 4+ Good+ Left External Rotation 4+ Good+ Internal Rotation 4+ Good+ PT-OP-Q Treatments Start: 12/31/22 08:15 Freq: Status: Active Protocol: Document 05/09/23 09:08 LRN (Rec: 05/09/23 16:17 LRN [id number]) Neuro Re-Education Treatment Other Activities Vemg for Kegel>relax Details Vemg for Kegel Quick & Long holds for holding Kegel > relax to baseline Reps/Duration 20' Comments Improved ability to hold long contraction and with cuing to quickly relax PF to baseline. At end pt was able achieve baseline or lower relaxation, but may have been due to fatgue. Self-Care/Home Management Treatment Education Other Education For first 20' of session discussed results of pt's CT scan and findings and subsequently pt goals and POC. Decided to assess pt's progress to goals at next visit and further discuss continuation or discharge from therapy. PT-OP-T Assessment and Plan Start: 12/31/22 08:15 Freq: Status: Active Protocol: Document 05/09/23 09:08 LRN (Rec: 05/09/23 09:52 LRN [id number]) Physical Therapy Assessment Rehab Potential Rehabilitation Potential Good Evaluation Complexity Number of Personal Factors/Comorbidities 1-2 Number of Body Systems Impaired 1-2 Clinical Presentation at Evaluation Evolving Impairments Impairments Activity Tolerance,Pain, Posture,ROM,Soft Tissue Mobility,Strength Other Impairments Urinary leakage Cytocele Goals 4 Impairment Posterior PF weakness [facility] Goal (LTG) Reduce Feeling of BM urgency. 05/09/23: No change. LTG Duration 10 wks-05/30/23 (05/09/23: No change.) 1 Impairment Pt not on a self care post- HEP Short Term Goal (STG) Pt will be re-educated in deep breathing for relaxation and mindfulness, bowel care/bowel massage, Kegel ex for Aggrevators (lean fwd and stand up). 02/21/23: Deep breathing review. 03/14/23: Reviewed need for bowel care/bowel massage (not needed, BM's regular and loose ) and Kegels with aggrevator ( uinating more only with bending fwd and then straightening up after voiding ). STG Duration 3 wks-01/31/23 (03/14/23: MET GOAL) [employer] Goal (LTG) Pt will be independent in a self care HEP of PF/core/hip/ LB/neck ex's. 01/17/23: Kegel strengthening with ball squeeze and hip IR. 02/21/23: HEP: DB/Kegel/ later to add LE roll in/out. 03/14/23: I/S pt in Kegel w/ hooklie roll in/out with TB/ Band, 1 rep Kegel/1 rep without Kegel. 03/17/23: I/S pt in Clamshell /PF/TA ex sidelie and w/TB in supine. 04/25/23: Pt able to identify with self palp DR correctly. LTG Duration 10 wks more-05/30/23 progressed 04/25/23 3 Impairment Cystocele stage 2 Impairment Pt has feeling of prolapse Short Term Goal (STG) Pt will be educated in Kegel ex in isolation of substitute muscles. 02/21/23: Kegel in isolation with Estim. STG Duration 4 wks more-04/17/23 progressed 02/21/23 [employer] Goal (LTG) Eliminate the sensation of prolapse and be able to control sensation with PF ex and core pressure management. 03/17/23: Pt reported MD placement of pessary with feeling of falling out present ; therefore dx with urethracele. 10/18/13: Slightly better, feels it every time moves. 25 % bettter. LTG Duration 10 wks more-05/30/23 progressing 03/20/23 2 Impairment Stress incontinence. Impairment PF weakness with urinary leakage when leaning forward and bending over. Short Term Goal (STG) Re-education in proper methods for transfer with coordination of breathing with functional activities. 01/10/23: Pt I/S to perform core pressure management as educated in pre-. 03/07/23: Reviewed and Educ transfer with coordination of breathing with functional activities STG Duration 1 wks-01/18/24 (03/07/23: MET GOAL) [facility] Goal (LTG) Strengthen the PF with pt able to lean or bend forward without urinary leakage. 01/17/23: Kegel strengthening with ball squeeze and hip IR. 03/17/23: I/S pt in Clamshell /PF/TA ex sidelie and w/TB in supine. 03/20/23: Does not notice urinary leaking. LTG Duration 12 wks-04/05/23 (03/20/23: MET GOAL) Assessment Summary Assessment Pt is a 37 yo female who initially presented with cystocele that was not extending past her hymen ( stage 2). She had weakness with tightness of her PF, tenderness of PF and vaginal gapping. She now reports urinary leakage without an urge, urgency when need to defecate if felt. She has PF and surrounding tissue (hips, abdomen) tightness and ongoing PF pain with internal palpation. Pt has symptoms of Obturator nerve pain in R middle thigh. Due to her increasing complaints of worsening urinary leakage assessment for possible caudia equina syndrome would be appropriate. Since her last appt she reports no significant change in symptoms . She is really most focused on the feeling of her urethra movement that she feels is gross. The pt is stressed at the thought of being released from therapy with her symptoms still present. The pt might benefit from further skilled physical therapy, but if she shows no further improvement in 2-4 more visits , then discharge to a home program with possible returnat a later time might be helpful to let pt decrease some of her focus on the PF. Physical Therapy Plan Frequency and Duration Frequency of Treatment 2x/Week Duration of treatment (weeks) 8 Plan of Care Start Date 05/09/23 Plan of Care End Date 07/04/23 Therapeutic Interventions Therapeutic Interventions Home Exercise Program,Joint Mobilizations,Manual Therapy, Neuromuscular Re-education, Self-Care/Home Management,Soft Tissue Mobilization, Therapeutic Activities, Therapeutic Exercises Modalities Biofeedback,Cold Pack/Ice Massage,Electric Stimulation, Hot Packs Other Referrals/Consults Referrals/Consults Recommended Consideration for testing of possible Caudia Equina Syndrome. Next Visit Focus/Plan Next Note Type Treatment Note Next Visit Plan NOTE: LATEX ALLERGY. NEXT: Review deep breathing for relaxation & with transfers, review vulvar care . Check for vaginal gapping; Neck/ABdomen STM and strengthen posterior PF R>L. Vemg stim for strengthening PF . CONT: active ROM (hip stretches ER>L, leonel IR), f/b Vemg stim to PF w/ strengthening and Vemg biofeedback for PF contraction strengthening (PF L >R sided & posterior PF) with substitute ms (add more posterior PF strengthening on wedge), & relaxation after Kegel w/breath. Stretching ( manual & exercise) hip AD's. Manual: ?Abdominal STM uterus /bladder/urachus). PF relaxation with PF strengthening of long holds > Quick contractions. As needed: Sacral balancing, & L L5-S1 manual trunk stretching to reduce facet pain. Assess progress towards STG 2- 3: Kegel in isolation of substitute ms with relaxation after contraction & PF relaxation after strengthening . Check doming with core ex and progress TA and rotational strengthening when able. ? HEP (once Kegel strength improved): LE roll in/outs for PF/core/hip strengthening. Monitor: R hip IR and hip flexors for tightness.
--- NOTE | 2023-05-09 16:52 | PT.OTN ---
Current Diagnoses Stress incontinence (female) (male) (05/09/23) Other specified related conditions, unspecified trimester (05/09/23) Pelvic and perineal pain (05/09/23) Physical Therapy Treatment Note PT-OP-A Visit Information Start: 12/31/22 08:15 Freq: Status: Active Protocol: Document 05/09/23 09:08 LRN (Rec: 05/09/23 09:52 LRN [id number]) Out-Patient Physical Therapy Visit Information Visit Information Visit Type Progress Note Visit Note [address] scan shows nothing wrong with PF, thickening of bladder wall. Visit Start Time 09:08 Visit Stop Time 09:52 Visit Number Evaluation Information Evaluation Date 01/10/23 Precautions Precautions LATEX ALLERGY, Estrogen ring in place, Post- depression, neck pain from nursing. L heel has been numb. PT-OP-B Current Condition Start: 12/31/22 08:15 Freq: Status: Active Protocol: Document 01/10/23 08:53 LRN (Rec: 01/10/23 14:03 LRN [id number]) Current Condition History of Current Condition Onset Date 6 wks ago Current Complaints Post- bladder prolapse. History of Current Condition Pt is 6 wks post . She had a vaginal of daughter that was fast (2 pushes), following return from bathroom. No IV or epidural. Pt reports labor was 2hr, 45 minutes. 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 She denies vaginal tearing or pelvic pain, but has a little low back pain. She has been given an estrogen ring last week to help plump her tissues . She is experiencing urinary leakage with leaning forward and has a feeling of an air bubble in her urethra after going to bathroom and performs a deep squat to get it out and is accompanied by urinary leakage. She states this occured with her first . Prior Treatments and Tests Pre- PT for pelvic pain. Developmental History Developmental History Pt is G2, P2, both vaginal births. Treatment Goals Patient/Caregiver Goals Pt goal is: Eliminate feeling of bladder falling out and decreased prolapse. Eliminate urinary leaking. Gain feeling of more control over bowel movements. Personal Factors Other Personal Factors That May Effect Post- depression, Therapy/Recovery estrogen ring in place. PT-OP-C Subjective Start: 12/31/22 08:15 Freq: Status: Active Protocol: Document 05/09/23 09:08 LRN (Rec: 05/09/23 09:52 LRN [id number]) OP-PT Subjective Patient Comments Patient Comments States recommendation to Urologist due to thickened bladder wall to see if there is inflammation. Still feels like she is leaking constantly . No change with last treatment. PT-OP-I Pelvic Floor Start: 12/31/22 08:15 Freq: Status: Active Protocol: Document 05/09/23 09:08 LRN (Rec: 05/09/23 09:52 LRN [id number]) Pelvic Floor Assessment SEMG (uV) Baseline 2.5 Quick Contraction 6.1 10 Second Contraction 6.1 Recruitment Pattern Good Relaxation Fair Holding Good Stability of Hold Good SEMG Stability of Rest Fair Comments Pelvic Floor Comments Quick Flicks: 10 reps strength (uV's): 6.1 avg work, 4.6 avg rest. 20 reps strength (uV's): 5.8 avg work, 3.5 avg rest . Long Holds: 10 reps strength (uV's): 6.1 avg work, 2.9 avg rest . 20 reps strength (uV's): 5.9 avg work, 1.9 avg rest . PT-OP-J Posture/Palpation/Skin Start: 12/31/22 08:15 Freq: Status: Active Protocol: Document 01/10/23 08:53 LRN (Rec: 01/10/23 14:03 LRN [id number]) Posture Evaluation Position Standing Head/C-Spine Posture Forward Head T-Spine Posture Increased Kyphosis L-Spine Posture Increased Lordosis Shoulder Posture (L) Forward,(R) Forward Scapula Posture (R) Rotated Down,(R) Depressed Pelvis Posture (L) PSIS Posterior Weight Distribution Balanced Knee Posture (L) Genu Valgus,(R) Genu Valgus Comments Posture Comments Dowagers Hump, sacrum L rotated. PT-OP-K Range of Motion Start: 12/31/22 08:15 Freq: Status: Active Protocol: Document 04/18/23 09:06 LRN (Rec: 04/18/23 09:49 LRN [id number]) Hip Goniometric Range of Motion Hip Right Passive Testing Position Supine Internal Rotation 40 External Rotation 55 Left Passive Testing Position Supine Internal Rotation 30 External Rotation 45 PT-OP-M Strength Start: 12/31/22 08:15 Freq: Status: Active Protocol: Document 04/18/23 09:06 LRN (Rec: 04/18/23 09:49 LRN [id number]) Hip Strength Hip Manual Muscle Testing Right External Rotation 4+ Good+ Internal Rotation 4+ Good+ Left External Rotation 4+ Good+ Internal Rotation 4+ Good+ PT-OP-Q Treatments Start: 12/31/22 08:15 Freq: Status: Active Protocol: Document 05/09/23 09:08 LRN (Rec: 05/09/23 16:17 LRN [id number]) Neuro Re-Education Treatment Other Activities Vemg for Kegel>relax Details Vemg for Kegel Quick & Long holds for holding Kegel > relax to baseline Reps/Duration 20' Comments Improved ability to hold long contraction and with cuing to quickly relax PF to baseline. At end pt was able achieve baseline or lower relaxation, but may have been due to fatgue. Self-Care/Home Management Treatment Education Other Education For first 20' of session discussed results of pt's CT scan and findings and subsequently pt goals and POC. Decided to assess pt's progress to goals at next visit and further discuss continuation or discharge from therapy. PT-OP-T Assessment and Plan Start: 12/31/22 08:15 Freq: Status: Active Protocol: Document 05/09/23 09:08 LRN (Rec: 05/09/23 09:52 LRN [id number]) Physical Therapy Assessment Rehab Potential Rehabilitation Potential Good Evaluation Complexity Number of Personal Factors/Comorbidities 1-2 Number of Body Systems Impaired 1-2 Clinical Presentation at Evaluation Evolving Impairments Impairments Activity Tolerance,Pain, Posture,ROM,Soft Tissue Mobility,Strength Other Impairments Urinary leakage Cytocele Goals 4 Impairment Posterior PF weakness [facility] Goal (LTG) Reduce Feeling of BM urgency. 05/09/23: No change. LTG Duration 8 wks-07/04/23 (05/09/23: No change.) 1 Impairment Pt not on a self care post- HEP Short Term Goal (STG) Pt will be re-educated in deep breathing for relaxation and mindfulness, bowel care/bowel massage, Kegel ex for Aggrevators (lean fwd and stand up). 02/21/23: Deep breathing review. 03/14/23: Reviewed need for bowel care/bowel massage (not needed, BM's regular and loose ) and Kegels with aggrevator ( uinating more only with bending fwd and then straightening up after voiding ). STG Duration 3 wks-01/31/23 (03/14/23: MET GOAL) Health Workers Goal (LTG) Pt will be independent in a self care HEP of PF/core/hip/ LB/neck ex's. 01/17/23: Kegel strengthening with ball squeeze and hip IR. 02/21/23: HEP: DB/Kegel/ later to add LE roll in/out. 03/14/23: I/S pt in Kegel w/ hooklie roll in/out with TB/ Band, 1 rep Kegel/1 rep without Kegel. 03/17/23: I/S pt in Clamshell /PF/TA ex sidelie and w/TB in supine. 04/25/23: Pt able to identify with self palp DR correctly. LTG Duration 8 wks-07/04/23 progressed 04/25/23 3 Impairment Cystocele stage 2 Impairment Pt has feeling of prolapse Short Term Goal (STG) Pt will be educated in Kegel ex in isolation of substitute muscles. 02/21/23: Kegel in isolation with Estim. STG Duration 4 wks more-06/06/23 progressed 02/21/23 Health Workers Goal (LTG) Eliminate the sensation of prolapse and be able to control sensation with PF ex and core pressure management. 03/17/23: Pt reported MD placement of pessary with feeling of falling out present ; therefore dx with urethracele. 10/18/13: Slightly better, feels it every time moves. 25 % bettter. LTG Duration 8 wks-07/04/23 progressing 03/20/23 2 Impairment Stress incontinence. Impairment PF weakness with urinary leakage when leaning forward and bending over. Short Term Goal (STG) Re-education in proper methods for transfer with coordination of breathing with functional activities. 01/10/23: Pt I/S to perform core pressure management as educated in pre-. 03/07/23: Reviewed and Educ transfer with coordination of breathing with functional activities STG Duration 1 wks-01/18/24 (03/07/23: MET GOAL) Health Workers Goal (LTG) Strengthen the PF with pt able to lean or bend forward without urinary leakage. 01/17/23: Kegel strengthening with ball squeeze and hip IR. 03/17/23: I/S pt in Clamshell /PF/TA ex sidelie and w/TB in supine. 03/20/23: Does not notice urinary leaking. LTG Duration 12 wks-04/05/23 (03/20/23: MET GOAL) Assessment Summary Assessment Pt is a 37 yo female who initially presented with cystocele that was not extending past her hymen ( stage 2). She had weakness with tightness of her PF, tenderness of PF and vaginal gapping. She now reports urinary leakage without an urge, urgency when need to defecate if felt. She has PF and surrounding tissue (hips, abdomen) tightness and ongoing PF pain with internal palpation. Pt has symptoms of Obturator nerve pain in R middle thigh. Due to her increasing complaints of worsening urinary leakage assessment for possible caudia equina syndrome would be appropriate. Since her last appt she reports no significant change in symptoms . She is really most focused on the feeling of her urethra movement that she feels is gross. The pt is stressed at the thought of being released from therapy with her symptoms still present. The pt might benefit from further skilled physical therapy, but if she shows no further improvement in 2-4 more visits , then discharge to a home program with possible returnat a later time might be helpful to let pt decrease some of her focus on the PF. Physical Therapy Plan Frequency and Duration Frequency of Treatment 2x/Week Duration of treatment (weeks) 8 Plan of Care Start Date 05/09/23 Plan of Care End Date 07/04/23 Therapeutic Interventions Therapeutic Interventions Home Exercise Program,Joint Mobilizations,Manual Therapy, Neuromuscular Re-education, Self-Care/Home Management,Soft Tissue Mobilization, Therapeutic Activities, Therapeutic Exercises Modalities Biofeedback,Cold Pack/Ice Massage,Electric Stimulation, Hot Packs Other Referrals/Consults Referrals/Consults Recommended Consideration for testing of possible Caudia Equina Syndrome. Next Visit Focus/Plan Next Note Type Treatment Note Next Visit Plan NOTE: LATEX ALLERGY. NEXT: Review deep breathing for relaxation & with transfers, review vulvar care . Check for vaginal gapping; Neck/ABdomen STM and strengthen posterior PF R>L. Vemg stim for strengthening PF . CONT: active ROM (hip stretches ER>L, leonel IR), f/b Vemg stim to PF w/ strengthening and Vemg biofeedback for PF contraction strengthening (PF L >R sided & posterior PF) with substitute ms (add more posterior PF strengthening on wedge), & relaxation after Kegel w/breath. Stretching ( manual & exercise) hip AD's. Manual: ?Abdominal STM uterus /bladder/urachus). PF relaxation with PF strengthening of long holds > Quick contractions. As needed: Sacral balancing, & L L5-S1 manual trunk stretching to reduce facet pain. Assess progress towards STG 2- 3: Kegel in isolation of substitute ms with relaxation after contraction & PF relaxation after strengthening . Check doming with core ex and progress TA and rotational strengthening when able. ? HEP (once Kegel strength improved): LE roll in/outs for PF/core/hip strengthening. Monitor: R hip IR and hip flexors for tightness.
--- NOTE | 2023-05-12 16:45 | PT.OTN ---
Current Diagnoses Stress incontinence (female) (male) (05/12/23) Other specified related conditions, unspecified trimester (05/12/23) Pelvic and perineal pain (05/12/23) Physical Therapy Treatment Note PT-OP-A Visit Information Start: 12/31/22 08:15 Freq: Status: Active Protocol: Document 05/12/23 10:35 LRN (Rec: 05/12/23 11:24 LRN [id number]) Out-Patient Physical Therapy Visit Information Visit Information Visit Type Treatment Note Visit Note CT scan shows nothing wrong with PF, thickening of bladder wall. Visit Start Time 10:35 Visit Stop Time 11:30 Visit Number Evaluation Information Evaluation Date 01/10/23 Precautions Precautions LATEX ALLERGY, Estrogen ring in place, Post- depression, neck pain from nursing. PT-OP-B Current Condition Start: 12/31/22 08:15 Freq: Status: Active Protocol: Document 01/10/23 08:53 LRN (Rec: 01/10/23 14:03 LRN [id number]) Current Condition History of Current Condition Onset Date 6 wks ago Current Complaints Post- bladder prolapse. History of Current Condition Pt is 6 wks post . She had a vaginal of daughter that was fast (2 pushes), following return from bathroom. No IV or epidural. Pt reports labor was 2hr, 45 minutes. 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 She denies vaginal tearing or pelvic pain, but has a little low back pain. She has been given an estrogen ring last week to help plump her tissues . She is experiencing urinary leakage with leaning forward and has a feeling of an air bubble in her urethra after going to bathroom and performs a deep squat to get it out and is accompanied by urinary leakage. She states this occured with her first . Prior Treatments and Tests Pre- PT for pelvic pain. Developmental History Developmental History Pt is G2, P2, both vaginal births. Treatment Goals Patient/Caregiver Goals Pt goal is: Eliminate feeling of bladder falling out and decreased prolapse. Eliminate urinary leaking. Gain feeling of more control over bowel movements. Personal Factors Other Personal Factors That May Effect Post- depression, Therapy/Recovery estrogen ring in place. PT-OP-C Subjective Start: 12/31/22 08:15 Freq: Status: Active Protocol: Document 05/12/23 10:35 LRN (Rec: 05/12/23 11:24 LRN [id number]) OP-PT Subjective Patient Comments Patient Comments Same. Urgency when bowel urge comes, able to make it to bathroom, never leaked. Normal BM's daily. feels like she is leaking constantly and still feeling PF tissues going up/down. Neck & back pain persist. PT-OP-I Pelvic Floor Start: 12/31/22 08:15 Freq: Status: Active Protocol: Document 05/09/23 09:08 LRN (Rec: 05/09/23 09:52 LRN [id number]) Pelvic Floor Assessment SEMG (uV) Baseline 2.5 Quick Contraction 6.1 10 Second Contraction 6.1 Recruitment Pattern Good Relaxation Fair Holding Good Stability of Hold Good SEMG Stability of Rest Fair Comments Pelvic Floor Comments Quick Flicks: 10 reps strength (uV's): 6.1 avg work, 4.6 avg rest. 20 reps strength (uV's): 5.8 avg work, 3.5 avg rest . Long Holds: 10 reps strength (uV's): 6.1 avg work, 2.9 avg rest . 20 reps strength (uV's): 5.9 avg work, 1.9 avg rest . PT-OP-J Posture/Palpation/Skin Start: 12/31/22 08:15 Freq: Status: Active Protocol: Document 01/10/23 08:53 LRN (Rec: 01/10/23 14:03 LRN [id number]) Posture Evaluation Position Standing Head/C-Spine Posture Forward Head T-Spine Posture Increased Kyphosis L-Spine Posture Increased Lordosis Shoulder Posture (L) Forward,(R) Forward Scapula Posture (R) Rotated Down,(R) Depressed Pelvis Posture (L) PSIS Posterior Weight Distribution Balanced Knee Posture (L) Genu Valgus,(R) Genu Valgus Comments Posture Comments Dowagers Hump, sacrum L rotated. PT-OP-K Range of Motion Start: 12/31/22 08:15 Freq: Status: Active Protocol: Document 04/18/23 09:06 LRN (Rec: 04/18/23 09:49 LRN [id number]) Hip Goniometric Range of Motion Hip Right Passive Testing Position Supine Internal Rotation 40 External Rotation 55 Left Passive Testing Position Supine Internal Rotation 30 External Rotation 45 PT-OP-M Strength Start: 12/31/22 08:15 Freq: Status: Active Protocol: Document 04/18/23 09:06 LRN (Rec: 04/18/23 09:49 LRN [id number]) Hip Strength Hip Manual Muscle Testing Right External Rotation 4+ Good+ Internal Rotation 4+ Good+ Left External Rotation 4+ Good+ Internal Rotation 4+ Good+ PT-OP-Q Treatments Start: 12/31/22 08:15 Freq: Status: Active Protocol: Document 05/12/23 10:35 LRN (Rec: 05/12/23 11:24 LRN [id number]) Therapeutic Exercises Supine Exercises Hip ER stretch Supine Exercise Name Assisted Passive hip ER stretch Side bilateral Reps/Minutes Long hold stretch 1' x 2 Kegels/hip AD-AB/bridge Supine Exercise Name Kegel w/bridge w/digital feedback given on relaxation. Reps/Minutes 2x Comments Cuing for relaxation of PF on return from bridging. Piriformis stretch Supine Exercise Name Assisted Piriformis stretch with MFR. Side bilateral Reps/Minutes 6' Sitting Exercises Lumbar/Sacral Tapping Sitting Exercise Name L/S & Sacral tapping for MFR. Reps/Minutes 3' Self Hip AD STM Sitting Exercise Name TrP treatment of hip AD Side bilateral Reps/Minutes 3' Manual Therapy Treatment Soft Tissue Mobilization PF Body Location PF 11 & 2 of PF clock Mobilization Type Trigger Point Release Intensity/Depth Superficial Body Position Supine Neuro Re-Education Treatment Coordination Activities Kegel coodinating relaxation Details Verbal feedback/training for coodinating PF relaxation after contraction Comments After assist'd hip stretches: Digitial assessment during Kegel with v cuing given for PF relaxation with slight bulging to get PF relaxation. Overall contraction felt around PF clock. Mild tightness on L side (4-5 O' Clock) and NO PF pain. Other Activities Vemg for Kegel>relax Details Vemg stim for PF awareness training of PF relaxation with Kegel Reps/Duration 13' Comments 10' (3' set up) 50 PPS 10 on:20 of Intensity 15 PT-OP-T Assessment and Plan Start: 12/31/22 08:15 Freq: Status: Active Protocol: Document 05/12/23 10:35 LRN (Rec: 05/12/23 11:24 LRN [id number]) Physical Therapy Assessment Goals 4 Impairment Posterior PF weakness Long-Term Goal (LTG) Reduce Feeling of BM urgency. 05/09/23: No change. LTG Duration 8 wks-07/04/23 (05/09/23: No change.) 1 Impairment Pt not on a self care post- HEP Short Term Goal (STG) Pt will be re-educated in deep breathing for relaxation and mindfulness, bowel care/bowel massage, Kegel ex for Aggrevators (lean fwd and stand up). 02/21/23: Deep breathing review. 03/14/23: Reviewed need for bowel care/bowel massage (not needed, BM's regular and loose ) and Kegels with aggrevator ( uinating more only with bending fwd and then straightening up after voiding ). STG Duration 3 wks-01/31/23 (03/14/23: MET GOAL) Long-Term Goal (LTG) Pt will be independent in a self care HEP of PF/core/hip/ LB/neck ex's. 01/17/23: Kegel strengthening with ball squeeze and hip IR. 02/21/23: HEP: DB/Kegel/ later to add LE roll in/out. 03/14/23: I/S pt in Kegel w/ hooklie roll in/out with TB/ Band, 1 rep Kegel/1 rep without Kegel. 03/17/23: I/S pt in Clamshell /PF/TA ex sidelie and w/TB in supine. 04/25/23: Pt able to identify with self palp DR correctly. LTG Duration 8 wks-07/04/23 progressed 04/25/23 3 Impairment Cystocele stage 2 Impairment Pt has feeling of prolapse Short Term Goal (STG) Pt will be educated in Kegel ex in isolation of substitute muscles. 02/21/23: Kegel in isolation with Estim. STG Duration 4 wks more-06/06/23 progressed 02/21/23 Long-Term Goal (LTG) Eliminate the sensation of prolapse and be able to control sensation with PF ex and core pressure management. 03/17/23: Pt reported MD placement of pessary with feeling of falling out present ; therefore dx with urethracele. 10/18/13: Slightly better, feels it every time moves. 25 % bettter. LTG Duration 8 wks-07/04/23 progressing 03/20/23 2 Impairment Stress incontinence. Impairment PF weakness with urinary leakage when leaning forward and bending over. Short Term Goal (STG) Re-education in proper methods for transfer with coordination of breathing with functional activities. 01/10/23: Pt I/S to perform core pressure management as educated in pre-. 03/07/23: Reviewed and Educ transfer with coordination of breathing with functional activities STG Duration 1 wks-01/18/24 (03/07/23: MET GOAL) Long-Term Goal (LTG) Strengthen the PF with pt able to lean or bend forward without urinary leakage. 01/17/23: Kegel strengthening with ball squeeze and hip IR. 03/17/23: I/S pt in Clamshell /PF/TA ex sidelie and w/TB in supine. 03/20/23: Does not notice urinary leaking. LTG Duration 12 wks-04/05/23 (03/20/23: MET GOAL) Assessment Summary Assessment Pt is a 37 yo female who initially presented with cystocele that was not extending past her hymen ( stage 2). Today, general soreness of thighs with many active trigger points, no tenderness of PF except at PF 11 & 2 O'Clock (assessed after hip stretches). Improved symmetry of STM around the clock, mild tightness of PF 3- 6 O'Clock. Contractile strength is much more palpable . No Vaginal gapping noted. Pt improved in ability to contract PF, but she is still having urinary leakage and feeling of tissues (probably urethra) moving up/down. Physical Therapy Plan Next Visit Focus/Plan Next Note Type Treatment Note Next Visit Plan NOTE: LATEX ALLERGY. NEXT: Discuss if pt able to do therapy for neck/LB, then return for further PF rehab, or hold therapy until pt done then return for PF rehab. Review deep breathing for relaxation & with transfers, review vulvar care. Neck/ ABdomen STM and strengthen posterior PF R>L. Vemg stim for educ of coordination of relaxation after contraction strengthening. Check doming with core ex and progress TA and rotational strengthening when able. Assess progress towards STG 2- 3: Kegel in isolation of substitute ms with relaxation after contraction & PF relaxation after strengthening . CONT: Focus on LB/active ROM (hip stretches ER>L, leonel IR), f/b Vemg stim for coordination of Kegel f/b relaxation strengthening. Vemg for PF contraction strengthening (PF L >R sided & posterior PF) with substitute ms (add more posterior PF strengthening on wedge), & relaxation after Kegel w/breath. Stretching ( manual & exercise) hip AD's, try foam roller. Manual: ?Abdominal STM uterus /bladder/urachus). As needed: Sacral balancing, & L L5-S1 manual trunk stretching to reduce facet pain. POC: PF relaxation with PF strengthening of long holds > Quick contractions. Monitor: R hip IR and hip flexors for tightness.
--- NOTE | 2023-05-12 17:59 | PT-OP ANOTE ---
Per phone conversation, pt states her Vemg stim/PF coordination training went well. After discussion of her POC (48 visits per year), it was decided that the pt will return 1x/month focusing on areas of dysfunction (such as hip TrP's, decreased hip mobility, neck pain, back pain) along with PF coordination of strengthening/relaxation to progress her urinary incontinence post- and will become more regular with therapy once she is 6 months s/p breast feeding.
--- NOTE | 2023-07-14 16:33 | PT.OTN ---
Current Diagnoses Stress incontinence (female) (male) (07/14/23) Other specified related conditions, unspecified trimester (07/14/23) Pelvic and perineal pain (07/14/23) Physical Therapy Treatment Note PT-OP-A Visit Information Start: 12/31/22 08:15 Freq: Status: Active Protocol: Document 07/14/23 07:33 LRN (Rec: 07/14/23 08:19 LRN [id number]) Out-Patient Physical Therapy Visit Information Visit Information Visit Type Progress Note Visit Start Time 07:33 Visit Stop Time 08:15 Visit Number Evaluation Information Evaluation Date 01/10/23 Precautions Precautions LATEX ALLERGY, Estrogen ring in place, Post- depression, neck pain from nursing. PT-OP-B Current Condition Start: 12/31/22 08:15 Freq: Status: Active Protocol: Document 01/10/23 08:53 LRN (Rec: 01/10/23 14:03 LRN [id number]) Current Condition History of Current Condition Onset Date 6 wks ago Current Complaints Post- bladder prolapse. History of Current Condition Pt is 6 wks post . She had a vaginal of daughter that was fast (2 pushes), following return from bathroom. No IV or epidural. Pt reports labor was 2hr, 45 minutes. 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 She denies vaginal tearing or pelvic pain, but has a little low back pain. She has been given an estrogen ring last week to help plump her tissues . She is experiencing urinary leakage with leaning forward and has a feeling of an air bubble in her urethra after going to bathroom and performs a deep squat to get it out and is accompanied by urinary leakage. She states this occured with her first . Prior Treatments and Tests Pre- PT for pelvic pain. Developmental History Developmental History Pt is G2, P2, both vaginal births. Treatment Goals Patient/Caregiver Goals Pt goal is: Eliminate feeling of bladder falling out and decreased prolapse. Eliminate urinary leaking. Gain feeling of more control over bowel movements. Personal Factors Other Personal Factors That May Effect Post- depression, Therapy/Recovery estrogen ring in place. PT-OP-C Subjective Start: 12/31/22 08:15 Freq: Status: Active Protocol: Document 07/14/23 07:33 LRN (Rec: 07/14/23 08:19 LRN [id number]) OP-PT Subjective Patient Comments Patient Comments Baby is now 7.[address] scan early Apr, showed no prolapse but a thickened bladder wall. Saw Dr. Rice's PA at the end of June 29. Did US on bladder and found nothing wrong, because they said the previous CT scan was a false +. Went to and had a cystoscopy and found her bladder to be negative for cancer. Stopped breast feeding last week. Pt c/o bilataeral sciatic & hip pain that has been hurting a lot. Still has pelvic heaviness and unstable droopy/ gross feeling that hasn't gone away. Wgt loss plateaued until she can start running again. No inner thigh symptoms and no urinary leaking. Can feel PF contrations and it doesn't feel strong. Patient Reported Progress Same Patient Questionnaires Pelvic Pain and Urgency/Frequency Patient Symptom Scale Pelvic Pain Score 7 PT-OP-I Pelvic Floor Start: 12/31/22 08:15 Freq: Status: Active Protocol: Document 07/14/23 07:33 LRN (Rec: 07/14/23 08:19 LRN [id number]) Pelvic Floor Assessment SEMG (uV) Baseline 1.7 Quick Contraction 3.8 10 Second Contraction 6.1 Recruitment Pattern Good Relaxation Good Holding Fair Stability of Hold Fair SEMG Stability of Rest Good PT-OP-J Posture/Palpation/Skin Start: 12/31/22 08:15 Freq: Status: Active Protocol: Document 01/10/23 08:53 LRN (Rec: 01/10/23 14:03 LRN [id number]) Posture Evaluation Position Standing Head/C-Spine Posture Forward Head T-Spine Posture Increased Kyphosis L-Spine Posture Increased Lordosis Shoulder Posture (L) Forward,(R) Forward Scapula Posture (R) Rotated Down,(R) Depressed Pelvis Posture (L) PSIS Posterior Weight Distribution Balanced Knee Posture (L) Genu Valgus,(R) Genu Valgus Comments Posture Comments Dowagers Hump, sacrum L rotated. PT-OP-K Range of Motion Start: 12/31/22 08:15 Freq: Status: Active Protocol: Document 04/18/23 09:06 LRN (Rec: 04/18/23 09:49 LRN [id number]) Hip Goniometric Range of Motion Hip Right Passive Testing Position Supine Internal Rotation 40 External Rotation 55 Left Passive Testing Position Supine Internal Rotation 30 External Rotation 45 PT-OP-M Strength Start: 12/31/22 08:15 Freq: Status: Active Protocol: Document 04/18/23 09:06 LRN (Rec: 04/18/23 09:49 LRN [id number]) Hip Strength Hip Manual Muscle Testing Right External Rotation 4+ Good+ Internal Rotation 4+ Good+ Left External Rotation 4+ Good+ Internal Rotation 4+ Good+ PT-OP-Q Treatments Start: 12/31/22 08:15 Freq: Status: Active Protocol: Document 07/14/23 07:33 LRN (Rec: 07/14/23 12:45 LRN [id number]) Neuro Re-Education Treatment Other Activities Vemg for Kegel strengthening Details Resting tone assessent before quick & endurance hold contractions. Reps/Duration 20 x each with double resting times between contractions. Comments See PF SEMG assessment above. Self-Care/Home Management Treatment Education Other Education Discussed now that pt has stopped an increase in PF PT would be appropriate for every other week for 1-2 months, then increasing to weekly as she becomes further along in her stoppage of . Reviewed deep breathing for relaxation & with transfers and relaxation of abdominals with ADLs. Activities Self-Care/Home Management Activities Discussed plan of care (POC), goals and result of recheck. Pt agreeable to goals and new POC. PT-OP-T Assessment and Plan Start: 12/31/22 08:15 Freq: Status: Active Protocol: Document 07/14/23 07:33 LRN (Rec: 07/14/23 08:19 LRN [id number]) Physical Therapy Assessment Rehab Potential Rehabilitation Potential Good Evaluation Complexity Number of Personal Factors/Comorbidities 1-2 Number of Body Systems Impaired 4 or More Clinical Presentation at Evaluation Evolving Impairments Impairments Activity Tolerance, Coordination,Pain,Posture,ROM, Soft Tissue Mobility,Strength, Transfers Goals 5 Impairment Complaints of bilateral Sciatic pain with prolonged sitting. Inpatient Auditor Goal (LTG) Pt will be able to tolerate sitting for her job with minimal or no onset of sciatic pain. LTG Duration 33 wks-03/01/24 4 Impairment Posterior PF weakness Impairment Initial assessment: 03/17/23: Baseline 2.3 mV's, Quick flicks 5.6 mV's, Long Hold 5.9 . Good recruitment, Fair relax, Good holding and stability of hold, and Fair stability of rest. Short Term Goal (STG) Reduce Feeling of BM urgency. 05/09/23: No change. 07/14/23: Every once in awhile feels like she has to run to the bathroom. She now listens to her body and goes when she feels the urge. STG Duration 8 wks-09/12/23 improved Inpatient Auditor Goal (LTG) Improve PF strength per Vemg biofeedback with quick and endurance holds x 10 reps to 10-15 mVs to decr prolapse feeling of urethacele. 07/14/23: baseline resting tone 1.7 mV's. Quick contractions 3.8 mV's after 20 reps, resting tone 2.0mV's. Long hold 6.1 mV's (slow fatigue after first 1-2 secs, then steady hold until rep 10, seeing a slow decline over the next 10 secs). LTG Duration 33 wks-03/01/24 1 Impairment Pt not on a self care post- HEP Short Term Goal (STG) Pt will be re-educated in deep breathing for relaxation and mindfulness, bowel care/bowel massage, Kegel ex for Aggrevators (lean fwd and stand up). 02/21/23: Deep breathing review. 03/14/23: Reviewed need for bowel care/bowel massage (not needed, BM's regular and loose ) and Kegels with aggrevator ( uinating more only with bending fwd and then straightening up after voiding ). STG Duration 3 wks-01/31/23 (03/14/23: MET GOAL) Inpatient Auditor Goal (LTG) Pt will be independent in a self care HEP of PF/core/hip/ LB/neck ex's. 01/17/23: Kegel strengthening with ball squeeze and hip IR. 02/21/23: HEP: DB/Kegel/ later to add LE roll in/out. 03/14/23: I/S pt in Kegel w/ hooklie roll in/out with TB/ Band, 1 rep Kegel/1 rep without Kegel. 03/17/23: I/S pt in Clamshell /PF/TA ex sidelie and w/TB in supine. 04/25/23: Pt able to identify with self palp DR correctly. LTG Duration 33 wks-03/01/24 progressed 04/25/23 3 Impairment Cystocele stage 2 Impairment Pt has feeling of prolapse Short Term Goal (STG) Pt will be educated in Kegel ex in isolation of substitute muscles. 02/21/23: Kegel in isolation with Estim. 07/14/23: PT able to perform a Kegel in isolation of substitute muscels. STG Duration 4 wks more-06/06/23 (: MET GOAL) Shelter Goal (LTG) Eliminate the sensation of prolapse and be able to control sensation with PF ex and core pressure management. 03/17/23: Pt reported MD placement of pessary with feeling of falling out present ; therefore dx with urethracele. 10/18/13: Slightly better, feels it every time moves. 25 % bettter. 07/14/23: Can still feel the icky feeling of someting faling in and out. LTG Duration 33 wks-03/01/24 progressing 03/20/23 2 Impairment Stress incontinence. Impairment PF weakness with urinary leakage when leaning forward and bending over. Short Term Goal (STG) Re-education in proper methods for transfer with coordination of breathing with functional activities. : Pt I/S to perform core pressure management as educated in pre-. 03/07/23: Reviewed and Educ transfer with coordination of breathing with functional activities STG Duration 1 wks-01/18/24 (03/07/23: MET GOAL) Inpatient Auditor Goal (LTG) Strengthen the PF with pt able to lean or bend forward without urinary leakage. 01/17/23: Kegel strengthening with ball squeeze and hip IR. 03/17/23: I/S pt in Clamshell /PF/TA ex sidelie and w/TB in supine. 03/20/23: Does not notice urinary leaking. LTG Duration 12 wks-04/05/23 (03/20/23: MET GOAL) Assessment Summary Assessment Pt returns after 2 months delay due to scheduling difficulties. Time contraint limited pt assessement today to Vemg assessment vs manual PF assessment. Manual assessment to be done at next visit. Per Vemg assessment, pt demonstrates steady baseline resting tone of 1.7 mV's. Quick contractions are weaker at 3.8 mV's after 20 reps and low resting of 2.0mV' s, endurance holds show slow fatigue after first 1-2 secs with ability to mostly hold, but starts to decline more notably after 10 reps. Function is mildly improved with PUF score 7 (was 10). Pt now having sciatic pain complaints bilaterally. She denies inner thigh sensation changes or pain. Pt reportedly has been doing her HEP of stretches and exercises . Testing has determined the bladder is negative for cancer and bladder wall thickness was normal. She has had conflicting reports of cytocele and urethrocele. Physical Therapy Plan Frequency and Duration Frequency of Treatment 2x/mo or 1x/wk Duration of treatment (weeks) 33 Plan of Care Start Date 07/14/23 Plan of Care End Date 09/12/23 Therapeutic Interventions Therapeutic Interventions Home Exercise Program,Joint Mobilizations,Manual Therapy, Neuromuscular Re-education, Self-Care/Home Management,Soft Tissue Mobilization, Therapeutic Activities, Therapeutic Exercises Modalities Biofeedback,Cold Pack/Ice Massage,Electric Stimulation, Hot Packs Next Visit Focus/Plan Next Note Type Treatment Note Next Visit Plan NOTE: LATEX ALLERGY. NEXT: Assess manually PF. Check for doming. Quick review vulvar care. Assess progress towards STG 2-3: Kegel in isolation of substitute ms with relaxation after contraction & PF relaxation after strengthening . Stretching (manual & exercise) hip AD's, try foam roller. Manual: ?Abdominal STM uterus /bladder/urachus). Monitor: R hip IR and hip flexors for tightness. As needed: Sacral balancing, & L L5-S1 manual trunk stretching to reduce facet pain. -Neck/ABdomen STM and strengthen posterior PF R>L. POC: -PT for neck/LB 2x/month ( Focus on LB/active ROM (hip stretches ER>L, leonel IR), ), then slowly resume PF rehab since pt has stopped 1 wk ago. - Focus on LBP/leonel Sciatic pain for the next 2-3 months and pt to resume self care PF strengthening. PF rehab in focus to resume within 3 months. -PF relaxation with PF strengthening of long holds > Quick contractions. -Reduce doming with core ex and progress TA and rotational strengthening when able. -Vemg stim for coordination of Kegel f/b relaxation strengthening. - -Vemg for PF contraction strengthening (PF L >R sided & posterior PF) with substitute ms (add more posterior PF strengthening on wedge), & relaxation after Kegel w/ breath.
--- NOTE | 2023-07-14 16:36 | PT.OPPOC ---
Physical, Occupational & Speech Therapy At [facility] Current Diagnoses Stress incontinence (female) (male) (07/14/23) Other specified related conditions, unspecified trimester (07/14/23) Pelvic and perineal pain (07/14/23) Visit Care Team Role Provider Type Maria Elena Padilla MD Attending Provider Physician Family Provider Primary Care Provider Referring Provider Specialty: Family Practice Address: [address] [place] [address], [place], [address] Email: [email or web address] Plan Of Care PT-OP-T Assessment and Plan Start: 12/31/22 08:15 Freq: Status: Active Protocol: Document 07/14/23 07:33 LRN (Rec: 07/14/23 08:19 LRN [id number]) Physical Therapy Assessment Rehab Potential Rehabilitation Potential Good Evaluation Complexity Number of Personal Factors/Comorbidities 1-2 Number of Body Systems Impaired 4 or More Clinical Presentation at Evaluation Evolving Impairments Impairments Activity Tolerance, Coordination,Pain,Posture,ROM, Soft Tissue Mobility,Strength, Transfers Goals 5 Impairment Complaints of bilateral Sciatic pain with prolonged sitting. Fleet Manager Goal (LTG) Pt will be able to tolerate sitting for her job with minimal or no onset of sciatic pain. LTG Duration 33 wks-03/01/24 4 Impairment Posterior PF weakness Impairment Initial assessment: 03/17/23: Baseline 2.3 mV's, Quick flicks 5.6 mV's, Long Hold 5.9 . Good recruitment, Fair relax, Good holding and stability of hold, and Fair stability of rest. Short Term Goal (STG) Reduce Feeling of BM urgency. 05/09/23: No change. 07/14/23: Every once in awhile feels like she has to run to the bathroom. She now listens to her body and goes when she feels the urge. STG Duration 8 wks-09/12/23 improved Fleet Manager Goal (LTG) Improve PF strength per Vemg biofeedback with quick and endurance holds x 10 reps to 10-15 mVs to decr prolapse feeling of urethacele. 07/14/23: baseline resting tone 1.7 mV's. Quick contractions 3.8 mV's after 20 reps, resting tone 2.0mV's. Long hold 6.1 mV's (slow fatigue after first 1-2 secs, then steady hold until rep 10, seeing a slow decline over the next 10 secs). LTG Duration 33 wks-03/01/24 1 Impairment Pt not on a self care post- HEP Short Term Goal (STG) Pt will be re-educated in deep breathing for relaxation and mindfulness, bowel care/bowel massage, Kegel ex for Aggrevators (lean fwd and stand up). 02/21/23: Deep breathing review. 03/14/23: Reviewed need for bowel care/bowel massage (not needed, BM's regular and loose ) and Kegels with aggrevator ( uinating more only with bending fwd and then straightening up after voiding ). STG Duration 3 wks-01/31/23 (03/14/23: MET GOAL) Residential Goal (LTG) Pt will be independent in a self care HEP of PF/core/hip/ LB/neck ex's. 01/17/23: Kegel strengthening with ball squeeze and hip IR. 02/21/23: HEP: DB/Kegel/ later to add LE roll in/out. 03/14/23: I/S pt in Kegel w/ hooklie roll in/out with TB/ Band, 1 rep Kegel/1 rep without Kegel. 03/17/23: I/S pt in Clamshell /PF/TA ex sidelie and w/TB in supine. 04/25/23: Pt able to identify with self palp DR correctly. LTG Duration 33 wks-03/01/24 progressed 04/25/23 3 Impairment Cystocele stage 2 Impairment Pt has feeling of prolapse Short Term Goal (STG) Pt will be educated in Kegel ex in isolation of substitute muscles. 02/21/23: Kegel in isolation with Estim. 07/14/23: PT able to perform a Kegel in isolation of substitute muscels. STG Duration 4 wks more-06/06/23 (: MET GOAL) Fleet Manager Goal (LTG) Eliminate the sensation of prolapse and be able to control sensation with PF ex and core pressure management. 03/17/23: Pt reported MD placement of pessary with feeling of falling out present ; therefore dx with urethracele. 10/18/13: Slightly better, feels it every time moves. 25 % bettter. 07/14/23: Can still feel the icky feeling of someting faling in and out. LTG Duration 33 wks-03/01/24 progressing 03/20/23 2 Impairment Stress incontinence. Impairment PF weakness with urinary leakage when leaning forward and bending over. Short Term Goal (STG) Re-education in proper methods for transfer with coordination of breathing with functional activities. : Pt I/S to perform core pressure management as educated in pre-. 03/07/23: Reviewed and Educ transfer with coordination of breathing with functional activities STG Duration 1 wks-01/18/24 (03/07/23: MET GOAL) Residential Goal (LTG) Strengthen the PF with pt able to lean or bend forward without urinary leakage. 01/17/23: Kegel strengthening with ball squeeze and hip IR. 03/17/23: I/S pt in Clamshell /PF/TA ex sidelie and w/TB in supine. 03/20/23: Does not notice urinary leaking. LTG Duration 12 wks-04/05/23 (03/20/23: MET GOAL) Assessment Summary Assessment Pt returns after 2 months delay due to scheduling difficulties. Time contraint limited pt assessement today to Vemg assessment vs manual PF assessment. Manual assessment to be done at next visit. Per Vemg assessment, pt demonstrates steady baseline resting tone of 1.7 mV's. Quick contractions are weaker at 3.8 mV's after 20 reps and low resting of 2.0mV' s, endurance holds show slow fatigue after first 1-2 secs with ability to mostly hold, but starts to decline more notably after 10 reps. Function is mildly improved with PUF score 7 (was 10). Pt now having sciatic pain complaints bilaterally. She denies inner thigh sensation changes or pain. Pt reportedly has been doing her HEP of stretches and exercises . Testing has determined the bladder is negative for cancer and bladder wall thickness was normal. She has had conflicting reports of cytocele and urethrocele. Physical Therapy Plan Frequency and Duration Frequency of Treatment 2x/mo or 1x/wk Duration of treatment (weeks) 33 Plan of Care Start Date 07/14/23 Plan of Care End Date 03/01/24 Therapeutic Interventions Therapeutic Interventions Home Exercise Program,Joint Mobilizations,Manual Therapy, Neuromuscular Re-education, Self-Care/Home Management,Soft Tissue Mobilization, Therapeutic Activities, Therapeutic Exercises Modalities Biofeedback,Cold Pack/Ice Massage,Electric Stimulation, Hot Packs Next Visit Focus/Plan Next Note Type Treatment Note Next Visit Plan NOTE: LATEX ALLERGY. NEXT: Assess manually PF. Check for doming. Quick review vulvar care. Assess progress towards STG 2-3: Kegel in isolation of substitute ms with relaxation after contraction & PF relaxation after strengthening . Stretching (manual & exercise) hip AD's, try foam roller. Manual: ?Abdominal STM uterus /bladder/urachus). Monitor: R hip IR and hip flexors for tightness. As needed: Sacral balancing, & L L5-S1 manual trunk stretching to reduce facet pain. -Neck/ABdomen STM and strengthen posterior PF R>L. POC: -PT for neck/LB 2x/month ( Focus on LB/active ROM (hip stretches ER>L, leonel IR), ), then slowly resume PF rehab since pt has stopped 1 wk ago. - Focus on LBP/leonel Sciatic pain for the next 2-3 months and pt to resume self care PF strengthening. PF rehab in focus to resume within 3 months. -PF relaxation with PF strengthening of long holds > Quick contractions. -Reduce doming with core ex and progress TA and rotational strengthening when able. -Vemg stim for coordination of Kegel f/b relaxation strengthening. - -Vemg for PF contraction strengthening (PF L >R sided & posterior PF) with substitute ms (add more posterior PF strengthening on wedge), & relaxation after Kegel w/ breath. Plan of Care Dates Plan of Care Start Date 07/14/23 Plan of Care End Date 03/01/24 Electronically Signed by: Grecia Colorado, PT 07/15/23 1839 If you are in agreement with this Plan of Care, please return a signed and dated copy. I have reviewed this Plan of Care and certify that the skilled therapy services above are required to meet the patient?s needs. Physician Signature Date Printed Name and Credentials Clinical Instructor Signature Printed Name and Credentials
--- NOTE | 2023-07-25 16:39 | PT.OTN ---
Current Diagnoses Stress incontinence (female) (male) (07/25/23) Other specified related conditions, unspecified trimester (07/25/23) Pelvic and perineal pain (07/25/23) Physical Therapy Treatment Note PT-OP-A Visit Information Start: 12/31/22 08:15 Freq: Status: Active Protocol: Document 07/25/23 09:51 LRN (Rec: 07/25/23 10:29 LRN [id number]) Out-Patient Physical Therapy Visit Information Visit Information Visit Type Treatment Note Visit Start Time 09:51 Visit Stop Time 10:32 Visit Number Evaluation Information Evaluation Date 01/10/23 Precautions Precautions LATEX ALLERGY, Estrogen ring in place, Post- depression, neck pain from nursing. PT-OP-B Current Condition Start: 12/31/22 08:15 Freq: Status: Active Protocol: Document 01/10/23 08:53 LRN (Rec: 01/10/23 14:03 LRN [id number]) Current Condition History of Current Condition Onset Date 6 wks ago Current Complaints Post- bladder prolapse. History of Current Condition Pt is 6 wks post . She had a vaginal of daughter that was fast (2 pushes), following return from bathroom. No IV or epidural. Pt reports labor was 2hr, 45 minutes. 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 She denies vaginal tearing or pelvic pain, but has a little low back pain. She has been given an estrogen ring last week to help plump her tissues . She is experiencing urinary leakage with leaning forward and has a feeling of an air bubble in her urethra after going to bathroom and performs a deep squat to get it out and is accompanied by urinary leakage. She states this occured with her first . Prior Treatments and Tests Pre- PT for pelvic pain. Developmental History Developmental History Pt is G2, P2, both vaginal births. Treatment Goals Patient/Caregiver Goals Pt goal is: Eliminate feeling of bladder falling out and decreased prolapse. Eliminate urinary leaking. Gain feeling of more control over bowel movements. Personal Factors Other Personal Factors That May Effect Post- depression, Therapy/Recovery estrogen ring in place. PT-OP-C Subjective Start: 12/31/22 08:15 Freq: Status: Active Protocol: Document 07/25/23 09:51 LRN (Rec: 07/25/23 10:29 LRN [id number]) OP-PT Subjective Patient Comments Patient Comments LBP rated 4/10, was a 6/10 but had chiro adjustment. PT-OP-I Pelvic Floor Start: 12/31/22 08:15 Freq: Status: Active Protocol: Document 07/14/23 07:33 LRN (Rec: 07/14/23 08:19 LRN [id number]) Pelvic Floor Assessment SEMG (uV) Baseline 1.7 Quick Contraction 3.8 10 Second Contraction 6.1 Recruitment Pattern Good Relaxation Good Holding Fair Stability of Hold Fair SEMG Stability of Rest Good PT-OP-J Posture/Palpation/Skin Start: 12/31/22 08:15 Freq: Status: Active Protocol: Document 01/10/23 08:53 LRN (Rec: 01/10/23 14:03 LRN [id number]) Posture Evaluation Position Standing Head/C-Spine Posture Forward Head T-Spine Posture Increased Kyphosis L-Spine Posture Increased Lordosis Shoulder Posture (L) Forward,(R) Forward Scapula Posture (R) Rotated Down,(R) Depressed Pelvis Posture (L) PSIS Posterior Weight Distribution Balanced Knee Posture (L) Genu Valgus,(R) Genu Valgus Comments Posture Comments Dowagers Hump, sacrum L rotated. PT-OP-K Range of Motion Start: 12/31/22 08:15 Freq: Status: Active Protocol: Document 04/18/23 09:06 LRN (Rec: 04/18/23 09:49 LRN [id number]) Hip Goniometric Range of Motion Hip Right Passive Testing Position Supine Internal Rotation 40 External Rotation 55 Left Passive Testing Position Supine Internal Rotation 30 External Rotation 45 PT-OP-M Strength Start: 12/31/22 08:15 Freq: Status: Active Protocol: Document 04/18/23 09:06 LRN (Rec: 04/18/23 09:49 LRN [id number]) Hip Strength Hip Manual Muscle Testing Right External Rotation 4+ Good+ Internal Rotation 4+ Good+ Left External Rotation 4+ Good+ Internal Rotation 4+ Good+ PT-OP-Q Treatments Start: 12/31/22 08:15 Freq: Status: Active Protocol: Document 07/25/23 09:51 LRN (Rec: 07/25/23 10:29 LRN [id number]) Therapeutic Exercises Supine Exercises TA tightening Supine Exercise Name TA tightening/palpation of DR from Xiphoid PRocess to Pubic bone Reps/Minutes 8' Comments Head lifts with cuing to tighten TA between lifts. DR tension awareness trn Standing Exercises Trunk Rot Standing Exercise Name Hands at chest holding TB Side bilateral Equipment Used Lev 2 TB Reps/Minutes 14' Comments Much continual cuing to tighten rotators & lower TA & breathwork Paloff Press Side bilateral Equipment Used Lev 2 TB (orange) Reps/Minutes 6' Comments Cued to maintain neutral posturing, & relax R shldr Neuro Re-Education Treatment Other Activities Vemg for Kegel>relax Details Vemg stim for PF awareness training of PF relaxation with Kegel Reps/Duration 13' Comments 10' (3' set up) 50 PPS 10 on:20 of Intensity 15 PT-OP-T Assessment and Plan Start: 12/31/22 08:15 Freq: Status: Active Protocol: Document 07/25/23 09:51 LRN (Rec: 07/25/23 10:29 [facility] [id number]) Physical Therapy Assessment Goals 5 Impairment Complaints of bilateral Sciatic pain with prolonged sitting. Machine Candle Molder Goal (LTG) Pt will be able to tolerate sitting for her job with minimal or no onset of sciatic pain. LTG Duration 33 wks-03/01/24 4 Impairment Posterior PF weakness Impairment Initial assessment: 03/17/23: Baseline 2.3 mV's, Quick flicks 5.6 mV's, Long Hold 5.9 . Good recruitment, Fair relax, Good holding and stability of hold, and Fair stability of rest. Short Term Goal (STG) Reduce Feeling of BM urgency. 05/09/23: No change. 07/14/23: Every once in awhile feels like she has to run to the bathroom. She now listens to her body and goes when she feels the urge. STG Duration 8 wks-09/12/23 improved Senior Living Goal (LTG) Improve PF strength per Vemg biofeedback with quick and endurance holds x 10 reps to 10-15 mVs to decr prolapse feeling of urethacele. 07/14/23: baseline resting tone 1.7 mV's. Quick contractions 3.8 mV's after 20 reps, resting tone 2.0mV's. Long hold 6.1 mV's (slow fatigue after first 1-2 secs, then steady hold until rep 10, seeing a slow decline over the next 10 secs). LTG Duration 33 wks-03/01/24 1 Impairment Pt not on a self care post- HEP Short Term Goal (STG) Pt will be re-educated in deep breathing for relaxation and mindfulness, bowel care/bowel massage, Kegel ex for Aggrevators (lean fwd and stand up). 02/21/23: Deep breathing review. 03/14/23: Reviewed need for bowel care/bowel massage (not needed, BM's regular and loose ) and Kegels with aggrevator ( uinating more only with bending fwd and then straightening up after voiding ). STG Duration 3 wks-01/31/23 (03/14/23: MET GOAL) Machine Candle Molder Goal (LTG) Pt will be independent in a self care HEP of PF/core/hip/ LB/neck ex's. 01/17/23: Kegel strengthening with ball squeeze and hip IR. 02/21/23: HEP: DB/Kegel/ later to add LE roll in/out. 03/14/23: I/S pt in Kegel w/ hooklie roll in/out with TB/ Band, 1 rep Kegel/1 rep without Kegel. 03/17/23: I/S pt in Clamshell /PF/TA ex sidelie and w/TB in supine. 04/25/23: Pt able to identify with self palp DR correctly. LTG Duration 33 wks-03/01/24 progressed 04/25/23 3 Impairment Cystocele stage 2 Impairment Pt has feeling of prolapse Short Term Goal (STG) Pt will be educated in Kegel ex in isolation of substitute muscles. 02/21/23: Kegel in isolation with Estim. 07/14/23: PT able to perform a Kegel in isolation of substitute muscels. STG Duration 4 wks more-06/06/23 (: MET GOAL) Machine Candle Molder Goal (LTG) Eliminate the sensation of prolapse and be able to control sensation with PF ex and core pressure management. 03/17/23: Pt reported MD placement of pessary with feeling of falling out present ; therefore dx with urethracele. 10/18/13: Slightly better, feels it every time moves. 25 % bettter. 07/14/23: Can still feel the icky feeling of someting faling in and out. LTG Duration 33 wks-03/01/24 progressing 03/20/23 Assessment Summary Assessment 37 yo female who initially presented with cystocele that was not extending past her hymen (stage 2), still having urinary leakage and feeling of tissues (probably urethra) moving up/down. Today pt demonstrates poor tension in deep core ms and with tightening of TA tension is weak. Doming is present in standing and with supine head lift. Pt shows core weakness with paloff press and trunk rot (R weaker than L as shown with L rot). Back pain present, no mention of sciatic pain. Physical Therapy Plan Frequency and Duration Frequency of Treatment 2x/mo or 1x/wk Duration of treatment (weeks) 33 Plan of Care Start Date 07/14/23 Plan of Care End Date 03/01/24 Next Visit Focus/Plan Next Note Type Treatment Note Next Visit Plan NOTE: LATEX ALLERGY. NEXT: Quick review vulvar care. Assess manually PF (and relaxation after contraction) , and progress towards STG 2-3 : Kegel in isolation of substitute ms with relaxation after contraction & PF relaxation after strengthening . Core strengthening (LBP and PF mgmt) Stretching (manual & exercise) hip AD's, try foam roller. Manual: ?Abdominal STM uterus /bladder/urachus). Monitor: R hip IR and hip flexors for tightness. As needed: Sacral balancing, & L L5-S1 manual trunk stretching to reduce facet pain. -Neck/ABdomen STM and strengthen posterior PF R>L. POC: -PT for neck/LB 2x/month ( Focus on LB/active ROM (hip stretches ER>L, leonel IR), ), then slowly resume PF rehab since pt has stopped 1 wk ago. - Focus on LBP/leonel Sciatic pain for the next 2-3 months and pt to resume self care PF strengthening. PF rehab in focus to resume within 3 months. -PF relaxation with PF strengthening of long holds > Quick contractions. -Reduce doming with core ex and progress TA and rotational strengthening when able. -Vemg stim for coordination of Kegel f/b relaxation strengthening. - -Vemg for PF contraction strengthening (PF L >R sided & posterior PF) with substitute ms (add more posterior PF strengthening on wedge), & relaxation after Kegel w/ breath.
--- NOTE | 2023-10-27 11:13 | PT.OPDS ---
Current Diagnoses Stress incontinence (female) (male) (07/25/23) Other specified related conditions, unspecified trimester (07/25/23) Pelvic and perineal pain (07/25/23) Visit Care Team Role Provider Type Maria Elena Padilla MD Attending Provider Physician Family Provider Primary Care Provider Referring Provider Specialty: Family Practice Address: [address] [place] [address], [facility] Email: [email or web address] Visit Number Visit Number Discharge Summary PT-OP-B Current Condition Start: 12/31/22 08:15 Freq: Status: Active Protocol: Document 01/10/23 08:53 LRN (Rec: 01/10/23 14:03 LRN [id number]) Current Condition History of Current Condition Onset Date 6 wks ago Current Complaints Post- bladder prolapse. History of Current Condition Pt is 6 wks post . She had a vaginal of daughter that was fast (2 pushes), following return from bathroom. No IV or epidural. Pt reports labor was 2hr, 45 minutes. 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 She denies vaginal tearing or pelvic pain, but has a little low back pain. She has been given an estrogen ring last week to help plump her tissues . She is experiencing urinary leakage with leaning forward and has a feeling of an air bubble in her urethra after going to bathroom and performs a deep squat to get it out and is accompanied by urinary leakage. She states this occured with her first . Prior Treatments and Tests Pre- PT for pelvic pain. Developmental History Developmental History Pt is G2, P2, both vaginal births. Treatment Goals Patient/Caregiver Goals Pt goal is: Eliminate feeling of bladder falling out and decreased prolapse. Eliminate urinary leaking. Gain feeling of more control over bowel movements. Personal Factors Other Personal Factors That May Effect Post- depression, Therapy/Recovery estrogen ring in place. PT-OP-C Subjective Start: 12/31/22 08:15 Freq: Status: Active Protocol: Document 07/25/23 09:51 LRN (Rec: 07/25/23 10:29 LRN [id number]) OP-PT Subjective Patient Comments Patient Comments LBP rated 4/10, was a 6/10 but had chiro adjustment. PT-OP-I Pelvic Floor Start: 12/31/22 08:15 Freq: Status: Active Protocol: Document 07/14/23 07:33 LRN (Rec: 07/14/23 08:19 LRN [id number]) Pelvic Floor Assessment SEMG (uV) Baseline 1.7 Quick Contraction 3.8 10 Second Contraction 6.1 Recruitment Pattern Good Relaxation Good Holding Fair Stability of Hold Fair SEMG Stability of Rest Good PT-OP-J Posture/Palpation/Skin Start: 12/31/22 08:15 Freq: Status: Active Protocol: Document 01/10/23 08:53 LRN (Rec: 01/10/23 14:03 LRN [id number]) Posture Evaluation Position Standing Head/C-Spine Posture Forward Head T-Spine Posture Increased Kyphosis L-Spine Posture Increased Lordosis Shoulder Posture (L) Forward,(R) Forward Scapula Posture (R) Rotated Down,(R) Depressed Pelvis Posture (L) PSIS Posterior Weight Distribution Balanced Knee Posture (L) Genu Valgus,(R) Genu Valgus Comments Posture Comments Dowagers Hump, sacrum L rotated. PT-OP-K Range of Motion Start: 12/31/22 08:15 Freq: Status: Active Protocol: Document 04/18/23 09:06 LRN (Rec: 04/18/23 09:49 LRN [id number]) Hip Goniometric Range of Motion Hip Right Passive Testing Position Supine Internal Rotation 40 External Rotation 55 Left Passive Testing Position Supine Internal Rotation 30 External Rotation 45 PT-OP-M Strength Start: 12/31/22 08:15 Freq: Status: Active Protocol: Document 04/18/23 09:06 LRN (Rec: 04/18/23 09:49 LRN [id number]) Hip Strength Hip Manual Muscle Testing Right External Rotation 4+ Good+ Internal Rotation 4+ Good+ Left External Rotation 4+ Good+ Internal Rotation 4+ Good+ PT-OP-T Assessment and Plan Start: 12/31/22 08:15 Freq: Status: Active Protocol: Document 10/27/23 09:40 LRN (Rec: 10/27/23 11:13 LRN [id number]) Physical Therapy Assessment Goals 5 Impairment Complaints of bilateral Sciatic pain with prolonged sitting. 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 LTG Duration 33 wks-03/01/24 4 Impairment Posterior PF weakness Impairment Initial assessment: 03/17/23: Baseline 2.3 mV's, Quick flicks 5.6 mV's, Long Hold 5.9 . Good recruitment, Fair relax, Good holding and stability of hold, and Fair stability of rest. Short Term Goal (STG) Reduce Feeling of BM urgency. 05/09/23: No change. 07/14/23: Every once in awhile feels like she has to run to the bathroom. She now listens to her body and goes when she feels the urge. 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 07/14/23: baseline resting tone 1.7 mV's. Quick contractions 3.8 mV's after 20 reps, resting tone 2.0mV's. Long hold 6.1 mV's (slow fatigue after first 1-2 secs, then steady hold until rep 10, seeing a slow decline over the next 10 secs). LTG Duration 33 wks-03/01/24 1 Impairment Pt not on a self care post- HEP Short Term Goal (STG) Pt will be re-educated in deep breathing for relaxation and mindfulness, bowel care/bowel massage, Kegel ex for Aggrevators (lean fwd and stand up). 02/21/23: Deep breathing review. 03/14/23: Reviewed need for bowel care/bowel massage (not needed, BM's regular and loose ) and Kegels with aggrevator ( uinating more only with bending fwd and then straightening up after voiding ). STG Duration 3 wks-01/31/23 (03/14/23: MET GOAL) [facility] Goal (LTG) Pt will be independent in a self care HEP of PF/core/hip/ LB/neck ex's. 01/17/23: Kegel strengthening with ball squeeze and hip IR. 02/21/23: HEP: DB/Kegel/ later to add LE roll in/out. 03/14/23: I/S pt in Kegel w/ hooklie roll in/out with TB/ Band, 1 rep Kegel/1 rep without Kegel. 03/17/23: I/S pt in Clamshell /PF/TA ex sidelie and w/TB in supine. 04/25/23: Pt able to identify with self palp DR correctly. LTG Duration 33 wks-03/01/24 progressed 04/25/23 3 Impairment Cystocele stage 2 Impairment Pt has feeling of prolapse Short Term Goal (STG) Pt will be educated in Kegel ex in isolation of substitute muscles. 02/21/23: Kegel in isolation with Estim. 07/14/23: PT able to perform a Kegel in isolation of substitute muscels. 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 03/17/23: Pt reported MD placement of pessary with feeling of falling out present ; therefore dx with urethracele. 10/18/13: Slightly better, feels it every time moves. 25 % bettter. 07/14/23: Can still feel the icky feeling of someting faling in and out. LTG Duration 33 wks-03/01/24 progressing 03/20/23 2 Impairment Stress incontinence. Impairment PF weakness with urinary leakage when leaning forward and bending over. Short Term Goal (STG) Re-education in proper methods for transfer with coordination of breathing with functional activities. : Pt I/S to perform core pressure management as educated in pre-. 03/07/23: Reviewed and Educ transfer with coordination of breathing with functional activities STG Duration 1 wks-01/18/24 (03/07/23: MET GOAL) [facility] Goal (LTG) Strengthen the PF with pt able to lean or bend forward without urinary leakage. 01/17/23: Kegel strengthening with ball squeeze and hip IR. 03/17/23: I/S pt in Clamshell /PF/TA ex sidelie and w/TB in supine. 03/20/23: Does not notice urinary leaking. LTG Duration 12 wks-04/05/23 (03/20/23: MET GOAL) Assessment Summary Assessment Pt is a 37 yo female who initially seen 6 wks post , who presented with cystocele that was not extending past her hymen ( stage 2), still having urinary leakage and feeling of tissues (probably urethra) moving up/down. The pt was last seen 07/25/23 and at that time we were working on core stabilization due to weak deep core muscles with doming present with supine and standing and weakness with R rot > L rot. She was having back pain, but did not mention sciatic pain. The pt previously had sensation changes in her inner thigh, and was quite weak with PF contractions although Vemg showed strength as 3.8 mVs, she had very little strength with manual palpation. The pt was having scheduling difficulties getting into therapy; therefore on 09/02/23 pt called to cancel all appointments requesting discharge. Goals were not met . Physical Therapy Plan Discharge Physical Therapy Discharge Reasons Patient Request Discharge Comments See assessment above. Thank you for your referral.
== END 2023-11-07 10:07 | disposition home or self-care (01) ==
LOC: PHYS 09:45
PROVIDERS: Family Provider Family Medicine; PCP Family Medicine; Referring Provider Family Medicine; Visit Provider Family Medicine
DX: O26.899 Other specified pregnancy related conditions, unspecified trimester (principal); R10.2 Pelvic and perineal pain; N39.3 Stress incontinence (female) (male)
CPT/HCPCS: 97110; 97112; 97140; 97535

== ENCOUNTER → 2023-08-19 15:21 | Outpatient (RCR) | payer OTHER, SELFPAY ==
--- NOTE | 2021-02-15 09:29 | PT.OPPOC ---
Physical, Occupational & Speech Therapy At [facility] Current Diagnoses Maternal care for abnormality of pelvic organ, unspecified, unspecified trimester (02/22/21) Encounter for full-term uncomplicated delivery (02/22/21) Encounter for supervision of normal , unspecified, unspecified trimester (02/22/21) Visit Care Team Role Provider Type Maria Elena Padilla MD Attending Provider Physician Family Provider Primary Care Provider Referring Provider Specialty: Family Practice Address: [address] [place] [address], [facility] Email: [email or web address] Plan Of Care PT-OP-T Assessment and Plan Start: 02/22/21 11:10 Freq: Status: Active Protocol: Document 02/15/21 16:59 [facility] (Rec: 03/06/21 18:05 [facility] [id number]) Physical Therapy Assessment Rehab Potential Rehabilitation Potential Excellent Evaluation Complexity Number of Personal Factors/Comorbidities 0 Number of Body Systems Impaired 1-2 Clinical Presentation at Evaluation Stable Impairments Impairments Functional Activities,Pain, Soft Tissue Mobility,Strength, Tone Other Impairments urinary leakage and nocuria Goals 3 Impairment pelvic pain, pelvic pressure, and heaviness Short Term Goal (STG) Sandy is educated on stretches to help her relax her pelvic floor on the left side wall STG Duration 4 weeks Retirement Goal (LTG) There is no longer guarding of the left lateral wall of the levator ani with palpation and pain symtoms have decreased LTG Duration 8 weeks 2 Impairment Poor levator ani strength and facilitation Short Term Goal (STG) Sandy is able to facilitate all aspects of the levator ani and hold 3-5 seconds in supine STG Duration 4 weeks Professor Of Theater Goal (LTG) Sandy is able to improve her MMT of the levator ani from 0/ 5 to 2/5 or better for imporved support to her pelvic organs LTG Duration 8 weeks 1 Impairment urinary incontinence that is happening throughout the day despite activity level. Retirement Goal (LTG) With improved strength of the levator ani Sandy is no longer experiencing urinary incontinence with ADL's throughout the day LTG Duration 8 weeks Assessment Summary Assessment Sandy is a 35 year old female who presents to physical therapy with pelvic pressure and pain as well as urinary incontinence. She is 6 months with her first baby. Sandy sustained a 1st degree laceration to the perineum with vaginal delivery . She reports that following delivery she felt continued left leg numbness especially into the heel that has stayed with her. A few weeks post she began feeling pelvic pressure and heaviness. This pressure has stayed with her. She describes painful intercourse. Sandy reports it takes her a long time to begin voiding and she has to sit for 5-10 minutes to relax prior to voiding. She is experiencing leaking throughout her day despite activity. With examination today I am unable to palpate a contraction of any of the aspects of the levator ani. The left wall from 3-6 on the pelvic clock is guarded and in spasm and is a source of pain for Sandy. She has some tenderness at the perineum but no gapping is present. There is a small amount of scar tissue present from the first degree tear. Sandy is unable to lift at her perineum today even with cueing. Sandy is a good candidate for PT. Our goals will be to decrease the guarding and spasm of the left wall of the levator ani with manual therapy techniques and stretches for the hips. We will initiate EMG bifeedback next visit to help with neuro re-education of the pelvic floor and Sandy may be a good candidate for NMES as well Physical Therapy Plan Frequency and Duration Frequency of Treatment 1x/Week Duration of Treatment 8 Plan of Care Start Date 02/15/21 Plan of Care End Date 05/16/21 Therapeutic Interventions Therapeutic Interventions Home Exercise Program,Manual Therapy,Neuromuscular Re- education,Patient/Caregiver Education,Self-Care/Home Management,Therapeutic Exercises Next Visit Focus/Plan Next Note Type Treatment Note Next Visit Plan review stretches given a Initial evaluation and begin EMG biofeedback for neuro re- education of the levator ani Plan of Care Dates Plan of Care Start Date 02/15/21 Plan of Care End Date 05/16/21 Electronically Signed by: Mago Regalado, PT 03/07/21 [id number] Please Sign and Return: I have reviewed this Plan of Care and certify that the skilled therapy services above are required to meet the patient?s needs. Physician Signature Date Printed Name and Credentials Clinical Instructor Signature Printed Name and Credentials
--- NOTE | 2021-02-22 13:13 | PT.OTN ---
Current Diagnoses Maternal care for abnormality of pelvic organ, unspecified, unspecified trimester (02/22/21) Encounter for full-term uncomplicated delivery (02/22/21) Encounter for supervision of normal , unspecified, unspecified trimester (02/22/21) Physical Therapy Treatment Note PT-OP-A Visit Information Start: 02/22/21 11:10 Freq: Status: Active Protocol: Document 02/22/21 11:15 [facility] (Rec: 03/07/21 09:43 [facility] [id number]) Out-Patient Physical Therapy Visit Information Visit Information Visit Type Treatment Note Visit Start Time 11:20 Visit Stop Time 12:05 Total Visit Minutes 45 Visit Number 2 Evaluation Information Evaluation Date 02/15/21 PT-OP-B Current Condition Start: 02/22/21 11:10 Freq: Status: Active Protocol: Document 02/15/21 16:59 [facility] (Rec: 03/06/21 18:05 [facility] [id number]) Current Condition History of Current Condition Onset Date 08/30/30 History of Current Condition Sandy reports she vaginally delivered her baby on . Her left leg has been numb since , mostly at her heel. When she was in labor her baby was more on the right side of her abdomen. Two weeks following her delivery she was experiencing continued pelvic pain and also began feeling c/o pelvic heaviness and pressure and felt like she had a bulge. She would feel like she was getting pinched in her pubic symphysis region close to her urethra. She was put on gabapentin and this has helped her symptoms. She reports it takes her a long time to start voiding. Leaking is more like a constant trickle. She also describes urgency with bowel movements. [place] is painful. PT-OP-C Subjective Start: 02/22/21 11:10 Freq: Status: Active Protocol: Document 02/22/21 11:15 [facility] (Rec: 03/07/21 09:43 [facility] [id number]) OP-PT Subjective Patient Comments Patient Comments PT reports she has been working on her stretches, she didn't have a ball to squeeze so hasn't done that exercise. She did feel that she had a little more leakage following her first visit PT-OP-I Pelvic Floor Start: 02/22/21 11:10 Freq: Status: Active Protocol: Document 02/15/21 16:59 [facility] (Rec: 03/06/21 18:05 [facility] [id number]) Pelvic Floor Assessment Urine Pelvic Floor Surgery No Urinary Symptoms Hesitancy,Falling Out Feeling/ Heavy Other Urinary Symptoms pt reports she has to wait for a long duration when attempting to void to be able to fully void Leakage Size Medium Leakage Cause Cough,Exercise,Lifting,Sneeze Other Leakage Causes continous leakage despite activity Leaks Per Day continous Voiding Frequency 8 Nocturia 3 Pelvic Clock Pelvic Clock 6-9 Guarding,Hypertonic,Tenderness Pelvic Clock Other pt is unable to contract at her perineum, there is a small amount of scar tissue present and tenderness with any perineal stretching Contraction Ability Voluntary Contraction Absent Voluntary Relaxation Absent Manual Muscle Testing Left 0 Manual Muscle Testing Right 0 Manual Muscle Testing Anterior 0 Manual Muscle Testing Posterior 1 PT-OP-Q Treatments Start: 02/22/21 11:10 Freq: Status: Active Protocol: Document 02/22/21 11:15 [facility] (Rec: 03/07/21 09:43 [facility] [id number]) Therapeutic Exercises Supine Exercises pelvic decompression on the wedge Reps/Minutes x 5 min happy baby stretch Reps/Minutes hold 1-2 minutes modified pelvic floor squat Reps/Minutes hold 1-2 minutes supine ball squeeze Reps/Minutes x 10 reps hold 3-5 seconds and relax 10 sec Comments with EMG biofeedback Neuro Re-Education Treatment Other Activities 1 Comments EMG biofeedback for neuro awareness of the pelvic floor x 10 min. Pt was able to use the vaginal sensor, worked first on resting tone as this was elevated at 5uv, pt was able to relax to 4 uv and had a average of 6.5 uv on EMG biofeedback. She was given a HEP of pelvic floor contraction up to 5 seconds and resting 10 + seconds Self-Care/Home Management Treatment Activities Self-Care/Home Management Activities education of elevation of the pelvis to decompress the pelvic organs using a wedge. Sandy does have access to a tilt table at home so time was spent educating on using the tilt table or the wedge to elevate her pelvic floor. Pt notes the wedge helps her to relax. Pt was also given a size xs dilator to begin working on self MFR for the pelvic floor. PT-OP-T Assessment and Plan Start: 02/22/21 11:10 Freq: Status: Active Protocol: Document 02/22/21 11:15 [facility] (Rec: 03/07/21 13:05 [facility] [id number]) Physical Therapy Assessment Assessment Summary Assessment Sandy tolerated EMG biofeedback today and was able to contract/relax without having her pelvic floor muscles guard more than at initial resting tone of 5uv. SHe did not experience pain and was able to work on a 5 second contraction wtih 10 second rest. Pt was given a HEP to start with 1 set per day monitoring her symptoms. She also has access to a tilt table so will be able to work on pelvic decompression at home. Physical Therapy Plan Frequency and Duration Frequency of Treatment 1x/Week Duration of Treatment 8 Plan of Care Start Date 02/15/21 Plan of Care End Date 05/16/21 Next Visit Focus/Plan Next Note Type Treatment Note Next Visit Plan continue progressing pelvic floor strength as well as reduce tone/guarding of the left lateral wall of the levator ani
--- NOTE | 2021-03-07 09:29 | PT.OIE ---
Current Diagnoses Maternal care for abnormality of pelvic organ, unspecified, unspecified trimester (02/22/21) Encounter for full-term uncomplicated delivery (02/22/21) Encounter for supervision of normal , unspecified, unspecified trimester (02/22/21) Past Medical History (Last Reviewed 01/06/21 @ 15:15 by Jose Dumont MD) Acne Arm fracture, left Chicken pox Shingles Spontaneous vaginal delivery UTI (urinary tract infection) Past Surgical History (Last Reviewed 01/06/21 @ 15:15 by Jose Dumont MD) Lamar teeth removed Visit Care Team Role Provider Type Maria Elena Padilla MD Attending Provider Physician Family Provider Primary Care Provider Referring Provider Specialty: Family Practice Address: [address] [place] [address], [facility] Email: [email or web address] Physical Therapy Initial Evaluation PT-OP-A Visit Information Start: 02/22/21 11:10 Freq: Status: Active Protocol: Document 02/15/21 16:59 [facility] (Rec: 03/06/21 18:05 [facility] [id number]) Out-Patient Physical Therapy Visit Information Visit Information Visit Type Initial Evaluation Visit Start Time 15:15 Visit Stop Time 16:00 Total Visit Minutes 45 Visit Number 1 Evaluation Information Evaluation Date 02/15/21 PT-OP-B Current Condition Start: 02/22/21 11:10 Freq: Status: Active Protocol: Document 02/15/21 16:59 [facility] (Rec: 03/06/21 18:05 [facility] [id number]) Current Condition History of Current Condition Onset Date 08/30/30 History of Current Condition Sandy reports she vaginally delivered her baby on . Her left leg has been numb since , mostly at her heel. When she was in labor her baby was more on the right side of her abdomen. Two weeks following her delivery she was experiencing continued pelvic pain and also began feeling c/o pelvic heaviness and pressure and felt like she had a bulge. She would feel like she was getting pinched in her pubic symphysis region close to her urethra. She was put on gabapentin and this has helped her symptoms. She reports it takes her a long time to start voiding. Leaking is more like a constant trickle. She also describes urgency with bowel movements. [place] is painful. PT-OP-I Pelvic Floor Start: 02/22/21 11:10 Freq: Status: Active Protocol: Document 02/15/21 16:59 [facility] (Rec: 03/06/21 18:05 [facility] [id number]) Pelvic Floor Assessment Urine Pelvic Floor Surgery No Urinary Symptoms Hesitancy,Falling Out Feeling/ Heavy Other Urinary Symptoms pt reports she has to wait for a long duration when attempting to void to be able to fully void Leakage Size Medium Leakage Cause Cough,Exercise,Lifting,Sneeze Other Leakage Causes continous leakage despite activity Leaks Per Day continous Voiding Frequency 8 Nocturia 3 Pelvic Clock Pelvic Clock 6-9 Guarding,Hypertonic,Tenderness Pelvic Clock Other pt is unable to contract at her perineum, there is a small amount of scar tissue present and tenderness with any perineal stretching Contraction Ability Voluntary Contraction Absent Voluntary Relaxation Absent Manual Muscle Testing Left 0 Manual Muscle Testing Right 0 Manual Muscle Testing Anterior 0 Manual Muscle Testing Posterior 1 PT-OP-Q Treatments Start: 02/22/21 11:10 Freq: Status: Active Protocol: Document 02/15/21 16:59 [facility] (Rec: 03/06/21 18:05 [facility] [id number]) Therapeutic Exercises Supine Exercises happy baby stretch Reps/Minutes hold 1-2 minutes modified pelvic floor squat Reps/Minutes hold 1-2 minutes supine ball squeeze Reps/Minutes x 10 reps hold 3-5 seconds and relax 10 seconds PT-OP-T Assessment and Plan Start: 02/22/21 11:10 Freq: Status: Active Protocol: Document 02/15/21 16:59 [facility] (Rec: 03/06/21 18:05 [facility] [id number]) Physical Therapy Assessment Rehab Potential Rehabilitation Potential Excellent Evaluation Complexity Number of Personal Factors/Comorbidities 0 Number of Body Systems Impaired 1-2 Clinical Presentation at Evaluation Stable Impairments Impairments Functional Activities,Pain, Soft Tissue Mobility,Strength, Tone Other Impairments urinary leakage and nocuria Goals 3 Impairment pelvic pain, pelvic pressure, and heaviness Short Term Goal (STG) Sandy is educated on stretches to help her relax her pelvic floor on the left side wall STG Duration 4 weeks Custodial Goal (LTG) There is no longer guarding of the left lateral wall of the levator ani with palpation and pain symtoms have decreased LTG Duration 8 weeks 2 Impairment Poor levator ani strength and facilitation Short Term Goal (STG) Sandy is able to facilitate all aspects of the levator ani and hold 3-5 seconds in supine STG Duration 4 weeks Cardiology Nurse Goal (LTG) Sandy is able to improve her MMT of the levator ani from 0/ 5 to 2/5 or better for imporved support to her pelvic organs LTG Duration 8 weeks 1 Impairment urinary incontinence that is happening throughout the day despite activity level. Custodial Goal (LTG) With improved strength of the levator ani Sandy is no longer experiencing urinary incontinence with ADL's throughout the day LTG Duration 8 weeks Assessment Summary Assessment Sandy is a 35 year old female who presents to physical therapy with pelvic pressure and pain as well as urinary incontinence. She is 6 months with her first baby. Sandy sustained a 1st degree laceration to the perineum with vaginal delivery . She reports that following delivery she felt continued left leg numbness especially into the heel that has stayed with her. A few weeks post she began feeling pelvic pressure and heaviness. This pressure has stayed with her. She describes painful intercourse. Sandy reports it takes her a long time to begin voiding and she has to sit for 5-10 minutes to relax prior to voiding. She is experiencing leaking throughout her day despite activity. With examination today I am unable to palpate a contraction of any of the aspects of the levator ani. The left wall from 3-6 on the pelvic clock is guarded and in spasm and is a source of pain for Sandy. She has some tenderness at the perineum but no gapping is present. There is a small amount of scar tissue present from the first degree tear. Sandy is unable to lift at her perineum today even with cueing. Sandy is a good candidate for PT. Our goals will be to decrease the guarding and spasm of the left wall of the levator ani with manual therapy techniques and stretches for the hips. We will initiate EMG bifeedback next visit to help with neuro re-education of the pelvic floor and Sandy may be a good candidate for NMES as well Physical Therapy Plan Frequency and Duration Frequency of Treatment 1x/Week Duration of Treatment 8 Plan of Care Start Date 02/15/21 Plan of Care End Date 05/16/21 Therapeutic Interventions Therapeutic Interventions Home Exercise Program,Manual Therapy,Neuromuscular Re- education,Patient/Caregiver Education,Self-Care/Home Management,Therapeutic Exercises Next Visit Focus/Plan Next Note Type Treatment Note Next Visit Plan review stretches given a Initial evaluation and begin EMG biofeedback for neuro re- education of the levator ani
--- NOTE | 2021-03-08 15:53 | PT.OTN ---
Current Diagnoses Maternal care for abnormality of pelvic organ, unspecified, unspecified trimester (03/08/21) Encounter for full-term uncomplicated delivery (03/08/21) Encounter for supervision of normal , unspecified, unspecified trimester (03/08/21) Physical Therapy Treatment Note PT-OP-A Visit Information Start: 02/22/21 11:10 Freq: Status: Active Protocol: Document 03/08/21 14:35 [facility] (Rec: 03/08/21 15:49 [facility] [id number]) Out-Patient Physical Therapy Visit Information Visit Information Visit Type Treatment Note Visit Start Time 14:35 Visit Stop Time 15:25 Total Visit Minutes 50 Visit Number 3 Evaluation Information Evaluation Date 02/15/21 PT-OP-B Current Condition Start: 02/22/21 11:10 Freq: Status: Active Protocol: Document 02/15/21 16:59 [facility] (Rec: 03/06/21 18:05 [facility] [id number]) Current Condition History of Current Condition Onset Date 08/30/30 History of Current Condition Sandy reports she vaginally delivered her baby on . Her left leg has been numb since , mostly at her heel. When she was in labor her baby was more on the right side of her abdomen. Two weeks following her delivery she was experiencing continued pelvic pain and also began feeling c/o pelvic heaviness and pressure and felt like she had a bulge. She would feel like she was getting pinched in her pubic symphysis region close to her urethra. She was put on gabapentin and this has helped her symptoms. She reports it takes her a long time to start voiding. Leaking is more like a constant trickle. She also describes urgency with bowel movements. [place] is painful. PT-OP-C Subjective Start: 02/22/21 11:10 Freq: Status: Active Protocol: Document 03/08/21 14:35 [facility] (Rec: 03/08/21 15:32 [facility] [id number]) OP-PT Subjective Patient Comments Patient Comments still feeling like the leaking has gotten worse. She thinks maybe she is feeling her pelvic floor more now. Her left leg is still numb. SHe will also see a Apr 06 IT still feels heavy towards the end of the day and when she is sitting on the floor playing with the baby she feels pressure. ITs not as uncomfortable standing in the shower now PT-OP-I Pelvic Floor Start: 02/22/21 11:10 Freq: Status: Active Protocol: Document 02/15/21 16:59 [facility] (Rec: 03/06/21 18:05 [facility] [id number]) Pelvic Floor Assessment Urine Pelvic Floor Surgery No Urinary Symptoms Hesitancy,Falling Out Feeling/ Heavy Other Urinary Symptoms pt reports she has to wait for a long duration when attempting to void to be able to fully void Leakage Size Medium Leakage Cause Cough,Exercise,Lifting,Sneeze Other Leakage Causes continous leakage despite activity Leaks Per Day continous Voiding Frequency 8 Nocturia 3 Pelvic Clock Pelvic Clock 6-9 Guarding,Hypertonic,Tenderness Pelvic Clock Other pt is unable to contract at her perineum, there is a small amount of scar tissue present and tenderness with any perineal stretching Contraction Ability Voluntary Contraction Absent Voluntary Relaxation Absent Manual Muscle Testing Left 0 Manual Muscle Testing Right 0 Manual Muscle Testing Anterior 0 Manual Muscle Testing Posterior 1 PT-OP-Q Treatments Start: 02/22/21 11:10 Freq: Status: Active Protocol: Document 03/08/21 14:35 [facility] (Rec: 03/08/21 15:32 [facility] [id number]) Therapeutic Exercises Supine Exercises pelvic floor long holds Reps/Minutes 5 sec on 10 sec Comments average of 5.4 uv 11.1 supine ball squeeze Reps/Minutes x 10 reps hold 3-5 seconds and relax 10 sec Comments with EMG biofeedback Manual Therapy Treatment Soft Tissue Mobilization MFR for the left lateral wall of the levator ani Body Position Supine Comments tenderness felt however the muscle spasm is much reduced Neuro Re-Education Treatment Other Activities 2 Details NMES Reps/Duration level 8 x 10 min Comments NMES was performed x 10 minutes for improved activation of the levator ani. Sandy could feel her lateral braxton contract but more on the right than the left. She was unable to feel the anterior or posterior pelvic floor 1 Details EMG biofeedback relaxed awareness Comments resting tone 3.5 uv PT-OP-T Assessment and Plan Start: 02/22/21 11:10 Freq: Status: Active Protocol: Document 03/08/21 14:35 [facility] (Rec: 03/08/21 15:49 [facility] [id number]) Physical Therapy Assessment Assessment Summary Assessment Sandy was better able contract her pelvic floor today with EMG biofeedback. I worked on MFR of the left levator ani and the muscle guarding and spasm are decreased. We initiated NMES today and Sandy was able to feel her lateral braxton of the levator ani right >Left Physical Therapy Plan Frequency and Duration Frequency of Treatment 1x/Week Duration of Treatment 8 Plan of Care Start Date 02/15/21 Plan of Care End Date 05/16/21 Therapeutic Interventions Therapeutic Interventions Home Exercise Program,Manual Therapy,Neuromuscular Re- education,Patient/Caregiver Education,Self-Care/Home Management,Therapeutic Exercises Next Visit Focus/Plan Next Note Type Treatment Note Next Visit Plan continue with EMG biofeedback and NMES, pt may benefit from a rental NMES until and was given paperwork for this today . Add in lateral hip stabilization and TA isolation
--- NOTE | 2021-04-03 14:02 | PT.OTN ---
Current Diagnoses Maternal care for abnormality of pelvic organ, unspecified, unspecified trimester (04/03/21) Encounter for full-term uncomplicated delivery (04/03/21) Encounter for supervision of normal , unspecified, unspecified trimester (04/03/21) Physical Therapy Treatment Note PT-OP-A Visit Information Start: 02/22/21 11:10 Freq: Status: Active Protocol: Document 04/03/21 09:01 [facility] (Rec: 04/03/21 09:30 [facility] [id number]) Out-Patient Physical Therapy Visit Information Visit Information Visit Type Treatment Note Visit Start Time 09:01 Visit Stop Time 09:46 Total Visit Minutes 45 Visit Number 4 PT-OP-B Current Condition Start: 02/22/21 11:10 Freq: Status: Active Protocol: Document 02/15/21 16:59 [facility] (Rec: 03/06/21 18:05 [facility] [id number]) Current Condition History of Current Condition Onset Date 08/30/30 History of Current Condition Sandy reports she vaginally delivered her baby on . Her left leg has been numb since , mostly at her heel. When she was in labor her baby was more on the right side of her abdomen. Two weeks following her delivery she was experiencing continued pelvic pain and also began feeling c/o pelvic heaviness and pressure and felt like she had a bulge. She would feel like she was getting pinched in her pubic symphysis region close to her urethra. She was put on gabapentin and this has helped her symptoms. She reports it takes her a long time to start voiding. Leaking is more like a constant trickle. She also describes urgency with bowel movements. [place] is painful. PT-OP-C Subjective Start: 02/22/21 11:10 Freq: Status: Active Protocol: Document 04/03/21 09:01 [facility] (Rec: 04/03/21 09:30 [facility] [id number]) OP-PT Subjective Patient Comments Patient Comments pt reports she is still leaking alot and the heaviness feels worse. It is still painful to have intercourse. Needs a new paper for the rental NMES unit for home. She has a pelvic MD appt on apr 06. Her foot is still numb, she bumped up to 900 gabapentin she feels really groggy on the medication. Patient Reported Progress Same PT-OP-I Pelvic Floor Start: 02/22/21 11:10 Freq: Status: Active Protocol: Document 04/03/21 09:32 [facility] (Rec: 04/03/21 09:52 [facility] [id number]) Pelvic Floor Assessment Pelvic Clock Pelvic Clock Other pt is unable to contract at her perineum, there is a small amount of scar tissue present and tenderness with any perineal stretching Contraction Ability Voluntary Contraction Absent Voluntary Relaxation Absent Manual Muscle Testing Left 0 Manual Muscle Testing Right 0 Manual Muscle Testing Anterior 0 Manual Muscle Testing Posterior 1 Comments Pelvic Floor Comments pt is still really tender on the left side, she also has some tenderness with bowel movements. PT-OP-Q Treatments Start: 02/22/21 11:10 Freq: Status: Active Protocol: Document 04/03/21 09:01 [facility] (Rec: 04/03/21 09:30 [facility] [id number]) Therapeutic Exercises Supine Exercises foam stretch Reps/Minutes 4 min hold Other Exercises Franci pose Reps/Minutes hold 1-2 minutes quadruped TA Reps/Minutes x 10 reps Manual Therapy Treatment Manual Techniques reassessment of the levator ani Body Position Hooklying Comments pt is still very guarded on the left lateral wall of the levator ani and she is very tender. She is guarded in all aspects of the pelvic floor but is the most tender on the right. It is very difficult for her to recruit her pelvic floor at all. Neuro Re-Education Treatment Other Activities 2 Details NMES Reps/Duration level 8 x 10 min Comments NMES was performed x 10 minutes for improved activation of the levator ani. Today we worked on the continous mode. PT-OP-T Assessment and Plan Start: 02/22/21 11:10 Freq: Status: Active Protocol: Document 04/03/21 09:00 [facility] (Rec: 04/03/21 14:02 [facility] [id number]) Physical Therapy Assessment Assessment Summary Assessment Sandy is still really having difficulty with any pelvic floor recruitment. She is a good candidate for a home NMES unit. We worked on TA recruitment today and pelvic decompression exercises as she has to sit leaning forward for her job. Physical Therapy Plan Frequency and Duration Frequency of Treatment 1x/Week Duration of Treatment 8 Plan of Care Start Date 02/15/21 Plan of Care End Date 05/16/21 Therapeutic Interventions Therapeutic Interventions Home Exercise Program,Manual Therapy,Neuromuscular Re- education,Patient/Caregiver Education,Self-Care/Home Management,Therapeutic Exercises Next Visit Focus/Plan Next Note Type Treatment Note Next Visit Plan continue with EMG biofeedback and NMES, pt may benefit from a rental NMES until and was given paperwork for this today . Add in lateral hip stabilization and TA isolation
--- NOTE | 2021-04-24 17:28 | PT.OTN ---
Current Diagnoses Maternal care for abnormality of pelvic organ, unspecified, unspecified trimester (04/24/21) Encounter for full-term uncomplicated delivery (04/24/21) Encounter for supervision of normal , unspecified, unspecified trimester (04/24/21) Physical Therapy Treatment Note PT-OP-A Visit Information Start: 02/22/21 11:10 Freq: Status: Active Protocol: Document 04/24/21 14:36 [facility] (Rec: 04/24/21 14:54 [facility] [id number]) Out-Patient Physical Therapy Visit Information Visit Information Visit Type Treatment Note Visit Start Time 14:30 Visit Stop Time 15:15 Total Visit Minutes 45 Visit Number 5 PT-OP-B Current Condition Start: 02/22/21 11:10 Freq: Status: Active Protocol: Document 02/15/21 16:59 [facility] (Rec: 03/06/21 18:05 [facility] [id number]) Current Condition History of Current Condition Onset Date 08/30/30 History of Current Condition Sandy reports she vaginally delivered her baby on . Her left leg has been numb since , mostly at her heel. When she was in labor her baby was more on the right side of her abdomen. Two weeks following her delivery she was experiencing continued pelvic pain and also began feeling c/o pelvic heaviness and pressure and felt like she had a bulge. She would feel like she was getting pinched in her pubic symphysis region close to her urethra. She was put on gabapentin and this has helped her symptoms. She reports it takes her a long time to start voiding. Leaking is more like a constant trickle. She also describes urgency with bowel movements. [place] is painful. PT-OP-C Subjective Start: 02/22/21 11:10 Freq: Status: Active Protocol: Document 04/24/21 14:36 [facility] (Rec: 04/24/21 14:54 [facility] [id number]) OP-PT Subjective Patient Comments Patient Comments pt was given estrogen cream. She did try running again and felt she had more pelvic pressure after running so is frustrated. PT had rolfing today and this felt really good to her. Pt also notes decreased leaking this week but had more difficulty fully emptying her bladder Patient Reported Progress Same PT-OP-I Pelvic Floor Start: 02/22/21 11:10 Freq: Status: Active Protocol: Document 04/03/21 09:32 [facility] (Rec: 04/03/21 09:52 [facility] [id number]) Pelvic Floor Assessment Pelvic Clock Pelvic Clock Other pt is unable to contract at her perineum, there is a small amount of scar tissue present and tenderness with any perineal stretching Contraction Ability Voluntary Contraction Absent Voluntary Relaxation Absent Manual Muscle Testing Left 0 Manual Muscle Testing Right 0 Manual Muscle Testing Anterior 0 Manual Muscle Testing Posterior 1 Comments Pelvic Floor Comments pt is still really tender on the left side, she also has some tenderness with bowel movements. PT-OP-Q Treatments Start: 02/22/21 11:10 Freq: Status: Active Protocol: Document 04/24/21 14:30 [facility] (Rec: 04/24/21 17:28 [facility] [id number]) Manual Therapy Treatment Soft Tissue Mobilization MFR for the left lateral wall of the levator ani Body Position Supine Comments decreased tenderness and overall the muscle spasm is reduced Neuro Re-Education Treatment Other Activities 2 Details NMES Reps/Duration level 8 x 10 min Comments NMES was performed x 10 minutes for improved activation of the levator ani. Today we worked 10 seconds on and 10 seconds off Self-Care/Home Management Treatment Education Patient Education Home Exercise Program Other Education pt was educated on using a wedge to elevate her pelvis after running, using poise impressa bladder supports with running and use of eliptical show dog trainer. PT-OP-T Assessment and Plan Start: 02/22/21 11:10 Freq: Status: Active Protocol: Document 04/24/21 14:30 [facility] (Rec: 04/24/21 17:28 [facility] [id number]) Physical Therapy Assessment Assessment Summary Assessment Sandy is not having the leaking as much right now however it is still really difficult for her to isolate a pelvic floor contraction. She did try running and this added pelvic pressure. She is also dealing with post depression and running helps with that. I suggested the poise impressa as well as elevating her pelvis following a fun to decrease swelling. I also suggested the eliptical show dog trainer or walking. She does really well with the NMES and has ordered this for home use. Sandy is also going to try estrogen cream which may be of great help to her as well. Physical Therapy Plan Frequency and Duration Frequency of Treatment 1x/Week Duration of Treatment 8 Plan of Care Start Date 02/15/21 Plan of Care End Date 05/16/21 Therapeutic Interventions Therapeutic Interventions Home Exercise Program,Manual Therapy,Neuromuscular Re- education,Patient/Caregiver Education,Self-Care/Home Management,Therapeutic Exercises Next Visit Focus/Plan Next Note Type Treatment Note Next Visit Plan continue working on pelvic floor facilitation and endurance of the pelvic floor
--- NOTE | 2021-05-01 16:00 | PT.OTN ---
Current Diagnoses Maternal care for abnormality of pelvic organ, unspecified, unspecified trimester (05/10/21) Encounter for full-term uncomplicated delivery (05/10/21) Encounter for supervision of normal , unspecified, unspecified trimester (05/10/21) Physical Therapy Treatment Note PT-OP-A Visit Information Start: 02/22/21 11:10 Freq: Status: Active Protocol: Document 05/01/21 16:00 [facility] (Rec: 05/01/21 17:44 [facility] [id number]) Out-Patient Physical Therapy Visit Information Visit Information Visit Type Treatment Note Visit Start Time 16:02 Visit Stop Time 16:47 Total Visit Minutes 45 Visit Number 6 PT-OP-B Current Condition Start: 02/22/21 11:10 Freq: Status: Active Protocol: Document 02/15/21 16:59 [facility] (Rec: 03/06/21 18:05 [facility] [id number]) Current Condition History of Current Condition Onset Date 08/30/30 History of Current Condition Sandy reports she vaginally delivered her baby on . Her left leg has been numb since , mostly at her heel. When she was in labor her baby was more on the right side of her abdomen. Two weeks following her delivery she was experiencing continued pelvic pain and also began feeling c/o pelvic heaviness and pressure and felt like she had a bulge. She would feel like she was getting pinched in her pubic symphysis region close to her urethra. She was put on gabapentin and this has helped her symptoms. She reports it takes her a long time to start voiding. Leaking is more like a constant trickle. She also describes urgency with bowel movements. [place] is painful. PT-OP-C Subjective Start: 02/22/21 11:10 Freq: Status: Active Protocol: Document 05/01/21 16:00 [facility] (Rec: 05/01/21 17:44 [facility] [id number]) OP-PT Subjective Patient Comments Patient Comments pt got her period on friday and had her NMES delivered. The pressure has been decreased and she has been able to run a mile PT-OP-I Pelvic Floor Start: 02/22/21 11:10 Freq: Status: Active Protocol: Document 04/03/21 09:32 [facility] (Rec: 04/03/21 09:52 [facility] [id number]) Pelvic Floor Assessment Pelvic Clock Pelvic Clock Other pt is unable to contract at her perineum, there is a small amount of scar tissue present and tenderness with any perineal stretching Contraction Ability Voluntary Contraction Absent Voluntary Relaxation Absent Manual Muscle Testing Left 0 Manual Muscle Testing Right 0 Manual Muscle Testing Anterior 0 Manual Muscle Testing Posterior 1 Comments Pelvic Floor Comments pt is still really tender on the left side, she also has some tenderness with bowel movements. PT-OP-Q Treatments Start: 02/22/21 11:10 Freq: Status: Active Protocol: Document 05/01/21 16:00 [facility] (Rec: 05/01/21 17:44 [facility] [id number]) Therapeutic Exercises Supine Exercises bridges with ball squeeze Reps/Minutes x 15 reps foam stretch Supine Exercise Name full and half foam roll stretch Reps/Minutes 5 min supine ball squeeze Reps/Minutes x 10 reps Other Exercises Franci pose Reps/Minutes 2 min and arms side to side quadruped TA Reps/Minutes x 10 reps Neuro Re-Education Treatment Other Activities 2 Details NMES Reps/Duration level 8 x 10 min Comments NMES was performed x 10 minutes for improved activation of the levator ani. Today we worked 10 seconds on and 10 seconds off PT-OP-T Assessment and Plan Start: 02/22/21 11:10 Freq: Status: Active Protocol: Document 05/01/21 15:59 [facility] (Rec: 05/10/21 16:00 [facility] [id number]) Physical Therapy Assessment Assessment Summary Assessment Sandy is doing a little better with decreased leaking and has been able to run a mile. SHe will start using her NMES unit for home Physical Therapy Plan Frequency and Duration Frequency of Treatment 1x/Week Duration of Treatment 8 Plan of Care Start Date 02/15/21 Plan of Care End Date 05/16/21 Next Visit Focus/Plan Next Note Type Progress Note Next Visit Plan continue working on pelvic floor facilitation and endurance of the pelvic floor
--- NOTE | 2021-05-10 17:00 | PT.OTN ---
Current Diagnoses Maternal care for abnormality of pelvic organ, unspecified, unspecified trimester (05/10/21) Encounter for full-term uncomplicated delivery (05/10/21) Encounter for supervision of normal , unspecified, unspecified trimester (05/10/21) Physical Therapy Treatment Note PT-OP-A Visit Information Start: 02/22/21 11:10 Freq: Status: Active Protocol: Document 05/10/21 16:01 [facility] (Rec: 05/10/21 16:26 [facility] [id number]) Out-Patient Physical Therapy Visit Information Visit Information Visit Type Treatment Note Visit Start Time 16:00 Visit Stop Time 16:45 Total Visit Minutes 45 Visit Number 7 PT-OP-B Current Condition Start: 02/22/21 11:10 Freq: Status: Active Protocol: Document 02/15/21 16:59 [facility] (Rec: 03/06/21 18:05 [facility] [id number]) Current Condition History of Current Condition Onset Date 08/30/30 History of Current Condition Sandy reports she vaginally delivered her baby on . Her left leg has been numb since , mostly at her heel. When she was in labor her baby was more on the right side of her abdomen. Two weeks following her delivery she was experiencing continued pelvic pain and also began feeling c/o pelvic heaviness and pressure and felt like she had a bulge. She would feel like she was getting pinched in her pubic symphysis region close to her urethra. She was put on gabapentin and this has helped her symptoms. She reports it takes her a long time to start voiding. Leaking is more like a constant trickle. She also describes urgency with bowel movements. [place] is painful. PT-OP-C Subjective Start: 02/22/21 11:10 Freq: Status: Active Protocol: Document 05/10/21 16:01 [facility] (Rec: 05/10/21 16:26 [facility] [id number]) OP-PT Subjective Patient Comments Patient Comments pt hasn't used the stim this week as her daughter hasn't been able to go to daycare. The rolfing seems like it has helped her foot sensation come back. Not as much pelvic pressure this week. She hasn' t been running this week. She has been using the estrogen cream PT-OP-I Pelvic Floor Start: 02/22/21 11:10 Freq: Status: Active Protocol: Document 05/10/21 16:26 [facility] (Rec: 05/10/21 16:27 [facility] [id number]) Pelvic Floor Assessment Contraction Ability Voluntary Contraction Absent Voluntary Relaxation Absent Manual Muscle Testing Left 1 Manual Muscle Testing Right 1 Manual Muscle Testing Anterior 1 Manual Muscle Testing Posterior 1 PT-OP-Q Treatments Start: 02/22/21 11:10 Freq: Status: Active Protocol: Document 05/10/21 16:01 [facility] (Rec: 05/10/21 16:26 [facility] [id number]) Therapeutic Exercises Supine Exercises roll outs with theraband Reps/Minutes 2 x 10 reps Comments resting tone dropped to 1.0 uv following contraction pelvic floor long holds Supine Exercise Name long holds Reps/Minutes 5 sec on 10 sec Comments average of 5.5 uv 13.2 uv pelvic decompression on the wedge Comments pt not feeling the pelvic pressure as much now so not needing the wedge Neuro Re-Education Treatment Other Activities 2 Details NMES Reps/Duration level 6 Comments pt notes she feels that she can feel her pelvic floor contraction better now. PT-OP-T Assessment and Plan Start: 02/22/21 11:10 Freq: Status: Active Protocol: Document 05/10/21 16:01 [facility] (Rec: 05/10/21 16:26 [facility] [id number]) Physical Therapy Assessment Goals 3 Impairment pelvic pain, pelvic pressure, and heaviness Short Term Goal (STG) Sandy is educated on stretches to help her relax her pelvic floor on the left side wall STG Duration 4 weeks Alf Goal (LTG) There is no longer guarding of the left lateral wall of the levator ani with palpation and pain symtoms have decreased LTG Duration 8 weeks 2 Impairment Poor levator ani strength and facilitation Short Term Goal (STG) Sandy is able to facilitate all aspects of the levator ani and hold 3-5 seconds in supine STG Duration 4 weeks Hydraulic Chair Assembler Goal (LTG) Sandy is able to improve her MMT of the levator ani from 0/ 5 to 2/5 or better for imporved support to her pelvic organs LTG Duration 8 weeks 1 Impairment urinary incontinence that is happening throughout the day despite activity level. Hydraulic Chair Assembler Goal (LTG) With improved strength of the levator ani Sandy is no longer experiencing urinary incontinence with ADL's throughout the day LTG Duration 8 weeks Assessment Summary Assessment Sandy was able to rest her pelvic floor to 1.0 uv which is great improvement. She was able to feel the NMES at a lower level today and will be using her unit for home. No pain with contractions and overall pelvic pressure is reduced. She is also not reporting the urinary incontinence. The goal is to improve her endurance of the pelvic floor to 10 second holds Physical Therapy Plan Frequency and Duration Frequency of Treatment 1x/Week Duration of Treatment 8 Plan of Care Start Date 02/15/21 Plan of Care End Date 05/16/21 Therapeutic Interventions Therapeutic Interventions Home Exercise Program,Manual Therapy,Neuromuscular Re- education,Patient/Caregiver Education,Self-Care/Home Management,Therapeutic Exercises Next Visit Focus/Plan Next Note Type Progress Note Next Visit Plan reassessment of pelvic floor strength with manual assessment, endurance training of the pelvic floor
--- NOTE | 2021-05-17 17:02 | PT.OTN ---
Current Diagnoses Maternal care for abnormality of pelvic organ, unspecified, unspecified trimester (05/17/21) Encounter for full-term uncomplicated delivery (05/17/21) Encounter for supervision of normal , unspecified, unspecified trimester (05/17/21) Physical Therapy Treatment Note PT-OP-A Visit Information Start: 02/22/21 11:10 Freq: Status: Active Protocol: Document 05/17/21 16:00 [facility] (Rec: 05/17/21 16:11 [facility] [id number]) Out-Patient Physical Therapy Visit Information Visit Information Visit Type Treatment Note Visit Start Time 16:00 Visit Stop Time 16:45 Total Visit Minutes 45 Visit Number 8 PT-OP-B Current Condition Start: 02/22/21 11:10 Freq: Status: Active Protocol: Document 02/15/21 16:59 [facility] (Rec: 03/06/21 18:05 [facility] [id number]) Current Condition History of Current Condition Onset Date 08/30/30 History of Current Condition Sandy reports she vaginally delivered her baby on . Her left leg has been numb since , mostly at her heel. When she was in labor her baby was more on the right side of her abdomen. Two weeks following her delivery she was experiencing continued pelvic pain and also began feeling c/o pelvic heaviness and pressure and felt like she had a bulge. She would feel like she was getting pinched in her pubic symphysis region close to her urethra. She was put on gabapentin and this has helped her symptoms. She reports it takes her a long time to start voiding. Leaking is more like a constant trickle. She also describes urgency with bowel movements. [place] is painful. PT-OP-C Subjective Start: 02/22/21 11:10 Freq: Status: Active Protocol: Document 05/17/21 16:00 [facility] (Rec: 05/17/21 16:11 [facility] [id number]) OP-PT Subjective Patient Comments Patient Comments notes the rolfing and the reiki has helped her low back and has decreased her heel numbness, the pressue is decreased and it doesn't take as long to go to go to the bathroom. She is using the NMES unit and feels her sensation is improving in her pelvic floor. Sandy reports she is no longer leaking and pelvic pressure is decreased overall Patient Reported Progress Improving PT-OP-I Pelvic Floor Start: 02/22/21 11:10 Freq: Status: Active Protocol: Document 05/10/21 16:26 [facility] (Rec: 05/10/21 16:27 [facility] [id number]) Pelvic Floor Assessment Contraction Ability Voluntary Contraction Absent Voluntary Relaxation Absent Manual Muscle Testing Left 1 Manual Muscle Testing Right 1 Manual Muscle Testing Anterior 1 Manual Muscle Testing Posterior 1 PT-OP-Q Treatments Start: 02/22/21 11:10 Freq: Status: Active Protocol: Document 05/17/21 16:00 [facility] (Rec: 05/17/21 16:21 [facility] [id number]) Therapeutic Exercises Supine Exercises piriformis stretch Reps/Minutes hold 1-2 minutes bridges with ball squeeze Reps/Minutes x 15 reps pelvic floor long holds Reps/Minutes 10 second hold rest 10 second Comments average 8.2 max 15.3 modified pelvic floor squat Reps/Minutes hold 1-2 minutes supine ball squeeze Reps/Minutes x 10 reps Sidelying Exercises clam shells Reps/Minutes 2 x 10 reps Standing Exercises dynamic hamstring stretch Reps/Minutes x 10 reps down dog Comments modified on the plinth PT-OP-T Assessment and Plan Start: 02/22/21 11:10 Freq: Status: Active Protocol: Document 05/17/21 16:00 [facility] (Rec: 05/17/21 16:11 [facility] [id number]) Physical Therapy Assessment Goals 3 Impairment pelvic pain, pelvic pressure, and heaviness Short Term Goal (STG) Sandy is educated on stretches to help her relax her pelvic floor on the left side wall GOAL MET STG Duration 4 weeks Product Marketing Engineer Goal (LTG) There is no longer guarding of the left lateral wall of the levator ani with palpation and pain symtoms have decreased good progress, pelvic floor tightness is present but guarding decreased overall LTG Duration 8 weeks 2 Impairment Poor levator ani strength and facilitation Short Term Goal (STG) Sandy is able to facilitate all aspects of the levator ani and hold 3-5 seconds in supine Goal met and Sandy is now able to hold 8-10 seconds in supine STG Duration 4 weeks Product Marketing Engineer Goal (LTG) Sandy is able to improve her MMT of the levator ani from 0/ 5 to 2/5 or better for imporved support to her pelvic organs good progress LTG Duration 8 weeks 1 Impairment urinary incontinence that is happening throughout the day despite activity level. Senior Care Goal (LTG) With improved strength of the levator ani Sandy is no longer experiencing urinary incontinence with ADL's throughout the day Goal met Assessment Summary Assessment Overall Sandy is doing better with slowing improving strength of the pelvic floor and reduced c/o pelvic pressure and heaviness. She has tried running and does note some pressure after running but this calms down. She is no longer experiencing urinary leakage. There is still tightness of the pelvic floor and we are working on both relaxation as well as contraction. Sandy would benefit from continued PT Physical Therapy Plan Frequency and Duration Frequency of Treatment 1x/Week Duration of Treatment 8 Plan of Care Start Date 05/17/21 Plan of Care End Date 07/26/21 Next Visit Focus/Plan Next Note Type Treatment Note Next Visit Plan continue progressing pelvic floor strength as well as relaxed awareness of the pelvic floor
--- NOTE | 2021-05-17 17:04 | PT.OPPOC ---
Physical, Occupational & Speech Therapy At [facility] Current Diagnoses Maternal care for abnormality of pelvic organ, unspecified, unspecified trimester (05/17/21) Encounter for full-term uncomplicated delivery (05/17/21) Encounter for supervision of normal , unspecified, unspecified trimester (05/17/21) Visit Care Team Role Provider Type Maria Elena Padilla MD Attending Provider Physician Family Provider Primary Care Provider Referring Provider Specialty: Family Practice Address: [address] [place] [address], [facility] Email: [email or web address] Plan Of Care PT-OP-T Assessment and Plan Start: 02/22/21 11:10 Freq: Status: Active Protocol: Document 05/17/21 16:00 [facility] (Rec: 05/17/21 16:11 [facility] [id number]) Physical Therapy Assessment Goals 3 Impairment pelvic pain, pelvic pressure, and heaviness Short Term Goal (STG) Sandy is educated on stretches to help her relax her pelvic floor on the left side wall GOAL MET STG Duration 4 weeks Medical Coordinator Pesticide Use Goal (LTG) There is no longer guarding of the left lateral wall of the levator ani with palpation and pain symtoms have decreased good progress, pelvic floor tightness is present but guarding decreased overall LTG Duration 8 weeks 2 Impairment Poor levator ani strength and facilitation Short Term Goal (STG) Sandy is able to facilitate all aspects of the levator ani and hold 3-5 seconds in supine Goal met and Sandy is now able to hold 8-10 seconds in supine STG Duration 4 weeks Medical Coordinator Pesticide Use Goal (LTG) Sandy is able to improve her MMT of the levator ani from 0/ 5 to 2/5 or better for imporved support to her pelvic organs good progress LTG Duration 8 weeks 1 Impairment urinary incontinence that is happening throughout the day despite activity level. Medical Coordinator Pesticide Use Goal (LTG) With improved strength of the levator ani Sandy is no longer experiencing urinary incontinence with ADL's throughout the day Goal met Assessment Summary Assessment Overall Sandy is doing better with slowing improving strength of the pelvic floor and reduced c/o pelvic pressure and heaviness. She has tried running and does note some pressure after running but this calms down. She is no longer experiencing urinary leakage. There is still tightness of the pelvic floor and we are working on both relaxation as well as contraction. Sandy would benefit from continued PT Physical Therapy Plan Frequency and Duration Frequency of Treatment 1x/Week Duration of Treatment 8 Plan of Care Start Date 05/17/21 Plan of Care End Date 07/26/21 Next Visit Focus/Plan Next Note Type Treatment Note Next Visit Plan continue progressing pelvic floor strength as well as relaxed awareness of the pelvic floor Plan of Care Dates Plan of Care Start Date 05/17/21 Plan of Care End Date 07/26/21 Electronically Signed by: Mago Regalado, PT 05/17/21 [id number] Please Sign and Return: I have reviewed this Plan of Care and certify that the skilled therapy services above are required to meet the patient?s needs. Physician Signature Date Printed Name and Credentials Clinical Instructor Signature Printed Name and Credentials
--- NOTE | 2021-05-17 17:06 | PT.OPPN ---
Current Diagnoses Maternal care for abnormality of pelvic organ, unspecified, unspecified trimester (05/17/21) Encounter for full-term uncomplicated delivery (05/17/21) Encounter for supervision of normal , unspecified, unspecified trimester (05/17/21) Physical Therapy Progress Note PT-OP-A Visit Information Start: 02/22/21 11:10 Freq: Status: Active Protocol: Document 05/17/21 16:00 [facility] (Rec: 05/17/21 16:11 [facility] [id number]) Out-Patient Physical Therapy Visit Information Visit Information Visit Type Treatment Note Visit Start Time 16:00 Visit Stop Time 16:45 Total Visit Minutes 45 Visit Number 8 PT-OP-B Current Condition Start: 02/22/21 11:10 Freq: Status: Active Protocol: Document 02/15/21 16:59 [facility] (Rec: 03/06/21 18:05 [facility] [id number]) Current Condition History of Current Condition Onset Date 08/30/30 History of Current Condition Sandy reports she vaginally delivered her baby on . Her left leg has been numb since , mostly at her heel. When she was in labor her baby was more on the right side of her abdomen. Two weeks following her delivery she was experiencing continued pelvic pain and also began feeling c/o pelvic heaviness and pressure and felt like she had a bulge. She would feel like she was getting pinched in her pubic symphysis region close to her urethra. She was put on gabapentin and this has helped her symptoms. She reports it takes her a long time to start voiding. Leaking is more like a constant trickle. She also describes urgency with bowel movements. [place] is painful. PT-OP-C Subjective Start: 02/22/21 11:10 Freq: Status: Active Protocol: Document 05/17/21 16:00 [facility] (Rec: 05/17/21 16:11 [facility] [id number]) OP-PT Subjective Patient Comments Patient Comments notes the rolfing and the reiki has helped her low back and has decreased her heel numbness, the pressue is decreased and it doesn't take as long to go to go to the bathroom. She is using the NMES unit and feels her sensation is improving in her pelvic floor. Sandy reports she is no longer leaking and pelvic pressure is decreased overall Patient Reported Progress Improving PT-OP-I Pelvic Floor Start: 02/22/21 11:10 Freq: Status: Active Protocol: Document 05/17/21 17:03 [facility] (Rec: 05/17/21 17:04 [facility] [id number]) Pelvic Floor Assessment Pelvic Clock Pelvic Clock 6-9 Tightness Pelvic Clock Other improved contraction of the pelvic floor, still tightness but guarding decreased Contraction Ability Voluntary Contraction Weak Voluntary Relaxation Weak Manual Muscle Testing Left 2 Manual Muscle Testing Right 2 Manual Muscle Testing Anterior 2 Manual Muscle Testing Posterior 2 PT-OP-T Assessment and Plan Start: 02/22/21 11:10 Freq: Status: Active Protocol: Document 05/17/21 16:00 [facility] (Rec: 05/17/21 16:11 [facility] [id number]) Physical Therapy Assessment Goals 3 Impairment pelvic pain, pelvic pressure, and heaviness Short Term Goal (STG) Sandy is educated on stretches to help her relax her pelvic floor on the left side wall GOAL MET STG Duration 4 weeks Locator Specialist Goal (LTG) There is no longer guarding of the left lateral wall of the levator ani with palpation and pain symtoms have decreased good progress, pelvic floor tightness is present but guarding decreased overall LTG Duration 8 weeks 2 Impairment Poor levator ani strength and facilitation Short Term Goal (STG) Sandy is able to facilitate all aspects of the levator ani and hold 3-5 seconds in supine Goal met and Sandy is now able to hold 8-10 seconds in supine STG Duration 4 weeks Locator Specialist Goal (LTG) Sandy is able to improve her MMT of the levator ani from 0/ 5 to 2/5 or better for imporved support to her pelvic organs good progress LTG Duration 8 weeks 1 Impairment urinary incontinence that is happening throughout the day despite activity level. Nursing Home Goal (LTG) With improved strength of the levator ani Sandy is no longer experiencing urinary incontinence with ADL's throughout the day Goal met Assessment Summary Assessment Overall Sandy is doing better with slowing improving strength of the pelvic floor and reduced c/o pelvic pressure and heaviness. She has tried running and does note some pressure after running but this calms down. She is no longer experiencing urinary leakage. There is still tightness of the pelvic floor and we are working on both relaxation as well as contraction. Sandy would benefit from continued PT Physical Therapy Plan Frequency and Duration Frequency of Treatment 1x/Week Duration of Treatment 8 Plan of Care Start Date 05/17/21 Plan of Care End Date 07/26/21 Next Visit Focus/Plan Next Note Type Treatment Note Next Visit Plan continue progressing pelvic floor strengh as well as relaxed awareness of the pelvic floor
--- NOTE | 2021-05-31 17:16 | PT.OTN ---
Current Diagnoses Maternal care for abnormality of pelvic organ, unspecified, unspecified trimester (05/31/21) Encounter for full-term uncomplicated delivery (05/31/21) Encounter for supervision of normal , unspecified, unspecified trimester (05/31/21) Physical Therapy Treatment Note PT-OP-A Visit Information Start: 02/22/21 11:10 Freq: Status: Active Protocol: Document 05/31/21 16:07 [facility] (Rec: 05/31/21 16:32 [facility] [id number]) Out-Patient Physical Therapy Visit Information Visit Information Visit Type Treatment Note Visit Start Time 16:07 Visit Stop Time 17:52 Total Visit Minutes 45 Visit Number 9 PT-OP-B Current Condition Start: 02/22/21 11:10 Freq: Status: Active Protocol: Document 02/15/21 16:59 [facility] (Rec: 03/06/21 18:05 [facility] [id number]) Current Condition History of Current Condition Onset Date 08/30/30 History of Current Condition Sandy reports she vaginally delivered her baby on . Her left leg has been numb since , mostly at her heel. When she was in labor her baby was more on the right side of her abdomen. Two weeks following her delivery she was experiencing continued pelvic pain and also began feeling c/o pelvic heaviness and pressure and felt like she had a bulge. She would feel like she was getting pinched in her pubic symphysis region close to her urethra. She was put on gabapentin and this has helped her symptoms. She reports it takes her a long time to start voiding. Leaking is more like a constant trickle. She also describes urgency with bowel movements. [place] is painful. PT-OP-C Subjective Start: 02/22/21 11:10 Freq: Status: Active Protocol: Document 05/31/21 16:07 [facility] (Rec: 05/31/21 16:32 [facility] [id number]) OP-PT Subjective Patient Comments Patient Comments pt states she got a treadmill and she ran for 20 min without stopping. She isn't feeling the pressure from her pelvic floor, she isn't really having as much pelvic pain but low back tightness. No complaints of leakage and last week had food poisening and was vomiting. No leaking or pelvic pressure with vomiting PT-OP-I Pelvic Floor Start: 02/22/21 11:10 Freq: Status: Active Protocol: Document 05/31/21 16:07 [facility] (Rec: 05/31/21 16:36 [facility] [id number]) Pelvic Floor Assessment Urine Pelvic Floor Surgery No Urinary Symptoms Hesitancy,Falling Out Feeling/ Heavy Other Urinary Symptoms pt reports she has to wait for a long duration when attempting to void to be able to fully void she is able to fully empty her bladder Leakage Size Medium Leakage Cause Cough,Exercise,Lifting,Sneeze Other Leakage Causes continous leakage despite activity Leaks Per Day continous Voiding Frequency 8 Nocturia 3 Pelvic Clock Pelvic Clock 6-9 Tightness Pelvic Clock Other improved contraction of the pelvic floor, still tightness but guarding decreased Contraction Ability Voluntary Contraction Weak Voluntary Relaxation Weak Manual Muscle Testing Left 2 Manual Muscle Testing Right 2 Manual Muscle Testing Anterior 2 Manual Muscle Testing Posterior 2 Comments Pelvic Floor Comments pt is still really tender on the left side, she also has some tenderness with bowel movements. As of 05/31/21 no tenderness with bowel movements PT-OP-Q Treatments Start: 02/22/21 11:10 Freq: Status: Active Protocol: Document 05/31/21 16:07 [facility] (Rec: 05/31/21 16:32 [facility] [id number]) Therapeutic Exercises Supine Exercises quick contractions Reps/Minutes x 10 reps Comments pt able to do now with 2.5 uv relaxation inbetween contractions pelvic floor long holds Reps/Minutes 10 second hold rest 10 second Comments average 8.2 max 15.3 supine ball squeeze Reps/Minutes x 10 reps Sidelying Exercises clam shells Reps/Minutes 2 x 10 reps Comments still shakey on B sides Other Exercises cat cow, sidebends, thread the needle Reps/Minutes x 5 reps each PT-OP-T Assessment and Plan Start: 02/22/21 11:10 Freq: Status: Active Protocol: Document 05/31/21 16:07 [facility] (Rec: 05/31/21 17:12 [facility] [id number]) Physical Therapy Assessment Goals 3 Short Term Goal (STG) GOAL MET Sports Management Professor Goal (LTG) Excellent progress, Sandy is no longer c/o pelvic pressure 2 Short Term Goal (STG) GOAL MET 1 Fpc Goal (LTG) GOAL MET Assessment Summary Assessment Sandy continues to make progress with her symptoms and she is showing both improved strength of the pelvic floor as well as decreased resting tone. I was able to add on quick contractions for the first time today with good tolerance Physical Therapy Plan Frequency and Duration Frequency of Treatment 1x/Week Duration of Treatment 8 Plan of Care Start Date 05/17/21 Plan of Care End Date 07/26/21 Therapeutic Interventions Therapeutic Interventions Home Exercise Program,Manual Therapy,Neuromuscular Re- education,Patient/Caregiver Education,Self-Care/Home Management,Therapeutic Exercises Next Visit Focus/Plan Next Note Type Treatment Note Next Visit Plan reassess resting tone of the pelvic floor and look at standing positions for pelvic floor strengthening, review low back stretches, core stabilization exercises
--- NOTE | 2021-06-14 10:29 | PT.OTN ---
Current Diagnoses Maternal care for abnormality of pelvic organ, unspecified, unspecified trimester (06/14/21) Encounter for full-term uncomplicated delivery (06/14/21) Encounter for supervision of normal , unspecified, unspecified trimester (06/14/21) Physical Therapy Treatment Note PT-OP-A Visit Information Start: 02/22/21 11:10 Freq: Status: Active Protocol: Document 06/14/21 16:07 [facility] (Rec: 06/14/21 16:36 [facility] [id number]) Out-Patient Physical Therapy Visit Information Visit Information Visit Type Treatment Note Visit Start Time 16:07 Visit Stop Time 16:48 Total Visit Minutes 40 Visit Number 10 Evaluation Information Evaluation Date 02/15/21 PT-OP-B Current Condition Start: 02/22/21 11:10 Freq: Status: Active Protocol: Document 02/15/21 16:59 [facility] (Rec: 03/06/21 18:05 [facility] [id number]) Current Condition History of Current Condition Onset Date 08/30/30 History of Current Condition Sandy reports she vaginally delivered her baby on . Her left leg has been numb since , mostly at her heel. When she was in labor her baby was more on the right side of her abdomen. Two weeks following her delivery she was experiencing continued pelvic pain and also began feeling c/o pelvic heaviness and pressure and felt like she had a bulge. She would feel like she was getting pinched in her pubic symphysis region close to her urethra. She was put on gabapentin and this has helped her symptoms. She reports it takes her a long time to start voiding. Leaking is more like a constant trickle. She also describes urgency with bowel movements. [place] is painful. PT-OP-C Subjective Start: 02/22/21 11:10 Freq: Status: Active Protocol: Document 06/14/21 16:07 [facility] (Rec: 07/10/21 10:28 [facility] [id number]) OP-PT Subjective Patient Comments Patient Comments Doing better over all, notes some pressure with sitting on the end of her treadmill and bending over PT-OP-I Pelvic Floor Start: 02/22/21 11:10 Freq: Status: Active Protocol: Document 05/31/21 16:07 [facility] (Rec: 05/31/21 16:36 [facility] [id number]) Pelvic Floor Assessment Urine Pelvic Floor Surgery No Urinary Symptoms Hesitancy,Falling Out Feeling/ Heavy Other Urinary Symptoms pt reports she has to wait for a long duration when attempting to void to be able to fully void she is able to fully empty her bladder Leakage Size Medium Leakage Cause Cough,Exercise,Lifting,Sneeze Other Leakage Causes continous leakage despite activity Leaks Per Day continous Voiding Frequency 8 Nocturia 3 Pelvic Clock Pelvic Clock 6-9 Tightness Pelvic Clock Other improved contraction of the pelvic floor, still tightness but guarding decreased Contraction Ability Voluntary Contraction Weak Voluntary Relaxation Weak Manual Muscle Testing Left 2 Manual Muscle Testing Right 2 Manual Muscle Testing Anterior 2 Manual Muscle Testing Posterior 2 Comments Pelvic Floor Comments pt is still really tender on the left side, she also has some tenderness with bowel movements. As of 05/31/21 no tenderness with bowel movements PT-OP-Q Treatments Start: 02/22/21 11:10 Freq: Status: Active Protocol: Document 06/14/21 16:07 [facility] (Rec: 06/14/21 16:48 [facility] [id number]) Therapeutic Exercises Supine Exercises EMG templates for coordination and eccentric control Side bilateral Reps/Minutes x 5 min quick contractions Reps/Minutes x 10 reps Comments pt able to do now with 2.5 uv relaxation inbetween contractions pelvic floor long holds Reps/Minutes 6.9 uv average and 15.9 max Comments able to bring down resting tone to below a 2 Manual Therapy Treatment Soft Tissue Mobilization MFR for the left lateral wall of the levator ani Body Location worked on both sides of levator ani with MFR and coccygeus Body Position Supine Comments pt is no longer guarded on the left lateral wall of the levator ani. She is guarded in the posterior braxton bilaterally but this is better than it has been. [place] is still uncomfortable PT-OP-T Assessment and Plan Start: 02/22/21 11:10 Freq: Status: Active Protocol: Document 06/14/21 16:07 [facility] (Rec: 06/14/21 16:36 [facility] [id number]) Physical Therapy Assessment Assessment Summary Assessment Sandy continues to make excellent progress and has decreased muscle guarding and spasm overall in her pelvic floor Physical Therapy Plan Frequency and Duration Frequency of Treatment 1x/Week Duration of Treatment 8 Plan of Care Start Date 05/17/21 Plan of Care End Date 07/26/21 Therapeutic Interventions Therapeutic Interventions Home Exercise Program,Manual Therapy,Neuromuscular Re- education,Patient/Caregiver Education,Self-Care/Home Management,Therapeutic Exercises Next Visit Focus/Plan Next Note Type Treatment Note Next Visit Plan pt notes some abdominal pinching pain that is worse with bending over. Able to run 4 miles on her treadmill the other day. She feels heaviness with sitting on her treadmill and feels pressure. Reassess this next visit
--- NOTE | 2021-07-10 12:06 | PT.OTN ---
Current Diagnoses Maternal care for abnormality of pelvic organ, unspecified, unspecified trimester (07/10/21) Encounter for full-term uncomplicated delivery (07/10/21) Encounter for supervision of normal , unspecified, unspecified trimester (07/10/21) Physical Therapy Treatment Note PT-OP-A Visit Information Start: 02/22/21 11:10 Freq: Status: Active Protocol: Document 07/10/21 11:19 [facility] (Rec: 07/10/21 12:01 [facility] [id number]) Out-Patient Physical Therapy Visit Information Visit Information Visit Type Treatment Note Visit Start Time 11:19 Visit Stop Time 12:00 Total Visit Minutes 41 Visit Number 11 PT-OP-B Current Condition Start: 02/22/21 11:10 Freq: Status: Active Protocol: Document 02/15/21 16:59 [facility] (Rec: 03/06/21 18:05 [facility] [id number]) Current Condition History of Current Condition Onset Date 08/30/30 History of Current Condition Sandy reports she vaginally delivered her baby on . Her left leg has been numb since , mostly at her heel. When she was in labor her baby was more on the right side of her abdomen. Two weeks following her delivery she was experiencing continued pelvic pain and also began feeling c/o pelvic heaviness and pressure and felt like she had a bulge. She would feel like she was getting pinched in her pubic symphysis region close to her urethra. She was put on gabapentin and this has helped her symptoms. She reports it takes her a long time to start voiding. Leaking is more like a constant trickle. She also describes urgency with bowel movements. [place] is painful. PT-OP-C Subjective Start: 02/22/21 11:10 Freq: Status: Active Protocol: Document 07/10/21 11:19 [facility] (Rec: 07/10/21 12:01 [facility] [id number]) OP-PT Subjective Patient Comments Patient Comments Has felt some abominal pain with bending over and she is wondering if it is her IUD when she bends over to pick something up. She will be scheduled for imaging. She has been able to run more on her treadmill. PT-OP-I Pelvic Floor Start: 02/22/21 11:10 Freq: Status: Active Protocol: Document 05/31/21 16:07 [facility] (Rec: 05/31/21 16:36 [facility] [id number]) Pelvic Floor Assessment Urine Pelvic Floor Surgery No Urinary Symptoms Hesitancy,Falling Out Feeling/ Heavy Other Urinary Symptoms pt reports she has to wait for a long duration when attempting to void to be able to fully void she is able to fully empty her bladder Leakage Size Medium Leakage Cause Cough,Exercise,Lifting,Sneeze Other Leakage Causes continous leakage despite activity Leaks Per Day continous Voiding Frequency 8 Nocturia 3 Pelvic Clock Pelvic Clock 6-9 Tightness Pelvic Clock Other improved contraction of the pelvic floor, still tightness but guarding decreased Contraction Ability Voluntary Contraction Weak Voluntary Relaxation Weak Manual Muscle Testing Left 2 Manual Muscle Testing Right 2 Manual Muscle Testing Anterior 2 Manual Muscle Testing Posterior 2 Comments Pelvic Floor Comments pt is still really tender on the left side, she also has some tenderness with bowel movements. As of 05/31/21 no tenderness with bowel movements PT-OP-Q Treatments Start: 02/22/21 11:10 Freq: Status: Active Protocol: Document 07/10/21 11:19 [facility] (Rec: 07/10/21 12:01 [facility] [id number]) Therapeutic Exercises Supine Exercises EMG templates for coordination and eccentric control Side bilateral Reps/Minutes x 5 min quick contractions Reps/Minutes x 10 reps Comments pt able to do now with 2.5 uv relaxation inbetween contractions pelvic floor long holds Reps/Minutes 10.4 uv average 14.8 Sidelying Exercises clam shells Reps/Minutes 2 x 10 reps Comments still shakey on R side Other Exercises 1/2 kneeling iliopsoas stretch Reps/Minutes B hold 1-2 min PT-OP-T Assessment and Plan Start: 02/22/21 11:10 Freq: Status: Active Protocol: Document 07/10/21 11:19 [facility] (Rec: 07/10/21 12:01 [facility] [id number]) Physical Therapy Assessment Goals 3 Impairment pelvic pain, pelvic pressure, and heaviness Short Term Goal (STG) GOAL MET Travel Assistant Goal (LTG) Excellent progress, Sandy is no longer c/o pelvic pressure 2 Impairment Poor levator ani strength and facilitation Short Term Goal (STG) GOAL MET 1 Impairment urinary incontinence that is happening throughout the day despite activity level. Residential Goal (LTG) GOAL MET Progress Towards Goals Progress Towards Goals Goals Met Assessment Summary Assessment Sandy has met all established goals for pelvic health PT. She is following up with a abdominal pain she has with bending forward actvities on the right with Dr. Padilla. At this time she is independent with a HEP and will be discharged from PT Physical Therapy Plan Discharge Physical Therapy Discharge Reasons Goals Met
--- NOTE | 2022-10-09 11:46 | PT.OPDS ---
Current Diagnoses Maternal care for abnormality of pelvic organ, unspecified, unspecified trimester (07/10/21) Encounter for full-term uncomplicated delivery (07/10/21) Visit Care Team Role Provider Type Maria Elena Padilla MD Attending Provider Physician Family Provider Primary Care Provider Referring Provider Specialty: Family Practice Address: [address] [place] [address], [id number] Email: [email or web address] Visit Number Visit Number 11 Discharge Summary PT-OP-B Current Condition Start: 02/22/21 11:10 Freq: Status: Active Protocol: Document 02/15/21 16:59 [facility] (Rec: 03/06/21 18:05 [facility] [id number]) Current Condition History of Current Condition Onset Date 08/30/30 History of Current Condition Sandy reports she vaginally delivered her baby on . Her left leg has been numb since , mostly at her heel. When she was in labor her baby was more on the right side of her abdomen. Two weeks following her delivery she was experiencing continued pelvic pain and also began feeling c/o pelvic heaviness and pressure and felt like she had a bulge. She would feel like she was getting pinched in her pubic symphysis region close to her urethra. She was put on gabapentin and this has helped her symptoms. She reports it takes her a long time to start voiding. Leaking is more like a constant trickle. She also describes urgency with bowel movements. [place] is painful. PT-OP-C Subjective Start: 02/22/21 11:10 Freq: Status: Active Protocol: Document 07/10/21 11:19 [facility] (Rec: 07/10/21 12:01 [facility] [id number]) OP-PT Subjective Patient Comments Patient Comments Has felt some abominal pain with bending over and she is wondering if it is her IUD when she bends over to pick something up. She will be scheduled for imaging. She has been able to run more on her treadmill. PT-OP-I Pelvic Floor Start: 02/22/21 11:10 Freq: Status: Active Protocol: Document 05/31/21 16:07 [facility] (Rec: 05/31/21 16:36 [facility] [id number]) Pelvic Floor Assessment Urine Pelvic Floor Surgery No Urinary Symptoms Hesitancy,Falling Out Feeling/ Heavy Other Urinary Symptoms pt reports she has to wait for a long duration when attempting to void to be able to fully void she is able to fully empty her bladder Leakage Size Medium Leakage Cause Cough,Exercise,Lifting,Sneeze Other Leakage Causes continous leakage despite activity Leaks Per Day continous Voiding Frequency 8 Nocturia 3 Pelvic Clock Pelvic Clock 6-9 Tightness Pelvic Clock Other improved contraction of the pelvic floor, still tightness but guarding decreased Contraction Ability Voluntary Contraction Weak Voluntary Relaxation Weak Manual Muscle Testing Left 2 Manual Muscle Testing Right 2 Manual Muscle Testing Anterior 2 Manual Muscle Testing Posterior 2 Comments Pelvic Floor Comments pt is still really tender on the left side, she also has some tenderness with bowel movements. As of 05/31/21 no tenderness with bowel movements PT-OP-T Assessment and Plan Start: 02/22/21 11:10 Freq: Status: Active Protocol: Document 10/09/22 11:45 [facility] (Rec: 10/09/22 11:45 [facility] [id number]) Physical Therapy Assessment Assessment Summary Assessment pt will be discontinued at this time as she is returning to PT with a new referral Physical Therapy Plan Discharge Physical Therapy Discharge Reasons Change in Medical Status
== END ==
LOC: PHYS 02-15 15:07
PROVIDERS: Family Provider Family Medicine; PCP Family Medicine; Referring Provider Family Medicine; Visit Provider Family Medicine
DX: O80 Encounter for full-term uncomplicated delivery (principal); O34.90 Maternal care for abnormality of pelvic organ, unspecified, unspecified trimester
CPT/HCPCS: 97110; 97112; 97140; 97161; 97535

== ENCOUNTER → 2023-09-13 10:34 | Outpatient (CLI) | payer OTHER, SELFPAY ==
[2023-09-13 11:19] LABS: Alanine Aminotransferase 21 IU/L (<35); Albumin 4.4 g/dL (3.5-5.0); Albumin Globulin Ratio 1.7 (1.0-2.8); Alkaline Phosphatase 45 U/L (38-126); Aspartate Aminotransferase 31 IU/L (14-36); BUN Creatinine Ratio 16.9 (6-22); Bilirubin Total 1.3 mg/dL (0.2-1.3); Blood Urea Nitrogen 15 mg/dL (7-17); Calcium 9.1 mg/dL (8.4-10.2); Carbon Dioxide 25 mmol/L (22-32); Chloride 105 mmol/L (98-107); Cholesterol 179 mg/dL (140-199); Estimated Glomerular Filt Rate > 60 mL/min (>60); Globulin 2.6 g/dL (1.7-4.1); Glucose 88 mg/dL (70-100); HDL Cholesterol 67 mg/dL (40-60); HEMOLYSIS < 15 (0-50); LDL Cholesterol Calculated 99 mg/dL (<100); Potassium 4.1 mmol/L (3.4-5.1); Sodium 135 mmol/L (137-145); Triglycerides 67 mg/dL (35-150)
[2023-09-13 11:50] LABS: Thyroid Stimulating Hormone 1.13 uIU/mL (0.47-4.68)
== END ==
LOC: LAB 10:35
PROVIDERS: Family Provider Family Medicine; PCP Family Medicine; Referring Provider Family Medicine; Visit Provider Family Medicine
DX: Z13.220 Encounter for screening for lipoid disorders (principal); R01.1 Cardiac murmur, unspecified; Z13.1 Encounter for screening for diabetes mellitus; Z13.29 Encounter for screening for other suspected endocrine disorder
CPT/HCPCS: 36415; 80053; 80061; 83036; 84443

== ENCOUNTER → 2023-09-22 12:12 | Outpatient (CLI) | payer OTHER, SELFPAY ==
[2023-09-22 13:30] LABS: Free T3, Triiodothyronine Free 3.49 pg/mL (2.77-5.27)
[2023-09-23 19:36] LABS: Anti Thyroglobulin Antibody <1.0 IU/mL (0.0-0.9); Thyroid Peroxidase Antibodies <9 IU/mL (0-34)
== END ==
PROVIDERS: Family Provider Family Medicine; PCP Family Medicine; Referring Provider Family Medicine; Visit Provider Family Medicine
DX: E66.9 Obesity, unspecified (principal)
CPT/HCPCS: 36415; 82672; 84402; 84403; 84439; 84481; 86376; 86800

== ENCOUNTER → 2023-11-06 16:16 | Outpatient (CLI) | payer OTHER, SELFPAY ==
--- NOTE | 2023-11-06 16:17 | DI.MRI.S_ITS ---
PROCEDURE: MR KNEE RT WO CON INDICATIONS: PAIN JOINT RT KNEE, RT MENISCUS TEAR TECHNIQUE: Noncontrast sagittal PD fast spin echo and T2 fast spin echo with fat saturation, sagittal 3-D FLASH with fat saturation; coronal T1 spin echo and PD fast spin echo with fat saturation, and axial PD fast spin echo with fat saturation through the knee. COMPARISON: [facility] Vernon Perry, CR, XR KNEE ARTHRITIC SERIES RT, 10/06/2023, 17:01. FINDINGS: Image quality: Excellent. Bones: There is a T1 linear hypointense focus stretching across the medial tibial plateau from the anterior to the posterior cortex without articular surface depression (11/16-) with associated marrow edema. Joints: There is no significant knee joint effusion. There is no significant knee osteoarthritis. Odom's cyst: None. Menisci: The medial meniscus is normal. The lateral meniscus is normal. The posterior root attachments are normal. Cruciate ligaments: The anterior cruciate ligament is normal. The posterior cruciate ligament is normal. Collateral ligaments: The medial collateral ligament complex is normal. The lateral collateral ligament complex is normal. Popliteus Muscle/Tendon: The popliteus muscle and tendon are normal. Extensor mechanism: The quadriceps tendon is normal. The patellar tendon is normal. The medial and lateral patellar retinacular attachments are normal. Articular cartilage: Mild surface fibrillation is present at the weight-bearing lateral tibial plateau (10/21). Delaminating fissures are present at the medial and lateral patellar ridges (5/11). Other: Mild infrapatellar subcutaneous edema is present, likely reactive. IMPRESSION: 1. Nondisplaced medial tibial plateau fracture with reactive marrow edema and without any significant articular surface depression. 2. No MR evidence of a meniscal tear. 3. Patellar chondromalacia. Dictated by: Haile Valentine M.D. on 11/07/2023 at 16:00 Approved by: Haile Valentine M.D. on 11/07/2023 at 16:15
== END ==
PROVIDERS: Family Provider Family Medicine; PCP Family Medicine; Referring Provider Orthopaedic Surgery; Visit Provider Orthopaedic Surgery
DX: S82.144A Nondisplaced bicondylar fracture of right tibia, initial encounter for closed fracture (principal); M22.41 Chondromalacia patellae, right knee; M25.561 Pain in right knee
CPT/HCPCS: 73721

== ENCOUNTER → 2023-11-08 08:17 | Outpatient (CLI) | payer OTHER, SELFPAY ==
[2023-11-08 09:13] LABS: Add Manual Diff / Slide Review NO; Basophils Absolute Auto 0 /uL (0-100); Basophils Percent Auto 1.1 % (0-2); Eosinophils Absolute Auto 100 /uL (0-450); Eosinophils Percent Auto 2.4 % (2-4); Hematocrit 38.5 % (36-46); Hemoglobin 13.2 g/dL (12.0-16.0); Lymphocytes Absolute Auto 1400 /uL (1100-4500); Lymphocytes Percent Auto 36.8 % (25-40); Mean Corpuscular HGB Conc 34.2 % (30-36); Mean Corpuscular Hemoglobin 31.5 PG (26-34); Mean Corpuscular Volume 92.2 fL (80-100); Monocytes Absolute Auto 300 /uL (0-900); Monocytes Percent Auto 7.6 % (3-14); Neutrophils Absolute Auto 2000 /uL (1500-7000); Neutrophils Percent Auto 52.1 % (50-75); Platelet Count 206 X10^3/uL (150-400); Red Blood Cell Count 4.18 X10^6/uL (4.0-5.2); Red Cell Distribution Width 12.6 % (11.6-14.8); White Blood Cell Count 3.9 X10^3/uL (4.5-11.0)
[2023-11-08 09:27] LABS: Alanine Aminotransferase 25 IU/L (<35); Albumin 4.3 g/dL (3.5-5.0); Albumin Globulin Ratio 1.5 (1.0-2.8); Alkaline Phosphatase 40 U/L (38-126); Aspartate Aminotransferase 30 IU/L (14-36); BUN Creatinine Ratio 13.6 (6-22); Bilirubin Total 1.1 mg/dL (0.2-1.3); Blood Urea Nitrogen 12 mg/dL (7-17); Carbon Dioxide 23 mmol/L (22-32); Chloride 106 mmol/L (98-107); Cholesterol 170 mg/dL (140-199); Estimated Glomerular Filt Rate > 60 mL/min (>60); Globulin 2.9 g/dL (1.7-4.1); Glucose 90 mg/dL (70-100); HDL Cholesterol 53 mg/dL (40-60); HEMOLYSIS < 15 (0-50); LDL Cholesterol Calculated 103 mg/dL (<100); Potassium 4.1 mmol/L (3.4-5.1); Sodium 136 mmol/L (137-145); Total Protein 7.2 g/dL (6.3-8.2); Triglycerides 72 mg/dL (35-150)
[2023-11-08 09:44] LABS: Follicle Stimulating Hormone 3.22 mIU/mL; Luteinizing Hormone 6.66 mIU/mL
[2023-11-08 09:59] LABS: Estradiol, Total 69.6 pg/mL
[2023-11-09 06:12] LABS: Sex Hormone Binding Globulin 63.8 nmol/L (24.6-122.0)
[2023-11-11 07:41] LABS: Insulin Level Total 2.7 uIU/mL (2.6-24.9)
== END ==
LOC: LAB 08:18
PROVIDERS: Family Provider Family Medicine; PCP Family Medicine; Referring Provider Family Medicine; Visit Provider Family Medicine
DX: F33.2 Major depressive disorder, recurrent severe without psychotic features (principal); N95.1 Menopausal and female climacteric states; E27.9 Disorder of adrenal gland, unspecified; N95.9 Unspecified menopausal and perimenopausal disorder; E78.5 Hyperlipidemia, unspecified
CPT/HCPCS: 36415; 80053; 80061; 82627; 82670; 83001; 83002; 83525; 84144; 84270; 84402; 84403; 85025